=== PATIENT | female | born 1940 | race Caucasian/White ===

== ENCOUNTER 2019-12-20 11:39 | Emergency (ER) | payer MEDICARE, BC, SELFPAY ==
--- NOTE | ~2019-12-20 | XR_ITS ---
EXAMINATION: XR forearm RT 2V DATE: 12/20/2019 13:14 INDICATION: Right forearm pain and swelling post fall TECHNIQUE: AP an lateral views of the right forearm were obtained. COMPARISON: none FINDINGS: Bone alignment is normal. Diffuse osteopenia. No fracture. Lucencies at the lunate, head of the first metacarpal and radial base of the second proximal phalanx could represent degenerative subtle articu lar cystic change or erosions in the setting of an inflammatory arthritis. Mild osteoarthritis at the right wrist, radial aspect of the carpus and several metacarpophalangeal and interphalangeal joints. Soft tissue swelling along the dorsum of the forearm. No right elbow joint effusion. IMPRESSION: 1. No acute osseous abnormality. Reviewed, dictated and finalized at location A.
--- NOTE | ~2019-12-20 | XR_ITS ---
EXAMINATION: XR chest 2V DATE: 12/20/2019 13:14 INDICATION: Fall TECHNIQUE: PA and lateral views of the chest were obtained. COMPARISON: Chest radiograph dated 03/18/[address] dated 11/07/2017 FINDINGS: Mild biapical pleural-parenchymal scarring. No pneumonia, pulmonary edema, pleural effusion or pneumo thorax. Mild cardiomegaly. Large hiatal hernia. Severe thoracolumbar spondylosis. IMPRESSION: 1. No acute cardiopulmonary disease. 2. Cardiomegaly. 3. Large hiatal hernia. Reviewed, dictated and finalized at location A.
--- NOTE | ~2019-12-20 | CT_ITS ---
EXAMINATION: CT brain wo con DATE: 12/20/2019 13:24 INDICATION: Gait disturbance TECHNIQUE: Computed tomography (CT) of the head was performed without intravenous contrast. Sagittal and coronal reconstructions were performed. The mA was adjusted according to patient size. Iterative reconstruction technique was employed. The dose-length product was 605.33 mGy-cm. COMPARISON: head CT dated 05/29/2018 FINDINGS: No acute intracranial hemorrhage, acute infarction or abnormal extra axial fluid collection. Ventricl es are normal and symmetric. No mass/mass effect. There is mild scattered white matter hypoattenuatio n consistent with chronic small vessel ischemic disease. Changes of bilateral intraocular lens replac ement. The orbits and mastoid air cells are normal. Mild mucosal thickening in the left sphenoid sinu s. IMPRESSION: 1. No acute intracranial process. 2. Mild scattered white matter hypoattenuation consistent with chronic small vessel ischemic disease. Reviewed, dictated and finalized at location A. IMPRESSION: 1. No acute intracranial process. 2. Mild scattered white matter hypoattenuation consistent with chronic small ve ssel ischemic disease.
[2019-12-20 11:47] VITALS: BP 157/94; PULSE 100; RESP 20; TEMP 37; O2SAT 100
[2019-12-20 13:30] VITALS: PULSE 75; RESP 20; O2SAT 95
--- NOTE | 2019-12-20 13:33 | ED.WOUNDLAC ---
HPI - Wound/Laceration General Chief Complaint: Wound/Laceration Stated Complaint: Laceration Right Arm Time Seen by Provider: 12/20/19 11:58 Source: patient Mode of arrival: ambulatory Limitations: no limitations History of Present Illness HPI narrative: This is a 78 year old female that presents to the ER for a fall today. Reports she was walking up the steps and felt off balance. Reports she fell to her right into her flower bed. Reports she hit her right arm on a block. Reports a laceration to the forearm. Otherwise has no complaints. Denies fever, chest pain, shortness of breath, hitting her head, loss of consciousness, vision changes, vomiting, weakness, or numbness. Related Data Home Medications Medication Instructions Recorded Confirmed alendronate 70 mg tablet See Rx Instructions .ROUTE .COMPLEX 09/13/19 alprazolam 0.5 mg tablet 0.5 mg PO DAILY PRN 09/13/19 aspirin 81 mg tablet,delayed 81 mg PO DAILY 09/13/19 release calcium 600 mg-D3 800 unit-mag11 1 tablet PO DAILY 09/13/19 50 fn-oiat-kegzhj-alvin-s.borat tablet cholecalciferol (vitamin D3) 125 5,000 unit PO DAILY 09/13/19 mcg (5,000 unit) tablet duloxetine 60 mg capsule,delayed 60 mg PO DAILY 09/13/19 release levalbuterol tartrate 45 2 puff INHALATION Q6H gm 09/13/19 mcg/actuation aerosol inhaler magnesium 250 mg tablet See Rx Instructions .ROUTE .COMPLEX 09/13/19 mometasone 50 mcg/actuation nasal 2 spray NASAL BID gm 09/13/19 spray potassium chloride 20 mEq 20 meq PO .daily with food tablet 09/13/19 tablet,extended release salsalate 500 mg tablet 1,000 mg PO BID 09/13/19 theophylline 300 mg See Rx Instructions .ROUTE .COMPLEX 09/13/19 tablet,extended release,12 hr trospium 20 mg tablet 20 mg PO .COMPLEX tablet 09/13/19 Allergies Allergy/AdvReac Type Severity Reaction Status Date / Time ibuprofen Allergy Unknown Other Verified 12/20/19 11:53 Influenza Virus Vaccines Allergy Unknown Other Verified 12/20/19 11:53 Chlorophyll Allergy Mild RASH AND Uncoded 12/20/19 11:53 SWELLING Review of Systems Review of Systems: Narrative: CONSTITUTIONAL: Denies fever EYES: Denies visual changes ENT: Denies rhinorrhea, congestion, sore throat CARDIOVASCULAR: Denies chest pain, palpitations RESPIRATORY: Denies cough or dyspnea. GASTROINTESTINAL: Denies abdominal pain, nausea, vomiting GENITOURINARY: Denies dysuria or hematuria. SKIN: Reports laceration MUSCULOSKELETAL: Denies joint pain, or myalgia. NEUROLOGIC: Denies headache, numbness, or weakness. All systems reviewed & are unremarkable except as noted in HPI and below PMFSH Social History Social History Smoking status: Former smoker Second hand tobacco smoke exposure: No Smoking end date: 08/04/99 Alcohol intake: current Exam Narrative: Exam Narrative: GENERAL: Elderly, well-nourished, and in no acute distress. HEAD: Normocephalic, atraumatic. EYES: PERRLA and EOMI. ENT: Nares clear, no rhinorrhea or epistaxis. Mucous membranes moist. Oropharynx without tonsillar hypertrophy exudate or other lesions. Bilateral TMs pearly medina non-bulging NECK: Supple. No adenopathy or masses. No midline spinal tenderness CHEST: Clear to auscultation. No respiratory distress. No wheezes rales or rhonchi HEART: Regular rate and rhythm. No murmur heard. Normal peripheral pulses. ABDOMEN: Soft, nontender, nondistended, normal active bowel sounds. EXTREMITIES: Normal range of motion. No obvious deformity. Mild bruising and swelling to the right forearm with small overlying flap, superficial skin tear BACK: No midline spinal tenderness SKIN: Warm, dry, no rash. NEURO: No focal deficits. Alert and oriented x3. Cranial nerves II through XII grossly intact. Normal sduzaz-ax-whke. Normal mcjd-yg-[id number] PSYCH: Normal mood and affect Course Vital Signs Vital signs: Vital Signs Temperature 98.6 F 12/20/19 11:47 Pulse Rate 100 12/20/19 11:47 Respiratory Rate 20 12/20/19 11:
[2019-12-20 14:01] LABS: Basophils Absolute Auto 0.1 K/mm3 (0.0-0.1); Basophils Percent Auto 1.2 % (0.2-1.2); Eosinophils Absolute Auto 0.3 K/mm3 (0-0.3); Eosinophils Percent Auto 3.6 % (0-4.4); Hematocrit 39.8 % (37.0-47.0); Hemoglobin 12.8 g/dL (12.0-15.0); Immature Granulocyte Absolute 0.01 K/mm3 (0.00-0.031); Immature Granulocyte Percent A 0.1 % (0-0.5); Lymphocytes Absolute Auto 2.01 K/mm3 (0.9-3.2); Lymphocytes Percent Auto 26.5 % (18.3-44.2); Mean Corpuscular HGB Conc 32.2 g/dl (32-36); Mean Corpuscular Hemoglobin 27.6 pg (26-34); Mean Corpuscular Volume 85.8 fl (80-100); Mean Platelet Volume 10.9 fl (7.4-10.4); Monocytes Absolute Auto 0.6 K/mm3 (0.1-0.6); Monocytes Percent Auto 8.2 % (2.6-8.5); Neutrophils Absolute Auto 4.6 K/mm3 (1.3-6.7); Neutrophils Percent Auto 60.4 % (45.5-73.1); Platelet Count Result 250 k/mm3 (150-375); Red Blood Count 4.64 M/mm3 (4.2-5.4); White Blood Count 7.6 K/mm3 (4.5-10.0)
[2019-12-20 14:13] LABS: Alanine Aminotransferase 13 U/L (4-35); Albumin Level 4.4 g/dL (3.5-5.1); Alkaline Phosphatase 54 U/L (38-126); Aspartate Amino Transferase 28 U/L (14-36); Bilirubin,Total 0.3 mg/dL (0.2-1.3); Blood Urea Nitrogen 18 mg/dL (7-17); Calcium 9.8 mg/dL (8.4-10.2); Carbon Dioxide 37 mmol/L (22-30); Chloride 97 mmol/L (98-107); Estimated Glomerular Filt Rate 43; Glucose 102 mg/dL (65-105); Potassium 3.2 mmol/L (3.4-5.0); Sodium 139 mmol/L (137-145)
[2019-12-20 15:00] VITALS: PULSE 76; RESP 20; O2SAT 96
[2019-12-20 15:41] LABS: Add Urine Microscopic? YES; Appearance Urine Clear (Clear); Bilirubin Urine Negative (Negative); Blood Urine Negative (Negative); Color Urine Yellow (Yellow); Glucose Urine UA Negative (Negative); Ketones Urine Negative (Negative); Leukocyte Esterase Ur Negative LEU/UL (Negative); Mucus Urine Rare /lpf; Nitrate Urine Negative (Negative); Protein Urine Negative (Negative); Specific Grav Ur 1.012 (1.001-1.035); Squamous Epithelial Cell Urine Rare /hpf (Few); Urobilinogen Urine Negative mg/dL (<2.0); WBC Urine 0-3 /hpf
[2019-12-20] MEDS: POTASSIUM CHLORIDE 20 MEQ TABLET 40 MEQ PO (16:25)
[2019-12-20 16:30] VITALS: BP 133/74; PULSE 76; RESP 20; O2SAT 96
== END 2019-12-20 16:50 | disposition home or self-care (01) ==
PROVIDERS: Physician Assistant; Emergency Provider Emergency Medicine; PCP Emergency Medicine
DX: S51.811A Laceration without foreign body of right forearm, initial encounter (principal); E87.6 Hypokalemia; W10.9XXA Fall (on) (from) unspecified stairs and steps, initial encounter
CPT/HCPCS: 36415; 70450; 71046; 73090; 80053; 81001; 85025; 99284; A9270

== ENCOUNTER 2020-10-30 11:54 | Emergency (ER) | payer MEDICARE, BC, SELFPAY ==
[2020-10-30] VITALS (21 sets, daily range): BP systolic 113–144; BP diastolic 63–116; PULSE 62–99; RESP 8–26; TEMP 35.9; O2SAT 94–99
--- NOTE | ~2020-10-30 | US_ITS ---
EXAMINATION:US venous doppler LE BI INDICATION:Leg edema TECHNIQUE: Multiple grayscale, color flow and Doppler images of the bilateral lower extremity deep ve nous systems were obtained and reviewed. COMPARISON:No prior studies for comparison. FINDINGS: The common femoral, superficial femoral and popliteal veins demonstrate normal respiratory variation, augmentation and compressibility. Color flow is also seen within the posterior tibial, pe roneal, greater saphenous and profunda veins. IMPRESSION: 1: No lower extremity deep venous thrombosis. Reviewed, dictated and finalized at location B.
--- NOTE | ~2020-10-30 | XR_ITS ---
XR chest 2V 10/30/2020 14:12 Indication: Chest pain Procedure: PA and lateral views of the chest Comparison: Comparison to multiple prior studies sequentially, with oldest reviewed study dated 03/2018. Findings: Heart size normal. There is atherosclerosis of the aorta. No focal air space disease, pulmo nary edema, pleural effusion or suspected pneumothorax. There is a large hiatal hernia. Severe thorac ic and lumbar spondylosis with scoliosis. Impression: 1: No acute cardiopulmonary disease. 2: Large hiatal hernia. Reviewed, dictated and finalized at location B. Impression: 1: No acute cardiopulmonary disease. 2: Large hiatal hernia.
--- NOTE | 2020-10-30 11:57 | ECG_ITS ---
Measurements Intervals [place] Rate: 66 P: 36 IA: 166 QRS: -32 QRSD: 122 T: 106 QT: 435 QTc: 458 Interpretive Statements SINUS RHYTHM LEFT AXIS DEVIATION INTRAVENTRICULAR CONDUCTION DELAY LEFT VENTRICULAR HYPERTROPHY AND ST-T CHANGE BORDERLINE R WAVE PROGRESSION, ANTERIOR LEADS BASELINE ARTIFACT- I, II, III, AVR, AVL, AVF, V1-V3 BORDERLINE ECG Electronically Signed On 10-30-2020 12:53:30 CDT by Jarett Nunez D.O.
[2020-10-30 12:29] LABS: Basophils Absolute Auto 0.1 K/mm3 (0.0-0.1); Basophils Percent Auto 1.5 % (0.2-1.2); Eosinophils Absolute Auto 0.4 K/mm3 (0-0.3); Eosinophils Percent Auto 6.5 % (0-4.4); Hematocrit 35.2 % (37.0-47.0); Hemoglobin 10.8 g/dL (12.0-15.0); Immature Granulocyte Absolute 0.01 K/mm3 (0.00-0.031); Immature Granulocyte Percent A 0.2 % (0-0.5); Lymphocytes Absolute Auto 1.78 K/mm3 (0.9-3.2); Lymphocytes Percent Auto 29.9 % (18.3-44.2); Mean Corpuscular HGB Conc 30.7 g/dl (32-36); Mean Corpuscular Hemoglobin 24.5 pg (26-34); Mean Platelet Volume 10.4 fl (7.4-10.4); Monocytes Absolute Auto 0.7 K/mm3 (0.1-0.6); Monocytes Percent Auto 11.4 % (2.6-8.5); Neutrophils Percent Auto 50.5 % (45.5-73.1); Platelet Count Result 258 k/mm3 (150-375); Red Cell Distribution Width 15.5 % (11.5-14.5)
[2020-10-30 12:39] LABS: Anion Gap 7 mmol/L (8-16); Blood Urea Nitrogen 11 mg/dL (7-17); Calcium 9.6 mg/dL (8.4-10.2); Carbon Dioxide 35 mmol/L (22-30); Chloride 101 mmol/L (98-107); Estimated Glomerular Filt Rate 48; Glucose 109 mg/dL (65-105); Potassium 3.3 mmol/L (3.4-5.0); Sodium 143 mmol/L (137-145)
[2020-10-30 12:41] LABS: INR 0.9; Prothrombin Time 12.7 Seconds (11.1-14.7)
[2020-10-30 12:42] LABS: Partial Thromboplastin Time 30.3 SECONDS (22.3-36.8)
[2020-10-30 12:51] LABS: Troponin I < 0.012 ng/mL (0.000-0.034)
[2020-10-30] MEDS: ASPIRIN 81 MG CHEWABLE TABLET 243 MG PO (13:52)
--- NOTE | 2020-10-30 14:42 | ED.CHESTPAIN ---
HPI - Chest Pain General Chief Complaint: Chest Pain Stated Complaint: INT CP Time Seen by Provider: 10/30/20 13:34 History of Present Illness HPI narrative: Patient is an 79-year-old female who presents to the ER with chest pain. No previous history of coronary disease. Reports she has been having intermittent aches on the center/left side of her chest and also in her epigastrium. Can last for couple minutes up to an hour. No association with eating or drinking or exertion. Reports she does have history of acid reflux that usually gives her issues twice week but not as giving her issues 4-5 times a week. Unsure if it is related. No dark black stools. Denies fevers or chills or sweats. Patient also reports she has developed some increased swelling in her calves bilaterally. No history of PE/DVT. Related Data Home Medications Medication Instructions Recorded Confirmed aspirin 81 mg tablet,delayed 81 mg PO DAILY 09/13/19 07/25/20 release calcium 600 mg-D3 800 unit-mag11 1 tablet PO DAILY 09/13/19 07/25/20 50 ca-fngw-pdmxmh-alvin-s.borat tablet cholecalciferol (vitamin D3) 125 5,000 unit PO DAILY 09/13/19 07/25/20 mcg (5,000 unit) tablet levalbuterol tartrate 45 2 puff INHALATION Q6H gm 09/13/19 07/25/20 mcg/actuation aerosol inhaler magnesium 250 mg tablet See Rx Instructions .ROUTE .COMPLEX 09/13/19 07/25/20 mometasone 50 mcg/actuation nasal 2 spray NASAL BID gm 09/13/19 07/25/20 spray trospium 20 mg tablet 20 mg PO .COMPLEX tablet 09/13/19 07/25/20 ustekinumab 45 mg/0.5 mL 45 mg SUB-Q .[id number] ml 01/26/20 07/25/20 subcutaneous solution Allergies Allergy/AdvReac Type Severity Reaction Status Date / Time ibuprofen Allergy Unknown Other Verified 03/06/20 09:08 Influenza Virus Vaccines Allergy Unknown Other Verified 03/06/20 09:08 Chlorophyll Allergy Mild RASH AND Uncoded 03/06/20 09:08 SWELLING Review of Systems Review of Systems: All systems reviewed & are unremarkable except as noted in HPI and below Constitutional: Constitutional: Denies chills, Denies fever(s) and Denies weakness ENT: Denies nasal congestion and Denies sore throat Cardiovascular: Cardiovascular: Reports chest pain, Denies rapid heart rate and Denies radiating jaw, neck or arm pain Respiratory: Respiratory: Denies cough, Denies dyspnea and Denies wheezing Gastrointestinal: Gastrointestinal: Reports abdominal pain, Reports heartburn, Reports nausea and Denies vomiting Genitourinary: Genitourinary: Denies nocturia, Denies dysuria and Denies flank pain Musculoskeletal: Comments: Edema PMFSH Past Medical History Medical History (Updated 10/30/20 @ 17:11 by Jhonatan Mendoza MD) Asthma HLD (hyperlipidemia) Surgical History Surgical History H/O: hysterectomy S/P insertion of intrathecal pump Family History Family History Grandparent Family history of coronary artery disease Diabetes mellitus Father Family history of coronary artery disease Patient's father is Hypertension Asthma Family history of heart disease in male family member before age 55 Sibling Hypertension Family history of malignant neoplasm of brain Mother Family history of heart disease in male family member before age 55, Onset Age: 92 Family history of malignant neoplasm, Onset Age: 92 Family history of cardiovascular disease Family history of malignant neoplasm of stomach Other Family history of diabetes mellitus in first degree relative Social History Social History Smoking packs per day: 0.5 Smoking cigarettes per day: 10.0 Years smoked: 21 Smoking pack-years: 10.50 Smoking status: Former smoker Second hand tobacco smoke exposure: No Smoking end date: 08/04/99 Alcohol intake: current Gender identity (if verbalized
[2020-10-30 15:59] LABS: Troponin I < 0.012 ng/mL (0.000-0.034)
== END 2020-10-30 17:23 | disposition home or self-care (01) ==
PROVIDERS: Emergency Medicine; Emergency Provider Emergency Medicine; PCP Emergency Medicine
DX: K44.9 Diaphragmatic hernia without obstruction or gangrene (principal); J45.909 Unspecified asthma, uncomplicated; E78.5 Hyperlipidemia, unspecified; Z87.891 Personal history of nicotine dependence; I45.9 Conduction disorder, unspecified; I51.7 Cardiomegaly; R94.31 Abnormal electrocardiogram [ECG] [EKG]; Z79.82 Long term (current) use of aspirin
CPT/HCPCS: 36415; 71046; 80048; 84484; 85025; 85610; 85730; 93005; 93970; 99284; A9270

== ENCOUNTER 2020-11-03 09:46 | Outpatient (CLI) | payer MEDICARE, BC, SELFPAY ==
[2020-11-03 10:15] LABS: Basophils Absolute Auto 0.1 K/mm3 (0.0-0.1); Basophils Percent Auto 1.4 % (0.2-1.2); Eosinophils Absolute Auto 0.7 K/mm3 (0-0.3); Eosinophils Percent Auto 10.5 % (0-4.4); Hematocrit 34.2 % (37.0-47.0); Hemoglobin 10.5 g/dL (12.0-15.0); Immature Granulocyte Absolute 0.02 K/mm3 (0.00-0.031); Immature Granulocyte Percent A 0.3 % (0-0.5); Lymphocytes Absolute Auto 2.37 K/mm3 (0.9-3.2); Lymphocytes Percent Auto 34.1 % (18.3-44.2); Mean Corpuscular HGB Conc 30.7 g/dl (32-36); Mean Corpuscular Hemoglobin 24.9 pg (26-34); Mean Platelet Volume 10.6 fl (7.4-10.4); Monocytes Absolute Auto 0.6 K/mm3 (0.1-0.6); Monocytes Percent Auto 9.1 % (2.6-8.5); Neutrophils Absolute Auto 3.1 K/mm3 (1.3-6.7); Neutrophils Percent Auto 44.6 % (45.5-73.1); Platelet Count Result 264 k/mm3 (150-375); Red Blood Count 4.22 M/mm3 (4.2-5.4); Red Cell Distribution Width 15.6 % (11.5-14.5); White Blood Count 6.9 K/mm3 (4.5-10.0)
[2020-11-03 10:53] LABS: Alanine Aminotransferase 12 U/L (4-35); Albumin Level 4.1 g/dL (3.5-5.1); Alkaline Phosphatase 45 U/L (38-126); Anion Gap 4 mmol/L (8-16); Aspartate Amino Transferase 26 U/L (14-36); Bilirubin,Total 0.3 mg/dL (0.2-1.3); Blood Urea Nitrogen 14 mg/dL (7-17); Calcium 9.4 mg/dL (8.4-10.2); Carbon Dioxide 35 mmol/L (22-30); Chloride 102 mmol/L (98-107); Estimated Glomerular Filt Rate 43; Glucose 95 mg/dL (65-105); Potassium 3.9 mmol/L (3.4-5.0); Sodium 141 mmol/L (137-145)
== END 2020-11-03 09:47 | disposition home or self-care (01) ==
PROVIDERS: PCP Emergency Medicine
DX: L40.0 Psoriasis vulgaris (principal); Z79.899 Other long term (current) drug therapy
CPT/HCPCS: 36415; 80053; 85025

== ENCOUNTER 2020-11-07 10:45 | Outpatient (CLI) | payer MEDICARE, BC, SELFPAY ==
[2020-11-10 12:51] LABS: NIL 0.02 IU/mL; Quantiferon TB Plus, 1T NEGATIVE (NEGATIVE)
== END 2020-11-07 10:46 | disposition home or self-care (01) ==
LOC: ANHLAB 10:48
PROVIDERS: PCP Emergency Medicine
DX: L40.0 Psoriasis vulgaris (principal); Z51.81 Encounter for therapeutic drug level monitoring; Z79.899 Other long term (current) drug therapy
CPT/HCPCS: 36415; 86480

== ENCOUNTER 2022-04-01 15:25 | Inpatient (IN) | payer MEDICARE, BC, SELFPAY ==
[2022-04-01] VITALS (8 sets, daily range): BP systolic 102–141; BP diastolic 61–89; PULSE 68–82; RESP 12–18; TEMP 36.8; O2SAT 94–98; BMI 28.3
--- NOTE | ~2022-04-01 | XR_ITS ---
EXAMINATION: XR chest 1V portable Exam Date/Time: 04/01/2022 16:03 CDT HISTORY: chest pain radiating down arms; hx of HTN,asthma,prev smoker Comparison: 10/30/2020. RESULT: Lines, tubes, and devices: None. Lungs and pleura: Increased prominence of the pulmonary vessels, with mild cephalization and mild di ffuse reticular pattern, overlying senescent change. Cardiomediastinal silhouette: Stable. Large hiatal hernia. Other: No acute osseous or upper abdominal finding. IMPRESSION: Pulmonary vascular congestion and mild interstitial edema. Reviewed, dictated and finalized at location K.
--- NOTE | 2022-04-01 16:01 | ECG_ITS ---
Measurements Intervals [place] Rate: 78 P: 35 [place]: 198 QRS: -32 QRSD: 120 T: 119 QT: 407 QTc: 466 Interpretive Statements SINUS RHYTHM MARKED LEFT AXIS DEVIATION [QRS AXIS < -30] LEFT VENTRICULAR HYPERTROPHY AND ST-T CHANGE [VOLTAGE CRITERIA PLUS ST/T ABNORMALITY] COMPARED TO ECG 10/30/2020 12:07:55 NO SIGNIFICANT CHANGES Electronically Signed On 04-01-2022 17:14:19 CDT by Sawyer Hernandez M.D.
--- NOTE | 2022-04-01 16:03 | ED.CHESTPAIN ---
HPI - Chest Pain General Chief Complaint: Chest Pain Stated Complaint: chest pain Time Seen by Provider: 04/01/22 15:50 History of Present Illness HPI narrative: Pt was sitting and noticed some pressure in her chest, pt went to bathroom and pressure got much worse and radiated into her neck and down her arms. Pt took a regular strength asa and called 911. EMS gave nitro and pain is nearly completely resolved now. Pt has seen Dr Fish in past but not had history of SC. Related Data Home Medications Medication Instructions Recorded Confirmed aspirin 81 mg tablet,delayed 81 mg PO DAILY 09/13/19 03/18/22 release calcium 600 mg-D3 800 unit-mag11 1 tablet PO DAILY 09/13/19 03/18/22 50 ym-pten-mejpun-alvin-s.borat tablet (Caltrate 600-D Plus Minerals) magnesium 250 mg tablet See Rx Instructions .Route .COMPLEX 09/13/19 03/18/22 Eye Drops See Rx Instructions .Route .COMPLEX 10/12/21 03/18/22 albuterol sulfate 90 mcg/actuation See Rx Instructions .Route .COMPLEX 10/12/21 03/18/22 aerosol inhaler (ProAir HFA) calcipotriene-betamethasone 0.005 See Rx Instructions .Route .COMPLEX 10/12/21 03/18/22 %-0.064 % topical ointment (Taclonex) cholecalciferol (vitamin D3) 125 See Rx Instructions .Route .COMPLEX 10/12/21 03/18/22 mcg (5,000 unit) tablet clobetasol 0.05 % topical cream See Rx Instructions .Route .COMPLEX 10/12/21 03/18/22 fluticasone propionate 50 See Rx Instructions .Route .COMPLEX 10/12/21 03/18/22 mcg/actuation nasal spray,suspension (Flonase Allergy Relief) ustekinumab 45 mg/0.5 mL See Rx Instructions .Route .COMPLEX 11/07/21 03/18/22 subcutaneous solution (Stelara) Allergies Allergy/AdvReac Type Severity Reaction Status Date / Time ibuprofen Allergy Unknown Other Verified 04/01/22 15:33 Influenza Virus Vaccines Allergy Unknown Other Verified 04/01/22 15:33 Chlorophyll Allergy Mild RASH AND Uncoded 04/01/22 15:33 SWELLING Review of Systems Review of Systems: All systems reviewed & are unremarkable except as noted in HPI and below PMFSH Past Medical History Medical History Abnormal chest CT Abnormal CT of the chest Acute cystitis without hematuria Asthma 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 Bacterial infection, unspecified Body mass index [BMI] 26.0-26.9, adult (05/13/17) Body mass index [BMI] 27.0-27.9, adult (10/16/15) Body mass index [BMI] 28.0-28.9, adult (02/25/18) Chronic diastolic heart failure Chronic obstructive pulmonary disease, unspecified Chronic pain disorder CKD (chronic kidney disease) stage 3, GFR 30-59 ml/min Diastolic dysfunction Dyspnea Facial hematoma Falls infrequently Flank pain Gastro-esophageal reflux disease without esophagitis HLD (hyperlipidemia) Hypokalemia Hypoxemia Localized edema Major depressive disorder, single episode, unspecified Moderate persistent asthma with acute bronchitis and acute exacerbation Nausea Oropharyngeal dysphagia Overactive bladder Peripheral edema Pneumonia of right upper lobe due to infectious organism Psoriatic arthritis Pulmonary hypertension Pyelonephritis Reflux gastritis Rheumatoid arthritis, unspecified SOB (shortness of breath) URI, acute Urinary incontinence, mixed UTI (urinary tract infection), bacterial Vitamin D deficiency Surgical History Surgical History H/O: hysterectomy S/P insertion of intrathecal pump Family History Family History Grandparent Family history of coronary artery disease Diabetes mellitus Father Family history of coronary artery disease Patient's father is Hypertension Asthma Family history of heart disease in male family member before age 55 Sibling Hypertension Family history of malignant neoplasm of brain Mother Family hi
[2022-04-01 16:22] LABS: Basophils Absolute Auto 0.1 K/mm3 (0.0-0.1); Basophils Percent Auto 1.7 % (0.2-1.2); Eosinophils Absolute Auto 0.5 K/mm3 (0-0.3); Eosinophils Percent Auto 7.2 % (0-4.4); Hematocrit 32.8 % (37.0-47.0); Hemoglobin 9.7 g/dL (12.0-15.0); Immature Granulocyte Absolute 0.01 K/mm3 (0.00-0.031); Immature Granulocyte Percent A 0.2 % (0-0.5); Lymphocytes Absolute Auto 1.77 K/mm3 (0.9-3.2); Lymphocytes Percent Auto 27.6 % (18.3-44.2); Mean Corpuscular HGB Conc 29.6 g/dl (32-36); Mean Corpuscular Hemoglobin 22.5 pg (26-34); Mean Corpuscular Volume 75.9 fl (80-100); Mean Platelet Volume 10.7 fl (7.4-10.4); Monocytes Absolute Auto 0.5 K/mm3 (0.1-0.6); Monocytes Percent Auto 8.1 % (2.6-8.5); Neutrophils Absolute Auto 3.5 K/mm3 (1.3-6.7); Neutrophils Percent Auto 55.2 % (45.5-73.1); Platelet Count Result 263 k/mm3 (150-375); Red Blood Count 4.32 M/mm3 (4.2-5.4); White Blood Count 6.4 K/mm3 (4.5-10.0)
[2022-04-01] MEDS: NITROGLYCERIN OINTMENT 1 INCH DOSE 0.5 INCH TRANSDERM (16:22)
[2022-04-01 16:35] LABS: Alanine Aminotransferase 9 U/L (6-35); Albumin Level 4.2 g/dL (3.5-5.1); Alkaline Phosphatase 48 U/L (38-126); Anion Gap 8 mmol/L (8-16); Aspartate Amino Transferase 20 U/L (14-36); Bilirubin,Total 0.3 mg/dL (0.2-1.3); Blood Urea Nitrogen 17 mg/dL (7-17); Calcium 9.4 mg/dL (8.4-10.2); Carbon Dioxide 32 mmol/L (22-30); Chloride 98 mmol/L (98-107); Estimated Glomerular Filt Rate 47; Glucose 164 mg/dL (65-110); Lipase 22 U/L (23-300); Potassium 3.2 mmol/L (3.4-5.0); Sodium 138 mmol/L (137-145)
[2022-04-01 16:38] LABS: Prothrombin Time 12.7 Seconds (11.1-14.7)
[2022-04-01 16:39] LABS: Partial Thromboplastin Time 31.2 SECONDS (22.3-36.8)
[2022-04-01 16:47] LABS: NT Pro B Type Natriuretic Pept 188 pg/mL (5-100); Troponin I < 0.012 ng/mL (0.000-0.034)
--- NOTE | 2022-04-01 18:15 | PM.IMHP ---
H&P: HPI History of Present Illness Date/Time: 04/01/22 18:15 Chief Complaint: Chest pain. Narrative: This is a very pleasant 81-year-old female with history of GERD, asthma, chronic back pain, hypertension, hyperlipidemia, psoriatic arthritis, chronic kidney disease, and depression who presented to the emergency department via EMS from home for evaluation of chest pain. Not long prior to arrival she got up to use the restroom when she developed sudden onset of burning midsternal chest pain radiating to the throat and both arms. Initially she attributed her symptoms to heartburn which she apparently gets quite frequently however the symptoms today were much more severe than usual and she was worried that she may be having a heart attack. She took a full dose aspirin prior to calling the ambulance and she has not had any recurrent symptoms after receiving nitroglycerin per EMS. Vital signs were stable on arrival to the emergency department. Pertinent labs and a microcytic anemia with a hemoglobin and hematocrit of 9.7 and 32.8% respectively (new when compared to labs obtained last year), sodium 138, potassium 3.2, BUN 17, creatinine 1.10, proBNP 188, lipase 22, and troponin less than 0.012. EKG was reviewed and shows a sinus rhythm with a rate of 78, left axis deviation, and changes consistent with left ventricular hypertrophy. She is being admitted in this setting for closer monitoring and workup. At the time my evaluation she is sitting in bed doing a word puzzle and seems to be in no distress. She is not currently having any discomfort. She denies syncope, presyncope, exertional chest pain, pleuritic pain, palpitations, nausea, vomiting, bloating, belching, hematemesis, melena, and hematochezia. Review of Systems Review of Systems: Twelve systems were reviewed and are negative except for as per HPI. [facility] Past Medical History Medical History (Updated 04/01/22 @ 23:27 by Nicole Crawford PA-C) Asthma Asthma-COPD overlap syndrome Chronic diastolic heart failure Chronic kidney disease Chronic obstructive pulmonary disease Chronic pain disorder Secondary to chronic back pain from scoliosis and spinal stenosis. Gastroesophageal reflux disease Hyperlipidemia Major depressive disorder, single episode, unspecified Oropharyngeal dysphagia Overactive bladder Pneumonia of right upper lobe due to infectious organism Psoriatic arthritis Rheumatoid arthritis, unspecified Skin cancer Urinary incontinence, mixed Vitamin D deficiency Surgical History Surgical History (Updated 04/01/22 @ 23:12 by Nicole Crawford PA-C) History of cardiac catheterization (08/13/11) Normal coronary arteries. Left ventricular ejection fraction visually estimated 45% with hypokinesis of basal segments, suggestive of reversible/atypical takotsubo cardiomyopathy. History of cataract extraction History of hysterectomy History of spinal surgery Status post insertion of intrathecal pump Family History Family History Grandparent Family history of coronary artery disease Diabetes mellitus Father Family history of coronary artery disease Patient's father is Hypertension Asthma Family history of heart disease in male family member before age 55 Sibling Hypertension Family history of malignant neoplasm of brain Mother Family history of heart disease in male family member before age 55, Onset Age: 92 Family history of malignant neoplasm, Onset Age: 92 Family history of cardiovascular disease Family history of malignant neoplasm of stomach Other Family history of diabetes mellitus in first degree relative Social History Social History (Updated 04/01/22 @ 23:20 by Nicole Crawford PA-C) Social History: Surrogate medical decision maker: Gabino Mueller, spouse. Code status: Full code. Smoking packs per day: 0.5 Smoking cigarettes per day: 10.0 Years smoked:
[2022-04-01 19:26] LABS: Troponin I 0.022 ng/mL (0.000-0.034)
--- NOTE | 2022-04-01 20:28 | ADMGEN ---
This patient, Dunia Mueller, was admitted to IMU Room 214-01. Patient/family oriented to hospital policies and general routines including ID bracelet, bed and alarms, visiting hours, pain management, procedures, bathroom and other care routines, personal items, smoking policy, room service/diet, and visiting hours. Information on how to activate the Rapid Response Team has been discussed. Patient/Family are encouraged to report perceived risks to care and to ask questions if they do not understand what they are told or what they should do.
[2022-04-01 22:26] LABS: Troponin I 0.023 ng/mL (0.000-0.034)
[2022-04-01 23:36] LABS: Magnesium 2.4 mg/dL (1.6-2.3)
[2022-04-01] MEDS: POTASSIUM CHLORIDE 20 MEQ TABLET PO (23:37)
[2022-04-01 23:38] LABS: Hematocrit 30.5 % (37.0-47.0)
[2022-04-02] VITALS (15 sets, daily range): BP systolic 112–128; BP diastolic 63–76; PULSE 58–115; RESP 14–18; TEMP 36.1–36.9; O2SAT 94–100
[2022-04-02 00:04] LABS: Iron 21 ug/dL (37-170)
[2022-04-02 00:14] LABS: Percent Iron Saturation 5 % (20-50)
[2022-04-02 00:40] LABS: Ferritin 6.54 ng/mL (11.1-264)
[2022-04-02] MEDS: THEOPHYLLINE 150 MG 450 MG PO (00:40)
[2022-04-02] MEDS: CHOLECALCIFEROL 1,000 UNITS TABLET 5000 UNITS PO ×2 (00:40→20:41)
[2022-04-02] MEDS: SIMVASTATIN 10 MG TABLET PO ×2 (00:41→20:41)
[2022-04-02 01:07] LABS: Folic Acid 18.3 ng/mL (2.76->20)
[2022-04-02 05:26] LABS: IFOB Positive Control Positive; Immunochemical Fecal Occult Bl Positive (N)
[2022-04-02 06:06] LABS: Hematocrit 30.9 % (37.0-47.0); Mean Corpuscular HGB Conc 29.1 g/dl (32-36); Mean Corpuscular Hemoglobin 22.4 pg (26-34); Mean Corpuscular Volume 76.9 fl (80-100); Platelet Count Result 255 k/mm3 (150-375); Red Blood Count 4.02 M/mm3 (4.2-5.4); Red Cell Distribution Width 18.1 % (11.5-14.5); White Blood Count 6.5 K/mm3 (4.5-10.0)
[2022-04-02 06:26] LABS: Alanine Aminotransferase 7 U/L (6-35); Alkaline Phosphatase 46 U/L (38-126); Anion Gap 0 mmol/L (8-16); Aspartate Amino Transferase 21 U/L (14-36); Bilirubin,Total 0.2 mg/dL (0.2-1.3); Blood Urea Nitrogen 15 mg/dL (7-17); Calcium 8.8 mg/dL (8.4-10.2); Carbon Dioxide 35 mmol/L (22-30); Chloride 97 mmol/L (98-107); Estimated Glomerular Filt Rate 47; Glucose 100 mg/dL (65-110); Potassium 3.5 mmol/L (3.4-5.0); Sodium 132 mmol/L (137-145)
[2022-04-02] MEDS: PANTOPRAZOLE SODIUM IV 40 MG VIAL IV PUSH ×2 (09:18→20:41)
[2022-04-02] MEDS: FUROSEMIDE 20 MG TABLET 60 MG PO (09:18)
[2022-04-02] MEDS: FLUTICASONE PROPIONATE 0.05% NA SPR 16 GM BTL (*BKC) 2 SPRAY NASAL (09:18)
[2022-04-02] MEDS: MAGNESIUM OXIDE 400 MG TABLET PO (09:19)
[2022-04-02] MEDS: CLOBETASOL PROPIONATE 0.05% CREAM 30 GM 1 APPLIC TOPICAL ×2 (09:19→18:18)
[2022-04-02] MEDS: DULoxetine HCL 60 MG CAPSULE.DR PO (09:19)
[2022-04-02] MEDS: POTASSIUM CHLORIDE 20 MEQ TABLET.ER PO (09:19)
[2022-04-02] MEDS: MONTELUKAST SODIUM 10 MG TABLET PO (09:19)
[2022-04-02] MEDS: THEOPHYLLINE 150 MG PO ×2 (09:20→20:41)
[2022-04-02] MEDS: THEOPHYLLINE 300 MG ER 12 HR TABLET PO ×2 (09:20→20:41)
[2022-04-02] MEDS: UMECLIDINIUM BROMIDE 62.5 MCG ELLIPTA 1 PUFF INHALATION (09:36)
[2022-04-02 12:38] LABS: Hematocrit 31.8 % (37.0-47.0); Hemoglobin 9.5 g/dL (12.0-15.0)
--- NOTE | 2022-04-02 13:51 | PM.IMPN ---
Progress Note: A&P Assessment and Plan (1) Chest pain: Code(s): R07.9 - Chest pain, unspecified Status: Acute Assessment and Plan: Atypical presentation for cardiac etiology. EKG was reviewed and shows no acute ST segment changes or changes when compared to previous tracings and her initial troponin has been normal. Serial troponin came back negative as well suspected to be related to GERD and/or esophagitis/gastritis. Does have chronic history of reflux disease. Started on Protonix. Consult GI (2) Microcytic anemia: Code(s): D50.9 - Iron deficiency anemia, unspecified Status: Acute Assessment and Plan: Hemoglobin and hematocrit are lower than what she typically runs. Stool for occult blood came back positive. H&H remained stable since hospitalization so do not suspect active bleed. Will check iron studies On Protonix GI consultation will be obtained (3) Hypokalemia: Code(s): E87.6 - Hypokalemia Status: Acute Assessment and Plan: Potassium will be replaced and monitored. (4) Chronic kidney disease: Code(s): N18.9 - Chronic kidney disease, unspecified Status: Acute Assessment and Plan: Creatinine is stable on review of previous labs. (5) Asthma-COPD overlap syndrome: Code(s): J44.9 - Chronic obstructive pulmonary disease, unspecified Status: Acute Assessment and Plan: No acute issues. Continue inhalers. (6) Chronic diastolic heart failure: Code(s): I50.32 - Chronic diastolic (congestive) heart failure Status: Acute Assessment and Plan: Clinically compensated. Chest x-ray does show findings of mild pulmonary vascular congestion. Continue furosemide and monitor. Not in acute distress. No hypoxia Subjective Date/time seen: 04/02/22 13:51 Interval history: HPI:This is a very pleasant 81-year-old female with history of GERD, asthma, chronic back pain, hypertension, hyperlipidemia, psoriatic arthritis, chronic kidney disease, and depression who presented to the emergency department via EMS from home for evaluation of chest pain. Not long prior to arrival she got up to use the restroom when she developed sudden onset of burning midsternal chest pain radiating to the throat and both arms. Initially she attributed her symptoms to heartburn which she apparently gets quite frequently however the symptoms today were much more severe than usual and she was worried that she may be having a heart attack. She took a full dose aspirin prior to calling the ambulance and she has not had any recurrent symptoms after receiving nitroglycerin per EMS. Vital signs were stable on arrival to the emergency department. Pertinent labs and a microcytic anemia with a hemoglobin and hematocrit of 9.7 and 32.8% respectively (new when compared to labs obtained last year), sodium 138, potassium 3.2, BUN 17, creatinine 1.10, proBNP 188, lipase 22, and troponin less than 0.012. EKG was reviewed and shows a sinus rhythm with a rate of 78, left axis deviation, and changes consistent with left ventricular hypertrophy. She is being admitted in this setting for closer monitoring and workup. At the time my evaluation she is sitting in bed doing a word puzzle and seems to be in no distress. She is not currently having any discomfort. She denies syncope, presyncope, exertional chest pain, pleuritic pain, palpitations, nausea, vomiting, bloating, belching, hematemesis, melena, and hematochezia. 04/02/2022No overnight events. Chest pain has resolved. It was mid sternal burning sensation to sharp pain does have history of reflux disease Review of Systems Review of Systems: All systems reviewed & are unremarkable except as noted in HPI and below Exam Narrative: General: Well-developed female sitting up in bed in no distress. HEENT: Wearing glasses. PERRL, EOMI. Sclerae anicteric. Mild conjunctival pallor. Tacky mucous membranes. Neck:
--- NOTE | 2022-04-02 15:39 | WPDGICN ---
Assessment and Plan Assessment and plan (1) JESSICA (iron deficiency anemia): Code(s): D50.9 - Iron deficiency anemia, unspecified Status: Acute Assessment and Plan: Patient found to have iron deficiency anemia. Now with occult blood in stool as well. Plan for colonoscopy an EGD tomorrow after preparation. Patient does have underlying history of GE reflux disease. She was admitted with a history of atypical chest pain IA was excluded. EGD hopefully will help clarify any upper GI disease. Continuing patient on PPI therapy appears appropriate. (2) Gastroesophageal reflux disease: Code(s): K21.9 - Gastro-esophageal reflux disease without esophagitis Status: Acute Assessment and Plan: [place] diet in Protonix or suggested initially. Will evaluate with EGD. Atypical chest pain may be related to her history of GE reflux disease. (3) COPD with asthma: Code(s): J44.9 - Chronic obstructive pulmonary disease, unspecified Status: Acute GI Consult Note Consult date/time: 04/02/22 15:39 Reason for consult: Iron deficiency anemia and occult blood in stool. HPI: Dunia Mueller is a 81 year old female I am asked to see at the request of the hospitalist service. Patient with a longstanding history of heartburn and GE reflux. Developed substernal chest pain yesterday. Pain began to become very intense she felt pressure in the substernal portion of the chest. This did not relieved with antacids. She reports pain is not specifically related to eating.For this reason she presented to the emergency room. A myocardial infarction was excluded. Patient had laboratory testing which ultimately revealed iron deficiency anemia. Microcytic anemia was identified. Iron indices are low. Stool Hemoccult today was found to be positive. Patient denies any obvious blood in her stools. She does have a past medical history of depression. She has scoliosis and chronic back pain for which she has a pain pump. Patient has been treated for underlying psoriatic arthritis she also has rheumatoid arthritis. And COPD. Family history is noncontributory. Review of Systems Review of Systems: Review of systems noncontributory. [facility] Past Medical History Medical History (Updated 04/02/22 @ 15:54 by Jack Karimi MD) Asthma Asthma-COPD overlap syndrome Chronic diastolic heart failure Chronic kidney disease Chronic obstructive pulmonary disease Chronic pain disorder Secondary to chronic back pain from scoliosis and spinal stenosis. Gastroesophageal reflux disease Hyperlipidemia Major depressive disorder, single episode, unspecified Oropharyngeal dysphagia Overactive bladder Pneumonia of right upper lobe due to infectious organism Psoriatic arthritis Rheumatoid arthritis, unspecified Skin cancer Urinary incontinence, mixed Vitamin D deficiency Surgical History Surgical History (Updated 04/01/22 @ 23:12 by Nicole Crawford PA-C) History of cardiac catheterization (08/13/11) Normal coronary arteries. Left ventricular ejection fraction visually estimated 45% with hypokinesis of basal segments, suggestive of reversible/atypical takotsubo cardiomyopathy. History of cataract extraction History of hysterectomy History of spinal surgery Status post insertion of intrathecal pump Family History Family History Grandparent Family history of coronary artery disease Diabetes mellitus Father Family history of coronary artery disease Patient's father is Hypertension Asthma Family history of heart disease in male family member before age 55 Sibling Hypertension Family history of malignant neoplasm of brain Mother Family history of heart disease in male family member before age 55, Onset Age: 92 Family history of malignant neoplasm, Onset Age: 92 Family history of cardiovascular disease Family history of kaylee
[2022-04-02 16:03] LABS: Iron 22 ug/dL (37-170)
[2022-04-02 16:12] LABS: Percent Iron Saturation 5 % (20-50)
[2022-04-02 16:37] LABS: Ferritin 6.85 ng/mL (11.1-264)
[2022-04-02] MEDS: PEG (High)/E-LYTE SOLN 4,000 ML BTL 4000 ML PO (18:16)
[2022-04-02 18:40] LABS: Hemoglobin 10.6 g/dL (12.0-15.0)
[2022-04-03] VITALS (13 sets, daily range): BP systolic 96–155; BP diastolic 59–99; PULSE 58–79; RESP 12–20; TEMP 36.3–36.7; O2SAT 95–100
[2022-04-03 05:00] LABS: Basophils Absolute Auto 0.1 K/mm3 (0.0-0.1); Basophils Percent Auto 1.1 % (0.2-1.2); Eosinophils Absolute Auto 0.6 K/mm3 (0-0.3); Eosinophils Percent Auto 6.9 % (0-4.4); Hematocrit 31.4 % (37.0-47.0); Hemoglobin 9.3 g/dL (12.0-15.0); Immature Granulocyte Absolute 0.03 K/mm3 (0.00-0.031); Immature Granulocyte Percent A 0.4 % (0-0.5); Lymphocytes Absolute Auto 2.74 K/mm3 (0.9-3.2); Lymphocytes Percent Auto 33.1 % (18.3-44.2); Mean Corpuscular HGB Conc 29.6 g/dl (32-36); Mean Corpuscular Hemoglobin 22.4 pg (26-34); Mean Corpuscular Volume 75.5 fl (80-100); Mean Platelet Volume 10.9 fl (7.4-10.4); Monocytes Absolute Auto 0.8 K/mm3 (0.1-0.6); Monocytes Percent Auto 9.4 % (2.6-8.5); Neutrophils Absolute Auto 4.1 K/mm3 (1.3-6.7); Neutrophils Percent Auto 49.1 % (45.5-73.1); Platelet Count Result 258 k/mm3 (150-375); Red Blood Count 4.16 M/mm3 (4.2-5.4); White Blood Count 8.3 K/mm3 (4.5-10.0)
[2022-04-03 05:15] LABS: Alanine Aminotransferase 7 U/L (6-35); Albumin Level 3.8 g/dL (3.5-5.1); Alkaline Phosphatase 45 U/L (38-126); Anion Gap 9 mmol/L (8-16); Aspartate Amino Transferase 19 U/L (14-36); Bilirubin,Total 0.4 mg/dL (0.2-1.3); Blood Urea Nitrogen 12 mg/dL (7-17); Calcium 8.9 mg/dL (8.4-10.2); Carbon Dioxide 33 mmol/L (22-30); Chloride 96 mmol/L (98-107); Estimated Glomerular Filt Rate 53; Glucose 95 mg/dL (65-110); Magnesium 2.3 mg/dL (1.6-2.3); Potassium 3.3 mmol/L (3.4-5.0); Sodium 138 mmol/L (137-145)
[2022-04-03 06:24] LABS: Anisocytosis 1+ (NORMAL); Hypochromasia 1+ (NORMAL); Microcytosis 1+ (NORMAL); Platelet Estimate Adequate (Adequate)
[2022-04-03] MEDS: THEOPHYLLINE 300 MG ER 12 HR TABLET PO (09:08)
[2022-04-03] MEDS: THEOPHYLLINE 150 MG PO (09:08)
[2022-04-03] MEDS: PANTOPRAZOLE SODIUM IV 40 MG VIAL IV PUSH (09:08)
[2022-04-03] MEDS: FUROSEMIDE 20 MG TABLET 60 MG PO (09:10)
[2022-04-03] MEDS: MONTELUKAST SODIUM 10 MG TABLET PO (09:11)
[2022-04-03] MEDS: POTASSIUM CHLORIDE 20 MEQ TABLET.ER PO (09:12)
[2022-04-03] MEDS: UMECLIDINIUM BROMIDE 62.5 MCG ELLIPTA 1 PUFF INHALATION (09:19)
--- NOTE | 2022-04-03 11:19 | WPDANESEPPF ---
Anes - Initial Pre Proc Eval Procedure: Operation Date: 04/03/22 12:30 Proposed Procedures p Esophagogastroduodenoscopy & Colonoscopy - Jack Karimi MD Date/Time: 04/03/22 11:19 Surgeon: Fausto Hensley MD Pre Op Diagnosis: chest pain Patient Data Age: 81 Gender: F Height: 1.4 m Weight: 56.6 kg Last Vital Signs Temp 36.3 C L 04/03/22 07:58 Pulse 62 04/03/22 08:45 Resp 14 04/03/22 07:58 BP 135/80 04/03/22 07:58 Pulse Ox 96 04/03/22 09:19 O2 Del Method Room Air 04/03/22 09:19 Allergies Allergy/AdvReac Type Severity Reaction Status Date / Time ibuprofen Allergy Unknown Other Verified 04/03/22 11:17 Influenza Virus Vaccines Allergy Unknown Other Verified 04/03/22 11:17 Chlorophyll Allergy Mild RASH AND Uncoded 04/03/22 11:17 SWELLING Home Medications Medication Instructions Recorded Confirmed Type aspirin 81 mg tablet,delayed 81 mg PO DAILY 09/13/19 04/03/22 History release calcium 600 mg-D3 800 unit-mag11 1 tablet PO DAILY 09/13/19 04/03/22 History 50 zx-wfic-tkfyts-alvin-s.borat tablet (Caltrate 600-D Plus Minerals) magnesium 250 mg tablet 500 mg PO DAILY 09/13/19 04/03/22 History Eye Drops 1 drp EACH EYE DAILY 10/12/21 04/03/22 History albuterol sulfate 90 mcg/actuation 2 puff inhalation Q4-6H PRN 10/12/21 04/03/22 History aerosol inhaler (ProAir HFA) Shortness Of Breath Or Wheezing calcipotriene-betamethasone 0.005 1 ea topical BID 10/12/21 04/03/22 History %-0.064 % topical ointment (Taclonex) cholecalciferol (vitamin D3) 125 5,000 unit PO HS 10/12/21 04/03/22 History mcg (5,000 unit) tablet clobetasol 0.05 % topical cream 1 applic topical BID 10/12/21 04/03/22 History fluticasone propionate 50 2 spray intranasal DAILY 10/12/21 04/03/22 History mcg/actuation nasal spray,suspension (Flonase Allergy Relief) ustekinumab 45 mg/0.5 mL 45 mg subcut Q3M 11/07/21 04/03/22 History subcutaneous solution (Stelara) tiotropium bromide 1.25 2 puff inhalation Q24H #4 grams 12/24/21 04/03/22 Rx mcg/actuation mist for inhalation (Spiriva Respimat) alendronate 70 mg tablet (Fosamax) 70 mg PO WEEKLY 04/01/22 04/03/22 History duloxetine 60 mg capsule,delayed 60 mg PO DAILY 04/01/22 04/03/22 History release esomeprazole magnesium 40 mg 80 mg PO DAILY 04/01/22 04/03/22 History capsule,delayed release furosemide 40 mg tablet 60 mg PO DAILY 04/01/22 04/03/22 History montelukast 10 mg tablet 10 mg PO DAILY 04/01/22 04/03/22 History potassium chloride 20 mEq 20 meq PO DAILY 04/01/22 04/03/22 History tablet,extended release salsalate 500 mg tablet 1,000 mg PO BID 04/01/22 04/03/22 History simvastatin 10 mg tablet 10 mg PO HS 04/01/22 04/03/22 History theophylline 300 mg 450 mg PO BID 04/01/22 04/03/22 History tablet,extended release,12 hr trospium 20 mg tablet 20 mg PO DAILY 04/01/22 04/03/22 History Laboratory Tests 04/02/22 04/02/22 04/02/22 12:24 15:17 18:32 WBC RBC Hgb 9.5 g/dL L g/dL 10.6 g/dL L g/dL (12.0-15.0) (12.0-15.0) Hct 31.8 % L % 36.0 % L % (37.0-47.0) (37.0-47.0) MCV MCH MCHC RDW Plt Count MPV Immature Gran % (Auto) Neut % (Auto) Lymph % (Auto) [place] % (Auto) Eos % (Auto) Baso % (Auto) Lymph # (Auto) [place] # (Auto) Eos # (Auto) Baso # (Auto) Abs Immat Gran (auto) Absolute Neuts (auto) Absolute Nucleated RBC Nucleated RBC % Platelet Estimate Hypochromasia Anisocytosis Microcytosis Sodium Potassium Chloride Carbon Dioxide Anion Gap BUN Creatinine Estim Creat Clear Calc
[2022-04-03] MEDS: LACTATED RINGERS 1,000 ML 150 ML IV CONT (11:24)
--- NOTE | 2022-04-03 11:53 | PC.NURSE ---
@1000- pt for egd/colonoscopy today- pt wants to wait and take some of her am medications after test completed
--- NOTE | 2022-04-03 13:15 | SUR.OPER ---
EGD completed at 1310. Colonoscopy began at 1316.
[2022-04-03] MEDS: DULoxetine HCL 60 MG CAPSULE.DR PO (14:28)
[2022-04-03] MEDS: MAGNESIUM OXIDE 400 MG TABLET PO (14:28)
--- NOTE | 2022-04-03 15:03 | PM.DS ---
DS: Admitting Diagnosis Discharge Date 04/03/22 Admitting Diagnosis Chest pain DS: Discharge Diagnosis Discharge Diagnosis (1) Chest pain: Code(s): R07.9 - Chest pain, unspecified Status: Acute (2) Microcytic anemia: Code(s): D50.9 - Iron deficiency anemia, unspecified Status: Acute (3) Hypokalemia: Code(s): E87.6 - Hypokalemia Status: Acute (4) Chronic kidney disease: Code(s): N18.9 - Chronic kidney disease, unspecified Status: Acute (5) Asthma-COPD overlap syndrome: Code(s): J44.9 - Chronic obstructive pulmonary disease, unspecified Status: Acute (6) Chronic diastolic heart failure: Code(s): I50.32 - Chronic diastolic (congestive) heart failure Status: Acute DS: Summary Hospital Course Reason for hospitalization: 81yo female with asthma, GERD, HTN and CKD here for chest pain. Please see H&P for details Hospital Course: She took a full dose aspirin prior to calling the ambulance and she has not had any recurrent symptoms after receiving nitroglycerin per EMS. Vital signs were stable on arrival to the emergency department. Pertinent labs and a microcytic anemia with a hemoglobin and hematocrit of 9.7 and 32.8% respectively, sodium 138, potassium 3.2, BUN 17, creatinine 1.10, proBNP 188, lipase 22, and troponin less than 0.012. EKG was reviewed and shows a sinus rhythm with a rate of 78, left axis deviation, and changes consistent with left ventricular hypertrophy. CXR showing large hiatal hernia and pulmonary vascular congestion and mild edema. She was admitted to the IMU. Stool guaiac positive. Iron studies consistent with iron deficiency. Troponin negative x3. B12, folate and TSH levels were normal. PT and PTT were normal. She does take an aspirin a day. White cell count and platelet count were normal and remained normal. Hemoglobin was 9.7 and they remained stable in the 9-10 range. Hemoglobin last year was 10.5. It was felt that her chest pain was related to GERD. GI was consulted and patient underwent EGD which showed large hiatal hernia but normal esophagus, stomach and duodenum. It was suspected the patient has acid reflux. Colonoscopy showed a single medium semi pedunculated polyp in the rectum that was removed. There are hemorrhoids but they were not actively bleeding. There is no obvious explanation for her iron deficiency. Hemoglobin remains stable. She has been up walking to the bathroom. No further chest pain. She overall did well was able be discharged home on 04/03/2022. Status at Discharge Cognitive/behavioral status at discharge: Stable Time Spent with Patient Time attestation: Total time spent providing and/or coordinating discharge services: 34 minutes Time spent: Greater than 30 minutes Exam Narrative: AF 98.1 155/99 61 12 100% ra Gen - NARD Chest - CTA bilaterally, nml RR CV - RRR S1/S2 Abd - Soft, NT/ND, Positive BS Ext - No pedal edema Neuro - Alert and oriented. Nonfocal exam. Psych - Nml mood and affect Skin - Warm and dry DS: Data Data Completed and Pending Pending studies at discharge: Pending at discharge 04/03/22 13:32 Surgical [PTH] Routine Labs on day of discharge: Labs from last 24 hours 04/03/22 04/03/22 04/02/22 04:40 04:40 18:32 WBC 8.3 RBC 4.16 L Hgb 9.3 L 10.6 L Hct 31.4 L 36.0 L MCV 75.5 L MCH 22.4 L MCHC 29.6 L RDW 18.0 H Plt Count 258 MPV 10.9 H Immature Gran % (Auto) 0.4 Neut % (Auto) 49.1 Lymph % (Auto) 33.1 [place] % (Auto) 9.4 H Eos % (Auto) 6.9 H Baso % (Auto) 1.1 Lymph # (Auto) 2.74 [place] # (Auto) 0.8 H Eos # (Auto) 0.6 H Baso # (Auto) 0.1 Abs Immat Gran (auto) 0.03 Absolute Neuts (auto) 4.1 Absolute Nucleated RBC 0.0 Nucleated RBC % 0.0 Platelet Estimate Adequate Hypochromasia 1+ Anisocytosis 1+ Microcytosis 1+ Sodium 138 Potassium 3.3 L
[2022-04-03] MEDS: POTASSIUM CHLORIDE 20 MEQ TABLET PO (15:16)
--- NOTE | 2022-04-09 12:14 | PC.NURSE ---
Polyp pathology shows tubular adenoma; rectal polyp.
--- NOTE | 2022-04-10 09:20 | PC.NURSE ---
pathology for rectal polyp faxed to PCP.
== END 2022-04-03 16:45 | disposition home or self-care (01) | DRG 392 ==
LOC: ANHED 17:58 → ANHIMU 19:44
PROVIDERS: Internal Medicine Gastroenterology; Physician Assistant; Admitting Provider Internal Medicine; Emergency Provider Emergency Medicine; PCP Emergency Medicine; Visit Provider Internal Medicine
PROC: 0DJ08ZZ Inspection of Upper Intestinal Tract, Via Natural or Artificial Opening Endoscopic (ICD-10-PCS; CPT 43235; principal; 2022-04-03 12:30)
DX: K21.9 Gastro-esophageal reflux disease without esophagitis (principal); I13.0 Hypertensive heart and chronic kidney disease with heart failure and stage 1 through stage 4 chronic kidney disease, or unspecified chronic kidney disease; I50.32 Chronic diastolic (congestive) heart failure; N18.30 Chronic kidney disease, stage 3 unspecified; D12.8 Benign neoplasm of rectum; J44.9 Chronic obstructive pulmonary disease, unspecified; I27.20 Pulmonary hypertension, unspecified; E55.9 Vitamin D deficiency, unspecified; E78.5 Hyperlipidemia, unspecified; E87.6 Hypokalemia; D50.9 Iron deficiency anemia, unspecified; K44.9 Diaphragmatic hernia without obstruction or gangrene; K57.30 Diverticulosis of large intestine without perforation or abscess without bleeding; K64.8 Other hemorrhoids; N32.81 Overactive bladder; L40.50 Arthropathic psoriasis, unspecified; M06.9 Rheumatoid arthritis, unspecified; R19.5 Other fecal abnormalities; G89.29 Other chronic pain; R13.12 Dysphagia, oropharyngeal phase; F32.9 Major depressive disorder, single episode, unspecified; Z87.891 Personal history of nicotine dependence
CPT/HCPCS: 36415; 71045; 80053; 82274; 82607; 82728; 82746; 83540; 83550; 83690; 83735; 83880; 84443; 84484; 85014; 85018; 85025; 85027; 85610; 85730; 88305; 93005; 94640; 96374; 99285; A9270; C9113; G0378; J2704; J7120

== ENCOUNTER → 2022-04-10 12:34 | Outpatient (CLI) | payer MEDICARE, BC, SELFPAY ==
--- NOTE | ~2022-04-10 | MM_ITS ---
EXAMINATION: MM screening daniel BI w yana HISTORY: Screening mammogram TECHNIQUE: Craniocaudal and mediolateral oblique 3-D tomosynthesis images were obtained and synthetic 2-D images were generated. CAD analysis was submitted and interpreted. COMPARISON: 03/17/2019, 03/22/2018, 11/18/2016 bilateral screening mammogram examinations BREAST PARENCHYMAL COMPOSITION: There are scattered areas of fibroglandular density.. FINDINGS: There is no evidence of suspicious mass, calcification, or architectural distortion to sugg est malignancy in either breast. There has been no suspicious interval change. IMPRESSION: 1. No mammographic evidence of malignancy. 2. Recommend routine screening mammography in one year. BI-RADS Category 1: Negative Reviewed, dictated and finalized at location A.
== END ==
PROVIDERS: PCP Emergency Medicine; Visit Provider Obstetrics & Gynecology
DX: Z12.31 Encounter for screening mammogram for malignant neoplasm of breast (principal)
CPT/HCPCS: 77063; 77067

== ENCOUNTER 2022-08-14 08:15 | Outpatient (CLI) | payer MEDICARE, BC, SELFPAY ==
[2022-08-14 09:23] LABS: Basophils Absolute Auto 0.1 K/mm3 (0.0-0.1); Basophils Percent Auto 1.7 % (0.2-1.2); Eosinophils Absolute Auto 0.4 K/mm3 (0-0.3); Eosinophils Percent Auto 6.8 % (0-4.4); Hematocrit 43.9 % (37.0-47.0); Hemoglobin 14.2 g/dL (12.0-15.0); Immature Granulocyte Absolute 0.02 K/mm3 (0.00-0.031); Immature Granulocyte Percent A 0.3 % (0-0.5); Lymphocytes Absolute Auto 2.07 K/mm3 (0.9-3.2); Lymphocytes Percent Auto 32.7 % (18.3-44.2); Mean Corpuscular HGB Conc 32.3 g/dl (32-36); Mean Corpuscular Hemoglobin 29.3 pg (26-34); Mean Corpuscular Volume 90.7 fl (80-100); Mean Platelet Volume 11.1 fl (7.4-10.4); Monocytes Absolute Auto 0.6 K/mm3 (0.1-0.6); Monocytes Percent Auto 9.6 % (2.6-8.5); Neutrophils Absolute Auto 3.1 K/mm3 (1.3-6.7); Neutrophils Percent Auto 48.9 % (45.5-73.1); Platelet Count Result 195 k/mm3 (150-375); Red Blood Count 4.84 M/mm3 (4.2-5.4); Red Cell Distribution Width 13.5 % (11.5-14.5); White Blood Count 6.3 K/mm3 (4.5-10.0)
[2022-08-14 09:36] LABS: Alanine Aminotransferase 12 U/L (6-35); Albumin Level 4.1 g/dL (3.5-5.1); Alkaline Phosphatase 44 U/L (38-126); Anion Gap 2 mmol/L (8-16); Aspartate Amino Transferase 22 U/L (14-36); Bilirubin,Total 0.4 mg/dL (0.2-1.3); Blood Urea Nitrogen 20 mg/dL (7-17); Calcium 9.9 mg/dL (8.4-10.2); Carbon Dioxide 36 mmol/L (22-30); Chloride 98 mmol/L (98-107); Estimated Glomerular Filt Rate 43; Glucose 95 mg/dL (65-110); Potassium 3.9 mmol/L (3.4-5.0); Sodium 136 mmol/L (137-145)
[2022-08-16 13:39] LABS: NIL 0.02 IU/mL; Quantiferon TB Plus, 1T NEGATIVE (NEGATIVE); TB2-NIL <0.00 IU/mL
== END 2022-08-14 08:16 | disposition home or self-care (01) ==
PROVIDERS: PCP Emergency Medicine; Visit Provider Emergency Medicine
DX: L40.0 Psoriasis vulgaris (principal); Z79.899 Other long term (current) drug therapy; E78.5 Hyperlipidemia, unspecified; J45.40 Moderate persistent asthma, uncomplicated
CPT/HCPCS: 36415; 80053; 85025; 86480

== ENCOUNTER 2022-08-30 11:44 | Outpatient (CLI) | payer MEDICARE, BC, SELFPAY ==
[2022-09-02 16:19] LABS: Theophylline 5.5 mg/L (10.0-20.0)
== END 2022-08-30 11:45 | disposition home or self-care (01) ==
PROVIDERS: PCP Emergency Medicine; Visit Provider Nurse Practitioner Family
DX: Z51.81 Encounter for therapeutic drug level monitoring (principal)
CPT/HCPCS: 36415; 80198

== ENCOUNTER 2022-12-16 10:09 | Outpatient (CLI) | payer MEDICARE, BC, SELFPAY ==
[2022-12-16 10:55] LABS: Alanine Aminotransferase 18 U/L (6-35); Albumin Level 4.5 g/dL (3.5-5.1); Alkaline Phosphatase 55 U/L (38-126); Aspartate Amino Transferase 29 U/L (14-36); Bilirubin,Total 0.6 mg/dL (0.2-1.3); Blood Urea Nitrogen 26 mg/dL (7-17); Calcium 10.2 mg/dL (8.4-10.2); Carbon Dioxide > 40 mmol/L (22-30); Chloride 94 mmol/L (98-107); Cholesterol 228 mg/dL (0-200); Estimated Glomerular Filt Rate 47; Glucose 115 mg/dL (65-110); HDL Direct 80 mg/dL; Potassium 3.8 mmol/L (3.4-5.0); Sodium 137 mmol/L (137-145); Triglycerides 104 mg/dL (<150)
[2022-12-16 11:06] LABS: LDL Cholesterol Direct 108 mg/dL
[2022-12-20 14:26] LABS: Vitamin D 1,25 (OH)2 Total 53 pg/mL (18-72); Vitamin D2 1,25 (OH)2 <8 pg/mL; Vitamin D3 1,25 (OH)2 53 pg/mL
== END 2022-12-16 10:10 | disposition home or self-care (01) ==
LOC: ANHLAB 10:11
PROVIDERS: PCP Emergency Medicine; Visit Provider Emergency Medicine
DX: E55.9 Vitamin D deficiency, unspecified (principal); E78.5 Hyperlipidemia, unspecified
CPT/HCPCS: 36415; 80053; 80061; 82652

== ENCOUNTER 2023-03-02 22:04 | Emergency (ER) | payer MEDICARE, BC, SELFPAY ==
--- NOTE | ~2023-03-02 | CT_ITS ---
Non-contrast Head CT History: Mental status change COMPARISON: 12/20/2019 Technique: Axial non-contrast imaging of the brain was performed. Dose reduction technique was used on this scan by utilizing automated exposure control and iterative reconstruction technique. The dose -length product (DLP) was 605.33 mGy-cm. Findings: There is no evidence of intracranial hemorrhage, mass lesion, or acute infarct. Brain par enchyma appears normal. The ventricles and subarachnoid spaces are normal in size. The calvarium ap pears normal. The visualized paranasal sinuses and mastoid air cells are clear. Impression: No significant abnormality seen. Reviewed, dictated and finalized at location . Impression: No significant abnormality seen.
--- NOTE | ~2023-03-02 | XR_ITS ---
Portable chest x-ray Comparison: 04/01/2022 Clinical History: Weakness Findings: Probable mild pulmonary edema pattern. No definite pleural effusions. Cardiomediastinal s ilhouette is stable. Bones and soft tissues are unremarkable. Impression: Probable mild pulmonary edema pattern. Reviewed, dictated and finalized at [facility]. Impression: Probable mild pulmonary edema pattern.
--- NOTE | 2023-03-03 00:36 | ECG_ITS ---
Measurements Intervals [place] Rate: 75 P: 41 MI: 195 QRS: -42 QRSD: 113 T: 76 QT: 449 QTc: 501 Interpretive Statements SINUS RHYTHM VENTRICULAR PREMATURE COMPLEX AND FREQUENT ATRIAL PREMATURE COMPLEXES LEFT VENTRICULAR HYPERTROPHY AND ST-T CHANGE BORDERLINE R WAVE PROGRESSION, ANTERIOR LEADS ABNORMAL ECG COMPARED TO ECG 04/01/2022 15:35:30 NO SIGNIFICANT CHANGES Electronically Signed On 03-03-2023 8:58:44 CDT by Jarett Nunez D.O.
[2023-03-03 01:02] VITALS: BP 173/99; PULSE 72; RESP 22; O2SAT 95
[2023-03-03 01:08] VITALS: RESP 20; O2SAT 95
--- NOTE | 2023-03-03 01:23 | ED.GENADULT ---
HPI - General Adult General Chief complaint: Unspecified History of Present Illness HPI narrative: Patient 82-year-old female presents emerged from with chief complaint of nausea and not feeling well. The patient reports that her pain pump ran out and they have been working on trying to get the pump refilled patient reports she did not use any of her pain medications for breakthrough and reports that she is just not feeling herself. Related Data Home Medications Medication Instructions Recorded Confirmed aspirin 81 mg tablet,delayed 81 mg PO DAILY 09/13/19 02/13/23 release calcium 600 mg-D3 800 unit-mag11 1 tablet PO DAILY 09/13/19 02/13/23 50 xn-uaax-fqssvi-alvin-s.borat tablet (Caltrate 600-D Plus Minerals) Eye Drops 1 drp EACH EYE DAILY 10/12/21 02/13/23 albuterol sulfate 90 mcg/actuation 2 puff inhalation Q4-6H PRN 10/12/21 02/13/23 aerosol inhaler (ProAir HFA) Shortness Of Breath Or Wheezing calcipotriene-betamethasone 0.005 1 ea topical BID 10/12/21 02/13/23 %-0.064 % topical ointment (Taclonex) cholecalciferol (vitamin D3) 125 5,000 unit PO HS 10/12/21 02/13/23 mcg (5,000 unit) tablet clobetasol 0.05 % topical cream 1 applic topical BID 10/12/21 02/13/23 ustekinumab 45 mg/0.5 mL 45 mg subcut Q3M 11/07/21 02/13/23 subcutaneous solution (Stelara) Allergies Allergy/AdvReac Type Severity Reaction Status Date / Time ibuprofen Allergy Unknown Other Verified 02/13/23 10:24 Influenza Virus Vaccines Allergy Unknown Other Verified 02/13/23 10:24 Chlorophyll Allergy Mild RASH AND Uncoded 02/13/23 10:24 SWELLING Review of Systems Review of Systems: A 10 system review of systems was completed on the patient and is negative except for what is stated in the HPI. Nursing and ancillary documentation was reviewed. [facility] Past Medical History Medical History Asthma Asthma-COPD overlap syndrome Chronic diastolic heart failure Chronic kidney disease Chronic obstructive pulmonary disease Chronic pain disorder Secondary to chronic back pain from scoliosis and spinal stenosis. Gastroesophageal reflux disease Hernia, hiatal Hyperlipidemia Major depressive disorder, single episode, unspecified Oropharyngeal dysphagia Overactive bladder Pneumonia of right upper lobe due to infectious organism Psoriasis Psoriatic arthritis Rheumatoid arthritis, unspecified Skin cancer Urinary incontinence, mixed Vitamin D deficiency Surgical History Surgical History History of cardiac catheterization (08/13/11) Normal coronary arteries. Left ventricular ejection fraction visually estimated 45% with hypokinesis of basal segments, suggestive of reversible/atypical takotsubo cardiomyopathy. History of cataract extraction History of hysterectomy History of spinal surgery Status post insertion of intrathecal pump Family History Family History Grandparent Family history of coronary artery disease Diabetes mellitus Father Family history of coronary artery disease Patient's father is Hypertension Asthma Family history of heart disease in male family member before age 55 Sibling Hypertension Family history of malignant neoplasm of brain Mother Family history of heart disease in male family member before age 55, Onset Age: 92 Family history of malignant neoplasm, Onset Age: 92 Family history of cardiovascular disease Family history of malignant neoplasm of stomach Other Family history of diabetes mellitus in first degree relative Social History Social History Social History: Surrogate medical decision maker: Gabino Mueller, spouse. Code status: Full code. Smoking packs per day: 0.5 Smoking cigarettes per day: 10.0 Years s
[2023-03-03] MEDS: SODIUM CHLORIDE 0.9% IV 1,000 ML 999 ML IV CONT (01:28)
[2023-03-03] MEDS: ONDANSETRON INJ 4 MG/2 ML VIAL IV PUSH (01:28)
[2023-03-03 01:40] LABS: Basophils Absolute Auto 0.1 K/mm3 (0.0-0.1); Eosinophils Absolute Auto 0.3 K/mm3 (0-0.3); Eosinophils Percent Auto 3.1 % (0-4.4); Hematocrit 52.5 % (37.0-47.0); Hemoglobin 17.5 g/dL (12.0-15.0); Immature Granulocyte Absolute 0.03 K/mm3 (0.00-0.031); Immature Granulocyte Percent A 0.3 % (0-0.5); Lymphocytes Absolute Auto 1.95 K/mm3 (0.9-3.2); Lymphocytes Percent Auto 19.9 % (18.3-44.2); Mean Corpuscular HGB Conc 33.3 g/dl (32-36); Mean Corpuscular Hemoglobin 30.1 pg (26-34); Mean Corpuscular Volume 90.4 fl (80-100); Mean Platelet Volume 10.8 fl (7.4-10.4); Monocytes Absolute Auto 0.6 K/mm3 (0.1-0.6); Monocytes Percent Auto 5.9 % (2.6-8.5); Neutrophils Absolute Auto 6.9 K/mm3 (1.3-6.7); Neutrophils Percent Auto 69.8 % (45.5-73.1); Platelet Count Result 270 k/mm3 (150-375); Red Blood Count 5.81 M/mm3 (4.2-5.4); Red Cell Distribution Width 13.1 % (11.5-14.5); White Blood Count 9.8 K/mm3 (4.5-10.0)
[2023-03-03 01:50] LABS: Lactic Acid Reflex 1.3 mmol/L (0.7-2.0)
[2023-03-03 02:05] LABS: Prothrombin Time 13.2 Seconds (11.1-14.7)
[2023-03-03 02:07] LABS: Partial Thromboplastin Time 33.2 SECONDS (22.3-36.8)
[2023-03-03 02:31] LABS: Appearance Urine Clear (Clear); Bacteria Urine None Seen /hpf; Bilirubin Urine Negative (Negative); Blood Urine Negative (Negative); Color Urine Yellow (Yellow); Glucose Urine UA Negative (Negative); Ketones Urine 1+ mg/dL (Negative); Leukocyte Esterase Ur Negative LEU/UL (Negative); Nitrate Urine Negative (Negative); Non Pathogenic Casts 0-2; Protein Urine 2+ mg/dL (Negative); RBC Urine 0-2 /hpf (0-2); Squamous Epithelial Cell Urine None seen /hpf (Few); Urobilinogen Urine 0.2 mg/dL (<2.0); WBC Urine 0-5 /hpf; pH Urine 7.5 (5.0-9.0)
[2023-03-03] MEDS: PROCHLORPERAZINE EDISYLATE 10 MG/2 ML VIAL IV PUSH (02:35)
[2023-03-03] MEDS: MORPHINE SULFATE (*CRX) 4 MG/ML INJ 2 MG IV PUSH (02:36)
[2023-03-03 02:37] LABS: Add Urine Microscopic? YES
[2023-03-03 02:56] LABS: Ethanol < 10 mg/dL (<10)
[2023-03-03 02:58] LABS: Alanine Aminotransferase 19 U/L (6-35); Albumin Level 4.7 g/dL (3.5-5.1); Alkaline Phosphatase 72 U/L (38-126); Anion Gap 9 mmol/L (8-16); Aspartate Amino Transferase 29 U/L (14-36); Bilirubin,Total 0.7 mg/dL (0.2-1.3); Blood Urea Nitrogen 14 mg/dL (7-17); Calcium 9.7 mg/dL (8.4-10.2); Carbon Dioxide 25 mmol/L (22-30); Chloride 104 mmol/L (98-107); Estimated Glomerular Filt Rate 60; Glucose 162 mg/dL (65-110); Magnesium 2.1 mg/dL (1.6-2.3); Potassium 3.2 mmol/L (3.4-5.0); Sodium 138 mmol/L (137-145)
[2023-03-03 03:00] LABS: Amphetamine Screen Urine Negative (Negative); Barbiturate Screen Urine Negative (Negative); Benzodiazepines Screen Urine Negative (Negative); Cannabinoid Screen Urine Negative (Negative); Cocaine Screen Urine Negative (Negative); Methadone Screen Urine Negative (Negative); Opiate Screen Urine Positive (Negative); Phencyclidine Screen Urine Negative (Negative)
== END 2023-03-03 05:25 | disposition home or self-care (01) ==
PROVIDERS: Emergency Provider Emergency Medicine; PCP Emergency Medicine
DX: F11.23 Opioid dependence with withdrawal (principal); T40.2X6A Underdosing of other opioids, initial encounter; Z91.138 Patient's unintentional underdosing of medication regimen for other reason; J44.9 Chronic obstructive pulmonary disease, unspecified; N18.9 Chronic kidney disease, unspecified; I50.32 Chronic diastolic (congestive) heart failure; E78.5 Hyperlipidemia, unspecified; K21.9 Gastro-esophageal reflux disease without esophagitis; N32.81 Overactive bladder; R32 Unspecified urinary incontinence; L40.50 Arthropathic psoriasis, unspecified; M06.9 Rheumatoid arthritis, unspecified; E55.9 Vitamin D deficiency, unspecified; G89.29 Other chronic pain; Z97.8 Presence of other specified devices; Z87.01 Personal history of pneumonia (recurrent); Z87.891 Personal history of nicotine dependence; Z98.49 Cataract extraction status, unspecified eye; Z90.710 Acquired absence of both cervix and uterus; Z79.82 Long term (current) use of aspirin; I49.3 Ventricular premature depolarization; I49.1 Atrial premature depolarization; I51.7 Cardiomegaly; R91.8 Other nonspecific abnormal finding of lung field
CPT/HCPCS: 36415; 70450; 71045; 80053; 80307; 81001; 83605; 83735; 84145; 84484; 85025; 85610; 85730; 93005; 96361; 96374; 96375; 99284; J0780; J2270; J2405; J7030

== ENCOUNTER 2023-03-06 06:30 | Inpatient (IN) | payer MEDICARE, BC, SELFPAY ==
[2023-03-06] VITALS (15 sets, daily range): BP systolic 115–151; BP diastolic 58–108; PULSE 72–93; RESP 16–20; TEMP 36.4–36.9; O2SAT 92–98; BMI 25.7
--- NOTE | 2023-03-06 | ECHO_ITS ---
Patient Info Name: Dunia Mueller Age: 82 years : 1940 Gender: Female Ht: 58 in Wt: 121 lbs BSA: 1.51 m2 HR: 88 bpm BP: 120 / 108 mmHg Heart Rhythm: Sinus Rhythm Technical Quality: Good Exam Date: 03/06/2023 3:13 PM Exam Location: [facility] Patient Status: Inpatient Admit Date: 03/06/2023 Staff Ordering Physician: Brenda Rhoades NP Laboratory Courier: Manuel Poole RDCS Attending Provider: Cinthia Serrano MD Referring Physician: Jf WONG; Exam Type: CA echo doppler color flow Study Info Indications - CHF Complete two-dimensional, color flow and Doppler transthoracic echocardiogram is performed. Summary 1. Complete two-dimensional, color flow and Doppler transthoracic echocardiogram is performed. 2. Normal left ventricular size with mild concentric hypertrophy. Good systolic function of all segments with ejection fraction of 65-70%. Grade 2 diastolic dysfunction is present. 3. Left atrial chamber dimension is moderately enlarged. 4. There is mild aortic valve regurgitation. 5. No pulmonary hypertension, estimated pulmonary arterial systolic pressure is 32 mmHg. 6. Irregular heart rhythm, possibly atrial fibrillation. Left Ventricle Left ventricular chamber dimension is normal. Left ventricular systolic function is normal, estimated at Empty. There is mildly increased left ventricular wall thickness. Left ventricular septal wall motion is normal. The left ventricular diastolic function is grade II diastolic dysfunction. Right Ventricle Right ventricular chamber dimension is normal. Right ventricular systolic function is normal. Left Atria Left atrial chamber dimension is moderately enlarged. Right Atria Right atrial chamber dimension is normal. Aortic Valve The aortic valve is trileaflet. There is mild aortic valve sclerosis. There is no aortic valve stenosis. There is mild aortic valve regurgitation. Pulmonic Valve The pulmonic valve is normal. There is no pulmonic valve stenosis. There is no pulmonic regurgitation. Mitral Valve The mitral valve has normal leaflets. There is no mitral valve stenosis. There is no mitral valve regurgitation. Tricuspid Valve The tricuspid valve leaflets are normal. There is no significant tricuspid valve stenosis. There is trace tricuspid valve regurgitation. No pulmonary hypertension, estimated pulmonary arterial systolic pressure is 32 mmHg. Pericardium/Pleural The pericardium appears normal. There is no pericardial effusion. Inferior Vena Cava Normal inferior vena cava with >50% collapse upon inspiration consistent with Empty right atrial pressure, 10 mmHg. Aorta The aortic root size at the sinus of Valsalva is normal. The prox ascending aorta size is normal. Left Ventricular Outflow Tract Name Value Normal LVOT 2D LVOT Diameter 1.8 cm LVOT Doppler LVOT Peak Gradient 5 mmHg LVOT Mean Gradient 3 mmHg LVOT VTI 25 cm LVOT VTI/AV VTI Ratio 0.9 LVOT Stroke Volume 61 ml LVOT CO 1.9 l/min LVOT CI
--- NOTE | ~2023-03-06 | XR_ITS ---
Clinical Indication: Shortness of breath AP and lateral views of the chest: Comparison: 03/03/2023 Findings: There is mild bibasilar chronic interstitial disease. No consolidation, pleural effusion, o r pneumothorax. Cardiomediastinal silhouette is within normal limits. Moderate hiatal hernia probabl y present. Impression: Suspected mild pulmonary interstitial disease, particularly at the lung bases. Moderate hiatal hernia. Reviewed, dictated and finalized at location M. Impression: Suspected mild pulmonary interstitial disease, particularly at the lung bases. Moderate hiatal hernia.
--- NOTE | ~2023-03-06 | US_ITS ---
EXAMINATION: US renal BI DATE: 03/06/2023 16:42 INDICATION: Acute kidney injury TECHNIQUE: Multiple grayscale and Doppler ultrasound images of the kidneys were obtained. COMPARISON: None. FINDINGS: The right kidney measures 9.9 x 3.8 x 4.7 cm. The left kidney measures 8.0 x 4.3 x 3.4 cm. The kidneys demonstrate normal parenchymal echogenicity. There is no hydronephrosis. The bladder is n ormal. IMPRESSION: 1. Normal kidneys without hydronephrosis. Reviewed, dictated and finalized at location F.
--- NOTE | 2023-03-06 06:42 | ECG_ITS ---
Measurements Intervals [place] Rate: 91 P: IN: 0 QRS: -37 QRSD: 105 T: 72 QT: 393 QTc: 486 Interpretive Statements SINUS RHYTHM WITH FREQUENT APCS MARKED LEFT AXIS DEVIATION [QRS AXIS < -30] VOLTAGE CRITERIA FOR LVH [MEETS CRITERIA IN ONE OF: R(aVL), S(V1), R(V5), R(V5/V6)+S(V1)] POOR R-WAVE PROGRESSION COMPARED TO ECG 03/02/2023 22:13:47 NO SIGNIFICANT CHANGE Electronically Signed On 03-06-2023 10:18:31 CDT by Aracely Delgado M.D.
[2023-03-06 07:11] LABS: Basophils Absolute Auto 0.1 K/mm3 (0.0-0.1); Basophils Percent Auto 0.5 % (0.2-1.2); Eosinophils Absolute Auto 0.2 K/mm3 (0-0.3); Eosinophils Percent Auto 1.5 % (0-4.4); Hematocrit 48.4 % (37.0-47.0); Hemoglobin 16.1 g/dL (12.0-15.0); Immature Granulocyte Absolute 0.05 K/mm3 (0.00-0.031); Immature Granulocyte Percent A 0.4 % (0-0.5); Lymphocytes Absolute Auto 1.87 K/mm3 (0.9-3.2); Lymphocytes Percent Auto 13.3 % (18.3-44.2); Mean Corpuscular HGB Conc 33.3 g/dl (32-36); Mean Corpuscular Volume 90.3 fl (80-100); Mean Platelet Volume 11.1 fl (7.4-10.4); Monocytes Absolute Auto 1.7 K/mm3 (0.1-0.6); Monocytes Percent Auto 11.7 % (2.6-8.5); Neutrophils Absolute Auto 10.3 K/mm3 (1.3-6.7); Neutrophils Percent Auto 72.6 % (45.5-73.1); Platelet Count Result 278 k/mm3 (150-375); Red Blood Count 5.36 M/mm3 (4.2-5.4); Red Cell Distribution Width 13.3 % (11.5-14.5); White Blood Count 14.1 K/mm3 (4.5-10.0)
[2023-03-06 08:22] LABS: Alveolar/Arterial O2 Gradient 35.5 mmHg; Base Excess ABG -1.9 mEq/l (+/-2.0); Carboxyhemoglobin 1.5 % THb (0-2.0); Fractional Inspired Oxygen 21 %; HCO3 ABG 24.4 mEq/l (22.0-26.0); Methemoglobin ABG 0.5 %THb (0-1.5); Oxygen Content ABG 20.4 %vol (16.0-22.0); Oxygen Saturation ABG 88.6 % (95.0-100.0); PCO2 ABG 46.5 mmHg (35.0-45.0); PO2 ABG 58.5 mmHg (80.0-100.0); PO2 FiO2 Ratio Arterial Blood 2.79 %; Total Hemoglobin 16.5 g/dL (12.0-18.0); pH ABG 7.337 (7.350-7.450)
--- NOTE | 2023-03-06 08:44 | ED.SOB ---
HPI - SOB/Dyspnea General Chief Complaint: Shortness of Breath/Dyspnea Stated Complaint: SOB Time Seen by Provider: 03/06/23 07:04 Source: patient, RN notes reviewed and old records reviewed Mode of arrival: EMS Limitations: no limitations History of Present Illness HPI Narrative: This is an 82 year old female with history of asthma, CHF who presents for evaluation of shortness of breath. She states this morning she noticed she woke up feeling short of breath. She states it waxes and wanes. She thinks it is due to her asthma. She used her rescue inhaler for some relief. She denies chest pain , cough, fever, vomiting, abdominal pain or diarrhea. MD elicited complaint: shortness of breath Related Data Home Medications Medication Instructions Recorded Confirmed aspirin 81 mg tablet,delayed 81 mg PO DAILY 09/13/19 03/06/23 release calcium 600 mg-D3 800 unit-mag11 1 tablet PO DAILY 09/13/19 03/06/23 50 wg-fosj-iiviin-alvin-s.borat tablet (Caltrate 600-D Plus Minerals) albuterol sulfate 90 mcg/actuation 2 puff inhalation Q4-6H PRN 10/12/21 03/06/23 aerosol inhaler (ProAir HFA) Shortness Of Breath Or Wheezing calcipotriene-betamethasone 0.005 1 ea topical BID PRN psoriasis 10/12/21 03/06/23 %-0.064 % topical ointment (Taclonex) cholecalciferol (vitamin D3) 125 5,000 unit PO HS 10/12/21 03/06/23 mcg (5,000 unit) tablet clobetasol 0.05 % topical cream 1 applic topical BID 10/12/21 03/06/23 ustekinumab 45 mg/0.5 mL 45 mg subcut Q3M 11/07/21 03/06/23 subcutaneous solution (Stelara) alendronate 70 mg tablet 70 mg PO WEEKLY 03/06/23 03/06/23 duloxetine 60 mg capsule,delayed 60 mg PO DAILY 03/06/23 03/06/23 release esomeprazole magnesium 40 mg 80 mg PO DAILY 03/06/23 03/06/23 capsule,delayed release fluticasone propionate 50 50 mcg intranasal DAILY 03/06/23 03/06/23 mcg/actuation nasal spray,suspension furosemide 40 mg tablet 60 mg PO DAILY 03/06/23 03/06/23 montelukast 10 mg tablet 10 mg PO DAILY 03/06/23 03/06/23 polyvinyl alcohol 1.4 % eye drops 1 drp EACH EYE BID PRN Dry Eyes 03/06/23 03/06/23 potassium chloride 20 mEq 20 meq PO DAILY 03/06/23 03/06/23 tablet,extended release salsalate 500 mg tablet 1,000 mg PO BID 03/06/23 03/06/23 simvastatin 10 mg tablet 10 mg PO HS 03/06/23 03/06/23 theophylline 300 mg 450 mg PO Q12H 03/06/23 03/06/23 tablet,extended release,12 hr trospium 20 mg tablet 20 mg PO DAILY 03/06/23 03/06/23 Allergies Allergy/AdvReac Type Severity Reaction Status Date / Time ibuprofen Allergy Unknown Other Verified 02/13/23 10:24 Influenza Virus Vaccines Allergy Unknown Other Verified 02/13/23 10:24 Chlorophyll Allergy Mild RASH AND Uncoded 02/13/23 10:24 SWELLING Review of Systems Constitutional: Constitutional: Denies weakness Cardiovascular: Cardiovascular: Denies syncope, Denies rapid heart rate, Denies irregular heart rhythm, Denies leg edema and Reports dyspnea Respiratory: Respiratory: Denies chest congestion, Denies hemoptysis, Denies excessive phlegm production and Reports dyspnea Gastrointestinal: Gastrointestinal: Denies abdominal pain, Denies hematochezia, Denies diarrhea and Denies vomiting Genitourinary: Genitourinary: Denies hematuria and Denies dysuria Musculoskeletal: Musculoskeletal: Denies joint swelling, Denies loss of height and Denies muscle weakness Neurologic: Denies syncope, Denies focal weakness and Denies weakness PMFSH Past Medical History Medical History Asthma Asthma-COPD overlap syndrome Chronic diastolic heart failure Chronic kidney disease Chronic obstructive pulmonary disease Chronic pain disorder Secondary to chronic back pain from scoliosis and spinal stenosis. Gastroesophageal reflux disease Hernia, hiatal Hyperlipidemia Major depressive disorder, single episode, unspecified Oropharyngeal dysphagia Overactive bladder Pneumonia of right upper lobe due to infectious
[2023-03-06 08:55] LABS: NT Pro B Type Natriuretic Pept 14900 pg/mL (19.9-100); Troponin I 0.407 ng/mL (0.000-0.034)
[2023-03-06 09:01] LABS: Alanine Aminotransferase 45 U/L (6-35); Albumin Level 4.3 g/dL (3.5-5.1); Alkaline Phosphatase 56 U/L (38-126); Anion Gap 10 mmol/L (8-16); Aspartate Amino Transferase 69 U/L (14-36); Bilirubin,Total 0.6 mg/dL (0.2-1.3); Blood Urea Nitrogen 46 mg/dL (7-17); Carbon Dioxide 21 mmol/L (22-30); Chloride 99 mmol/L (98-107); Estimated Glomerular Filt Rate 31; Glucose 142 mg/dL (65-110); Potassium 3.8 mmol/L (3.4-5.0); Sodium 130 mmol/L (137-145)
[2023-03-06 09:07] LABS: INR 1.1; Prothrombin Time 14.3 Seconds (11.1-14.7)
[2023-03-06 09:08] LABS: Partial Thromboplastin Time 28.5 SECONDS (22.3-36.8)
[2023-03-06] MEDS: FUROSEMIDE INJ 40 MG/4 ML VIAL IV PUSH (09:50)
[2023-03-06 10:42] LABS: D Dimer 0.41 ug/mL (<0.48)
[2023-03-06 10:44] LABS: Site Drawn RIGHT RADIAL
[2023-03-06 10:45] LABS: Modified Allen's Test Pass
[2023-03-06] MEDS: NITROGLYCERIN OINTMENT 1 INCH DOSE TRANSDERM (11:20)
[2023-03-06 11:38] LABS: Troponin I 0.382 ng/mL (0.000-0.034)
--- NOTE | 2023-03-06 12:30 | PM.IMHP ---
H&P: HPI History of Present Illness Date/Time: 03/06/23 12:30 Chief Complaint: Shortness of breath Narrative: This is an 82-year-old female patient who resides with her . She has a history of CHF and COPD. The patient also has sleep apnea and is noncompliant with her CPAP. The patient stated she has been having hard time sleeping a she has been short of breath for the last couple days. She is not able to lay flat. She used her rescue inhaler without any relief. She has been taking her medication as prescribed. She denies any chest pain cough fever chills no nausea vomiting diarrhea she denies Shan any weight or having any edema. Her white count is 14.1. H&H is 16.1 and 48.4. Her lips are dry and she appears to be dehydrated. Her D-dimers nonreactive. Arterial blood gases pH 7.337. PCO2 was 46.5 and PO2 is 58.5. Her sodium levels 130. Her BUN is 46 creatinine 1.6. Her creatinine is anywhere from being normal all the way up to 1.42. She has no history of any cardiac events. Her troponin is 0.407 [place] 0.[address]2[place] [address]. The patient was given IV Lasix and nitro. The patient stated she feels much better. The patient is being admitted to inpatient status on the date of service of 03/06/2023. Review of Systems Review of Systems: All systems reviewed & are unremarkable except as noted in HPI and below Constitutional: Constitutional: Reports as per HPI and Reports no additional constitutional complaints Eyes: Eyes: Reports as per HPI and Reports no additional eye complaints ENT: Reports system reviewed and no additional complaints, except as documented and Reports Normal hearing present Cardiovascular: Cardiovascular: Reports no additional cardiovascular complaints Respiratory: Respiratory: Reports no additional respiratory complaints and Reports no additional respiratory complaints Gastrointestinal: Gastrointestinal: Reports as per HPI and Reports no additional gastrointestinal complaints Musculoskeletal: Musculoskeletal: Reports no additional musculoskeletal complaints Integumentary/Breasts: Skin/Breast: Reports system reviewed and no additional complaints, except as docu and Reports as per HPI Neurologic: Reports system reviewed and no additional complaints, except as documented, Reports as per HPI and Reports Normal hearing present Psychiatric: Psychiatric: Reports no additional psychiatric complaints and Reports as per HPI Endocrine: Endocrine: Reports no additional endocrine complaints Hematologic/Lymphatic: Hematologic/Lymphatic: Reports no additional hematologic/lymphatic complaints Allergic/Immunologic: Allergic/Immunologic: Reports no additional allergic/immunologic complaints [facility] Past Medical History Medical History Asthma Asthma-COPD overlap syndrome Chronic diastolic heart failure Chronic kidney disease Chronic obstructive pulmonary disease Chronic pain disorder Secondary to chronic back pain from scoliosis and spinal stenosis. Gastroesophageal reflux disease Hernia, hiatal Hyperlipidemia Major depressive disorder, single episode, unspecified Oropharyngeal dysphagia Overactive bladder Pneumonia of right upper lobe due to infectious organism Psoriasis Psoriatic arthritis Rheumatoid arthritis, unspecified Skin cancer Urinary incontinence, mixed Vitamin D deficiency Surgical History Surgical History History of cardiac catheterization (08/13/11) Normal coronary arteries. Left ventricular ejection fraction visually estimated 45% with hypokinesis of basal segments, suggestive of reversible/atypical takotsubo cardiomyopathy. History of cataract extraction History of hysterectomy History of spinal surgery Status post insertion of intrathecal pump Family History Family History Grandparent Family history of coronary artery dis
--- NOTE | 2023-03-06 13:04 | ADMGEN ---
This patient, Dunia Mueller, was admitted to IMU Room 206-01. Patient/family oriented to hospital policies and general routines including ID bracelet, bed and alarms, visiting hours, pain management, procedures, bathroom and other care routines, personal items, smoking policy, room service/diet, and visiting hours. Information on how to activate the Rapid Response Team has been discussed. Patient/Family are encouraged to report perceived risks to care and to ask questions if they do not understand what they are told or what they should do.
--- NOTE | 2023-03-06 14:31 | PM.CNCAR ---
Assessment and Plan Assessment and plan (1) Chronic diastolic heart failure: Code(s): I50.32 - Chronic diastolic (congestive) heart failure <LACY Delcid - Last Filed: 03/06/23 15:16> Status: Acute <LACY Delcid - Last Filed: 03/06/23 15:16> Assessment and Plan: Presents with shortness of breath. Some evidence of CHF with pulmonary rales, NT-proBNP elevated at 14,900. She is known to have normal LV systolic function with grade II diastolic dysfunction. Shortness of breath secondary to perhaps mild CHF in combination with COPD, ?poss. pneumonia (WBC 14.1). Her mucous membranes are dry/cracked and she has no edema. On room air. Also has an JEFFY. I don't think she needs more IV diuretic at this point since she looks fairly dry on exam and shortness of breath has resolved Can resume her home dose of lasix CHF counseling Echo has been ordered by hospitalist. Will follow up on results. <LACY Delcid - Last Filed: 03/06/23 15:16> (2) Elevated troponin: Code(s): R77.8 - Other specified abnormalities of plasma proteins <LACY Delcid - Last Filed: 03/06/23 15:16> Status: Acute <LACY Delcid - Last Filed: 03/06/23 15:16> Assessment and Plan: Her troponin levels are elevated at 0.407, 0.382, and her third trop is pending. She reports no chest pain. Troponins likely elevated because of CHF, not ACS. <LACY Delcid - Last Filed: 03/06/23 15:16> (3) Chronic obstructive pulmonary disease: Code(s): J44.9 - Chronic obstructive pulmonary disease, unspecified <LACY Delcid - Last Filed: 03/06/23 15:16> Status: Acute <LACY Delcid - Last Filed: 03/06/23 15:16> Assessment and Plan: Feeling better with nebulizer treatments. Management per hospitalist. <LACY Delcid - Last Filed: 03/06/23 15:16> Assessment and Plan: Cardiology attending: Patient seen and examined, chart reviewed. Agree with DEMOLITION WORKER Yareli Maharaj's assessment and plan. Dunia Hernandez is an 82 y.o. female followed by Dr. Marinelli for her COPD. H/O chronic diastolic CHF. She has been off of her routine, due to a lot of stress at home (has been sick, trouble getting her pain pump refilled, granddaughter just moved in, etc.) and has not been taking her medications regularly particularly her theophylline. In addition she has not been eating or drinking well because of so many other distractions. She was admitted with shortness of breath. She was given one dose Lasix and her nebs and is feeling better. ROS: NO CP, cough. Usually she has some swelling but none recently as she has not been eating/drinking regularly. PE: Pleasant older lady, NAD. NO JVD. RRR w/o M or Zayda. Coarse rales lower lungs bilat. abd soft, nontender. No edema. Labs reviewed, elevated white count, mildly hypoxic on admission, BUN and creatinine consistent with acute kidney injury and dehydration, troponins elevated but flat, proBNP [id number] Chest x-ray: Suspected mild pulmonary interstitial disease particular in the bases. Reviewed. Perhaps some mild pulmonary vascular congestion. EKG: NSR rate 91 with APCs, poor R-wave progression, left anterior hemiblock Assessment/Plan: 1. SOB due to COPD exacerbation. Partly due to noncompliance w/ meds. Improving. 2. Chronic diastolic CHF. May have had a mild exacerbation on admission due to hypoxia and respiratory distress but patient is not volume overloaded. Agree that no further IV diuresis is needed. 3. Acute kidney injury/prerenal azotemia: Patient says she has not been eating and drinking well, distracted by family problems. I spent 25 minutes of non overlapping time evaluating the patient as above. Darshan Delgado MD <Aracely Delgado MD - Last Filed: 03/06/23 18:01> History of Present Illness History of Present Illness Consult date/time: 03/06/23 14:31 <Yareli Maharaj
[2023-03-06 15:27] LABS: Troponin I 0.343 ng/mL (0.000-0.034)
[2023-03-06] MEDS: IPRATROPIUM BR 0.02% INH SOLN 0.5 MG/2.5 ML VIAL INHALATION (20:34)
[2023-03-06] MEDS: LEVALBUTEROL NEB 1.25 MG/3 ML INHALATION (20:35)
[2023-03-06] MEDS: CHOLECALCIFEROL 1,000 UNITS TABLET 5000 UNITS PO (21:06)
[2023-03-06] MEDS: SIMVASTATIN 10 MG TABLET PO (21:06)
[2023-03-06] MEDS: CEPHALEXIN 250 MG CAPSULE PO (21:06)
[2023-03-06] MEDS: THEOPHYLLINE 150 MG 450 MG PO (23:52)
[2023-03-07] VITALS (17 sets, daily range): BP systolic 127–136; BP diastolic 47–70; PULSE 56–89; RESP 16–20; TEMP 36.1–36.6; O2SAT 95–96
[2023-03-07] MEDS: LEVALBUTEROL NEB 1.25 MG/3 ML INHALATION ×3 (02:07→13:26)
[2023-03-07] MEDS: IPRATROPIUM BR 0.02% INH SOLN 0.5 MG/2.5 ML VIAL INHALATION ×3 (02:07→13:26)
[2023-03-07 06:12] LABS: Basophils Absolute Auto 0.1 K/mm3 (0.0-0.1); Basophils Percent Auto 0.8 % (0.2-1.2); Eosinophils Absolute Auto 0.8 K/mm3 (0-0.3); Eosinophils Percent Auto 7.9 % (0-4.4); Hematocrit 43.1 % (37.0-47.0); Immature Granulocyte Absolute 0.04 K/mm3 (0.00-0.031); Immature Granulocyte Percent A 0.4 % (0-0.5); Lymphocytes Absolute Auto 2.87 K/mm3 (0.9-3.2); Lymphocytes Percent Auto 30.3 % (18.3-44.2); Mean Corpuscular HGB Conc 32.5 g/dl (32-36); Mean Corpuscular Hemoglobin 29.6 pg (26-34); Mean Corpuscular Volume 91.1 fl (80-100); Mean Platelet Volume 11.3 fl (7.4-10.4); Monocytes Percent Auto 10.8 % (2.6-8.5); Neutrophils Absolute Auto 4.7 K/mm3 (1.3-6.7); Neutrophils Percent Auto 49.8 % (45.5-73.1); Platelet Count Result 222 k/mm3 (150-375); Red Blood Count 4.73 M/mm3 (4.2-5.4); Red Cell Distribution Width 13.2 % (11.5-14.5); White Blood Count 9.5 K/mm3 (4.5-10.0)
[2023-03-07 06:27] LABS: Alanine Aminotransferase 37 U/L (6-35); Albumin Level 3.8 g/dL (3.5-5.1); Alkaline Phosphatase 50 U/L (38-126); Anion Gap 5 mmol/L (8-16); Aspartate Amino Transferase 41 U/L (14-36); Bilirubin,Total 0.7 mg/dL (0.2-1.3); Blood Urea Nitrogen 37 mg/dL (7-17); Calcium 9.3 mg/dL (8.4-10.2); Carbon Dioxide 29 mmol/L (22-30); Chloride 99 mmol/L (98-107); Estimated Glomerular Filt Rate 39; Glucose 109 mg/dL (65-110); Potassium 3.4 mmol/L (3.4-5.0); Sodium 133 mmol/L (137-145)
[2023-03-07] MEDS: PANTOPRAZOLE 40 MG TABLET 80 MG PO (10:12)
[2023-03-07] MEDS: POTASSIUM CHLORIDE 20 MEQ PACKET (FOR LIQUID) PO (10:12)
[2023-03-07] MEDS: SALSALATE 500 MG TABLET 1000 MG PO ×2 (10:12→17:56)
[2023-03-07] MEDS: FLUTICASONE PROPIONATE 0.05% NA SPR 16 GM BTL (*BKC) 1 SPRAY NASAL (10:13)
[2023-03-07] MEDS: ASPIRIN 81 MG ENTERIC TABLET PO (10:13)
[2023-03-07] MEDS: DULoxetine HCL 60 MG CAPSULE.DR PO (10:13)
[2023-03-07] MEDS: MONTELUKAST SODIUM 10 MG TABLET PO (10:13)
[2023-03-07] MEDS: FUROSEMIDE 40 MG TABLET PO (10:13)
[2023-03-07] MEDS: CLOBETASOL PROPIONATE 0.05% CREAM 15 GM 1 APPLIC TOPICAL (10:14)
[2023-03-07] MEDS: POTASSIUM CHLORIDE 20 MEQ ER TABLET PO (10:15)
[2023-03-07] MEDS: THEOPHYLLINE 150 MG 450 MG PO (10:28)
--- NOTE | 2023-03-07 14:15 | PM.PNCARD ---
Progress Note: A&P Assessment and Plan (1) Chronic diastolic heart failure: Code(s): I50.32 - Chronic diastolic (congestive) heart failure Status: Acute Assessment and Plan: Presents with shortness of breath. Some evidence of CHF with pulmonary rales, NT-proBNP elevated at 14,900. She is known to have normal LV systolic function with grade II diastolic dysfunction. Shortness of breath secondary to perhaps mild CHF in combination with COPD Continue her home dose of lasix CHF counseling Echo continues to show normal LV systolic function with grade II diastolic dysfunction. (2) Elevated troponin: Code(s): R77.8 - Other specified abnormalities of plasma proteins Status: Acute Assessment and Plan: Her troponin levels are elevated at 0.407, 0.382, and her third trop is pending. She reports no chest pain. Troponins likely elevated because of CHF, not ACS. (3) Chronic obstructive pulmonary disease: Code(s): J44.9 - Chronic obstructive pulmonary disease, unspecified Status: Acute Assessment and Plan: Feeling better with nebulizer treatments. Management per hospitalist. Subjective Date/time seen: 03/07/23 14:15 Interval history: Cardiology follow up for CHF Still having shortness of breath today but improved from yesterday. No other complaints. Review of Systems Review of Systems: All systems reviewed & are unremarkable except as noted in HPI and below Exam Const: General: comfortable, no acute distress, alert and awake Orientation/consciousness: patient oriented x3 HENMT: Head: normal to inspection Mouth: Yes dry mucous membranes Eyes: General: appearance normal, both eyes and all related structures Pupils: Equal, round and reactive pupils present Neck: Neck: normal visual inspection, supple and no JVD Carotids: normal carotid upstroke Resp: Effort & Inspection: normal respiratory effort Auscultation: not clear to auscultation bilaterally, rales (bibasilar rales ) and no wheezes Cardio: Rate: regular rate Rhythm: regular rhythm Heart sounds: S1 normal heart sound present, S2 normal heart sound present and no murmurs GI: Auscultation: normal bowel sounds Skin: General skin exam: normal color Neuro: General: patient oriented x3 Cranial nerves: Yes Equal, round and reactive pupils present Extrem: General: normal to inspection Other: No edema. Psych: Appearance: grossly normal Mental Status: mental status grossly normal Objective Data Vital Signs Vital Signs: Vital Signs - 24 hr 03/06/23 15:46 03/06/23 16:00 03/06/23 16:00 Temperature 36.8 C Pulse Rate 74 78 Respiratory Rate 20 Blood Pressure 132/71 Pulse Oximetry 94 94 Oxygen Delivery Room Air 03/06/23 18:00 03/06/23 16:00 03/06/23 20:42 Temperature Pulse Rate 81 Respiratory Rate Blood Pressure Pulse Oximetry 93 Oxygen Delivery Room Air Room Air 03/06/23 20:38 03/06/23 20:00 03/06/23 20:53 Temperature 36.9 C Pulse Rate 72 75 74 Respiratory Rate 16 16 16 Blood Pressure 115/58 L Pulse Oximetry 98 Oxygen Delivery 03/06/23 20:00 03/06/23 23:57 03/06/23 20:00 Temperature 36.5 C Pulse Rate 76 79 Respiratory Rate 18 Blood Pressure 151/75 H Pulse Oximetry 92 Oxygen Delivery Room Air 03/06/23 22:00 03/07/23 00:00 03/07/23 00:00 Temperature Pulse Rate 73 73 Respiratory Rate Blood Pressure Pulse Oximetry Oxygen Delivery Room Air 03/07/23 02:09 03/07/23 02:22 03/07/23 02:00 Temperature Pulse Rate 71 75 59 L Respiratory Rate 16 16 Blood Pressure Pulse Oximetry Oxygen Delivery 03/07/23 04:00 03/07/23 04:00 03/07/23 04:00 Temperature 36.6 C Pulse Rate 79 82 Respiratory Rate 16 Blood Pressure 136/67 Pulse Oximetry 95 Oxygen Delivery Room Air 03/07/23 06:00 03/07/23 08:00 03/07/23 09:05 Temperature 36.3 C L Pulse Rate 89 68 56 L Respiratory
--- NOTE | 2023-03-07 16:17 | PM.DS ---
DS: Admitting Diagnosis Discharge Date 03/07/23 Admitting Diagnosis Shortness of breath DS: Discharge Diagnosis Discharge Diagnosis (1) CHF (congestive heart failure): Code(s): I50.9 - Heart failure, unspecified Status: Acute (2) Elevated troponin: Code(s): R77.8 - Other specified abnormalities of plasma proteins Status: Acute (3) Asthma-COPD overlap syndrome: Code(s): J44.9 - Chronic obstructive pulmonary disease, unspecified Status: Acute (4) Hyperlipidemia: Code(s): E78.5 - Hyperlipidemia, unspecified Status: Acute (5) Depression: Code(s): F32.A - Depression, unspecified Status: Acute DS: Summary Hospital Course Reason for hospitalization: 82yo female with CHF, COPD and JULIAN (unable to tolerate CPAP) here for SOB. Please see H&P for details Hospital Course: Patient presents with complaints of shortness of breath. EKG showing NSR with frequent PACs and LVH but no change overall. She was not hypoxic on admission. Hgb elevated at 16 but better on recheck. She remained on room air through out her hospital course. D-dimer was normal. ABG 7.34/46/58 on room air. Sodium was low at 130 with BUN of 46 and creatinine 1.6. Chest x-ray showed suspected mild pulmonary edema. She was given 1 dose of IV Lasix. She was started on nitro paste. Renal ultrasound showed no acute findings. Repeat lab work showed improvement of the sodium 133. Creatinine is now 1.3. She does have underlying CKD. Troponin was elevated at 0.4 but trended downward. Cardiology was consulted. Echocardiogram showing mild concentric hypertrophy with EF of 65-70% and grade 2 diastolic dysfunction. Cardiology did not have any further recommendations. Patient overall did well was able be discharged on 03/07/2023. Status at Discharge Cognitive/behavioral status at discharge: stable Time Spent with Patient Time attestation: Total time spent providing and/or coordinating discharge services: 35 minutes Time spent: Greater than 30 minutes Exam Narrative: AF 97.4 134/47 82 16 95% ra Gen - NARD Chest - mild bibasilar crackles o/w clear CV - RRR S1/S2 with occasional extra beat. Tele showing PVCs Abd - Soft, NT/ND, Positive BS Ext - No pedal edema Psych - Nml mood and affect Skin - Warm and dry DS: Data Data Completed and Pending Labs on day of discharge: Labs from last 24 hours 03/07/23 05:23 WBC 9.5 RBC 4.73 Hgb 14.0 Hct 43.1 MCV 91.1 MCH 29.6 MCHC 32.5 RDW 13.2 Plt Count 222 MPV 11.3 H Immature Gran % (Auto) 0.4 Neut % (Auto) 49.8 Lymph % (Auto) 30.3 Henry % (Auto) 10.8 H Eos % (Auto) 7.9 H Baso % (Auto) 0.8 Lymph # (Auto) 2.87 Henry # (Auto) 1.0 H Eos # (Auto) 0.8 H Baso # (Auto) 0.1 Abs Immat Gran (auto) 0.04 H Absolute Neuts (auto) 4.7 Absolute Nucleated RBC 0.0 Nucleated RBC % 0.0 Sodium 133 L Potassium 3.4 Chloride 99 Carbon Dioxide 29 Anion Gap 5 L BUN 37 H Creatinine 1.30 H Estim Creat Clear Calc Not Reportable Estimated GFR 39 L Glucose 109 Calcium 9.3 Total Bilirubin 0.7 AST 41 H ALT 37 H Alkaline Phosphatase 50 Total Protein 7.0 Albumin 3.8 Discharge Plan Discharge Attending physician on discharge: Izaiah Bang Consulting providers: Aracely Delgado Discharging Clinician: Izaiah Bang Anticipated Discharge Date/Time: 03/07/23 16:29 Patient Disposition: Home, Self-Care Activity: as tolerated Diet: heart healthy Discharge Instructions: Take precautions to avoid falls. Rise slowly from a lying or sitting position. Pause before standing or walking. Check daily morning weights after voiding. Call your doctor if you gain more than 3 lb in 2 days or 5 lb in 1 week. Contact your doctor or call 911 and come to the Emergency Room if you have chest pain, lightheadedness with standing or other worrisome symptoms. Avoid NSAIDs (ibuprofen, naproxen, Aleve).
--- NOTE | 2023-03-07 16:41 | ECG_ITS ---
Measurements Intervals [place] Rate: 76 P: [place]: 0 QRS: -32 QRSD: 106 T: 111 QT: 420 QTc: 475 Interpretive Statements SINUS RHYTHM WITH A SHORT [place] INTERVAL IN FREQUENT APCS MARKED LEFT AXIS DEVIATION [QRS AXIS < -30] VOLTAGE CRITERIA FOR LVH [MEETS CRITERIA IN ONE OF: R(aVL), S(V1), R(V5), R(V5/V6)+S(V1)] MODERATE T-WAVE ABNORMALITY, CONSIDER LATERAL ISCHEMIA [-0.1+ mV T WAVE IN I/aVL/V5/V6] COMPARED TO ECG 03/06/2023 06:48:41 NO SIGNIFICANT CHANGE Electronically Signed On 03-08-2023 8:51:00 CDT by Aracely Delgado M.D.
[2023-03-09 21:22] LABS: Theophylline 5.2 mg/L (10.0-20.0)
--- NOTE | 2023-03-11 09:58 | PC.NURSE ---
Theophylline level is low at 5.2. Results faxed to PCP Dr. Gutiérrez.
== END 2023-03-07 18:55 | disposition home or self-care (01) | DRG 190 ==
LOC: ANHED 07:04 → ANHIMU 11:23
PROVIDERS: Emergency Medicine; Nurse Practitioner; Admitting Provider Family Medicine; Emergency Provider General Practice; PCP Emergency Medicine; Visit Provider Internal Medicine
DX: J44.1 Chronic obstructive pulmonary disease with (acute) exacerbation (principal); I50.33 Acute on chronic diastolic (congestive) heart failure; N17.9 Acute kidney failure, unspecified; R77.8 Other specified abnormalities of plasma proteins; N18.9 Chronic kidney disease, unspecified; E78.5 Hyperlipidemia, unspecified; F32.A Depression, unspecified; G47.30 Sleep apnea, unspecified; E86.0 Dehydration; K21.9 Gastro-esophageal reflux disease without esophagitis; K44.9 Diaphragmatic hernia without obstruction or gangrene; F32.9 Major depressive disorder, single episode, unspecified; N32.81 Overactive bladder; M06.9 Rheumatoid arthritis, unspecified; L40.9 Psoriasis, unspecified; Z91.199 Patient's noncompliance with other medical treatment and regimen due to unspecified reason; Z85.828 Personal history of other malignant neoplasm of skin; Z90.710 Acquired absence of both cervix and uterus; Z87.891 Personal history of nicotine dependence; Z79.82 Long term (current) use of aspirin
CPT/HCPCS: 36415; 36600; 71046; 76775; 80053; 80198; 82375; 82805; 83050; 83880; 84484; 85025; 85380; 85610; 85730; 93005; 93306; 94640; 96374; 99285; A9270; J1940

== ENCOUNTER 2023-04-15 09:00 | Outpatient (CLI) | payer MEDICARE, BC, SELFPAY ==
[2023-04-15 10:32] LABS: Alanine Aminotransferase 11 U/L (6-35); Albumin Level 3.9 g/dL (3.5-5.1); Alkaline Phosphatase 48 U/L (38-126); Anion Gap 1 mmol/L (8-16); Aspartate Amino Transferase 24 U/L (14-36); Bilirubin,Total 0.4 mg/dL (0.2-1.3); Blood Urea Nitrogen 11 mg/dL (7-17); Calcium 10.2 mg/dL (8.4-10.2); Carbon Dioxide 34 mmol/L (22-30); Chloride 102 mmol/L (98-107); Cholesterol 216 mg/dL (0-200); Estimated Glomerular Filt Rate 53; Glucose 89 mg/dL (65-110); HDL Direct 52 mg/dL; Potassium 4.3 mmol/L (3.4-5.0); Sodium 137 mmol/L (137-145); Triglycerides 132 mg/dL (<150)
[2023-04-15 10:43] LABS: LDL Cholesterol Direct 106 mg/dL
[2023-04-15 10:54] LABS: Iron 82 ug/dL (37-170)
[2023-04-15 11:06] LABS: Percent Iron Saturation 23 % (20-50)
[2023-04-19 23:29] LABS: Vitamin D 1,25 (OH)2 Total 32 pg/mL (18-72); Vitamin D2 1,25 (OH)2 <8 pg/mL; Vitamin D3 1,25 (OH)2 32 pg/mL
== END 2023-04-15 09:01 | disposition home or self-care (01) ==
PROVIDERS: PCP Emergency Medicine; Visit Provider Emergency Medicine
DX: D50.9 Iron deficiency anemia, unspecified (principal); E55.9 Vitamin D deficiency, unspecified; E78.5 Hyperlipidemia, unspecified
CPT/HCPCS: 36415; 80053; 80061; 82652; 83540; 83550

== ENCOUNTER 2023-09-19 08:25 | Outpatient (CLI) | payer MEDICARE, BC, SELFPAY ==
[2023-09-19 09:08] LABS: Alanine Aminotransferase 9 U/L (6-35); Albumin Level 3.9 g/dL (3.5-5.1); Alkaline Phosphatase 48 U/L (38-126); Anion Gap 6 mmol/L (8-16); Aspartate Amino Transferase 26 U/L (14-36); Bilirubin,Total 0.5 mg/dL (0.2-1.3); Blood Urea Nitrogen 28 mg/dL (7-17); Calcium 10.2 mg/dL (8.4-10.2); Carbon Dioxide 32 mmol/L (22-30); Chloride 101 mmol/L (98-107); Cholesterol 220 mg/dL (0-200); Estimated Glomerular Filt Rate 36; Glucose 99 mg/dL (65-110); HDL Direct 71 mg/dL; Potassium 3.4 mmol/L (3.4-5.0); Sodium 139 mmol/L (137-145); Triglycerides 86 mg/dL (<150)
[2023-09-19 09:18] LABS: LDL Cholesterol Direct 103 mg/dL
== END 2023-09-19 08:26 | disposition home or self-care (01) ==
PROVIDERS: PCP Emergency Medicine; Visit Provider Emergency Medicine
DX: E78.2 Mixed hyperlipidemia (principal); E55.9 Vitamin D deficiency, unspecified; I10 Essential (primary) hypertension
CPT/HCPCS: 36415; 80053; 80061; 82306

== ENCOUNTER 2023-09-30 10:23 | Outpatient (CLI) | payer MEDICARE, BC, SELFPAY ==
[2023-09-30 10:58] LABS: Basophils Absolute Auto 0.1 K/mm3 (0.0-0.1); Eosinophils Absolute Auto 0.4 K/mm3 (0-0.3); Eosinophils Percent Auto 5.9 % (0-4.4); Hematocrit 47.8 % (37.0-47.0); Hemoglobin 15.2 g/dL (12.0-15.0); Immature Granulocyte Absolute 0.02 K/mm3 (0.00-0.031); Immature Granulocyte Percent A 0.3 % (0-0.5); Lymphocytes Absolute Auto 1.87 K/mm3 (0.9-3.2); Lymphocytes Percent Auto 27.1 % (18.3-44.2); Mean Corpuscular HGB Conc 31.8 g/dl (32-36); Mean Corpuscular Hemoglobin 28.9 pg (26-34); Mean Corpuscular Volume 90.9 fl (80-100); Mean Platelet Volume 11.3 fl (7.4-10.4); Monocytes Absolute Auto 0.7 K/mm3 (0.1-0.6); Monocytes Percent Auto 9.7 % (2.6-8.5); Neutrophils Absolute Auto 3.8 K/mm3 (1.3-6.7); Platelet Count Result 243 k/mm3 (150-375); Red Blood Count 5.26 M/mm3 (4.2-5.4); White Blood Count 6.9 K/mm3 (4.5-10.0)
[2023-10-02 11:43] LABS: NIL 0.02 IU/mL; Quantiferon TB Plus, 1T NEGATIVE (NEGATIVE)
== END 2023-09-30 10:24 | disposition home or self-care (01) ==
PROVIDERS: PCP Emergency Medicine; Visit Provider Emergency Medicine
DX: L40.0 Psoriasis vulgaris (principal); Z11.1 Encounter for screening for respiratory tuberculosis; Z79.899 Other long term (current) drug therapy
CPT/HCPCS: 36415; 85025; 86480

== ENCOUNTER 2023-11-01 15:40 | Emergency (ER) | payer MEDICARE, BC, SELFPAY ==
[2023-11-01] VITALS (16 sets, daily range): BP systolic 101–153; BP diastolic 56–92; PULSE 67–77; RESP 10–32; TEMP 36.4–36.6; O2SAT 93–100
[2023-11-01 16:43] LABS: Basophils Absolute Auto 0.1 K/mm3 (0.0-0.1); Basophils Percent Auto 0.8 % (0.2-1.2); Eosinophils Absolute Auto 0.1 K/mm3 (0-0.3); Eosinophils Percent Auto 0.7 % (0-4.4); Hematocrit 43.8 % (37.0-47.0); Hemoglobin 14.7 g/dL (12.0-15.0); Immature Granulocyte Absolute 0.02 K/mm3 (0.00-0.031); Immature Granulocyte Percent A 0.2 % (0-0.5); Lymphocytes Absolute Auto 1.63 K/mm3 (0.9-3.2); Lymphocytes Percent Auto 19.5 % (18.3-44.2); Mean Corpuscular HGB Conc 33.6 g/dl (32-36); Mean Corpuscular Hemoglobin 29.5 pg (26-34); Mean Corpuscular Volume 87.8 fl (80-100); Mean Platelet Volume 10.8 fl (7.4-10.4); Monocytes Absolute Auto 0.6 K/mm3 (0.1-0.6); Monocytes Percent Auto 6.8 % (2.6-8.5); Platelet Count Result 258 k/mm3 (150-375); Red Blood Count 4.99 M/mm3 (4.2-5.4); Red Cell Distribution Width 13.2 % (11.5-14.5); White Blood Count 8.3 K/mm3 (4.5-10.0)
[2023-11-01 16:54] LABS: Alanine Aminotransferase 12 U/L (6-35); Albumin Level 4.4 g/dL (3.5-5.1); Alkaline Phosphatase 54 U/L (38-126); Anion Gap 8 mmol/L (4-12); Aspartate Amino Transferase 23 U/L (14-36); Bilirubin,Total 0.5 mg/dL (0.2-1.3); Blood Urea Nitrogen 26 mg/dL (7-17); Carbon Dioxide 32 mmol/L (22-30); Chloride 98 mmol/L (98-107); Estimated Glomerular Filt Rate 47; Glucose 175 mg/dL (65-110); Lipase 27 U/L (23-300); Sodium 138 mmol/L (137-145)
--- NOTE | 2023-11-01 16:58 | ED.NAVMDI ---
HPI - Nausea/Vomiting/Diarrhea General Chief complaint: Nausea/Vomiting/Diarrhea Stated complaint: n/v Time Seen by Provider: 11/01/23 16:16 History of Present Illness HPI Narrative: Patient is an 82 year old female with history of chronic back pain, pain pump in place, GERD, hiatal hernia, CKD, CHF here with multiple symptoms including intermittent bilateral foot numbness and tingling, nausea, vomiting, inability to tolerate fluids, difficulty sleeping. Patient notes that her feet have been intermittently numb for the last several weeks. she notes it is intermittent in nature and seems to happen more at night after she has been on her feet for a long time during the day. She describes it as a pins and needle sensation in her bilateral feet. She denies any prior history of this, denies any history of diabetes. Of note she does have a history of extensive back issues including spinal stenosis and has a pain pump in place. She follows with a specialist sumanth Fierro. She denies any current worsening back pain. She denies any bowel or bladder incontinence, no saddle anesthesia. No new weakness in her lower extremities. She notes that her nausea, vomiting and inability to tolerate fluids began over the last 2 days. She does have a history of a hiatal hernia and GERD and deals with this intermittently. Symptoms have caused her difficulty with tolerating anything by mouth over the last 24 hours. She does note that she recently switched from a prescription strength omeprazole to [id number] is unsure if this is worsening her symptoms. She does not have any antiemetics at home. She denies any chest pain, abdominal pain, shortness of breath. She denies fever chills. Finally she notes that she has been having difficulty sleeping over the last 1 month, frequently spends nights awake and falls asleep intermittently throughout the day. She has not discussed this with her primary care doctor. Related Data Home Medications Medication Instructions Recorded Confirmed aspirin 81 mg tablet,delayed 81 mg PO DAILY 09/13/19 09/29/23 release calcium 600 mg-D3 800 unit-mag11 1 tablet PO DAILY 09/13/19 09/29/23 50 cw-cyyc-xobuun-alvin-s.borat tablet (Caltrate 600-D Plus Minerals) calcipotriene-betamethasone 0.005 1 ea topical BID PRN psoriasis 10/12/21 09/29/23 %-0.064 % topical ointment (Taclonex) cholecalciferol (vitamin D3) 125 5,000 unit PO HS 10/12/21 09/29/23 mcg (5,000 unit) tablet clobetasol 0.05 % topical cream 1 applic topical BID 10/12/21 09/29/23 ustekinumab 45 mg/0.5 mL 45 mg subcut Q3M 11/07/21 09/29/23 subcutaneous solution (Stelara) fluticasone propionate 50 50 mcg intranasal DAILY 03/06/23 09/29/23 mcg/actuation nasal spray,suspension furosemide 40 mg tablet 60 mg PO DAILY 03/06/23 09/29/23 polyvinyl alcohol 1.4 % eye drops 1 drp EACH EYE BID PRN Dry Eyes 03/06/23 09/29/23 potassium chloride 20 mEq 20 meq PO DAILY 03/06/23 09/29/23 tablet,extended release trospium 20 mg tablet 20 mg PO DAILY 03/06/23 09/29/23 duloxetine 60 mg capsule,delayed See Rx Instructions PO .COMPLEX 09/29/23 release Allergies Allergy/AdvReac Type Severity Reaction Status Date / Time ibuprofen Allergy Unknown Other Verified 09/30/23 11:55 Influenza Virus Vaccines Allergy Unknown Other Verified 09/30/23 11:55 Chlorophyll Allergy Mild RASH AND Uncoded 09/30/23 11:55 SWELLING Review of Systems Review of Systems: All systems reviewed & are unremarkable except as noted in HPI and below PMFSH Past Medical History Medical History Apneic spell Asthma Asthma-COPD overlap syndrome Chest pain Chest pain Chronic diastolic heart failure Chronic kidney disease Chronic obstructive pulmonary disease Chronic pain disorder Secondary to chronic back pain from scoliosis and spinal stenosis. Dysuria Elevated troponin Elevated troponin Elevated TSH Gastroesophagea
[2023-11-01 17:04] LABS: Appearance Urine Clear (Clear); Bilirubin Urine Negative (Negative); Blood Urine Negative (Negative); Color Urine Yellow (Yellow); Glucose Urine UA Negative (Negative); Ketones Urine Negative (Negative); Leukocyte Esterase Ur Negative LEU/UL (Negative); Nitrate Urine Negative (Negative); Protein Urine Negative (Negative); Specific Grav Ur 1.014 (1.001-1.035); Urobilinogen Urine 0.2 mg/dL (<2.0)
[2023-11-01 17:05] LABS: Add Urine Microscopic? NO
--- NOTE | 2023-11-01 17:17 | ECG_ITS ---
Measurements Intervals [place] Rate: 72 P: 56 [place]: 217 QRS: -37 QRSD: 116 T: 76 QT: 411 QTc: 451 Interpretive Statements SINUS RHYTHM WITH FIRST DEGREE AV BLOCK ATRIAL PREMATURE COMPLEXES LEFT AXIS DEVIATION INTRAVENTRICULAR CONDUCTION DELAY LEFT VENTRICULAR HYPERTROPHY AND ST-T CHANGE BORDERLINE R WAVE PROGRESSION, ANTERIOR LEADS BASELINE ARTIFACT- I, III, AVL, AVF ABNORMAL ECG COMPARED TO ECG 03/07/2023 16:51:01 FIRST DEGREE AV BLOCK NOW PRESENT Electronically Signed On 11-01-2023 20:56:24 CDT by Jarett Nunez D.O.
[2023-11-01] MEDS: LACTATED RINGERS 500 ML 999 ML IV CONT (17:46)
[2023-11-01] MEDS: ONDANSETRON INJ 4 MG/2 ML VIAL IV PUSH (17:46)
[2023-11-01] MEDS: POTASSIUM BICARBONATE 25 MEQ TABEF 50 MEQ PO (18:49)
== END 2023-11-01 19:55 | disposition home or self-care (01) ==
PROVIDERS: Emergency Medicine; Emergency Provider Student in an Organized Health Care Education/Training Program; PCP Emergency Medicine
DX: R20.2 Paresthesia of skin (principal); R11.2 Nausea with vomiting, unspecified; G47.00 Insomnia, unspecified; Z87.891 Personal history of nicotine dependence; K21.9 Gastro-esophageal reflux disease without esophagitis; I50.30 Unspecified diastolic (congestive) heart failure; N18.9 Chronic kidney disease, unspecified; J44.9 Chronic obstructive pulmonary disease, unspecified; E78.5 Hyperlipidemia, unspecified; L40.50 Arthropathic psoriasis, unspecified; M06.9 Rheumatoid arthritis, unspecified; Z85.828 Personal history of other malignant neoplasm of skin; M48.00 Spinal stenosis, site unspecified; Z79.82 Long term (current) use of aspirin
CPT/HCPCS: 36415; 80053; 81003; 83690; 85025; 93005; 96374; 99284; A9270; J2405; J7120

== ENCOUNTER 2023-11-27 12:35 | Outpatient (CLI) | payer MEDICARE, BC, SELFPAY ==
--- NOTE | ~2023-11-27 | CT_ITS ---
EXAMINATION: CT lumbar spine wo con DATE: 11/27/2023 13:01 INDICATION: Low back pain. TECHNIQUE: Computed tomography (CT) of the lumbar spine was performed without intravenous contrast. A utomated exposure control and iterative reconstruction technique were employed. The dose-length produ ct was 159.00 mGy-cm. COMPARISON: None FINDINGS: There is a large sliding hiatal hernia. There is 49 degrees levoscoliosis of thoracolumbar spine. There is a chronic compression fracture of L1 with 1/5 loss of height. There is severely decre ased disc height from T10-T11 through L5-S1 with interbody fusion at T11-T12 and L5-S1. An intratheca l catheter is noted. The following disc levels are specifically discussed: L1-L2: The disc is bulging. There is severe right and moderate left facet joint osteoarthritis. There is moderate right and mild left neural foraminal stenosis. There is mild central canal stenosis. L2-L3: The disc is bulging. There is severe bilateral facet joint osteoarthritis. There is mild bilat eral neural foraminal stenosis. There is mild central canal stenosis. L3-L4: The disc is bulging. There is severe bilateral facet joint osteoarthritis. There is moderate b ilateral neural foraminal stenosis. There is moderate central canal stenosis. L4-L5: The disc is bulging. There is severe bilateral facet joint osteoarthritis. There is moderate r ight and mild left neural foraminal stenosis. There is mild central canal stenosis. L5-S1: There is severe bilateral facet joint osteoarthritis. There is mild bilateral neural foraminal stenosis. There is mild central canal stenosis. IMPRESSION: 1. Severe lumbar spondylosis. 2. Thoracolumbar levoscoliosis. 3. Large sliding hiatal hernia. Reviewed, dictated and finalized at location E.
== END 2023-11-27 12:36 | disposition home or self-care (01) ==
LOC: ANHIMG 12:36
PROVIDERS: PCP Emergency Medicine; Visit Provider Nurse Practitioner Family
DX: M54.51 Vertebrogenic low back pain (principal); M43.06 Spondylolysis, lumbar region; M41.85 Other forms of scoliosis, thoracolumbar region; K44.9 Diaphragmatic hernia without obstruction or gangrene
CPT/HCPCS: 72131

== ENCOUNTER 2023-12-15 08:10 | Outpatient (CLI) | payer MEDICARE, BC, SELFPAY ==
[2023-12-15 09:07] LABS: Alanine Aminotransferase 11 U/L (6-35); Albumin Level 4.6 g/dL (3.5-5.1); Alkaline Phosphatase 51 U/L (38-126); Anion Gap 8 mmol/L (4-12); Aspartate Amino Transferase 25 U/L (14-36); Bilirubin,Total 0.5 mg/dL (0.2-1.3); Blood Urea Nitrogen 18 mg/dL (7-17); Calcium 10.1 mg/dL (8.4-10.2); Carbon Dioxide 31 mmol/L (22-30); Chloride 99 mmol/L (98-107); Cholesterol 222 mg/dL (0-200); Estimated Glomerular Filt Rate 43; Glucose 109 mg/dL (65-110); HDL Direct 75 mg/dL; Potassium 3.8 mmol/L (3.4-5.0); Sodium 138 mmol/L (137-145); Triglycerides 80 mg/dL (<150)
[2023-12-15 09:18] LABS: LDL Cholesterol Direct 107 mg/dL
== END 2023-12-15 08:11 | disposition home or self-care (01) ==
LOC: ANHLAB 08:13
PROVIDERS: PCP Emergency Medicine; Visit Provider Emergency Medicine
DX: E78.5 Hyperlipidemia, unspecified (principal); E55.9 Vitamin D deficiency, unspecified
CPT/HCPCS: 36415; 80053; 80061; 82306

== ENCOUNTER 2023-12-16 07:24 | Outpatient (CLI) | payer MEDICARE, BC, SELFPAY ==
[2023-12-22 11:37] LABS: H pylori Ag Stool Not Detected
== END 2023-12-16 07:25 | disposition home or self-care (01) ==
LOC: ANHLAB 07:27
PROVIDERS: PCP Emergency Medicine; Visit Provider Emergency Medicine
DX: R10.9 Unspecified abdominal pain (principal)
CPT/HCPCS: 87338

== ENCOUNTER 2024-04-22 08:01 | Outpatient (CLI) | payer MEDICARE, BC, SELFPAY ==
[2024-04-22 08:47] LABS: Alanine Aminotransferase 16 U/L (6-35); Albumin Level 4.5 g/dL (3.5-5.1); Alkaline Phosphatase 44 U/L (38-126); Anion Gap 8 mmol/L (4-12); Aspartate Amino Transferase 35 U/L (14-36); Bilirubin,Total 0.5 mg/dL (0.2-1.3); Blood Urea Nitrogen 19 mg/dL (7-17); Calcium 11.1 mg/dL (8.4-10.2); Carbon Dioxide 33 mmol/L (22-30); Chloride 94 mmol/L (98-107); Cholesterol 218 mg/dL (0-200); Estimated Glomerular Filt Rate 43; Glucose 96 mg/dL (65-110); HDL Direct 83 mg/dL; Potassium 3.1 mmol/L (3.4-5.0); Sodium 135 mmol/L (137-145); Triglycerides 108 mg/dL (<150)
[2024-04-22 08:58] LABS: LDL Cholesterol Direct 84 mg/dL
[2024-04-22 10:00] LABS: Vitamin D 25 Hydroxy > 126.0 ng/mL
== END 2024-04-22 08:02 | disposition home or self-care (01) ==
LOC: ANHLAB 08:06
PROVIDERS: PCP Emergency Medicine; Visit Provider Emergency Medicine
DX: E55.9 Vitamin D deficiency, unspecified (principal); E78.5 Hyperlipidemia, unspecified
CPT/HCPCS: 36415; 80053; 80061; 82306

== ENCOUNTER 2024-04-26 13:54 | Emergency (ER) | payer MEDICARE, BC, SELFPAY ==
[2024-04-26] VITALS (7 sets, daily range): BP systolic 118–137; BP diastolic 66–74; PULSE 63–78; RESP 9–15; TEMP 36.6–36.7; O2SAT 95–97
--- NOTE | 2024-04-26 14:01 | ECG_ITS ---
Test Date: 2024-04-26 14:05:47 Measurements Intervals [place] Rate: 69 P: 24 MS: 182 QRS: -47 QRSD: 109 T: 103 QT: 408 QTc: 439 Interpretive Statements SINUS RHYTHM WITH OCCASIONAL VENTRICULAR PREMATURE COMPLEXES LEFT ANTERIOR FASCICULAR BLOCK LEFT VENTRICULAR HYPERTROPHY AND ST-T CHANGE CANNOT R/O SEPTAL INFARCT, AGE INDETERMINATE BASELINE ARTIFACT- I, II, III, AVR, AVL, AVF, V5-V6 ABNORMAL ECG No previous ECG available for comparison Electronically Signed On 04-26-2024 14:20:26 CDT by Jarett Nunez D.O.
[2024-04-26] MEDS: POTASSIUM CHLORIDE 20 MEQ PACKET (FOR LIQUID) 40 MEQ PO (14:39)
--- NOTE | 2024-04-26 15:01 | ED.RECABL ---
HPI - Recheck/Abnormal Lab/Rx General Chief Complaint: Recheck/Abnormal Lab/Rx Stated Complaint: low potassium Time Seen by Provider: 04/26/24 14:31 Source: patient Mode of arrival: ambulatory Limitations: no limitations History of Present Illness HPI narrative: This is an 83-year-old female, with history of COPD, and chronic diastolic heart failure presents to the emergency department for potassium repletion. The patient states she was called by the lab and told she needed, if to receive potassium. She denies chest pain, shortness of breath, palpitations or lightheadedness. She has no other complaints at this time. Related Data Home Medications Medication Instructions Recorded Confirmed aspirin 81 mg tablet,delayed 81 mg PO DAILY 09/13/19 02/16/24 release calcium 600 mg-D3 800 unit-mag11 1 tablet PO DAILY 09/13/19 02/16/24 50 ol-pofh-ujpkku-alvin-s.borat tablet (Caltrate 600-D Plus Minerals) calcipotriene-betamethasone 0.005 1 ea topical BID PRN psoriasis 10/12/21 02/16/24 %-0.064 % topical ointment (Taclonex) cholecalciferol (vitamin D3) 125 5,000 unit PO HS 10/12/21 02/16/24 mcg (5,000 unit) tablet clobetasol 0.05 % topical cream 1 applic topical BID 10/12/21 02/16/24 ustekinumab 45 mg/0.5 mL 45 mg subcut Q3M 11/07/21 02/16/24 subcutaneous solution (Stelara) fluticasone propionate 50 50 mcg intranasal DAILY 03/06/23 02/16/24 mcg/actuation nasal spray,suspension polyvinyl alcohol 1.4 % eye drops 1 drp EACH EYE BID PRN Dry Eyes 03/06/23 02/16/24 Allergies Allergy/AdvReac Type Severity Reaction Status Date / Time ibuprofen Allergy Unknown Other Verified 02/16/24 09:39 Influenza Virus Vaccines Allergy Unknown Other Verified 02/16/24 09:39 Chlorophyll Allergy Mild RASH AND Uncoded 12/23/23 10:51 SWELLING Review of Systems Review of Systems: All systems reviewed & are unremarkable except as noted in HPI and below PMFSH Past Medical History Medical History Apneic spell Asthma Asthma-COPD overlap syndrome Chest pain Chest pain Chronic diastolic heart failure Chronic kidney disease Chronic obstructive pulmonary disease Chronic pain disorder Secondary to chronic back pain from scoliosis and spinal stenosis. Dysuria Elevated troponin Elevated troponin Elevated TSH Gastroesophageal reflux disease Giddiness Hernia, hiatal Hyperlipidemia Hypokalemia Insomnia Laceration Loud snoring Major depressive disorder, single episode, unspecified Multiple contusions NSIP (nonspecific interstitial pneumonia) Oropharyngeal dysphagia Other specified personal risk factors, not elsewhere classified Overactive bladder Pneumonia of right upper lobe due to infectious organism Psoriasis Psoriatic arthritis Rheumatoid arthritis, unspecified Risk for falls Shingles Skin cancer Urinary incontinence, mixed Urinary symptom or sign Urinary tract infection UTI (urinary tract infection) Vitamin D deficiency Surgical History Surgical History History of cardiac catheterization (08/13/11) Normal coronary arteries. Left ventricular ejection fraction visually estimated 45% with hypokinesis of basal segments, suggestive of reversible/atypical takotsubo cardiomyopathy. History of cataract extraction History of hysterectomy History of spinal surgery Status post insertion of intrathecal pump Family History Family History Grandparent Family history of coronary artery disease Diabetes mellitus Father Family history of coronary artery disease Patient's father is Hypertension Asthma Family history of heart disease in male family member before age 55 Sibling Hypertension Family history of malignant neoplasm of brain Mother Family history of heart disease in male family member before age 55, Onset Age: 92 Family
== END 2024-04-26 15:44 | disposition home or self-care (01) ==
PROVIDERS: Emergency Provider Preventive Medicine Aerospace Medicine; PCP Emergency Medicine
DX: E87.6 Hypokalemia (principal); J44.9 Chronic obstructive pulmonary disease, unspecified; I50.32 Chronic diastolic (congestive) heart failure; N18.9 Chronic kidney disease, unspecified; G89.4 Chronic pain syndrome; M54.9 Dorsalgia, unspecified; K21.9 Gastro-esophageal reflux disease without esophagitis; E78.5 Hyperlipidemia, unspecified; F32.9 Major depressive disorder, single episode, unspecified; L40.50 Arthropathic psoriasis, unspecified; L40.9 Psoriasis, unspecified; M06.9 Rheumatoid arthritis, unspecified; E55.9 Vitamin D deficiency, unspecified; Z79.82 Long term (current) use of aspirin; Z79.620 Long term (current) use of immunosuppressive biologic; Z87.891 Personal history of nicotine dependence; Z79.51 Long term (current) use of inhaled steroids
CPT/HCPCS: 93005; 99283; A9270

== ENCOUNTER 2024-06-17 10:02 | Emergency (ER) | payer MEDICARE, BC, SELFPAY ==
[2024-06-17] VITALS (38 sets, daily range): BP systolic 95–137; BP diastolic 54–95; PULSE 56–72; RESP 10–28; TEMP 36.7; O2SAT 83–100
--- NOTE | ~2024-06-17 | CT_ITS ---
EXAMINATION: CT brain wo con DATE: 06/17/2024 11:46 INDICATION: Segmental status TECHNIQUE: Computed tomography (CT) of the head was performed without intravenous contrast. Sagittal and coronal reconstructions were performed. The mA was adjusted according to patient size. Iterative reconstruction technique was employed. The dose-length product was 605.33 mGy-cm. COMPARISON: head CT dated 03/03/2023 FINDINGS: No acute intracranial hemorrhage, acute infarction or abnormal extra axial fluid collection. There is mild scattered white matter hypoattenuation consistent with chronic small vessel ischemic disease. S ymmetric prominence of the sulci consistent with mild to moderate age-appropriate diffuse cerebral vo lume loss. Ventricles are normal and symmetric. No mass/mass effect. Changes of bilateral intraocular lens replacement. The orbits, paranasal sinuses and mastoid air cells are normal. IMPRESSION: 1. Stable age-related changes in the brain with no acute intracranial process. Reviewed, dictated and finalized at location B. OILER
--- NOTE | ~2024-06-17 | XR_ITS ---
EXAMINATION: XR chest 1V portable DATE: 06/17/2024 11:55 INDICATION: Fatigue. Lower extremity swelling bilaterally. TECHNIQUE: A single frontal view of the chest was obtained. COMPARISON: Chest 2 views 04/02/2023, chest CT 11/07/2017 FINDINGS: There is a large hiatal hernia. There is a diffuse interstitial pattern in the lungs. No pl eural effusion or pneumothorax. The heart size is normal. A pump overlies the right abdomen. IMPRESSION: 1. Stable diffuse interstitial pattern in the lungs, consistent with chronic interstitial lung diseas e. 2. Large hiatal hernia. Reviewed, dictated and finalized at location A. R ELECTRIC PRACTITIONER IMPRESSION: 1. Stable diffuse interstitial pattern in the lungs, consistent with chronic in terstitial lung disease. 2. Large hiatal hernia.
--- NOTE | 2024-06-17 11:28 | ECG_ITS ---
Test Date: 2024-06-17 11:56:52 Measurements Intervals [place] Rate: 62 P: -8 [place]: 194 QRS: -34 QRSD: 130 T: 83 QT: 420 QTc: 427 Interpretive Statements SINUS RHYTHM WITH OCCASIONAL SUPRAVENTRICULAR PREMATURE COMPLEXES LEFT AXIS DEVIATION INTRAVENTRICULAR CONDUCTION DELAY LEFT VENTRICULAR HYPERTROPHY AND ST-T CHANGE CANNOT R/O SEPTAL INFARCT, AGE INDETERMINATE BASELINE ARTIFACT- I, II, III, AVR, AVL, AVF, V1-V6 ABNORMAL ECG Compared to ECG 04/26/2024 14:05:47 NO SIGNIFICANT CHANGE Electronically Signed On 06-17-2024 11:59:33 BETTING [employer]ENCY COUNTER CLERK by Jarett Nunez D.O.
[2024-06-17 11:59] LABS: Basophils Absolute Auto 0.1 K/mm3 (0.0-0.1); Basophils Percent Auto 1.2 % (0.2-1.2); Eosinophils Absolute Auto 0.7 K/mm3 (0-0.3); Hematocrit 41.3 % (37.0-47.0); Hemoglobin 13.4 g/dL (12.0-15.0); Immature Granulocyte Absolute 0.01 K/mm3 (0.00-0.031); Immature Granulocyte Percent A 0.1 % (0-0.5); Lymphocytes Absolute Auto 2.63 K/mm3 (0.9-3.2); Lymphocytes Percent Auto 32.3 % (18.3-44.2); Mean Corpuscular HGB Conc 32.4 g/dl (32-36); Mean Corpuscular Hemoglobin 30.5 pg (26-34); Mean Corpuscular Volume 93.9 fl (80-100); Mean Platelet Volume 10.9 fl (7.4-10.4); Monocytes Percent Auto 11.7 % (2.6-8.5); Neutrophils Absolute Auto 3.8 K/mm3 (1.3-6.7); Neutrophils Percent Auto 46.7 % (45.5-73.1); Platelet Count Result 216 k/mm3 (150-375); White Blood Count 8.2 K/mm3 (4.5-10.0)
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
[2024-06-17 12:20] LABS: Alanine Aminotransferase 12 U/L (6-35); Albumin Level 4.3 g/dL (3.5-5.1); Alkaline Phosphatase 50 U/L (38-126); Anion Gap 5 mmol/L (4-12); Aspartate Amino Transferase 26 U/L (14-36); Bilirubin,Total 0.5 mg/dL (0.2-1.3); Blood Urea Nitrogen 24 mg/dL (7-17); Calcium 10.7 mg/dL (8.4-10.2); Carbon Dioxide 35 mmol/L (22-30); Chloride 98 mmol/L (98-107); Estimated Glomerular Filt Rate 53; Glucose 95 mg/dL (65-110); Magnesium 2.5 mg/dL (1.6-2.3); Potassium 3.9 mmol/L (3.4-5.0); Sodium 138 mmol/L (137-145)
[2024-06-17 12:25] LABS: Troponin I 0.015 ng/mL (0.000-0.034)
[2024-06-17 12:37] LABS: Creatine Kinase 115 U/L (30-135)
[2024-06-17 12:43] LABS: NT Pro B Type Natriuretic Pept 484 pg/mL (19.9-100)
[2024-06-17 12:45] LABS: Alveolar/Arterial O2 Gradient 27.6 mmHg; Fractional Inspired Oxygen 21 %; HCO3 ABG 28.5 mEq/l (22.0-26.0); Oxygen Content ABG 17.5 %vol (16.0-22.0); Oxygen Saturation ABG 94.9 % (95.0-100.0); Oxyhemoglobin 93.5 % THb (90.0-100.0); PCO2 ABG 42.4 mmHg (35.0-45.0); PO2 ABG 71.4 mmHg (80.0-100.0); Total Hemoglobin 13.3 g/dL (12.0-18.0); pH ABG 7.445 (7.350-7.450)
[2024-06-17 12:46] LABS: Site Drawn RIGHT BRACHIAL
[2024-06-17 13:02] LABS: Add Urine Microscopic? YES; Appearance Urine Clear (Clear); Bacteria Urine None Seen /hpf; Bilirubin Urine Negative (Negative); Blood Urine Negative (Negative); Color Urine Yellow (Yellow); Glucose Urine UA Negative (Negative); Ketones Urine Negative (Negative); Leukocyte Esterase Ur Trace LEU/UL (Negative); Nitrate Urine Negative (Negative); Non Pathogenic Casts 0-2; Protein Urine Negative (Negative); RBC Urine 0-2 /hpf (0-2); Specific Grav Ur 1.007 (1.001-1.035); Squamous Epithelial Cell Urine None Seen /hpf (Few); Urobilinogen Urine 0.2 mg/dL (<2.0); WBC Urine 0-5 /hpf (0-3)
[2024-06-17] MEDS: SODIUM CHLORIDE 0.9% IV 500 ML 999 ML IV CONT (17:44)
== END 2024-06-17 17:51 | disposition home or self-care (01) ==
PROVIDERS: Emergency Provider Physician Assistant; PCP Emergency Medicine
DX: R62.7 Adult failure to thrive (principal); Z68.22 Body mass index [BMI] 22.0-22.9, adult; E83.41 Hypermagnesemia; E83.52 Hypercalcemia; G47.33 Obstructive sleep apnea (adult) (pediatric); E78.5 Hyperlipidemia, unspecified; N18.9 Chronic kidney disease, unspecified; J44.9 Chronic obstructive pulmonary disease, unspecified; Z79.82 Long term (current) use of aspirin; I50.32 Chronic diastolic (congestive) heart failure; K21.9 Gastro-esophageal reflux disease without esophagitis; Z87.891 Personal history of nicotine dependence
CPT/HCPCS: 36415; 36600; 70450; 71045; 80053; 81001; 82550; 82805; 83735; 83880; 84443; 84484; 85018; 85025; 93005; 99284; J7030

== ENCOUNTER 2024-06-29 09:49 | Observation (INO) | payer MEDICARE, BC, SELFPAY ==
[2024-06-29] VITALS (18 sets, daily range): BP systolic 93–141; BP diastolic 46–73; PULSE 58–88; RESP 11–21; TEMP 36.4–36.8; O2SAT 92–100; BMI 23.2
--- NOTE | ~2024-06-29 | CT_ITS ---
CT brain wo con Ordering provider: Jhonatan Mendoza MD History: 83 years Female with . minor head injury . Comparison: None. Technique: CT of the head without contrast. Radiation reduction technique utilized.The dose-length pr oduct was 1135 mGy-cm. FINDINGS: BRAIN PARENCHYMA AND CSF SPACES: Mild leukoaraiosis and diffuse cortical atrophy. Mild atheromatous d isease. Old lacunar infarct in the right basal ganglia. No midline shift, mass effect or hemorrhage. The brain parenchyma and CSF spaces are otherwise normal. VISUALIZED PARANASAL SINUSES: Well aerated. MASTOIDS: Well aerated. BONES: The bones appear intact. SOFT TISSUES: Visualized nasopharynx is normal. Superficial soft tissues are normal. IMPRESSION: No acute intracranial findings. Reviewed, dictated and finalized at location A. DESIGNER
--- NOTE | ~2024-06-29 | XR_ITS ---
EXAMINATION: XR chest 2V DATE: 06/29/2024 13:29 INDICATION: Weakness. Fatigue. TECHNIQUE: Frontal and lateral views of the chest were obtained. COMPARISON: Chest single view 06/17/2024, chest CT 11/07/2017 FINDINGS: There is a diffuse interstitial pattern in the lungs. No pleural effusion or pneumothorax. The heart size is normal. There is a large hiatal hernia. An intrathecal catheter is noted. IMPRESSION: 1. Stable diffuse interstitial pattern in the lungs, consistent with chronic interstitial lung diseas e. 2. Large hiatal hernia. Reviewed, dictated and finalized at location A. LMAN IMPRESSION: 1. Stable diffuse interstitial pattern in the lungs, consistent with chronic in terstitial lung disease. 2. Large hiatal hernia.
[2024-06-29 13:04] LABS: Basophils Absolute Auto 0.1 K/mm3 (0.0-0.1); Basophils Percent Auto 1.3 % (0.2-1.2); Eosinophils Absolute Auto 0.3 K/mm3 (0-0.3); Eosinophils Percent Auto 4.6 % (0-4.4); Hematocrit 42.3 % (37.0-47.0); Hemoglobin 13.8 g/dL (12.0-15.0); Immature Granulocyte Absolute 0.01 K/mm3 (0.00-0.031); Immature Granulocyte Percent A 0.1 % (0-0.5); Lymphocytes Absolute Auto 2.26 K/mm3 (0.9-3.2); Lymphocytes Percent Auto 31.6 % (18.3-44.2); Mean Corpuscular HGB Conc 32.6 g/dl (32-36); Mean Corpuscular Hemoglobin 30.6 pg (26-34); Mean Corpuscular Volume 93.8 fl (80-100); Mean Platelet Volume 11.7 fl (7.4-10.4); Monocytes Absolute Auto 0.9 K/mm3 (0.1-0.6); Monocytes Percent Auto 11.9 % (2.6-8.5); Neutrophils Absolute Auto 3.6 K/mm3 (1.3-6.7); Neutrophils Percent Auto 50.5 % (45.5-73.1); Platelet Count Result 229 k/mm3 (150-375); Red Blood Count 4.51 M/mm3 (4.2-5.4); Red Cell Distribution Width 12.8 % (11.5-14.5); White Blood Count 7.2 K/mm3 (4.5-10.0)
[2024-06-29] MEDS: SODIUM CHLORIDE 0.9% IV 500 ML 999 ML IV CONT (13:09)
--- NOTE | 2024-06-29 13:10 | ECG_ITS ---
Test Date: 2024-06-29 13:17:53 Measurements Intervals [place] Rate: 65 P: 46 SC: 207 QRS: -36 QRSD: 106 T: 90 QT: 442 QTc: 461 Interpretive Statements SINUS RHYTHM WITH FIRST DEGREE AV BLOCK LEFT AXIS DEVIATION CANNOT R/O SEPTAL INFARCT, AGE INDETERMINATE BORDERLINE ST-T WAVE ABNORMALITY- HIGH LATERAL LEADS ABNORMAL ECG Compared to ECG 06/17/2024 11:56:52 NO SIGNIFICANT CHANGE Electronically Signed On 06-29-2024 13:52:59 ESTHETICIAN by Jarett Nunez D.O.
[2024-06-29 13:12] LABS: Alveolar/Arterial O2 Gradient 53.3 mmHg; Carboxyhemoglobin 1.7 % THb (0-2.0); Fractional Inspired Oxygen 21 %; HCO3 ABG 27.7 mEq/l (22.0-26.0); Methemoglobin ABG 0.2 %THb (0-1.5); Oxygen Content ABG 12.7 %vol (16.0-22.0); PCO2 ABG 52.3 mmHg (35.0-45.0); PO2 FiO2 Ratio Arterial Blood 1.61 %; Reduced Hemoglobin 34.4 %THb (0-5.0); Total Hemoglobin 14.2 g/dL (12.0-18.0); pH ABG 7.342 (7.350-7.450)
[2024-06-29 13:18] LABS: PO2 ABG 33.8 mmHg (80.0-100.0)
[2024-06-29 13:19] LABS: Alanine Aminotransferase 13 U/L (6-35); Albumin Level 4.3 g/dL (3.5-5.1); Alkaline Phosphatase 56 U/L (38-126); Anion Gap 3 mmol/L (4-12); Aspartate Amino Transferase 36 U/L (14-36); Bilirubin,Total 0.9 mg/dL (0.2-1.3); Blood Urea Nitrogen 17 mg/dL (7-17); Calcium 10.9 mg/dL (8.4-10.2); Carbon Dioxide 32 mmol/L (22-30); Chloride 101 mmol/L (98-107); Estimated Glomerular Filt Rate > 60; Glucose 82 mg/dL (65-110); Sodium 136 mmol/L (137-145)
[2024-06-29 13:19] LABS: Oxygen Saturation ABG 60.6 % (95.0-100.0)
[2024-06-29 13:20] LABS: Oxyhemoglobin 63.7 % THb (90.0-100.0); Site Drawn RIGHT RADIAL
--- NOTE | 2024-06-29 13:33 | ED_ITS ---
HPI - Fall General Chief Complaint: Fall Stated Complaint: fall Time Seen by Provider: 06/29/24 12:04 History of Present Illness HPI Narrative: patient is an 83-year-old female who presents ER after fall last night. Patient has had depressed mental status for last month according to the daughter. She is sleeping at all times but minor stimuli will wake her up and she can not answer questions briefly before falling asleep. She went to her pain management physician who decreased her medications 10% yesterday but there has been no change. Patient had a fall overnight and is unsure if she struck her head. She lives at home with her spouse. Patient has had a 30 lb weight loss over last couple of months due to inactivity and poor eating according to the daughter. Related Data Home Medications Medication Instructions Recorded Confirmed calcipotriene-betamethasone 0.005 1 ea topical BID PRN psoriasis 10/12/21 06/29/24 %-0.064 % topical ointment (Taclonex) cholecalciferol (vitamin D3) 125 5,000 unit PO HS 10/12/21 06/29/24 mcg (5,000 unit) tablet clobetasol 0.05 % topical cream 1 applic topical BID 10/12/21 06/29/24 ustekinumab 45 mg/0.5 mL 45 mg subcut Q3M 11/07/21 06/29/24 subcutaneous solution (Stelara) fluticasone propionate 50 50 mcg intranasal DAILY 03/06/23 06/29/24 mcg/actuation nasal spray,suspension polyvinyl alcohol 1.4 % eye drops 1 drp EACH EYE BID PRN Dry Eyes 03/06/23 06/29/24 Allergies Allergy/AdvReac Type Severity Reaction Status Date / Time ibuprofen Allergy Unknown Other Verified 04/27/24 10:33 Influenza Virus Vaccines Allergy Unknown Other Verified 04/27/24 10:33 Chlorophyll Allergy Mild RASH AND Uncoded 04/27/24 10:33 SWELLING Review of Systems Review of Systems: ROS unobtainable: Yes unobtainable due to mental status [facility] Past Medical History Medical History (Updated 06/29/24 @ 21:29 by Jhonatan Mendoza MD) Apneic spell Asthma Asthma-COPD overlap syndrome Chest pain Chest pain Chronic diastolic heart failure Chronic kidney disease Chronic obstructive pulmonary disease Chronic pain disorder Secondary to chronic back pain from scoliosis and spinal stenosis. Dysuria Elevated troponin Elevated troponin Elevated TSH Gastroesophageal reflux disease Giddiness Hernia, hiatal Hyperlipidemia Hypokalemia Insomnia Laceration Loud snoring Major depressive disorder, single episode, unspecified Multiple contusions NSIP (nonspecific interstitial pneumonia) Oropharyngeal dysphagia Other specified personal risk factors, not elsewhere classified Overactive bladder Pneumonia of right upper lobe due to infectious organism Psoriasis Psoriatic arthritis Rheumatoid arthritis, unspecified Risk for falls Shingles Skin cancer Urinary incontinence, mixed Urinary symptom or sign Urinary tract infection UTI (urinary tract infection) Vitamin D deficiency Surgical History Surgical History History of cardiac catheterization (08/13/11) Normal coronary arteries. Left ventricular ejection fraction visually estimated 45% with hypokinesis of basal segments, suggestive of reversible/atypical takotsubo cardiomyopathy. History of cataract extraction History of hysterectomy History of spinal surgery Status post insertion of intrathecal pump Family History Family History Grandparent Family history of coronary artery disease Diabetes mellitus Father Family history of coronary artery disease Patient's father is Hypertension Asthma Family history of heart disease in male family member before age 55 Sibling Hypertension Family history of malignant neoplasm of brain Mother Family history of heart disease in male family member before age 55, Onset Age: 92 Family history of malignant neoplasm, Onset Age: 92 Family history of cardiovascular disease Family history of malignant neoplasm of stomach Other Family history of diabetes mellitus in first degree relative Social History Social History Social History: 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 Surrogate medical decision maker: Gabino Mueller, spouse. Code status: Full code. Smoking packs per day: 0.5 Smoking cigarettes per day: 10.0 Years smoked: 10 Smoking pack-years: 5.00 Smoking status: Former smoker Second hand tobacco smoke exposure: No Alcohol intake: never Substance use: never Substance use type: does not use Current Housing: Decline to Answer Concerned About Future Housing: Decline to Answer Difficulty Paying Gas/Electric Bills: Decline to Answer Difficulty Paying for Meds: Decline to Answer Currently Unemployed: Decline to Answer Education: Decline to Answer Difficulty w/ Childcare or Family Care: Decline to Answer Additional living arrangements comments: The patient lives with her . They have 6 grown children. Occupation/Education: retired Spiritual care concerns: No Exam Narrative: GENERAL: Well-appearing, Frail appearing, sleeping peacefully but awakens to minor stimuli. HEAD: Normocephalic, atraumatic. EYES: PERRL and EOMI. ENT: Mucous membranes moist. CHEST: Clear to auscultation. No respiratory distress. HEART: Regular rate and rhythm. Normal peripheral pulses. ABDOMEN: Soft, nontender, nondistended. EXTREMITIES: Normal range of motion. No edema. SKIN: Warm, dry, no rash. NEURO: Alert and oriented x2. PSYCH: Normal mood and affect. Course Course Emergency Course: patient resting comfortably throughout ER visit. I did give her Narcan 0.4 mg and she probably started breathing deeper and then woke up and became quite agitated. I suspect that she is being overdose by her implanted pain pump. She had not been hypoxic. She did receive a small amount of Ativan for anxiousness after we reversed her opiate medication. The [employer] technical sales representative has come out and decreased her medication rate by an additional 10% per the recommendations of her pain physician. She is now out morphine 3.7 mg per day, bupivacaine 0.4637 mg per day, and clonidine 18.55 mcg per day. The pain management physician recommends observing for 24 hours and if mental status returns to normal she may follow-up on Friday for further evaluation. If she is not improving she may require additional adjustments. No evidence of head injury from fall. Labs are otherwise unremarkable. Vital Signs Vital signs: Vital Signs Temperature 97.6 F 06/29/24 09:57 Pulse Rate 65 06/29/24 09:57 Respiratory Rate 16 06/29/24 09:57 Blood Pressure 93/46 L 06/29/24 09:57 Pulse Oximetry 100 06/29/24 09:57 Temperature 97.6 F 06/29/24 20:32 Pulse Rate 62 06/29/24 20:32 Respiratory Rate 14 06/29/24 20:32 Blood Pressure 109/60 06/29/24 20:32 Pulse Oximetry 92 06/29/24 20:32 MDM - Fall Lab Data 06/29/24 12:58 06/29/24 12:58 Labs: Lab Results 11/26/24 11/26/24 11/26/24 Range/Units 12:49 12:58 12:59 WBC 7.2 (4.5-10.0) K/mm3 RBC 4.51 (4.2-5.4) M/mm3 Hgb 13.8 (12.0-15.0) g/dL Hct 42.3 (37.0-47.0) % MCV 93.8 (80-100) fl MCH 30.6 (26-34) pg MCHC 32.6 (32-36) g/dl RDW 12.8 (11.5-14.5) % Plt Count 229 (150-375) k/mm3 MPV 11.7 H (7.4-10.4) fl Immature Gran % (Auto) 0.1 (0-0.5) % Neut % (Auto) 50.5 (45.5-73.1) % Lymph % (Auto) 31.6 (18.3-44.2) % Kimble % (Auto) 11.9 H (2.6-8.5) % Eos % (Auto) 4.6 H (0-4.4) % Baso % (Auto) 1.3 H (0.2-1.2) % Lymph # (Auto) 2.26 (0.9-3.2) K/mm3 Kimble # (Auto) 0.9 H (0.1-0.6) K/mm3 Eos # (Auto) 0.3 (0-0.3) K/mm3 Baso # (Auto) 0.1 (0.0-0.1) K/mm3 Abs Immat Gran (auto) 0.01 (0.00-0.031) K/mm3 Absolute Neuts (auto) 3.6 (1.3-6.7) K/mm3 Absolute Nucleated RBC 0.000 (0.0-0.012) K/mm3 Nucleated RBC % 0.0 (0.0-0.2) % Methemoglobin 0.2 (0-1.5) %THb Sodium 136 L (137-145) mmol/L Potassium 4.0 (3.4-5.0) mmol/L Chloride 101 (98-107) mmol/L Carbon Dioxide 32 H (22-30) mmol/L Anion Gap 3 L (4-12) mmol/L BUN 17 (7-17) mg/dL Creatinine 0.80 (0.7-1.0) mg/dL Estim Creat Clear Calc Not Reportable Estimated GFR > 60 (59 - ) Glucose 82 (65-110) mg/dL Calcium 10.9 H (8.4-10.2) mg/dL Total Bilirubin 0.9 (0.2-1.3) mg/dL AST 36 (14-36) U/L ALT 13 (6-35) U/L Alkaline Phosphatase 56 (38-126) U/L Total Protein 8.0 (6.3-8.2) g/dL Albumin 4.3 (3.5-5.1) g/dL Urine Color Yellow (Yellow) Urine Appearance Clear (Clear) Urine pH 7.0 (5.0-9.0) Ur Specific [place] 1.012 (1.001-1.035) Urine Protein Negative (Negative) mg/dL Urine Glucose (UA) Negative (Negative) mg/dL Urine Ketones Negative (Negative) mg/dL Ur Blood (Man) Negative (Negative) Urine Nitrate Negative (Negative) Urine Bilirubin Negative (Negative) Urine Urobilinogen 0.2 (<2.0) mg/dL Leukocyte Esterase Rfl Negative (Negative) ROMEL/UL ABG Data ABG results: 06/29/24 12:49 Puncture Site Right radial ABG pH 7.342 L ABG pCO2 52.3 H ABG pO2 33.8 L* ABG PO2/FiO2 Ratio 1.61 ABG HCO3 27.7 H ABG O2 Saturation 60.6 L* ABG O2 Content 12.7 L ABG Base Excess 1.0 A-a Gradient 53.3 Oxyhemoglobin 63.7 L* Carboxyhemoglobin 1.7 Reduced Hemoglobin 34.4 H Total Hemoglobin 14.2 FiO2 21 Imaging Data Radiologist's impression: CXR:IMPRESSION: 1. Stable diffuse interstitial pattern in the lungs, consistent with chronic interstitial lung disease. 2. Large hiatal hernia. CT BRAIN: IMPRESSION: No acute intracranial findings. ECG Data EKG #1: ECG completion date: 06/29/24 ECG completion time: 13:17 EKG Interpretation: normal rate (65), sinus rhythm, no ST changes, normal QRS, normal QT and left axis Discharge Plan Discharge Clinical Impression: Accidental opiate poisoning Patient Disposition: Still a Patient Condition: Stable
[2024-06-29 13:36] LABS: Add Urine Microscopic? NO; Appearance Urine Clear (Clear); Bilirubin Urine Negative (Negative); Blood Urine Negative (Negative); Color Urine Yellow (Yellow); Glucose Urine UA Negative (Negative); Ketones Urine Negative (Negative); Leukocyte Esterase Ur Negative LEU/UL (Negative); Nitrate Urine Negative (Negative); Protein Urine Negative (Negative); Specific Grav Ur 1.012 (1.001-1.035); Urobilinogen Urine 0.2 mg/dL (<2.0)
[2024-06-29] MEDS: NALOXONE HCL 0.4 MG/ML VIAL IV PUSH (13:39)
[2024-06-29] MEDS: LORazepam INJ (*CRX) 2 MG/ML VIAL 0.5 MG IV PUSH (13:52)
[2024-06-29] MEDS: ONDANSETRON INJ 4 MG/2 ML VIAL IV PUSH (13:54)
--- NOTE | 2024-06-29 13:57 | PC.NURSE ---
Per Sakina at [facility], Victorino is on his way to address patient's pain pump.
--- NOTE | 2024-06-29 14:08 | PC.NURSE ---
when pt arrives they were very drowsy and would fall asleep during conversations. provider ordered Narcan to see if pain pump needs to be titrated down. after administration pt began getting very anxious and stated they felt extremely uncomfortable. provider ordered Zofran and Ativan to assist with symptoms. pt is alert and able to hold conversation after Narcan administration
--- NOTE | 2024-06-29 14:35 | P.HP_ITS ---
H&P: HPI History of Present Illness Date/Time: 06/29/24 14:35 Chief Complaint: Lethargy Narrative: 83-year-old female with CHF, chronic pain on a pain pump presents the hospital with lethargy. Patient has been complaining of increased lethargy over the past few weeks yesterday she went to a pain management clinic to have her pain pump refill in her dose decreased. Today she is still lethargic and was brought into the hospital by her daughter. She was given Narcan in the ED and became more alert. Pain Management Clinic has been called and will come to the hospital to adjust her pump. Patient is being monitored for accidental overdose. On assessment patient is arousable to voice however she is extremely tired. Patient's UA and that ED was negative for acute infection, no leukocytosis, head CT showed no acute findings, chest x-ray shows no acute pulmonary process, Review of Systems Review of Systems: ROS unobtainable: Yes unobtainable due to mental status PMFSH Past Medical History Medical History (Updated 06/29/24 @ 21:29 by Jhonatan Mendoza MD) Apneic spell Asthma Asthma-COPD overlap syndrome Chest pain Chest pain Chronic diastolic heart failure Chronic kidney disease Chronic obstructive pulmonary disease Chronic pain disorder Secondary to chronic back pain from scoliosis and spinal stenosis. Dysuria Elevated troponin Elevated troponin Elevated TSH Gastroesophageal reflux disease Giddiness Hernia, hiatal Hyperlipidemia Hypokalemia Insomnia Laceration Loud snoring Major depressive disorder, single episode, unspecified Multiple contusions NSIP (nonspecific interstitial pneumonia) Oropharyngeal dysphagia Other specified personal risk factors, not elsewhere classified Overactive bladder Pneumonia of right upper lobe due to infectious organism Psoriasis Psoriatic arthritis Rheumatoid arthritis, unspecified Risk for falls Shingles Skin cancer Urinary incontinence, mixed Urinary symptom or sign Urinary tract infection UTI (urinary tract infection) Vitamin D deficiency Surgical History Surgical History History of cardiac catheterization (08/13/11) Normal coronary arteries. Left ventricular ejection fraction visually estimated 45% with hypokinesis of basal segments, suggestive of reversible/atypical takotsubo cardiomyopathy. History of cataract extraction History of hysterectomy History of spinal surgery Status post insertion of intrathecal pump Family History Family History Grandparent Family history of coronary artery disease Diabetes mellitus Father Family history of coronary artery disease Patient's father is Hypertension Asthma Family history of heart disease in male family member before age 55 Sibling Hypertension Family history of malignant neoplasm of brain Mother Family history of heart disease in male family member before age 55, Onset Age: 92 Family history of malignant neoplasm, Onset Age: 92 Family history of cardiovascular disease Family history of malignant neoplasm of stomach Other Family history of diabetes mellitus in first degree relative Social History Social History Social History: 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 Surrogate medical decision maker: Gabino Mueller, spouse. Code status: Full code. Smoking packs per day: 0.5 Smoking cigarettes per day: 10.0 Years smoked: 10 Smoking pack-years: 5.00 Smoking status: Former smoker Second hand tobacco smoke exposure: No Alcohol intake: never Substance use: never Substance use type: does not use Current Housing: Decline to Answer Concerned About Future Housing: Decline to Answer Difficulty Paying Gas/Electric Bills: Decline to Answer Difficulty Paying for Meds: Decline to Answer Currently Unemployed: Decline to Answer Education: Decline to Answer Difficulty w/ Childcare or Family Care: Decline to Answer Additional living arrangements comments: The patient lives with her . They have 6 grown children. Occupation/Education: retired Spiritual care concerns: No Meds Home Medications and Allergies Home Medications Medication Instructions Recorded Confirmed Type calcipotriene-betamethasone 0.005 1 ea topical BID PRN psoriasis 10/12/21 06/29/24 History %-0.064 % topical ointment (Taclonex) cholecalciferol (vitamin D3) 125 5,000 unit PO HS 10/12/21 06/29/24 History mcg (5,000 unit) tablet clobetasol 0.05 % topical cream 1 applic topical BID 10/12/21 06/29/24 History ustekinumab 45 mg/0.5 mL 45 mg subcut Q3M 11/07/21 06/29/24 History subcutaneous solution (Stelara) fluticasone propionate 50 50 mcg intranasal DAILY 03/06/23 06/29/24 History mcg/actuation nasal spray,suspension polyvinyl alcohol 1.4 % eye drops 1 drp EACH EYE BID PRN Dry Eyes 03/06/23 06/29/24 History albuterol sulfate 90 mcg/actuation See Rx Instructions .Route 03/14/23 06/29/24 Rx aerosol inhaler .COMPLEX #27 grams pantoprazole 40 mg tablet,delayed 40 mg PO DAILY #90 tabs 11/05/23 06/29/24 Rx release potassium chloride 20 mEq See Rx Instructions .Route 11/10/23 06/29/24 Rx tablet,extended release .COMPLEX #90 tabs tiotropium bromide 1.25 See Rx Instructions .Route 11/25/23 06/29/24 Rx mcg/actuation mist for inhalation .COMPLEX #12 grams (Spiriva Respimat) montelukast 10 mg tablet See Rx Instructions .Route 12/15/23 06/29/24 Rx .COMPLEX #90 tabs simvastatin 10 mg tablet See Rx Instructions .Route 12/15/23 06/29/24 Rx .COMPLEX #90 tabs trospium 20 mg tablet See Rx Instructions .Route 12/23/23 06/29/24 Rx .COMPLEX #90 tabs venlafaxine 75 mg tablet 75 mg PO BID #180 tabs 12/26/23 06/29/24 Rx alendronate 70 mg tablet See Rx Instructions .Route 01/07/24 06/29/24 Rx .COMPLEX #12 tabs salsalate 500 mg tablet See Rx Instructions .Route 03/29/24 06/29/24 Rx .COMPLEX #360 tabs furosemide 40 mg tablet See Rx Instructions .Route 04/20/24 06/29/24 Rx .COMPLEX #135 tabs theophylline 300 mg See Rx Instructions .Route 05/03/24 06/29/24 Rx tablet,extended release,12 hr .COMPLEX #90 tabs ondansetron 4 mg disintegrating See Rx Instructions .Route 06/28/24 06/29/24 Rx tablet .COMPLEX #20 tabs Allergies Allergy/AdvReac Type Severity Reaction Status Date / Time ibuprofen Allergy Unknown Other Verified 04/27/24 10:33 Influenza Virus Vaccines Allergy Unknown Other Verified 04/27/24 10:33 Chlorophyll Allergy Mild RASH AND Uncoded 04/27/24 10:33 SWELLING Vital Signs Vital Signs - 24 hr 06/29/24 09:57 06/29/24 11:25 06/29/24 11:31 Temperature 97.6 F Pulse Rate 65 61 64 Respiratory Rate 16 11 L 11 L Blood Pressure 93/46 L 129/66 139/66 Pulse Oximetry 100 99 100 06/29/24 11:46 06/29/24 12:01 06/29/24 12:16 Temperature Pulse Rate 61 64 60 Respiratory Rate 16 20 17 Blood Pressure 111/57 L 135/55 L 117/60 Pulse Oximetry 97 06/29/24 12:31 06/29/24 13:04 06/29/24 14:16 Temperature Pulse Rate 60 69 88 Respiratory Rate 15 12 21 H Blood Pressure 113/53 L 139/73 141/68 H Pulse Oximetry 97 97 Exam 2 Narrative: General: well appearing, appears stated age. HEENT: normocephalic, atraumatic. Mucous membranes moist. EOMI, PERRLA, bilateral sclera anicteric, no conjunctival injection. Neck supple without JVD, lymphadenopathy, or bruit. Respiratory: clear to ascultation bilaterally. No rales/rhonic/wheezes. Cardiovascular: Regular rate and rhythm, normal S1-S2 upon ascultation. No murmurs, rubs, or clicks. PMI is nondisplaced, capillary refill less than 3 second. Abdomen: Soft, round, no pulsatile masses, nondistended and nontender. No rebound, no guarding. No CVA tenderness, no hepatosplenomegaly. Bowel sounds present to all four quadrants. No high pitch or tinkling sounds, resonant to percussion. Extremities: No cyanosis, clubbing, or edema present. Pulses are palpable 2/2. Active ROM to all four extremities. Neuro: A&O x3 however extremely drowsy. Skin: Warm, dry, and intact, without rash, erythema, or lesion. Psych: pleasant, cooperative, normal speech, normal affect, no hallucinations, no dysarthia H&P: Results Labs Labs: Short CBC 06/29/24 Range/Units 12:58 WBC 7.2 (4.5-10.0) K/mm3 Hgb 13.8 (12.0-15.0) g/dL Hct 42.3 (37.0-47.0) % Plt Count 229 (150-375) k/mm3 [facility] 06/29/24 12:58 Sodium 136 L Potassium 4.0 Chloride 101 Carbon Dioxide 32 H BUN 17 Creatinine 0.80 Glucose 82 Calcium 10.9 H Liver Function 06/29/24 Range/Units 12:58 Total Bilirubin 0.9 (0.2-1.3) mg/dL AST 36 (14-36) U/L ALT 13 (6-35) U/L Alkaline Phosphatase 56 (38-126) U/L Albumin 4.3 (3.5-5.1) g/dL Urine 06/29/24 Range/Units 12:59 Urine Color Yellow (Yellow) Urine Appearance Clear (Clear) Urine pH 7.0 (5.0-9.0) Ur Specific [place] 1.012 (1.001-1.035) Urine Protein Negative (Negative) mg/dL Urine Glucose (UA) Negative (Negative) mg/dL Assessment and Plan Assessment and plan (1) Accidental overdose: Code(s): T50.901A - Poisoning by unspecified drugs, medicaments and biological substances, accidental (unintentional), initial encounter Status: Acute Assessment and Plan: Narcan as needed for depressed respiratory status Pain pump adjustments pending Neurochecks lunchroom monitor UA culture pending Okay for home med (2) CHF (congestive heart failure): Qualifiers: Heart failure chronicity: chronic Heart failure type: diastolic Qualified Code(s): I50.32 - Chronic diastolic (congestive) heart failure Code(s): I50.9 - Heart failure, unspecified Status: Acute Assessment and Plan: 03/2023 Last echo shows EF 65-70% grade 2 diastolic dysfunction Monitor closely for fluid overload patient given 1 L bolus plus IVF in the ED Restart home Lasix, and Zocor (3) Chronic pain disorder: Code(s): G89.4 - Chronic pain syndrome Status: Acute Assessment and Plan: With pain pump Outpatient provider contacted, plan for decreased dose today Plan Possible discharge home tomorrow if mental status has improved. Quality VTE Prophylaxis VTE prophylaxis: mechanical ordered and pharmacologic ordered Hospitalist MIPS Advance Care Plan I have confirmed that the patient's Advanced Care Plan is present, code status is documented, or surrogate decision maker is listed in patient medical record.: Yes Medication Reconciliation I have utilized all available resources to obtain, update and review the patients current medications (includes all prescriptions, OTC, herbals, cannabis, and nutritional supplements).: Yes
[2024-06-29] MEDS: SODIUM CHLORIDE 0.9% IV 1,000 ML 125 ML IV CONT (15:37)
--- NOTE | 2024-06-29 17:31 | PC.NURSE ---
This patient, Dunia Mueller, was admitted to Medical Room 345-01. Patient/family oriented to hospital policies and general routines including ID bracelet, bed and alarms, visiting hours, pain management, procedures, bathroom and other care routines, personal items, smoking policy, room service/diet, and visiting hours. Information on how to activate the Rapid Response Team has been discussed. Patient/Family are encouraged to report perceived risks to care and to ask questions if they do not understand what they are told or what they should do.
--- NOTE | 2024-06-29 17:48 | PC.NURSE ---
RN completed admission with daughter Cele as patient is unable to answer questions at this time do to drowsiness. Daughter Cele also stated that patient's medications have slightly changed since previous admission one week ago. All medications are the same accept patient no longer takes aspirin, calcium, and magnesium.
[2024-06-30] MEDS: SODIUM CHLORIDE 0.9% IV 1,000 ML 125 ML IV CONT (02:29)
[2024-06-30 06:26] VITALS: BP 131/59; PULSE 71; RESP 16; TEMP 36.3; O2SAT 94
[2024-06-30 07:47] LABS: Basophils Absolute Auto 0.1 K/mm3 (0.0-0.1); Basophils Percent Auto 1.2 % (0.2-1.2); Eosinophils Absolute Auto 0.2 K/mm3 (0-0.3); Eosinophils Percent Auto 3.2 % (0-4.4); Hematocrit 41.9 % (37.0-47.0); Hemoglobin 13.4 g/dL (12.0-15.0); Immature Granulocyte Absolute 0.02 K/mm3 (0.00-0.031); Immature Granulocyte Percent A 0.3 % (0-0.5); Lymphocytes Absolute Auto 2.16 K/mm3 (0.9-3.2); Lymphocytes Percent Auto 29.2 % (18.3-44.2); Mean Corpuscular Hemoglobin 30.2 pg (26-34); Mean Corpuscular Volume 94.6 fl (80-100); Mean Platelet Volume 11.7 fl (7.4-10.4); Monocytes Absolute Auto 0.6 K/mm3 (0.1-0.6); Neutrophils Absolute Auto 4.3 K/mm3 (1.3-6.7); Neutrophils Percent Auto 58.1 % (45.5-73.1); Platelet Count Result 236 k/mm3 (150-375); Red Blood Count 4.43 M/mm3 (4.2-5.4); Red Cell Distribution Width 12.7 % (11.5-14.5); White Blood Count 7.4 K/mm3 (4.5-10.0)
[2024-06-30 07:57] LABS: Anion Gap 8 mmol/L (4-12); Blood Urea Nitrogen 16 mg/dL (7-17); Calcium 9.8 mg/dL (8.4-10.2); Carbon Dioxide 24 mmol/L (22-30); Chloride 107 mmol/L (98-107); Estimated Glomerular Filt Rate > 60; Glucose 62 mg/dL (65-110); Potassium 4.2 mmol/L (3.4-5.0); Sodium 139 mmol/L (137-145)
[2024-06-30] MEDS: ENOXAPARIN 40 MG/0.4 ML SYRINGE SUB-Q (09:41)
[2024-06-30] MEDS: DOCUSATE SODIUM 100 MG CAPSULE PO (09:41)
[2024-06-30] MEDS: FUROSEMIDE 40 MG TABLET PO (09:41)
[2024-06-30] MEDS: PANTOPRAZOLE 40 MG TABLET PO (09:41)
[2024-06-30] MEDS: VENLAFAXINE HCL 75 MG TABLET PO (09:51)
[2024-06-30 10:15] LABS: Glucose Point of Care 131 mg/dl (65-105)
[2024-06-30 14:25] VITALS: BP 115/69; PULSE 72; RESP 18; TEMP 36.6; O2SAT 96
--- NOTE | 2024-06-30 14:39 | P.DS_ITS ---
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 UA culture pending Okay for home med (2) CHF (congestive heart failure): Qualifiers: Heart failure chronicity: chronic Heart failure type: diastolic Qualified Code(s): I50.32 - Chronic diastolic (congestive) heart failure Code(s): I50.9 - Heart failure, unspecified Status: Acute Assessment and Plan: 03/2023 Last echo shows EF 65-70% grade 2 diastolic dysfunction Monitor closely for fluid overload patient given 1 L bolus plus IVF in the ED Restart home Lasix, and Zocor (3) Chronic pain disorder: Code(s): G89.4 - Chronic pain syndrome Status: Acute Assessment and Plan: With pain pump Outpatient provider contacted, plan for decreased dose today Plan Possible discharge home tomorrow if mental status has improved. DS: Summary Hospital Course Reason for hospitalization: fall, drowsiness Hospital Course: 83-year-old female with CHF, chronic pain on a pain pump presents to the hospital after falling at home. The patient is a poor historian with tangential, fleeting thoughts and therefore I spoke with her daughter, Cele to obtain HPI. According to her daughter, her mother had fallen on the floor in her bedroom and apparently could not get up and rather than call for help she laid on the floor until her found her the following morning. The patient lives with her who has Parkin[place]'s and they do not share a bedroom. The daughter reports that her mother has been more drowsy as of late and recently had her pain pump dose reduced by 10% by her pain specialist. She has experienced a 10-13 lb weight loss over the last few months and therefore settings were adjusted. The patient tells me that she stumbled over a box a books that led to her fall but the daughter also states that it is not uncommon to find her mom standing at the bedside resting her head on the bed asleep because of how drowsy she has been. 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 Current settings are now morphine 3.7 mg per day, bupivacaine 0.4637 mg per day, and clonidine 18.55 mcg per day. Her labs were all unremarkable, normal ua, and head CT was normal. I spoke with the daughter regarding the patient's mental status and tangental thought process. While the patient is alert and orientated to person, place, and time she has a difficult time following along in conversation and frequently goes off topic and into multiple different stories. This is her baseline per daughter. There are concerns for developing dementia but patient has been refusing SLUMS evaluation with PCP. At this time she seems to be at her baseline orientation and is safe to discharge home with pain management follow up on Friday. It was also recommended to the daughter that she start setting up a pill box for her mother as there are concerns that polypharmacy may be contributing to the picture. Time Spent with Patient Time attestation: Total time spent providing and/or coordinating discharge services: 95 Exam Narrative: General: well appearing, appears stated age. Respiratory: clear to auscultation bilaterally. No rales/rhonic/wheezes. Cardiovascular: Regular rate and rhythm, normal S1-S2 upon auscultation. No murmurs, rubs, or clicks. PMI is nondisplaced, capillary refill less than 3 second. Abdomen: Soft, round, no pulsatile masses, nondistended and nontender. Bowel sounds present to all four quadrants. No high pitch or tinkling sounds, resonant to percussion. Extremities: No cyanosis, clubbing, or edema present. Pulses are palpable 2/2. Active ROM to all four extremities. Neuro: A&O x3 but difficult historian Skin: Warm, dry, and intact, without rash, erythema, or lesion. DS: Data Data Completed and Pending Labs on day of discharge: Labs from last 24 hours 06/30/24 06/30/24 10:10 06:47 WBC 7.4 RBC 4.43 Hgb 13.4 Hct 41.9 MCV 94.6 MCH 30.2 MCHC 32.0 RDW 12.7 Plt Count 236 MPV 11.7 H Immature Gran % (Auto) 0.3 Neut % (Auto) 58.1 Lymph % (Auto) 29.2 [place] % (Auto) 8.0 Eos % (Auto) 3.2 Baso % (Auto) 1.2 Lymph # (Auto) 2.16 [place] # (Auto) 0.6 Eos # (Auto) 0.2 Baso # (Auto) 0.1 Abs Immat Gran (auto) 0.02 Absolute Neuts (auto) 4.3 Absolute Nucleated RBC 0.000 Nucleated RBC % 0.0 Sodium 139 Potassium 4.2 Chloride 107 Carbon Dioxide 24 Anion Gap 8 BUN 16 Creatinine 0.80 Estim Creat Clear Calc Not Reportable Estimated GFR > 60 Glucose 62 L POC Capillary Glucose 131 H Calcium 9.8 Discharge Plan Discharge Attending physician on discharge: Stevan Robledo Discharging Clinician: Teagan Larose Anticipated Discharge Date/Time: 06/30/24 14:17 Patient Disposition: Home, Self-Care Activity: december shower Diet: regular Discharge Instructions: You were admitted after falling at home. Your labs have been reviewed and are normal. The CT of your head did not show any acute findings. There were concerns that you were very drowsy and this may have led to you falling. Your pain pump was adjusted in the emergency room. New pain settings of morphine 3.7 mg per day, bupivacaine 0.4637 mg per day, and clonidine 18.55 mcg per day. Pain management would like you to see them on Friday for a follow up. If you aren't already doing this, it would be advisable to set up your weekly medications in a pill box. This helps to decrease the risk of medication errors which could cause drowsiness and falls. Please follow up with pain management on Friday and please follow up with your PCP as neeeded. Patient Instructions: Antibiotic Form, Fall Prevention (DC) Stand Alone Forms: General Discharge Information Follow-up/Referrals: Sawyer Gutiérrez MD [Primary Care Provider] - Discharge Medications: New docusate sodium 100 mg Capsule 100 mg PO BID Qty: 60 0RF Continued Stelara 45 mg/0.5 mL solution 45 mg subcut Q3M cholecalciferol (vitamin D3) 125 mcg (5,000 unit) tablet 5,000 unit PO HS calcipotriene-betamethasone [Taclonex] 0.005-0.064 % ointment 1 ea topical BID PRN (Reason: psoriasis) Rx Instructions: Apply to the affected area psoriasis BID; clobetasol 0.05 % cream 1 applic topical BID pantoprazole 40 mg tablet,delayed release (DR/EC) 40 mg PO DAILY Qty: 90 2RF polyvinyl alcohol 1.4 % Drops 1 drp EACH EYE BID PRN (Reason: Dry Eyes) fluticasone propionate 50 mcg/actuation spray,suspension 50 mcg intranasal DAILY albuterol sulfate 90 mcg/actuation HFA aerosol inhaler See Rx Instructions .ROUTE .COMPLEX Qty: 27 1RF Dose Instruction: INHALE 2 PUFFS BY MOUTH EVERY 4 TO 6 HOURS NEEDED Rx Instructions: INHALE 2 PUFFS BY MOUTH EVERY 4 TO 6 HOURS NEEDED potassium chloride 20 mEq tablet extended release See Rx Instructions .ROUTE .COMPLEX Qty: 90 2RF Dose Instruction: Take 1 tablet by mouth once daily Rx Instructions: Take 1 tablet by mouth once daily Spiriva Respimat 1.25 mcg/actuation mist See Rx Instructions .ROUTE .COMPLEX Qty: 12 3RF Dose Instruction: INHALE 2 SPRAY(S) BY MOUTH EVERY 24 HOURS Rx Instructions: INHALE 2 SPRAY(S) BY MOUTH EVERY 24 HOURS simvastatin 10 mg tablet See Rx Instructions .ROUTE .COMPLEX Qty: 90 2RF Dose Instruction: Take 1 tablet by mouth in the evening Rx Instructions: Take 1 tablet by mouth in the evening montelukast 10 mg tablet See Rx Instructions .ROUTE .COMPLEX Qty: 90 2RF Dose Instruction: Take 1 tablet by mouth once daily Rx Instructions: Take 1 tablet by mouth once daily trospium 20 mg tablet See Rx Instructions .ROUTE .COMPLEX Qty: 90 2RF Dose Instruction: TAKE 1 TABLET BY MOUTH ONCE DAILY ON AN EMPTY STOMACH Rx Instructions: TAKE 1 TABLET BY MOUTH ONCE DAILY ON AN EMPTY STOMACH venlafaxine 75 mg tablet 75 mg PO BID Qty: 180 2RF alendronate 70 mg tablet See Rx Instructions .ROUTE .COMPLEX Qty: 12 2RF Dose Instruction: TAKE 1 TABLET BY MOUTH ONCE A WEEK IN THE MORNING AT LEAST 30 MINUTES BEFORE FIRST FOOD, DRINK, OR MEDICATION OF THE DAY Rx Instructions: TAKE 1 TABLET BY MOUTH ONCE A WEEK IN THE MORNING AT LEAST 30 MINUTES BEFORE FIRST FOOD, DRINK, OR MEDICATION OF THE DAY salsalate 500 mg tablet See Rx Instructions .ROUTE .COMPLEX Qty: 360 2RF Dose Instruction: Take 2 tablets by mouth twice daily Rx Instructions: Take 2 tablets by mouth twice daily furosemide 40 mg tablet See Rx Instructions .ROUTE .COMPLEX Qty: 135 2RF Dose Instruction: TAKE 1 & 1/2 (ONE & ONE-HALF) TABLETS BY MOUTH ONCE DAILY Rx Instructions: TAKE 1 & 1/2 (ONE & ONE-HALF) TABLETS BY MOUTH ONCE DAILY theophylline 300 mg tablet extended release 12 hr See Rx Instructions .ROUTE .COMPLEX Qty: 90 5RF Dose Instruction: TAKE 1 & 1/2 (ONE & ONE-HALF) TABLETS BY MOUTH EVERY 12 HOURS Rx Instructions: TAKE 1 & 1/2 (ONE & ONE-HALF) TABLETS BY MOUTH EVERY 12 HOURS ondansetron 4 mg tablet,disintegrating See Rx Instructions .ROUTE .COMPLEX Qty: 20 2RF Dose Instruction: DISSOLVE 1 TABLET IN MOUTH EVERY 6 HOURS NEEDED FOR NAUSEA AND VOMITING Rx Instructions: DISSOLVE 1 TABLET IN MOUTH EVERY 6 HOURS NEEDED FOR NAUSEA AND VOMITING Date of admission: 06/29/24 14:09 Primary Care Provider: Sawyer Gutiérrez Admitting Provider: Stevan Robledo Attending physician on admission: Teagan Larose Condition: Stable Quality VTE Prophylaxis VTE prophylaxis: mechanical ordered and pharmacologic ordered
[2024-06-30 14:43] VITALS: BP 128/64
[2024-06-30 14:44] VITALS: BP 112/67; BP 120/66
[2024-07-02 22:36] LABS: Device ROOM AIR
== END 2024-06-30 16:50 | disposition home or self-care (01) ==
LOC: ANHED 13:25 → ANH3MEDSUR 15:39 → ANH3MED 16:49
PROVIDERS: Nurse Practitioner Gerontology; Admitting Provider Internal Medicine; Emergency Provider Emergency Medicine; PCP Emergency Medicine; Visit Provider Nurse Practitioner Acute Care
DX: T50.901A Poisoning by unspecified drugs, medicaments and biological substances, accidental (unintentional), initial encounter (principal); R40.0 Somnolence; W18.30XA Fall on same level, unspecified, initial encounter; Z96.89 Presence of other specified functional implants; G89.4 Chronic pain syndrome; R63.4 Abnormal weight loss; Z68.23 Body mass index [BMI] 23.0-23.9, adult; J44.9 Chronic obstructive pulmonary disease, unspecified; I50.32 Chronic diastolic (congestive) heart failure; N18.9 Chronic kidney disease, unspecified; E78.5 Hyperlipidemia, unspecified; M48.00 Spinal stenosis, site unspecified; M41.9 Scoliosis, unspecified; K21.9 Gastro-esophageal reflux disease without esophagitis; K44.9 Diaphragmatic hernia without obstruction or gangrene; F32.9 Major depressive disorder, single episode, unspecified; R13.12 Dysphagia, oropharyngeal phase; N32.81 Overactive bladder; N39.46 Mixed incontinence; L40.50 Arthropathic psoriasis, unspecified; E55.9 Vitamin D deficiency, unspecified; Z90.710 Acquired absence of both cervix and uterus; Z87.891 Personal history of nicotine dependence; Z91.81 History of falling; Z98.890 Other specified postprocedural states; Z79.51 Long term (current) use of inhaled steroids; Z79.899 Other long term (current) drug therapy
CPT/HCPCS: 36415; 36600; 70450; 71046; 80048; 80053; 81003; 82375; 82805; 82948; 83050; 85018; 85025; 93005; 96361; 96372; 96374; 96375; 99284; A9270; G0378; J1650; J2060; J2310; J2405; J7030; J7040

== ENCOUNTER 2024-07-13 12:01 | Outpatient (CLI) | payer MEDICARE, BC, SELFPAY ==
[2024-07-13 13:00] LABS: Potassium 3.1 mmol/L (3.4-5.0)
== END 2024-07-13 12:02 | disposition home or self-care (01) ==
LOC: ANHLAB 12:03
PROVIDERS: PCP Emergency Medicine; Visit Provider Emergency Medicine
DX: E05.90 Thyrotoxicosis, unspecified without thyrotoxic crisis or storm (principal); E87.6 Hypokalemia
CPT/HCPCS: 36415; 84132; 84443

== ENCOUNTER 2024-07-18 19:32 | Observation (INO) | payer MEDICARE, BC, SELFPAY ==
--- NOTE | ~2024-07-18 | XR_ITS ---
EXAMINATION: XR chest 1V portable Exam Date/Time: 07/18/2024 21:00 UNIFIED COMMUNICATIONS ARCHITECT HISTORY: weakness Comparison: 06/29/2024. RESULT: Lines, tubes, and devices: Intrathecal catheter terminating over the lower thoracic spine. Lungs and pleura: Moderate diffuse reticular opacities. No focal consolidation, pneumothorax, or lar ge pleural effusion. Cardiomediastinal silhouette: Stable. Other: No acute osseous or upper abdominal finding. IMPRESSION: No acute cardiopulmonary process. Chronic interstitial changes. Reviewed, dictated and finalized at location [facility]. IED COMMUNICATIONS ARCHITECT
[2024-07-18 19:32] VITALS: BP 121/79; PULSE 99; RESP 15; O2SAT 96
--- NOTE | 2024-07-18 19:40 | ECG_ITS ---
Test Date: 2024-07-18 19:45:18 Measurements Intervals [place] Rate: 84 P: 48 UT: 176 QRS: -42 QRSD: 125 T: 96 QT: 305 QTc: 361 Interpretive Statements sinus rhythm with frequent supraventricular ectopic beats abnd occasional PVCs POSSIBLE LEFT ATRIAL ENLARGEMENT [-0.1mV P WAVE IN V1/V2] MARKED LEFT AXIS DEVIATION [QRS AXIS < -30] LEFT VENTRICULAR HYPERTROPHY AND ST-T CHANGE [VOLTAGE CRITERIA PLUS ST/T ABNORMALITY] Compared to ECG 06/29/2024 13:17:53 Left ventricular hypertrophy now present ST (T wave) deviation now present First degree AV block no longer present Myocardial infarct finding no longer present PACS and PVCs are new Electronically Signed On 07-18-2024 22:02:14 LOADING MANAGER by Suzanne Allan M.D.
[2024-07-18 21:01] LABS: Basophils Absolute Auto 0.1 K/mm3 (0.0-0.1); Basophils Percent Auto 0.6 % (0.2-1.2); Eosinophils Absolute Auto 0.4 K/mm3 (0-0.3); Eosinophils Percent Auto 4.9 % (0-4.4); Hematocrit 41.1 % (37.0-47.0); Hemoglobin 14.4 g/dL (12.0-15.0); Immature Granulocyte Absolute 0.04 K/mm3 (0.00-0.031); Immature Granulocyte Percent A 0.5 % (0-0.5); Lymphocytes Absolute Auto 2.11 K/mm3 (0.9-3.2); Lymphocytes Percent Auto 27.2 % (18.3-44.2); Mean Corpuscular Hemoglobin 31.1 pg (26-34); Mean Corpuscular Volume 88.8 fl (80-100); Mean Platelet Volume 10.9 fl (7.4-10.4); Monocytes Absolute Auto 0.7 K/mm3 (0.1-0.6); Monocytes Percent Auto 8.8 % (2.6-8.5); Neutrophils Absolute Auto 4.5 K/mm3 (1.3-6.7); Platelet Count Result 273 k/mm3 (150-375); Red Blood Count 4.63 M/mm3 (4.2-5.4); Red Cell Distribution Width 12.4 % (11.5-14.5); White Blood Count 7.8 K/mm3 (4.5-10.0)
[2024-07-18 21:15] LABS: Alanine Aminotransferase 18 U/L (6-35); Albumin Level 4.2 g/dL (3.5-5.1); Alkaline Phosphatase 54 U/L (38-126); Anion Gap 7 mmol/L (4-12); Aspartate Amino Transferase 30 U/L (14-36); Bilirubin,Total 0.5 mg/dL (0.2-1.3); Blood Urea Nitrogen 15 mg/dL (7-17); Calcium 9.6 mg/dL (8.4-10.2); Carbon Dioxide 35 mmol/L (22-30); Chloride 95 mmol/L (98-107); Estimated Glomerular Filt Rate 53; Glucose 116 mg/dL (65-110); Potassium 2.5 mmol/L (3.4-5.0); Sodium 137 mmol/L (137-145)
[2024-07-18 21:20] LABS: Add Urine Microscopic? NO; Appearance Urine Clear (Clear); Bilirubin Urine Negative (Negative); Blood Urine Negative (Negative); Color Urine Yellow (Yellow); Glucose Urine UA Negative (Negative); Ketones Urine Negative (Negative); Leukocyte Esterase Ur Negative LEU/UL (Negative); Nitrate Urine Negative (Negative); Protein Urine Negative (Negative); Specific Grav Ur 1.008 (1.001-1.035); Urobilinogen Urine 0.2 mg/dL (<2.0)
[2024-07-18] MEDS: POTASSIUM CHLORIDE 20 MEQ ER TABLET 40 MEQ PO (21:21)
[2024-07-18 21:24] VITALS: BP 134/71; PULSE 81; RESP 16; O2SAT 94
[2024-07-18 21:27] VITALS: BP 121/79; PULSE 99; RESP 15; TEMP 36.8; O2SAT 96
--- NOTE | 2024-07-18 21:29 | PC.NURSE ---
RN gave potassium at this time. Patient tolerated well.
--- NOTE | 2024-07-18 22:50 | ED.GENADULT ---
HPI - General Adult General Chief complaint: Unspecified <Juliet Washburn APRN - Last Filed: 07/19/24 01:55> Stated complaint: WEAKNESS, FLANK PAIN <Juliet Washburn APRN - Last Filed: 07/19/24 01:55> Time Seen by Provider: 07/18/24 21:15 <Juliet Washburn APRN - Last Filed: 07/19/24 01:55> History of Present Illness HPI narrative: Patient is an 83-year-old female who presents to the ER with chest pain. She reports this evening she was doing dishes when all the sudden she heard a whooshing and loud roaring in my ears. Patient reports her chest started hurting immediately afterwards. Her daughter reports patient has increased fatigue lately. Patient reports I just did not feel good. She reports that she takes Lasix every day, but also takes daily potassium replacements orally. Patient's daughter reports she has had low potassium in the past. She denies any shortness of breath, recent signs/symptoms of infection, fevers, abdominal pain, back pain. <Juliet Washburn APRN - Last Filed: 07/19/24 01:55> Related Data Home medications: Home Medications ?Medication ?Instructions ?Recorded ?Confirmed ?Last Taken ?Type calcipotriene-betamethasone 0.005 1 ea topical BID PRN psoriasis 10/12/21 07/19/24 04/01/22 History %-0.064 % topical ointment (Taclonex) cholecalciferol (vitamin D3) 125 5,000 unit PO DAILY 10/12/21 07/19/24 03/31/22 History mcg (5,000 unit) tablet clobetasol 0.05 % topical cream 1 applic topical BID 10/12/21 07/19/24 04/01/22 History ustekinumab 45 mg/0.5 mL 45 mg subcut Q3M 11/07/21 07/19/24 Unknown History subcutaneous solution (Stelara) fluticasone propionate 50 50 mcg intranasal DAILY 03/06/23 07/19/24 Unknown History mcg/actuation nasal spray,suspension polyvinyl alcohol 1.4 % eye drops 1 drp EACH EYE BID PRN Dry Eyes 03/06/23 07/19/24 Unknown History furosemide 20 mg tablet (Lasix) 20 mg PO .COMPLEX 07/13/24 07/19/24 Unknown History escitalopram oxalate 10 mg tablet 10 mg PO DAILY 07/19/24 07/19/24 Unknown History <Juliet Washburn APRN - Last Filed: 07/19/24 01:55> Allergies/adverse reactions: Allergies Allergy/AdvReac Type Severity Reaction Status Date / Time ibuprofen Allergy Unknown Other Verified 07/19/24 03:09 Chlorophyll Allergy Mild RASH AND Uncoded 07/19/24 03:09 SWELLING <Juliet Washburn APRN - Last Filed: 07/19/24 01:55> Review of Systems Review of Systems: All systems reviewed & are unremarkable except as noted in HPI and below <Juliet Washburn APRN - Last Filed: 07/19/24 01:55> [facility] Past Medical History Medical History: Medical History Urinary tract infection Insomnia Giddiness Risk for falls Elevated troponin Elevated troponin Asthma-COPD overlap syndrome Hypokalemia Chest pain Skin cancer Gastroesophageal reflux disease Hyperlipidemia Chronic kidney disease Chronic obstructive pulmonary disease Urinary symptom or sign Chest pain Elevated TSH Apneic spell Loud snoring Chronic diastolic heart failure Chronic pain disorder Secondary to chronic back pain from scoliosis and spinal stenosis. Major depressive disorder, single episode, unspecified Oropharyngeal dysphagia Overactive bladder Pneumonia of right upper lobe due to infectious organism Psoriatic arthritis Rheumatoid arthritis, unspecified Urinary incontinence, mixed Vitamin D deficiency Hernia, hiatal Shingles UTI (urinary tract infection) Dysuria Other specified personal risk factors, not elsewhere classified Psoriasis NSIP (nonspecific interstitial pneumonia) Multiple contusions Laceration Asthma <Juliet Washburn APRN - Last Filed: 07/19/24 01:55> Surgical History Surgical History: Surgical History History of spinal surgery History of cardiac catheterization (08/13/11) Normal coronary arteries. Left ventricular ejection fraction visually estimated 45% with hypokinesis of basal segments, suggestive of reversible/atypical takotsubo cardiomyopathy. History of cataract extraction Status post insertion of intrathecal pump History of hysterectomy <Juliet Washburn APRN - Last Filed: 07/19/24 01:55> Family History Family History: Family History Grandparent Family history of coronary artery disease Diabetes mellitus Father Family history of coronary artery disease Patient's father is Hypertension Asthma Family history of heart disease in male family member before age 55 Sibling Hypertension Family history of malignant neoplasm of brain Mother Family history of heart disease in male family member before age 55, Onset Age: 92 Family history of malignant neoplasm, Onset Age: 92 Family history of cardiovascular disease Family history of malignant neoplasm of stomach Other Family history of diabetes mellitus in first degree relative <Juliet Washburn APRN - Last Filed: 07/19/24 01:55> Social History Social History: Social History Social History: 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 Surrogate medical decision maker: Gabino Mueller, spouse. Code status: Full code. Smoking packs per day: 0.5 Smoking cigarettes per day: 10.0 Years smoked: 10 Smoking pack-years: 5.00 Smoking status: Never smoker Second hand tobacco smoke exposure: No Alcohol intake: never Substance use: never Substance use type: does not use Do You Feel Safe in your Home?: Yes Lack of Transportation: No Lack of Food: Never True Current Housing: I Have Housing Concerned About Future Housing: No Difficulty Paying Gas/Electric Bills: No Difficulty Paying for Meds: No Currently Unemployed: No Education: High School Diploma/GED Difficulty w/ Childcare or Family Care: No Additional living arrangements comments: The patient lives with her . They have 6 grown children. Occupation/Education: retired Spiritual care concerns: No <Juliet Washburn APRN - Last Filed: 07/19/24 01:55> Exam Narrative: GENERAL: Well appearing, poorly-nourished, non-toxic, in no acute distress. HEAD: Normocephalic, atraumatic. NECK: Supple. No adenopathy, no masses. RESPIRATORY: Airway patent, respirations nonlabored. Clear to auscultation bilaterally, no rales, rhonchi, wheezing. CARDIOVASCULAR: Irregular rate without murmurs, rubs, or gallops. Peripheral pulses 2+ and equal bilaterally. ABDOMINAL: Soft, nontender, nondistended, no hepatosplenomegaly. Normoactive BS. MUSCULOSKELETAL: Moves all extremities. Strength/ROM intact without gross deformities. SKIN: Warm, dry, normal color. No rashes. NEURO: A&O X3. Speech clear. Cranial nerves II-XII grossly intact. No ataxic movements. PSYCHIATRIC: Appropriate mood and affect. Normal interaction. <Juliet Washburn APRN - Last Filed: 07/19/24 01:55> Course CLINICAL REVIEWER/PA Physician Supervision I agree with midlevel documentation; I performed the medical decision making component of this evaluation. I had independent [id number] time with the patient and performed my own independent evaluation and assessment. Patient is found to be severe range hypokalemia which could be a combination of poor nutritional status, diuretic therapy, lack of potassium replacement at home. She has had hypokalemia issues in the past according to discussions I had with the patient's daughter was present at bedside for collateral formation. Patient herself appears well not any acute distress, comfortable in the stretcher. Her workup today reveals hypokalemia which requires potassium supplementation. Her troponins have been serially negative. Her EKG does seem to have ectopy on it which could be secondary to the low potassium levels. No ST segment changes but she does have chronic flattening and inversions in the 1 and aVL on my interpretation and compared to previous levels. Her previous EKGs do not have as much ectopy on them today. She requires admission to the hospital for continued care on to a telemetry monitored unit (stepdown) for potassium replacement and frequent monitoring. Patient's case was discussed with the hospitalist who agreed with the plan of care and accepted the patient to admission to the hospital at this time. Patient's family was spoken to and they agreed to the plan of care regarding admission to the hospital. <Oz Mosqueda MD - Last Filed: 07/19/24 03:56> Vital Signs Vital signs: Vital Signs Pulse Rate 99 07/18/24 19:32 Respiratory Rate 15 07/18/24 19:32 Blood Pressure 121/79 07/18/24 19:32 Pulse Oximetry 96 07/18/24 19:32 Oxygen Delivery Room Air 07/18/24 19:32 Temperature 36.6 C 07/19/24 02:59 Pulse Rate 93 07/19/24 02:59 Respiratory Rate 18 07/19/24 02:59 Blood Pressure 124/78 07/19/24 02:59 Pulse Oximetry 98 07/19/24 02:59 Oxygen Delivery Room Air 07/19/24 03:12 <Juliet Washburn APRN - Last Filed: 07/19/24 01:55> Vital Signs Pulse Rate 99 07/18/24 19:32 Respiratory Rate 15 07/18/24 19:32 Blood Pressure 121/79 07/18/24 19:32 Pulse Oximetry 96 07/18/24 19:32 Oxygen Delivery Room Air 07/18/24 19:32 Temperature 36.6 C 07/19/24 02:59 Pulse Rate 93 07/19/24 02:59 Respiratory Rate 18 07/19/24 02:59 Blood Pressure 124/78 07/19/24 02:59 Pulse Oximetry 98 07/19/24 02:59 Oxygen Delivery Room Air 07/19/24 03:12 <Oz Mosqueda MD - Last Filed: 07/19/24 03:56> Medical Decision Making MDM Narrative Medical decision making narrative: Patient is an 83-year-old female who presents to the ER with chest pain. She reports this evening she was doing dishes when all the sudden she heard a whooshing and loud roaring in my ears. Patient reports her chest started hurting immediately afterwards. Her daughter reports patient has increased fatigue lately. Patient reports I just did not feel good. She reports that she takes Lasix every day, but also takes daily potassium replacements orally. Patient's daughter reports she has had low potassium in the past. She denies any shortness of breath, recent signs/symptoms of infection, fevers, abdominal pain, back pain. Labs Ordered: CBC, CMP, BNP, magnesium, UA, troponins Imaging Ordered: chest x-ray Results: Pt's chest x-ray indicates Intrathecal catheter terminating over the lower thoracic spine. Lungs and pleura: Moderate diffuse reticular opacities. No focal consolidation, pneumothorax, or large pleural effusion. Cardiomediastinal silhouette: Stable. Other: No acute osseous or upper abdominal finding. Patient's CBC is unremarkable. Her CMP indicates a potassium of 2.5, chloride of 95, carbon dioxide of 30, GFR 53, glucose of 116. Patient's BNP was 465. Her urinalysis was unremarkable. Patient's troponins were unremarkable. Diagnosis: Hypokalemia Patient Education/Shared MDM: Patient's potassium was replaced with 40 mEq potassium chloride tablets. It was explained to patient and her daughter that although patient's potassium has been low in the past, this time it was lower than it had ever been. Patient does take Lasix at home, but she also takes daily potassium replacement. CLINICAL REVIEWER advised patient be admitted to the for observation. Patient and her daughter verbalize understanding and are in agreement with plan. <Juliet Washburn, AUTO GLASS TECHNICIAN - Last Filed: 07/19/24 01:55> Differential Diagnosis Differential Diagnosis: STEMI, atypical chest pain, costochondritis, pneumonia, hypokalemia <Juliet Washburn, AUTO GLASS TECHNICIAN - Last Filed: 07/19/24 01:55> Vital Signs Vital Signs: Vital Signs Pulse Rate 99 07/18/24 19:32 Respiratory Rate 15 07/18/24 19:32 Blood Pressure 121/79 07/18/24 19:32 Pulse Oximetry 96 07/18/24 19:32 Oxygen Delivery Room Air 07/18/24 19:32 Temperature 36.6 C 07/19/24 02:59 Pulse Rate 93 07/19/24 02:59 Respiratory Rate 18 07/19/24 02:59 Blood Pressure 124/78 07/19/24 02:59 Pulse Oximetry 98 07/19/24 02:59 Oxygen Delivery Room Air 07/19/24 03:12 <Juliet Washburn, AUTO GLASS TECHNICIAN - Last Filed: 07/19/24 01:55> Vital Signs Pulse Rate 99 07/18/24 19:32 Respiratory Rate 15 07/18/24 19:32 Blood Pressure 121/79 07/18/24 19:32 Pulse Oximetry 96 07/18/24 19:32 Oxygen Delivery Room Air 07/18/24 19:32 Temperature 36.6 C 07/19/24 02:59 Pulse Rate 93 07/19/24 02:59 Respiratory Rate 18 07/19/24 02:59 Blood Pressure 124/78 07/19/24 02:59 Pulse Oximetry 98 07/19/24 02:59 Oxygen Delivery Room Air 07/19/24 03:12 <Oz Mosqueda MD - Last Filed: 07/19/24 03:56> Lab Data Lab results reviewed: Yes I reviewed the patient's lab results. <Juliet Washburn APRN - Last Filed: 07/19/24 01:55> Result diagrams: 07/18/24 20:52 07/18/24 20:52 <Juliet Washburn APRN - Last Filed: 07/19/24 01:55> Labs: Lab Results 07/18/24 07/18/24 Range/Units 20:52 23:36 WBC 7.8 (4.5-10.0) K/mm3 RBC 4.63 (4.2-5.4) M/mm3 Hgb 14.4 (12.0-15.0) g/dL Hct 41.1 (37.0-47.0) % MCV 88.8 (80-100) fl MCH 31.1 (26-34) pg MCHC 35.0 (32-36) g/dl RDW 12.4 (11.5-14.5) % Plt Count 273 (150-375) k/mm3 MPV 10.9 H (7.4-10.4) fl Immature Gran % (Auto) 0.5 (0-0.5) % Neut % (Auto) 58.0 (45.5-73.1) % Lymph % (Auto) 27.2 (18.3-44.2) % [place] % (Auto) 8.8 H (2.6-8.5) % Eos % (Auto) 4.9 H (0-4.4) % Baso % (Auto) 0.6 (0.2-1.2) % Lymph # (Auto) 2.11 (0.9-3.2) K/mm3 [place] # (Auto) 0.7 H (0.1-0.6) K/mm3 Eos # (Auto) 0.4 H (0-0.3) K/mm3 Baso # (Auto) 0.1 (0.0-0.1) K/mm3 Abs Immat Gran (auto) 0.04 H (0.00-0.031) K/mm3 Absolute Neuts (auto) 4.5 (1.3-6.7) K/mm3 Absolute Nucleated RBC 0.000 (0.0-0.012) K/mm3 Nucleated RBC % 0.0 (0.0-0.2) % Sodium 137 (137-145) mmol/L Potassium 2.5 L* (3.4-5.0) mmol/L Chloride 95 L (98-107) mmol/L Carbon Dioxide 35 H (22-30) mmol/L Anion Gap 7 (4-12) mmol/L BUN 15 (7-17) mg/dL Creatinine 1.00 (0.7-1.0) mg/dL Estim Creat Clear Calc Not Reportable Estimated GFR 53 L (59 - ) Glucose 116 H (65-110) mg/dL Calcium 9.6 (8.4-10.2) mg/dL Magnesium 2.0 (1.6-2.3) mg/dL Total Bilirubin 0.5 (0.2-1.3) mg/dL AST 30 (14-36) U/L ALT 18 (6-35) U/L Alkaline Phosphatase 54 (38-126) U/L Troponin I 0.020 0.021 (0.000-0.034) ng/mL NT-Pro-B Natriuret Pep 465 H (19.9-100) pg/mL Total Protein 8.0 (6.3-8.2) g/dL Albumin 4.2 (3.5-5.1) g/dL Urine Color Yellow (Yellow) Urine Appearance Clear (Clear) Urine pH 7.0 (5.0-9.0) Ur Specific [place] 1.008 (1.001-1.035) Urine Protein Negative (Negative) mg/dL Urine Glucose (UA) Negative (Negative) mg/dL Urine Ketones Negative (Negative) mg/dL Ur Blood (Man) Negative (Negative) Urine Nitrate Negative (Negative) Urine Bilirubin Negative (Negative) Urine Urobilinogen 0.2 (<2.0) mg/dL Leukocyte Esterase Rfl Negative (Negative) ROMEL/UL <Juliet Washburn, AUTO GLASS TECHNICIAN - Last Filed: 07/19/24 01:55> Lab Results 07/18/24 07/18/24 Range/Units 20:52 23:36 WBC 7.8 (4.5-10.0) K/mm3 RBC 4.63 (4.2-5.4) M/mm3 Hgb 14.4 (12.0-15.0) g/dL Hct 41.1 (37.0-47.0) % MCV 88.8 (80-100) fl MCH 31.1 (26-34) pg MCHC 35.0 (32-36) g/dl RDW 12.4 (11.5-14.5) % Plt Count 273 (150-375) k/mm3 MPV 10.9 H (7.4-10.4) fl Immature Gran % (Auto) 0.5 (0-0.5) % Neut % (Auto) 58.0 (45.5-73.1) % Lymph % (Auto) 27.2 (18.3-44.2) % [place] % (Auto) 8.8 H (2.6-8.5) % Eos % (Auto) 4.9 H (0-4.4) % Baso % (Auto) 0.6 (0.2-1.2) % Lymph # (Auto) 2.11 (0.9-3.2) K/mm3 [place] # (Auto) 0.7 H (0.1-0.6) K/mm3 Eos # (Auto) 0.4 H (0-0.3) K/mm3 Baso # (Auto) 0.1 (0.0-0.1) K/mm3 Abs Immat Gran (auto) 0.04 H (0.00-0.031) K/mm3 Absolute Neuts (auto) 4.5 (1.3-6.7) K/mm3 Absolute Nucleated RBC 0.000 (0.0-0.012) K/mm3 Nucleated RBC % 0.0 (0.0-0.2) % Sodium 137 (137-145) mmol/L Potassium 2.5 L* (3.4-5.0) mmol/L Chloride 95 L (98-107) mmol/L Carbon Dioxide 35 H (22-30) mmol/L Anion Gap 7 (4-12) mmol/L BUN 15 (7-17) mg/dL Creatinine 1.00 (0.7-1.0) mg/dL Estim Creat Clear Calc Not Reportable Estimated GFR 53 L (59 - ) Glucose 116 H (65-110) mg/dL Calcium 9.6 (8.4-10.2) mg/dL Magnesium 2.0 (1.6-2.3) mg/dL Total Bilirubin 0.5 (0.2-1.3) mg/dL AST 30 (14-36) U/L ALT 18 (6-35) U/L Alkaline Phosphatase 54 (38-126) U/L Troponin I 0.020 0.021 (0.000-0.034) ng/mL NT-Pro-B Natriuret Pep 465 H (19.9-100) pg/mL Total Protein 8.0 (6.3-8.2) g/dL Albumin 4.2 (3.5-5.1) g/dL Urine Color Yellow (Yellow) Urine Appearance Clear (Clear) Urine pH 7.0 (5.0-9.0) Ur Specific [place] 1.008 (1.001-1.035) Urine Protein Negative (Negative) mg/dL Urine Glucose (UA) Negative (Negative) mg/dL Urine Ketones Negative (Negative) mg/dL Ur Blood (Man) Negative (Negative) Urine Nitrate Negative (Negative) Urine Bilirubin Negative (Negative) Urine Urobilinogen 0.2 (<2.0) mg/dL Leukocyte Esterase Rfl Negative (Negative) ROMEL/UL <Oz Mosqueda MD - Last Filed: 07/19/24 03:56> Imaging Data Attestation: I personally reviewed and interpreted this imaging study as follows: <Juliet Washburn APRN - Last Filed: 07/19/24 01:55> Radiologist's impression: Impressions Chest X-Ray 07/18/24 21:17 IMPRESSION: No acute cardiopulmonary process. Chronic interstitial changes. <Juliet Washburn APRN - Last Filed: 07/19/24 01:55> Critical Care Time Critical Care Time Critical Care Time: Yes <Oz Mosqueda MD - Last Filed: 07/19/24 03:56> Total Critical Care Time: 30 <Oz Mosqueda MD - Last Filed: 07/19/24 03:56> Discharge Plan Discharge Clinical Impression: Hypokalemia, Ventricular ectopy present on electrocardiography, Hypokalemia due to excessive renal loss of potassium <Juliet Washburn APRN - Last Filed: 07/19/24 01:55> Patient Disposition: Still a Patient <Juliet Washburn APRN - Last Filed: 07/19/24 01:55> Condition: Stable <Juliet Washburn APRN - Last Filed: 07/19/24 01:55> Time of Disposition: 01:36 <Juliet Washburn APRN - Last Filed: 07/19/24 01:55> 01:36 <Oz Mosqueda MD - Last Filed: 07/19/24 03:56>
--- NOTE | 2024-07-18 23:51 | ECG_ITS ---
Test Date: 2024-07-18 23:51:55 Measurements Intervals [place] Rate: 75 P: 23 NC: 193 QRS: -43 QRSD: 125 T: 101 QT: 401 QTc: 449 Interpretive Statements SINUS RHYTHM WITH FREQUENT SUPRAVENTRICULAR PREMATURE COMPLEXES IN A BIGEMINAL PATTERN MARKED LEFT AXIS DEVIATION [QRS AXIS < -30] LEFT VENTRICULAR HYPERTROPHY AND ST-T CHANGE [VOLTAGE CRITERIA PLUS ST/T ABNORMALITY] Poor R wave progression Compared to ECG 07/18/2024 19:52:19 Ventricular premature complex(es) no longer present ST (T wave) deviation still present Electronically Signed On 07-19-2024 14:29:02 FAST FOOD ASSISTANT RESTAURANT MANAGER by Suzanne Allan M.D.
--- NOTE | 2024-07-18 23:52 | ECG_ITS ---
Test Date: 2024-07-18 19:52:19 Measurements Intervals [place] Rate: 89 P: 35 SD: 197 QRS: -45 QRSD: 125 T: 98 QT: 303 QTc: 369 Interpretive Statements SINUS RHYTHM WITH OCCASIONAL VENTRICULAR PREMATURE COMPLEXES WITH FREQUENT SUPRAVENTRICULAR PREMATURE COMPLEXES LEFT ANTERIOR FASCICULAR BLOCK [QRS AXIS <= -45, QR IN I, RS IN II] LEFT VENTRICULAR HYPERTROPHY AND ST-T CHANGE [VOLTAGE CRITERIA PLUS ST/T ABNORMALITY] POSSIBLE SEPTAL MYOCARDIAL INFARCTION , OF INDETERMINATE AGE [30 ms Q WAVE IN V1/V2] Compared to ECG 07/18/2024 19:45:18 Left anterior fascicular block now present Myocardial infarct finding now present Left-axis deviation no longer present ST (T wave) deviation still present Electronically Signed On 07-19-2024 12:01:40 HORSE WRANGLER by Melo Pruett M.D.
[2024-07-19] VITALS (14 sets, daily range): BP systolic 108–141; BP diastolic 48–94; PULSE 63–93; RESP 16–20; TEMP 36.5–37; O2SAT 95–100; BMI 20.6
--- NOTE | 2024-07-19 | ECHO_ITS ---
Patient Info Name: Dunia Mueller Age: 83 years : 1940 Gender: Female Ht: 55 in Wt: 88 lbs BSA: 1.25 m2 HR: 65 bpm BP: 141 / 67 mmHg Heart Rhythm: Sinus Rhythm Technical Quality: Fair Exam Date: 07/19/2024 2:57 PM Exam Location: Echo Lab Patient Status: Inpatient Admit Date: 07/19/2024 Staff Ordering Physician: Yecenia Sampson PA-C Senior Office Support Assistant Sosa: Kurtis Orr RDCS Attending Provider: Yecenia Sampson PA-C Referring Physician: Adrián DEL VALLE; Exam Type: CA echo doppler color flow Study Info Indications - CHEST PAIN Complete two-dimensional, color flow and Doppler transthoracic echocardiogram is performed. Summary 1. Left ventricular chamber dimension is normal. 2. Left ventricular systolic function is normal, estimated at 50-55%. 3. There is mildly increased left ventricular wall thickness. 4. The left ventricular diastolic function is grade I diastolic dysfunction. 5. Right ventricular systolic function is normal. 6. Left atrial chamber dimension is severely enlarged. 7. Right atrial chamber dimension is mildly enlarged. 8. There is mild aortic valve regurgitation. 9. There is mild mitral valve regurgitation. 10. There is mild tricuspid valve regurgitation. Left Ventricle Left ventricular chamber dimension is normal. Left ventricular systolic function is normal, estimated at 50-55%. There is mildly increased left ventricular wall thickness. The left ventricular diastolic function is grade I diastolic dysfunction. Right Ventricle Right ventricular chamber dimension is normal. Right ventricular systolic function is normal. Left Atria Left atrial chamber dimension is severely enlarged. Right Atria Right atrial chamber dimension is mildly enlarged. Atrial Septum Intact interatrial septum visualized by color flow imaging. Aortic Valve The aortic valve is trileaflet. There is mild aortic valve sclerosis. There is no aortic valve stenosis. There is mild aortic valve regurgitation. Pulmonic Valve The pulmonic valve is not well visualized. There is no pulmonic regurgitation. Mitral Valve There is mild mitral valve regurgitation. Tricuspid Valve There is mild tricuspid valve regurgitation. Pericardium/Pleural There is no pericardial effusion. Inferior Vena Cava Normal inferior vena cava with >50% collapse upon inspiration consistent with normal right atrial pressure, 3 mmHg. Aorta The aortic root size at the sinus of Valsalva is normal. Left Ventricular Outflow Tract Name Value Normal LVOT 2D LVOT Diameter 1.9 cm LVOT Doppler LVOT Peak Gradient 5 mmHg LVOT Mean Gradient 3 mmHg LVOT VTI 26 cm LVOT VTI/AV VTI Ratio 0.6 LVOT Stroke Volume 74 ml LVOT CO 4.3 l/min LVOT CI 3.5 l/min/m2 Pulmonic Valve Name Value Normal RVOT Doppler RVOT Peak Gradient 3 mmHg PV Doppler PV Peak Gradient 3 mmHg Mitral Valve Name Value Normal MV Doppler MV Peak Gradient 8 mmHg MV Mean Gradient 3 mmHg MV Decel [place] 519 cm/s2 MV PHT 56 ms MV Area (PHT) 3.9 cm2 4.0-5.0 MV Area (Cont Eq VTI) 1.8 cm2 MV Diastolic Function MV E Peak Velocity 100 cm/s MV A Peak Velocity 113 cm/s MV E/A 0.9 MV Decel Time 194 ms MV Annular TDI MV E/e' (Septal) 22.6 <=8.0 MV E/e' (Lateral) 11.9 <=8.0 MV E/e' (Average) 17.2 Tricuspid Valve Name Value Normal TV Regurgitation Doppler TR Peak Velocity 232 cm/s TR Peak Gradient 21 mmHg Estimated PAP/RSVP RA Pressure 3 mmHg <=5 PA Systolic Pressure 24 mmHg <36 RV Systolic Pressure 24 mmHg <36 Aorta Name Value Normal Ascending Aorta Ao Root Diameter (MM) 3.2 cm Ao Root Diam Index (MM) 2.6 cm/m2 Aortic Valve Name Value Normal AV Doppler AV Peak Velocity 176 cm/s AV Peak Gradient 12 mmHg AV Mean Gradient 8 mmHg AV VTI 42 cm AV Area (Cont Eq VTI) 1.8 cm2 >=3.0 AV Area (Cont Eq Juan) 1.9 cm2 AV Regurgitation 2D LVOT Area 2.9 cm2 AV Regurgitation Doppler AR Decel Time 1,976 ms AR Decel [place] 186 cm/s2 AR PHT 573 ms Ventricles Name Value Normal LV Dimensions 2D/MM IVS Diastolic Thickness (2D) 1.2 cm 0.6-1.0 LVID Diastole (2D) 4.4 cm 3.8-5.2 LVIW Diastolic Thickness (2D) 0.8 cm 0.6-0.9 LVID Systole (2D) 2.8 cm 2.2-3.5 LVOT Diameter 1.9 cm LV Mass (2D Cubed) 150.41 g 67.00-162.00 LV Mass Index (2D Cubed) 120 g/m2 43-95 Relative Wall Thickness (2D) 0.36 LV Fractional Shortening/Ejection Fraction 2D/MM LV Fractional Shortening (2D) 36 % 27-45 LV EF (2D Teicholz) 66 % 54-74 LV Diastolic Volume (4C MOD) 59 ml LV EF (4C MOD) 51 % LV Diastolic Volume (2C MOD) 67 ml LV EF (2C MOD) 60 % LV Diastolic Volume (BP MOD) 63 ml 46-106 LV Diastolic Volume Index (BP MOD) 51 ml/m2 29-61 LV Systolic Volume (BP MOD) 29 ml 14-42 LV Systolic Volume Index (BP MOD) 23 ml/m2 8-24 LV EF (BP MOD) 54 % 54-74 LV Diastolic Length (4C) 6.3 cm LV Systolic Length (4C) 5.5 cm LV Stroke Volume (4C MOD) 30 ml Atria Name Value Normal LA Dimensions LA Dimension (MM) 4.3 cm 2.7-3.8 LA Volume (4C A-L) 50 ml LA Volume (BP A-L) 63 ml RA Dimensions RA Area (4C) 16.6 cm2 <=18.0 Report Signatures
[2024-07-19 00:08] LABS: NT Pro B Type Natriuretic Pept 465 pg/mL (19.9-100)
[2024-07-19 01:07] LABS: Troponin I 0.021 ng/mL (0.000-0.034)
--- NOTE | 2024-07-19 01:35 | PM.IMHP ---
H&P: HPI History of Present Illness Date/Time: 07/19/24 01:35 Chief Complaint: generalized weakness Narrative: This is an 83-year-old female with past medical history significant for asthma/ COPD/emphysema, gastroesophageal reflux disease, chronic kidney disease, chronic pain disorder, chronic diastolic heart failure major depressive disorder, dysphagia, rheumatoid arthritis, nonspecific interstitial pneumonia. Patient was brought to the emergency room for evaluation due to generalized weakness, feeling a whooshing sounds in her hearing, patient has had poor per orally intake denies nausea vomiting or diarrhea has had constipation. Preliminary workup was significant for a potassium of 2.5. Preliminary workup has been essentially nonrevealing. Patient has been placed in observation for further evaluation management and treatment. EXAMINATION: XR chest 1V portable Exam Date/Time: 07/18/2024 21:00 FAMILY HEALTH NURSE PRACTITIONER HISTORY: weakness Comparison: 06/29/2024. RESULT: Lines, tubes, and devices: Intrathecal catheter terminating over the lower thoracic spine. Lungs and pleura: Moderate diffuse reticular opacities. No focal consolidation, pneumothorax, or large pleural effusion. Cardiomediastinal silhouette: Stable. Other: No acute osseous or upper abdominal finding. IMPRESSION: No acute cardiopulmonary process. Chronic interstitial changes. Review of Systems Review of Systems: Generalized weakness, poor per orally intake [facility] Past Medical History Medical History (Updated 07/19/24 @ 08:13 by Yecenia Sampson PA-C) Chest pain Urinary tract infection Insomnia Giddiness Risk for falls Elevated troponin Elevated troponin Asthma-COPD overlap syndrome Hypokalemia Skin cancer Gastroesophageal reflux disease Hyperlipidemia Chronic kidney disease Chronic obstructive pulmonary disease Urinary symptom or sign Chest pain Elevated TSH Apneic spell Loud snoring Chronic diastolic heart failure Chronic pain disorder Secondary to chronic back pain from scoliosis and spinal stenosis. Major depressive disorder, single episode, unspecified Oropharyngeal dysphagia Overactive bladder Pneumonia of right upper lobe due to infectious organism Psoriatic arthritis Rheumatoid arthritis, unspecified Urinary incontinence, mixed Vitamin D deficiency Hernia, hiatal Shingles UTI (urinary tract infection) Dysuria Other specified personal risk factors, not elsewhere classified Psoriasis NSIP (nonspecific interstitial pneumonia) Multiple contusions Laceration Asthma Surgical History Surgical History History of spinal surgery History of cardiac catheterization (08/13/11) Normal coronary arteries. Left ventricular ejection fraction visually estimated 45% with hypokinesis of basal segments, suggestive of reversible/atypical takotsubo cardiomyopathy. History of cataract extraction Status post insertion of intrathecal pump History of hysterectomy Family History Family History Grandparent Family history of coronary artery disease Diabetes mellitus Father Family history of coronary artery disease Patient's father is Hypertension Asthma Family history of heart disease in male family member before age 55 Sibling Hypertension Family history of malignant neoplasm of brain Mother Family history of heart disease in male family member before age 55, Onset Age: 92 Family history of malignant neoplasm, Onset Age: 92 Family history of cardiovascular disease Family history of malignant neoplasm of stomach Other Family history of diabetes mellitus in first degree relative Social History Social History Social History: 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 Surrogate medical decision maker: Gabino Caracmoluis, spouse. Code status: Full code. Smoking packs per day: 0.5 Smoking cigarettes per day: 10.0 Years smoked: 10 Smoking pack-years: 5.00 Smoking status: Never smoker Second hand tobacco smoke exposure: No Alcohol intake: never Substance use: never Substance use type: does not use Do You Feel Safe in your Home?: Yes Lack of Transportation: No Lack of Food: Never True Current Housing: I Have Housing Concerned About Future Housing: No Difficulty Paying Gas/Electric Bills: No Difficulty Paying for Meds: No Currently Unemployed: No Education: High School Diploma/GED Difficulty w/ Childcare or Family Care: No Additional living arrangements comments: The patient lives with her . They have 6 grown children. Occupation/Education: retired Spiritual care concerns: No Meds Home Medications and Allergies Home Medications ?Medication ?Instructions ?Recorded ?Confirmed ?Type calcipotriene-betamethasone 0.005 1 ea topical BID PRN psoriasis 10/12/21 07/19/24 History %-0.064 % topical ointment (Taclonex) cholecalciferol (vitamin D3) 125 5,000 unit PO DAILY 10/12/21 07/19/24 History mcg (5,000 unit) tablet clobetasol 0.05 % topical cream 1 applic topical BID 10/12/21 07/19/24 History ustekinumab 45 mg/0.5 mL 45 mg subcut Q3M 11/07/21 07/19/24 History subcutaneous solution (Stelara) fluticasone propionate 50 50 mcg intranasal DAILY 03/06/23 07/19/24 History mcg/actuation nasal spray,suspension polyvinyl alcohol 1.4 % eye drops 1 drp EACH EYE BID PRN Dry Eyes 03/06/23 07/19/24 History albuterol sulfate 90 mcg/actuation See Rx Instructions .Route 03/14/23 07/19/24 Rx aerosol inhaler .COMPLEX #27 grams pantoprazole 40 mg tablet,delayed 40 mg PO DAILY #90 tabs 11/05/23 07/19/24 Rx release potassium chloride 20 mEq See Rx Instructions .Route 11/10/23 07/19/24 Rx tablet,extended release .COMPLEX #90 tabs tiotropium bromide 1.25 See Rx Instructions .Route 11/25/23 07/19/24 Rx mcg/actuation mist for inhalation .COMPLEX #12 grams (Spiriva Respimat) montelukast 10 mg tablet See Rx Instructions .Route 12/15/23 07/19/24 Rx .COMPLEX #90 tabs simvastatin 10 mg tablet See Rx Instructions .Route 12/15/23 07/19/24 Rx .COMPLEX #90 tabs trospium 20 mg tablet See Rx Instructions .Route 12/23/23 07/19/24 Rx .COMPLEX #90 tabs venlafaxine 75 mg tablet 75 mg PO BID #180 tabs 12/26/23 07/19/24 Rx alendronate 70 mg tablet See Rx Instructions .Route 01/07/24 07/19/24 Rx .COMPLEX #12 tabs salsalate 500 mg tablet See Rx Instructions .Route 03/29/24 07/19/24 Rx .COMPLEX #360 tabs theophylline 300 mg See Rx Instructions .Route 05/03/24 07/19/24 Rx tablet,extended release,12 hr .COMPLEX #90 tabs ondansetron 4 mg disintegrating See Rx Instructions .Route 06/28/24 07/19/24 Rx tablet .COMPLEX #20 tabs docusate sodium 100 mg capsule 100 mg PO BID #60 caps 06/30/24 07/19/24 Rx furosemide 20 mg tablet (Lasix) 20 mg PO .COMPLEX 07/13/24 07/19/24 History escitalopram oxalate 10 mg tablet 10 mg PO DAILY 07/19/24 07/19/24 History Allergies Allergy/AdvReac Type Severity Reaction Status Date / Time ibuprofen Allergy Unknown Other Verified 07/19/24 03:09 Chlorophyll Allergy Mild RASH AND Uncoded 07/19/24 03:09 SWELLING Vital Signs Vital Signs - 24 hr 07/18/24 19:32 07/18/24 21:24 07/18/24 21:27 Temperature 98.2 F Pulse Rate 99 81 99 Respiratory Rate 15 15 Blood Pressure 121/79 134/71 121/79 Pulse Oximetry 96 94 96 Oxygen Delivery Room Air Room Air Exam Narrative: laying in a stretcher Const: General: cooperative, comfortable, no acute distress, well developed, alert, awake and thin Nutritional Appearance: thin Orientation/consciousness: oriented to person and oriented to place HENMT: Head: normal to inspection, normocephalic and atraumatic Ears: hearing grossly normal bilaterally Face/Nose/Sinus: normal facial exam Face and sinus: normal facial exam Eyes: General: appearance normal, both eyes and all related structures Pupils: Equal, round and reactive pupils present EOM: EOMs intact bilaterally Neck: Neck: full ROM, no lymphadenopathy and no JVD Thyroid: thyroid normal Lymphatic: no lymphadenopathy noted Resp: Effort & Inspection: normal respiratory effort and able to speak in complete sentences Auscultation: clear to auscultation bilaterally Cardio: Jugular venous distension: no JVD Rate: regular rate Rhythm: regular rhythm Heart sounds: S1 normal heart sound present and S2 normal heart sound present GI: GI Palp: Yes Soft to palpation and Yes No hepatosplenomegaly present : General: Yes deferred Skin: Rashes: no rashes Wounds: no wounds Neuro: General: oriented to person, oriented to place and CN's II-XI intact bilaterally Cranial nerves: Yes CN's II-XII intact bilaterally and Yes Equal, round and reactive pupils present Cognition (Neuro): normal cognition Speech: normal speech Gait exam (Neuro): Unable to assess gait Motor exam (neuro): 5/5 motor strength present throughout Extrem: General: normal to inspection, full ROM, no joint enlargement and no pedal edema H&P: Results Labs Labs: Short CBC 07/18/24 Range/Units 20:52 WBC 7.8 (4.5-10.0) K/mm3 Hgb 14.4 (12.0-15.0) g/dL Hct 41.1 (37.0-47.0) % Plt Count 273 (150-375) k/mm3 BMP 07/18/24 20:52 Sodium 137 Potassium 2.5 L* Chloride 95 L Carbon Dioxide 35 H BUN 15 Creatinine 1.00 Glucose 116 H Calcium 9.6 Cardiac Enzymes 07/18/24 07/18/24 Range/Units 20:52 23:36 Troponin I 0.020 0.021 (0.000-0.034) ng/mL Liver Function 07/18/24 Range/Units 20:52 Total Bilirubin 0.5 (0.2-1.3) mg/dL AST 30 (14-36) U/L ALT 18 (6-35) U/L Alkaline Phosphatase 54 (38-126) U/L Albumin 4.2 (3.5-5.1) g/dL Urine 07/18/24 Range/Units 20:52 Urine Color Yellow (Yellow) Urine Appearance Clear (Clear) Urine pH 7.0 (5.0-9.0) Ur Specific [place] 1.008 (1.001-1.035) Urine Protein Negative (Negative) mg/dL Urine Glucose (UA) Negative (Negative) mg/dL Assessment and Plan Assessment and plan (1) Hypokalemia due to excessive renal loss of potassium: Code(s): E87.6 - Hypokalemia Status: Acute Assessment and Plan: placed in observation in IMU replace as needed hold Lasix (2) Chronic pain disorder: Code(s): G89.4 - Chronic pain syndrome Status: Acute Assessment and Plan: continue home meds (3) JULIAN (obstructive sleep apnea): Code(s): G47.33 - Obstructive sleep apnea (adult) (pediatric) Status: Acute Assessment and Plan: CPAP at nighttime (4) CHF (congestive heart failure): Qualifiers: Heart failure chronicity: chronic Heart failure type: diastolic Qualified Code(s): I50.32 - Chronic diastolic (congestive) heart failure Code(s): I50.9 - Heart failure, unspecified Status: Acute Assessment and Plan: patient appears euvolemic (5) Asthma-COPD overlap syndrome: Code(s): J44.9 - Chronic obstructive pulmonary disease, unspecified Status: Acute Assessment and Plan: not actively wheezing (6) Gastroesophageal reflux disease: Code(s): K21.9 - Gastro-esophageal reflux disease without esophagitis Status: Acute Assessment and Plan: PPI Hospitalist MIPS Advance Care Plan I have confirmed that the patient's Advanced Care Plan is present, code status is documented, or surrogate decision maker is listed in patient medical record.: Yes Medication Reconciliation I have utilized all available resources to obtain, update and review the patients current medications (includes all prescriptions, OTC, herbals, cannabis, and nutritional supplements).: Yes
--- NOTE | 2024-07-19 03:07 | PC.NURSE ---
This patient, Dunia Mueller, was admitted to IMU Room 205-02. Patient/family oriented to hospital policies and general routines including ID bracelet, bed and alarms, visiting hours, pain management, procedures, bathroom and other care routines, personal items, smoking policy, room service/diet, and visiting hours. Information on how to activate the Rapid Response Team has been discussed. Patient/Family are encouraged to report perceived risks to care and to ask questions if they do not understand what they are told or what they should do.
--- NOTE | 2024-07-19 03:18 | PC.NURSE ---
Admission report to ALE[facility] Mata.
[2024-07-19] MEDS: POTASSIUM CHLORIDE INJ 40 MEQ in SODIUM CHLORIDE 0.9% IV 500 ML 125 MEQ IVPB (03:50)
[2024-07-19 05:28] LABS: Basophils Absolute Auto 0.1 K/mm3 (0.0-0.1); Basophils Percent Auto 0.9 % (0.2-1.2); Eosinophils Absolute Auto 0.6 K/mm3 (0-0.3); Eosinophils Percent Auto 9.1 % (0-4.4); Hematocrit 39.1 % (37.0-47.0); Hemoglobin 13.1 g/dL (12.0-15.0); Immature Granulocyte Absolute 0.02 K/mm3 (0.00-0.031); Immature Granulocyte Percent A 0.3 % (0-0.5); Lymphocytes Absolute Auto 1.94 K/mm3 (0.9-3.2); Mean Corpuscular HGB Conc 33.5 g/dl (32-36); Mean Corpuscular Hemoglobin 30.5 pg (26-34); Mean Corpuscular Volume 91.1 fl (80-100); Mean Platelet Volume 10.5 fl (7.4-10.4); Monocytes Absolute Auto 0.6 K/mm3 (0.1-0.6); Neutrophils Absolute Auto 3.7 K/mm3 (1.3-6.7); Neutrophils Percent Auto 52.7 % (45.5-73.1); Platelet Count Result 247 k/mm3 (150-375); Red Blood Count 4.29 M/mm3 (4.2-5.4); Red Cell Distribution Width 12.5 % (11.5-14.5); White Blood Count 6.9 K/mm3 (4.5-10.0)
[2024-07-19 05:40] LABS: Anion Gap 0 mmol/L (4-12); Blood Urea Nitrogen 14 mg/dL (7-17); Calcium 9.2 mg/dL (8.4-10.2); Carbon Dioxide 36 mmol/L (22-30); Chloride 100 mmol/L (98-107); Estimated Glomerular Filt Rate 53; Glucose 93 mg/dL (65-110); Magnesium 2.1 mg/dL (1.6-2.3); Phosphorus 3.3 mg/dL (2.5-4.5); Potassium 3.6 mmol/L (3.4-5.0); Sodium 136 mmol/L (137-145)
--- NOTE | 2024-07-19 08:05 | P.PNIM_ITS ---
Progress Note: A&P Assessment and Plan (1) Chest pain: Code(s): R07.9 - Chest pain, unspecified Status: Acute Assessment and Plan: Patient states she had shest pain that felt like a stretched muscle to the ri ght side of her chest while she was doing the dishes. The position of the chest pain changed with position changes. - Troponin WNL x2 - EKG sinus rhythm with frequent supraventricular ectopic beats and occasional PVCs. Left ventricular hypertrophy with T wave deviation, IL finding from prior EKG no long present. - Echo ordered - Monitor vital signs, I&Os, chest pain, shortness of breath and patient is a fall risk - Monitor PTT, serial troponins, Serum electrolytes, and cbc - Monitor for bloody bowel movements,chest pain,SOB or dizziness/lightheadedness Denying chest pain and palpitations at time of assessment. (2) Hypokalemia due to excessive renal loss of potassium: Code(s): E87.6 - Hypokalemia Status: Acute Assessment and Plan: K 2.5 on admission, likely secondary to lasix use leading to excessive loss. Patient on potassium supplements 20 mg daily. Per chart review, patient has had hypokalemia issues in the past Patient notes that she may have missed some pills, as she found unknown pills in her bathroom last week. Her daughter has been helping her with her medications since that time. - K 3.4 on am labs - lasix on hold, per chart review patient states she takes this medication daily however it is prescribed as only twice a week - Resume potassium supplement 20 mg daily - Tele - Monitor (3) CHF (congestive heart failure): Qualifiers: Heart failure chronicity: chronic Heart failure type: diastolic Qualified Code(s): I50.32 - Chronic diastolic (congestive) heart failure Code(s): I50.9 - Heart failure, unspecified Status: Acute Assessment and Plan: Chronic, does not appear in acute exacerbation, patient euvolemic. - Chest XR: No acute cardiopulmonary process, chronic interstitial changes - Echo 03/06/23: LVEF 65-70% with grade II diastolic dysfunction, no pulmonary hypertension - Echo ordered (4) Asthma-COPD overlap syndrome: Code(s): J44.9 - Chronic obstructive pulmonary disease, unspecified Status: Acute Assessment and Plan: chronic, does not appear in acute exacerbation as patient is not actively wheezing (5) Gastroesophageal reflux disease: Code(s): K21.9 - Gastro-esophageal reflux disease without esophagitis Status: Acute Assessment and Plan: PPI (6) JULIAN (obstructive sleep apnea): Code(s): G47.33 - Obstructive sleep apnea (adult) (pediatric) Status: Acute Assessment and Plan: CPAP at nighttime (7) Chronic pain disorder: Code(s): G89.4 - Chronic pain syndrome Status: Acute Assessment and Plan: continue home meds Time Spent With Patient Time with patient: 25 - 35 minutes Subjective Date/time seen: 07/19/24 08:05 Interval history: 83 year old female with past medical history of asthma-copd overlap syndrome, chronic diastolic heart failure, chronic kidney disease, HLD, hypokalemia, and multiple other comorbidities presents to the hospital for chest pain. Patient is pleasant lying in bed. She states that yesterday she was having a chest pain that felt like a stretched muscle to the right side of her chest while she was doing the dishes. The pain was either relieved or exacerbated with certain position changes. This lasted for a long time patients states then just recently resolved. Patient notes that she may have missed some pills, as she found unknown pills in her bathroom last week. Her daughter has been helping her with her medications since that time. At time of assessment she has no complai nts denying chest pain, shortness of breath, palpitations, fatigue, nausea/vomiting and abdominal pain. Review of Systems Review of Systems: All systems reviewed & are unremarkable except as noted in HPI and below Exam Narrative: AF HR 86 RR 16 SPO2 96 BP 113/53 General: female in no acute respiratory distress who is nontoxic appearing, lying semi recumbent in bed. HEENT: Normocephalic. Atraumatic. Extraocular movement intact. Sclera clear and anicteric. No facial asymmetry. Chest: Lungs are clear to auscultation bilaterally. No wheezes or crackles. CV: Heart was regular rate and rhythm. S1-S2. No murmurs, gallops, or rubs. Abd: Abdomen was soft. Nontender. Nondistended. Positive bowel sounds. No organomegaly or masses. Ext: No clubbing, cyanosis, or edema. 2+ DP pulses bilaterally. Neuro: Patient is alert and oriented x4. Strength is 5/5 in both upper and lower extremities with pushes and pulls. Cranial nerves 2-12 are intact. Speech is clear. Objective Data Vital Signs Vital Signs: Vital Signs - 24 hr 07/18/24 19:32 07/18/24 21:24 07/18/24 21:27 Temperature 98.2 F Pulse Rate 99 81 99 Respiratory Rate 15 16 15 Blood Pressure 121/79 134/71 121/79 Pulse Oximetry 96 94 96 Oxygen Delivery Room Air Room Air 07/19/24 02:50 07/19/24 02:59 07/19/24 03:12 Temperature 97.8 F Pulse Rate 70 93 Respiratory Rate 18 Blood Pressure 124/78 Pulse Oximetry 98 Oxygen Delivery Room Air 07/19/24 04:00 07/19/24 04:00 07/19/24 06:00 Temperature 97.7 F Pulse Rate 71 72 67 Respiratory Rate 18 Blood Pressure 118/70 Pulse Oximetry 100 Oxygen Delivery Intake/Output Intake/Output: Intake & Output 07/16/24 07/17/24 07/18/24 07/19/24 23:59 23:59 23:59 23:59 Intake Total 100 Balance 100 Meds/Results Radiology Results: ITS Impressions Chest X-Ray 07/18/24 21:17 IMPRESSION: No acute cardiopulmonary process. Chronic interstitial changes. Labs Labs: Laboratory Results - last 24 hr 07/18/24 07/18/24 07/19/24 20:52 23:36 05:14 WBC 7.8 6.9 RBC 4.63 4.29 Hgb 14.4 13.1 Hct 41.1 39.1 MCV 88.8 91.1 MCH 31.1 30.5 MCHC 35.0 33.5 RDW 12.4 12.5 Plt Count 273 247 MPV 10.9 H 10.5 H Immature Gran % (Auto) 0.5 0.3 Neut % (Auto) 58.0 52.7 Lymph % (Auto) 27.2 28.0 Frederick % (Auto) 8.8 H 9.0 H Eos % (Auto) 4.9 H 9.1 H Baso % (Auto) 0.6 0.9 Lymph # (Auto) 2.11 1.94 Frederick # (Auto) 0.7 H 0.6 Eos # (Auto) 0.4 H 0.6 H Baso # (Auto) 0.1 0.1 Abs Immat Gran (auto) 0.04 H 0.02 Absolute Neuts (auto) 4.5 3.7 Absolute Nucleated RBC 0.000 0.000 Nucleated RBC % 0.0 0.0 Sodium 137 136 L Potassium 2.5 L* 3.6 Chloride 95 L 100 Carbon Dioxide 35 H 36 H Anion Gap 7 0 L BUN 15 14 Creatinine 1.00 1.00 Estim Creat Clear Calc Not Reportable Not Reportable Estimated GFR 53 L 53 L Glucose 116 H 93 Calcium 9.6 9.2 Phosphorus 3.3 Magnesium 2.0 2.1 Total Bilirubin 0.5 AST 30 ALT 18 Alkaline Phosphatase 54 Troponin I 0.020 0.021 NT-Pro-B Natriuret Pep 465 H Total Protein 8.0 Albumin 4.2 Urine Color Yellow Urine Appearance Clear Urine pH 7.0 Ur Specific [place] 1.008 Urine Protein Negative Urine Glucose (UA) Negative Urine Ketones Negative Ur Blood (Man) Negative Urine Nitrate Negative Urine Bilirubin Negative Urine Urobilinogen 0.2 Leukocyte Esterase Rfl Negative 07/19/24 05:14 WBC RBC Hgb Hct MCV MCH MCHC RDW Plt Count MPV Immature Gran % (Auto) Neut % (Auto) Lymph % (Auto) Frederick % (Auto) Eos % (Auto) Baso % (Auto) Lymph # (Auto) Frederick # (Auto) Eos # (Auto) Baso # (Auto) Abs Immat Gran (auto) Absolute Neuts (auto) Absolute Nucleated RBC Nucleated RBC % Sodium Potassium Chloride Carbon Dioxide Anion Gap BUN Creatinine Estim Creat Clear Calc Estimated GFR Glucose Calcium Phosphorus Magnesium Cancelled Total Bilirubin AST ALT Alkaline Phosphatase Troponin I NT-Pro-B Natriuret Pep Total Protein Albumin Urine Color Urine Appearance Urine pH Ur Specific [place] Urine Protein Urine Glucose (UA) Urine Ketones Ur Blood (Man) Urine Nitrate Urine Bilirubin Urine Urobilinogen Leukocyte Esterase Rfl Quality VTE Prophylaxis VTE prophylaxis: pharmacologic ordered
[2024-07-19] MEDS: ESCITALOPRAM OXALATE 10 MG TABLET PO (09:20)
[2024-07-19] MEDS: CHOLECALCIFEROL 5,000 UNITS TABLET 5000 UNITS PO (09:20)
[2024-07-19] MEDS: POTASSIUM CHLORIDE 20 MEQ ER TABLET BY MOUTH (09:20)
[2024-07-19] MEDS: THEOPHYLLINE 150 MG 450 MG PO ×2 (09:20→20:29)
[2024-07-19] MEDS: PANTOPRAZOLE 40 MG TABLET PO (09:20)
[2024-07-19] MEDS: VENLAFAXINE HCL 75 MG TABLET PO ×2 (09:20→18:47)
[2024-07-19] MEDS: DOCUSATE SODIUM 100 MG CAPSULE PO ×2 (09:20→18:47)
[2024-07-19] MEDS: ENOXAPARIN 30 MG/0.3 ML SYRINGE SUB-Q (09:23)
[2024-07-19] MEDS: SIMVASTATIN 10 MG TABLET BY MOUTH (18:47)
[2024-07-19] MEDS: MONTELUKAST SODIUM 10 MG TABLET BY MOUTH (20:29)
[2024-07-20] VITALS (7 sets, daily range): BP systolic 105; BP diastolic 57; PULSE 57–66; RESP 20; TEMP 36.1; O2SAT 99
[2024-07-20 06:04] LABS: Hematocrit 38.7 % (37.0-47.0); Hemoglobin 12.7 g/dL (12.0-15.0); Mean Corpuscular HGB Conc 32.8 g/dl (32-36); Mean Corpuscular Hemoglobin 30.5 pg (26-34); Mean Platelet Volume 10.8 fl (7.4-10.4); Platelet Count Result 241 k/mm3 (150-375); Red Blood Count 4.16 M/mm3 (4.2-5.4); Red Cell Distribution Width 12.5 % (11.5-14.5); White Blood Count 8.1 K/mm3 (4.5-10.0)
[2024-07-20 06:17] LABS: Alanine Aminotransferase 15 U/L (6-35); Albumin Level 3.6 g/dL (3.5-5.1); Alkaline Phosphatase 48 U/L (38-126); Anion Gap 1 mmol/L (4-12); Aspartate Amino Transferase 28 U/L (14-36); Bilirubin,Total 0.6 mg/dL (0.2-1.3); Blood Urea Nitrogen 16 mg/dL (7-17); Carbon Dioxide 34 mmol/L (22-30); Chloride 101 mmol/L (98-107); Estimated Glomerular Filt Rate 53; Glucose 87 mg/dL (65-110); Potassium 4.5 mmol/L (3.4-5.0); Sodium 136 mmol/L (137-145)
[2024-07-20] MEDS: PANTOPRAZOLE 40 MG TABLET PO (08:32)
[2024-07-20] MEDS: ESCITALOPRAM OXALATE 10 MG TABLET PO (08:32)
[2024-07-20] MEDS: VENLAFAXINE HCL 75 MG TABLET PO (08:32)
[2024-07-20] MEDS: DOCUSATE SODIUM 100 MG CAPSULE PO (08:32)
[2024-07-20] MEDS: CHOLECALCIFEROL 5,000 UNITS TABLET 5000 UNITS PO (08:32)
[2024-07-20] MEDS: ENOXAPARIN 30 MG/0.3 ML SYRINGE SUB-Q (08:32)
[2024-07-20] MEDS: POTASSIUM CHLORIDE 20 MEQ ER TABLET BY MOUTH (08:32)
[2024-07-20] MEDS: THEOPHYLLINE 150 MG 450 MG PO (08:49)
[2024-07-20] MEDS: ONDANSETRON HCL ODT 4 MG TABLET PO (09:20)
--- NOTE | 2024-07-20 14:41 | P.DS_ITS ---
DS: Admitting Diagnosis Discharge Date 07/20/2024 Admitting Diagnosis chest pain hypokalemia CHF asthma-copd overlap julian malnutrition - moderate chronic pain gerd DS: Discharge Diagnosis Discharge Diagnosis (1) Chest pain: Code(s): R07.9 - Chest pain, unspecified Status: Acute (2) Hypokalemia due to excessive renal loss of potassium: Code(s): E87.6 - Hypokalemia Status: Acute (3) CHF (congestive heart failure): Qualifiers: Heart failure chronicity: chronic Heart failure type: diastolic Qualified Code(s): I50.32 - Chronic diastolic (congestive) heart failure Code(s): I50.9 - Heart failure, unspecified Status: Acute (4) Asthma-COPD overlap syndrome: Code(s): J44.9 - Chronic obstructive pulmonary disease, unspecified Status: Acute (5) Gastroesophageal reflux disease: Code(s): K21.9 - Gastro-esophageal reflux disease without esophagitis Status: Acute (6) JULIAN (obstructive sleep apnea): Code(s): G47.33 - Obstructive sleep apnea (adult) (pediatric) Status: Acute (7) Chronic pain disorder: Code(s): G89.4 - Chronic pain syndrome Status: Acute (8) Moderate malnutrition: Code(s): E44.0 - Moderate protein-calorie malnutrition Status: Acute DS: Summary Hospital Course Reason for hospitalization: chest pain hypokalemia CHF asthma-copd overlap julian malnutrition - moderate chronic pain gerd Hospital Course: 83 year old female with past medical history of asthma-copd overlap syndrome, chronic diastolic heart failure, chronic kidney disease, HLD, hypokalemia, and multiple other comorbidities presents to the hospital for chest pain. She states that she was having a chest pain that felt like a stretched muscle to the right side of her chest while she was doing the dishes. The pain was either relieved or exacerbated with certain position changes. She then came to the hospital for further evaluation. On admission patients vitals were stable. EKG sinus rhythm with frequent supraventricular ectopic beats and occasional PVCs. Troponins were negative. On CMP she was noted to have a potassium of 2.5 likely secondary to lasix use leading to excessive loss. Patient on potassium supplements 20 mg daily. She received potassium supplementation and the hypokalemia resolved. Chest XR showed no acute cardiopulmonary process. An echo was obtained and showed LVEF 50-55% with grade I diastolic dysfunction. Patients chest pain resolved entirely during admission, she was able to ambulate about her room without assistance. At time of discharge patient had no complaints denying chest pain, shortness of breath, nausea/vomiting and abdominal pain. Her dose of potassium supplementation was increased to 40 meq daily and she is to continue her lasix as previously prescribed. She will obtain a BMP in 3 days to reassess her potassium level. Patient discharged home with family in stable condition. She is to follow up with her PCP in 1 week. Status at Discharge Functional status at discharge: independent ambulation Time Spent with Patient Time attestation: Total time spent providing and/or coordinating discharge services: Time spent: Greater than 30 minutes Exam Narrative: AF HR 57 RR 20 SPO2 99 BP 105/57 General: female in no acute respiratory distress who is nontoxic appearing, lying semi recumbent in bed. HEENT: Normocephalic. Atraumatic. Extraocular movement intact. Sclera clear and anicteric. No facial asymmetry. Chest: Lungs are clear to auscultation bilaterally. No wheezes or crackles. CV: Heart was regular rate and rhythm. S1-S2. No murmurs, gallops, or rubs. Abd: Abdomen was soft. Nontender. Nondistended. Positive bowel sounds. No organomegaly or masses. Ext: No clubbing, cyanosis, or edema. 2+ DP pulses bilaterally. Neuro: Patient is alert and oriented x4. Speech is clear. DS: Data Data Completed and Pending Completed studies during hospitalization: chest xr Labs on day of discharge: Labs from last 24 hours 07/20/24 05:34 WBC 8.1 RBC 4.16 L Hgb 12.7 Hct 38.7 MCV 93.0 MCH 30.5 MCHC 32.8 RDW 12.5 Plt Count 241 MPV 10.8 H Sodium 136 L Potassium 4.5 Chloride 101 Carbon Dioxide 34 H Anion Gap 1 L BUN 16 Creatinine 1.00 Estim Creat Clear Calc Not Reportable Estimated GFR 53 L Glucose 87 Calcium 10.0 Total Bilirubin 0.6 AST 28 ALT 15 Alkaline Phosphatase 48 Total Protein 7.0 Albumin 3.6 Discharge Plan Discharge Attending physician on discharge: Fausto Hensley Discharging Clinician: Yecenia Sampson Anticipated Discharge Date/Time: 07/20/24 14:32 Patient Disposition: Home, Self-Care Activity: as tolerated Diet: as tolerated and heart healthy Discharge Instructions: Discharge disposition: Patient was admitted to the hospital for chest pain which has resolved during admission Noted to have a low potassium level, given replacement and has since resolved An echo was obtained during your admission which showed a decreased EF compared to last year Take medications as prescribed Continue lasix 20 mg three times a week Increased potassium supplement to 40 mEq daily Obtain a blood draw in 3 days to reassess potassium level Maintain a cardiac diet, 2 g sodium, do not over hydrate Remain active Monitor urine output Daily weights, if you gain more than 3 lb within 1 day or 5 lb in 1 week notify your primary care provider Follow up with your primary care in regards to your potassium level and the echo results Monitor blood pressures Take caution while standing, rising, or moving Change positions slowly taking a break between each position change If you standing feel dizzy sat back down and take a break Encouraged to continue with yearly vaccinations Return to the emergency department if he developed sudden shortness of breath, chest pain, nausea, vomiting, upset stomach or intractable diarrhea Return to the emergency department if you develop fever greater than 101.5 Follow-up with the primary care physician within 1 weeks Thank you for [facility] for your healthcare needs Patient Instructions: Furosemide (By mouth), Potassium Chloride (By mouth), Heart Failure (DC), Chest Pain (DC), Hypokalemia (DC) Patient Language: Mongolian Stand Alone Forms: General Discharge Information Follow-up/Referrals: Sawyer Gutiérrez MD [Primary Care Provider] - 1 Week Discharge Medications: New potassium chloride 20 mEq tablet extended release 40 meq PO DAILY Qty: 30 0RF Continued Stelara 45 mg/0.5 mL solution 45 mg subcut Q3M furosemide [Lasix] 20 mg tablet 20 mg PO .COMPLEX Rx Instructions: 20 mg orally twice per week; cholecalciferol (vitamin D3) 125 mcg (5,000 unit) tablet 5,000 unit PO DAILY calcipotriene-betamethasone [Taclonex] 0.005-0.064 % ointment 1 ea topical BID PRN (Reason: psoriasis) Rx Instructions: Apply to the affected area psoriasis BID; clobetasol 0.05 % cream 1 applic topical BID pantoprazole 40 mg tablet,delayed release (DR/EC) 40 mg PO DAILY Qty: 90 2RF polyvinyl alcohol 1.4 % Drops 1 drp EACH EYE BID PRN (Reason: Dry Eyes) fluticasone propionate 50 mcg/actuation spray,suspension 50 mcg intranasal DAILY docusate sodium 100 mg Capsule 100 mg PO BID Qty: 60 0RF escitalopram oxalate 10 mg tablet 10 mg PO DAILY albuterol sulfate 90 mcg/actuation HFA aerosol inhaler See Rx Instructions .ROUTE .COMPLEX Qty: 27 1RF Dose Instruction: INHALE 2 PUFFS BY MOUTH EVERY 4 TO 6 HOURS NEEDED Rx Instructions: INHALE 2 PUFFS BY MOUTH EVERY 4 TO 6 HOURS NEEDED Spiriva Respimat 1.25 mcg/actuation mist See Rx Instructions .ROUTE .COMPLEX Qty: 12 3RF Dose Instruction: INHALE 2 SPRAY(S) BY MOUTH EVERY 24 HOURS Rx Instructions: INHALE 2 SPRAY(S) BY MOUTH EVERY 24 HOURS simvastatin 10 mg tablet See Rx Instructions .ROUTE .COMPLEX Qty: 90 2RF Dose Instruction: Take 1 tablet by mouth in the evening Rx Instructions: Take 1 tablet by mouth in the evening montelukast 10 mg tablet See Rx Instructions .ROUTE .COMPLEX Qty: 90 2RF Dose Instruction: Take 1 tablet by mouth once daily Rx Instructions: Take 1 tablet by mouth once daily trospium 20 mg tablet See Rx Instructions .ROUTE .COMPLEX Qty: 90 2RF Dose Instruction: TAKE 1 TABLET BY MOUTH ONCE DAILY ON AN EMPTY STOMACH Rx Instructions: TAKE 1 TABLET BY MOUTH ONCE DAILY ON AN EMPTY STOMACH venlafaxine 75 mg tablet 75 mg PO BID Qty: 180 2RF alendronate 70 mg tablet See Rx Instructions .ROUTE .COMPLEX Qty: 12 2RF Dose Instruction: TAKE 1 TABLET BY MOUTH ONCE A WEEK IN THE MORNING AT LEAST 30 MINUTES BEFORE FIRST FOOD, DRINK, OR MEDICATION OF THE DAY Rx Instructions: TAKE 1 TABLET BY MOUTH ONCE A WEEK IN THE MORNING AT LEAST 30 MINUTES BEFORE FIRST FOOD, DRINK, OR MEDICATION OF THE DAY salsalate 500 mg tablet See Rx Instructions .ROUTE .COMPLEX Qty: 360 2RF Dose Instruction: Take 2 tablets by mouth twice daily Rx Instructions: Take 2 tablets by mouth twice daily theophylline 300 mg tablet extended release 12 hr See Rx Instructions .ROUTE .COMPLEX Qty: 90 5RF Dose Instruction: TAKE 1 & 1/2 (ONE & ONE-HALF) TABLETS BY MOUTH EVERY 12 HOURS Rx Instructions: TAKE 1 & 1/2 (ONE & ONE-HALF) TABLETS BY MOUTH EVERY 12 HOURS ondansetron 4 mg tablet,disintegrating See Rx Instructions .ROUTE .COMPLEX Qty: 20 2RF Dose Instruction: DISSOLVE 1 TABLET IN MOUTH EVERY 6 HOURS NEEDED FOR NAUSEA AND VOMITING Rx Instructions: DISSOLVE 1 TABLET IN MOUTH EVERY 6 HOURS NEEDED FOR NAUSEA AND VOMITING Discontinued potassium chloride 20 mEq tablet extended release See Rx Instructions .ROUTE .COMPLEX Qty: 90 2RF Dose Instruction: Take 1 tablet by mouth once daily Rx Instructions: Take 1 tablet by mouth once daily Other Ambulatory Orders: Basic Metabolic Panel (Routine) Timeframe: 3 Days Location: Determined by Patient Ordered By: Yecenia Sampson Date of admission: 07/19/24 01:36 Primary Care Provider: Sawyer Gutiérrez Admitting Provider: Agnes Roper V. Attending physician on admission: Yecenia Sampson Condition: Stable Hospitalist MIPS Heart Failure (Exclusion) Patient has history of Heart Transplant or Left Ventricular Assistive Device?: No IF YES, STOP HERE Heart Failure (Qualifier) Patient has current or prior documentation of LVEF less than or equal to 40%, or mod/servere depressed LVSF?: No IF NO, STOP HERE
--- OUTSIDE RECORDS SUMMARY | 2024-07-23 21:53 | XMS_ITS | Encounter Summary ---
Author Organization [facility] Address [address] [place] [address]. [place], [place] [id number] [place] [id number] Care Team Providers Care Ramp Jockey Name Role Phone Sawyer Gutiérrez MD Primary Care Provider [phone] Encounter Details Date Type Department Care Team (Latest Contact Info) Description 12/20/2021 11:28 AM CDT - 12/20/2021 11:59 PM CDT Hospital Encounter [facility] [place] [address] Francisco Koehler MD [address] [address] Discharge Disposition: Home or Self Care (Routine Discharge) Social History Tobacco Use Types Packs/Day Years Used Date Smoking Tobacco: Never Assessed Comments Unknown Sex and Gender Information Value Date Recorded Sex Assigned at Not on file Legal Sex Female 9:33 AM CDT Gender Identity Not on file Sexual Orientation Not on file COVID-19 Exposure Response Date Recorded In the last 10 days, have yo u been in contact with someone who was confirmed or suspected to have Coronavirus/COVID-19? No / Unsure 12/20/2021 9:43 AM CDT documented as of this encounter Plan of Treatment Not on file documented as of this encounter Procedures Procedure Name Priority Date/Time Associated Diagnosis Comments HC URINALYSIS AUTO W/O MICRO Routine 12/20/2021 11:48 AM CDT Dysuria URINE BACTERIA CULTURE Routine 12/20/2021 11:48 AM CDT Dysuria documented in this encounter Results * CULTURE URINE (12/20/2021 11:48 AM CDT) SPEC DESCRIPTION URINE CLEAN CATCH 12/20/2021 11:36 AM CDT [facility] SPECIAL REQUESTS NO SPECIAL REQUEST 12/20/2021 11:36 AM CDT [facility] CULTURE RESULT POLYMICROBIAL GROWTH CONSISTENT WITH NORMAL GENITAL NAVEEN. ?? SUSCEPTIBILITIES NOT ROUTINELY PERFORMED. 12/21/2021 11:50 AM CDT [facility] URINE SPECIMEN OBTAINED BY CLEAN CATCH PROCEDURE / Unknown 12/20/2021 11:48 AM CDT 12/20/2021 11:51 AM CDT Francisco Koehler MD MICROBIOLOGY - GENERAL ORDE [facility] Final Result [facility] [address] [place] [address], * URINALYSIS (12/20/2021 11:48 AM CDT) SPECIMEN TYPE URINE CLEAN CATCH 12/20/2021 11:36 AM CDT [facility] COLOR (U) LIGHT YELLOW 12/20/2021 12:03 PM CDT [facility] TRANSPARENCY CLEAR 12/20/2021 12:03 PM CDT [facility] SPECIFIC GRAVITY (U) 1.008 1.001 - 1.030 12/20/2021 12:03 PM CDT [facility] U PH 7.0 5.0 - 9.0 12/20/2021 12:03 PM CDT [facility] LEUKOCYTES (U) NEGATIVE NEGATIVE 12/20/2021 12:03 PM CDT [facility] NITRITES NEGATIVE NEGATIVE 12/20/2021 12:03 PM CDT [facility] PROTEIN (U) NEGATIVE <30 MG/DL 12/20/2021 12:03 PM CDT [facility] URINE GLUCOSE NORMAL NORMAL MG/DL 12/20/2021 12:03 PM CDT [facility] KETONES MG/DL (U) NEGATIVE NEGATIVE MG/DL 12/20/2021 12:03 PM CDT [facility] UROBILINOGEN NORMAL NORMAL MG/DL 12/20/2021 12:03 PM CDT [facility] BILIRUBIN (U) NEGATIVE NEGATIVE MG/DL 12/20/2021 12:03 PM CDT [facility] BLOOD (U) NEGATIVE NEGATIVE 12/20/2021 12:03 PM CDT [facility] URINE SPECIMEN OBTAINED BY CLEAN CATCH PROCEDURE / Unknown 12/20/2021 11:48 AM CDT us Francisco Koehler MD URINE ORDERABLES Final Resu lt [facility] [address] [place] [address], documented in this encounter Visit Diagnoses Diagnosis Dysuria documented in this encounter Care Teams Ramp Jockey Relationship Specialty Start Date End Date Sawyer Gutiérrez MD [address] [place] [address] PCP - General INTERNAL MEDICINE 12/20/21 documented as of this encounter
--- OUTSIDE RECORDS SUMMARY | 2024-07-23 21:53 | XMS_ITS | Referral Summary ---
Author Organization [facility] [place] [address] Address [address] [place] [address] Care Team Providers Care Tombstone Erector Helper Name Role Phone Sawyer Gutiérrez MD Primary Care Provide r Francisco Koehler MD Unavailable [phone] Allergies Active Allergy Reactions Criticality Noted Date Comments Chlorophyll Copper Complex Rash Medium 12/14/2021 Ibuprofen Other (See comments) Low 11/02/2021 Kidney failure Medications trospium (SANCTURA) 20 mg tablet Take 20 mg by mouth daily Active alendronate (FOSAMAX) 70 mg tablet Take 70 mg by mouth every 7 days Take in the morning with a full glass of water, on an empty stomach, and do not take anything else by mouth or lie down for the next 30 min. Active tiotropium bromide (SPIRIVA RESPIMAT) 2.5 mcg/actuation inhaler Inhale 2 puffs daily Active calcipotriene-b etamethasone (TACLONEX) ointment Apply 1 application topically 2 (two) times a day Active albuterol HFA (PROVENTIL HFA,VENTOLIN HFA,PROAIR HFA) 90 mcg/actuation inhaler Inhale 2 puffs every 6 (six) hours as needed for wheezing Active fluticasone propionate (FLONASE) 50 mcg/actuation nasal spray Administer 2 sprays into each nostril daily Active cranberry uypg-V-ymectwvt coag 250-30-50 ic-al-uggprwy tablet Take 1 capsule by mouth 2 (two) times a day Active salsalate (DISALCID) 500 mg tablet Take 1,000 mg by mouth 2 (two) times a day Active theophylline (TIANNA-24) 300 mg 24 hr capsule Take 450 mg by mouth 2 (two) times a day Active montelukast (SINGULAIR) 10 mg tablet Take 10 mg by mouth daily Active esomeprazole DR (NexIUM) 40 mg capsule Take 80 mg by mouth daily before breakfast Active DULoxetine DR (CYMBALTA) 60 mg capsule Take 60 mg by mouth daily Active vitamin B complex capsule Take 1 capsule by mouth daily Active magnesium oxide (MAG-OX) 250 mg (150.8 mg elemental) tabletIndicatio ns:hypomagnesem ia Take 250 mg by mouth daily Active calcium carbonate/vitam in D3 (CALCIUM 600 WITH VITAMIN D3 ORAL) Take 1 tablet/capsule by mouth daily Active aspirin 81 mg enteric coated tablet Take 81 mg by mouth daily Active potassium chloride ER (KLOR-CON) 20 mEq CR tablet Take 20 mEq by mouth daily Active furosemide (LASIX) 40 mg tablet Take 60 mg by mouth daily Active cholecalciferol (VITAMIN D-3) 5,000 unit tablet Take 5,000 Units by mouth daily Active clobetasoL (TEMOVATE) 0.05 % cream Apply 1 application topically 2 (two) times a day Active ustekinumab (STELARA) injection Inject 45 mg under the skin every 3 (three) months Active simvastatin (ZOCOR) 10 mg tablet Take 10 mg by mouth nightly 2 Active Active Problems Problem Noted Date Diagnosed Date Asthma 11/23/2021 Osteoporosis 11/23/2021 GERD (gastroesophageal reflux disease) 2 Anxiety and depression 11/23/2021 Hypertension 11/23/2021 Hyperlipidemia 11/23/2021 Psoriasis 11/23/2021 Social History Tobacco Use Types Packs/Day Years Used Date Smoking Tobacco: Former Cigarettes Q uit: 01/23/2000 Smokeless Tobacco: Never AUDIT-C Answer Date Recorded Q1: How often do you have a drink containing alc ohol? Never 12/14/2021 Average Number of Drinks Not on file 022 Q3: How often do you have si x or more drinks on one occasion? 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 Gender Identity Not on file Sexual Orientation Not on file Last Filed Vital Signs Vital Sign Reading Time Taken Comments Blood Pressure 147/85 12/14/2021 10:10 AM CDT Pulse 75 12/14/2021 10:10 AM CDT Temperature 36.5 ??C (97.7 ??F) 12/14/2021 9:00 AM CD T Respiratory Rate 11 12/14/2021 10:10 AM CDT Oxygen Saturation 90% 12/14/2021 10:10 AM CDT Inhaled Oxygen Concentration - - Weight 56.2 kg (124 lb) 12/14/2021 6:23 AM CDT Height 139.7 cm (4' 7 ) 12/14/2021 6:23 AM CDT Body Mass Index 28.82 12/14/2021 6:23 AM CDT Plan of Treatment Not on file Medical Devices Implanted Type Area Refiner Operator Device Identifier Shelf Expiration Date Model / Serial / Lot Medtronic Inc Synchromed Ii .78in [place] Filter Mesh Pouch Programmable 8637-20 - [id number] - [id number] Implanted:Qty: 1 on 12/14/2021 by Francisco Koehler MD at [facility] N/A: Abdomen Med[employer] Inc 05/17/2023 8637-20 / [id number] / Insurance MEDICARE MEDICARE BLUE TRADITIONAL OOS Care Teams Tombstone Erector Helper Relationship Specialty Start Date End Date Sawyer Gutiérrez MD [address] [place] [address] PCP - General Emergency Medicine 10/02/21 Francisco Koehler MD [address] [place] [address] Consulting Physician Neurosurgery 12/14/21
--- OUTSIDE RECORDS SUMMARY | 2024-07-23 21:53 | XMS_ITS | Clinical Summary ---
Author Organization [facility] Address [address] [place] [address]. [place], [place] [address] [place] [address] Care Team Providers Care Recruiting Consultant Name Role Phone Sawyer Gutiérrez MD Primary Care Provider [phone] Social History Tobacco Use Types Packs/Day Years Used Date Smoking Tobacco: Never Assessed Comments Unknown Sex and Gender Information Value Date Recorded Sex Assigned at Not on file Legal Sex Female 9:33 AM CDT Gender Identity Not on file Sexual Orientation Not on file Plan of Treatment Health Maintenance Due Date Last Done Comments Zoster Vaccines (1 of 2) 1988 RSV Immunization or 60+ Years (1 - 1-dose 60+ series) 1998 Annual Medicare Wellness Visit 12/30/2003 Pneumococcal Vaccine: 65+ Years (1 of 1 - PCV) 12/30/2003 COVID-19 Vaccine (2023-2 5 season) 2024 05/01/2021, 10/28/2020, 09/28/2020 Influenza Adult (#1) 2024 DTaP, Tdap and Td Vaccines ( 2 - Td or Tdap) 05/29/2028 05/29/2018 Meningococcal Vaccine Aged Out No vicente hernando eligible based on patient's age to complete this topic RSV Immunizations Under 20 Months Aged Out No longer eligible b ased on patient's age to complete this topic Insurance LINDA SINGH [id number] MEDICARE [facility] [[email or web address] Care Teams Recruiting Consultant Relationship Specialty Start Date End Date Sawyer Gutiérrez MD [address] [place] [address] PCP - General INTERNAL MEDICINE 12/20/21
--- OUTSIDE RECORDS SUMMARY | 2024-07-23 21:53 | XMS_ITS | Encounter Summary ---
Author Organization [facility] Address [address] [place] [address]. [place], [place] [address] [place] [address] Care Team Providers Care Hydraulic Plumber Helper Name Role Phone Sawyer Gutiérrez MD Primary Care Provider [phone] Encounter Details Date Type Department Care Team (Late st Contact Info) Description 12/20/2021 Orders Only [facility] [place] [address] Francisco Koehler MD [address] [facility] [address] [place], [place] [address] Social History Tobacco Use Types Packs/Day Years [...] on file documented as of this encounter Results * CULTURE URINE (12/20/2021 11:48 AM CDT) SPEC DESCRIPTION URINE CLEAN CATCH 12/20/2021 11:36 AM CDT [facility] SPECIAL REQUESTS NO SPECIAL REQUEST 12/20/2021 11:36 AM CDT [facility] CULTURE RESULT POLYMICROBIAL GROWTH CONSISTENT WITH NORMAL GENITAL NAVEEN. ?? SUSCEPTIBILITIES NOT ROUTINELY PERFORMED. 12/21/2021 11:50 AM CDT [facility] URINE SPECIMEN OBTAINED BY CLEAN CATCH PROCEDURE / Unknown 12/20/2021 11:48 AM CDT 12/20/2021 11:51 AM CDT us Francisco Koehler MD MI[facility]BIOLOGY [facility] [place] [facility] Final Result [facility] [address] [place] [address], [place] [phone] * URINALYSIS (12/20/2021 11:48 AM CDT) SPECIMEN TYPE URINE CLEAN CATCH 12/20/2021 11:36 AM CDT [facility] COLOR (U) LIGHT YELLOW 12/20/2021 12:03 PM CDT [facility] TRANSPARENCY CLEAR 12/20/2021 12:03 PM CDT [facility] SPECIFIC GRAVITY (U) 1.008 1.001 - 1.030 12/20/2021 12:03 PM CDT [facility] U PH 7.0 5.0 - 9.0 12/20/2021 12:03 PM CDT [facility] LEUKOCYTES (U) NEGATIVE NEGATIVE 12/20/2021 12:03 PM CDT [facility] NITRITES NEGATIVE NEGATIVE 12/20/2021 12:03 PM CDT [facility] PROTEIN (U) NEGATIVE <30 MG/DL 12/20/2021 12:03 PM CDT [facility] URINE GLUCOSE NORMAL NORMAL MG/DL 12/20/2021 12:03 PM CDT [facility] KETONES MG/DL (U) NEGATIVE NEGATIVE MG/DL 12/20/2021 12:03 PM CDT [facility] UROBILINOGEN NORMAL NORMAL MG/DL 12/20/2021 12:03 PM CDT [facility] BILIRUBIN (U) NEGATIVE NEGATIVE MG/DL 12/20/2021 12:03 PM CDT [facility] BLOOD (U) NEGATIVE NEGATIVE 12/20/2021 12:03 PM CDT [facility] URINE SPECIMEN OBTAINED BY CLEAN CATCH PROCEDURE / Unknown 12/20/2021 11:48 AM CDT us Francisco Koehler MD URINE ORDERABLES Final Resu lt [facility] [address] [place] [address], documented in this encounter Visit Diagnoses Diagnosis Dysuria- Primary documented in this encounter Care Teams Hydraulic Plumber Helper Relationship Specialty Start Date End Date Sawyer Gutiérrez MD [address] [place] [address] PCP - General INTERNAL MEDICINE 12/20/21 documented as of this encounter
--- OUTSIDE RECORDS SUMMARY | 2024-07-23 21:53 | XMS_ITS | Encounter Summary ---
Author Organization [facility] Address [address] [place] [address]. [place], [place] [address] [place] [address] Care Team Providers Care Wash Rack Operator Name Role Phone Sawyer Gutiérrez MD Primary Care Provider [phone] Encounter Details Date Type Department Care Team (Latest Contact Info) Description 12/20/2021 Travel Social History Tobacco Use Types Packs/Day Years [...] on file documented as of this encounter Visit Diagnoses Not on filedocumented in this encounter Care Teams Wash Rack Operator Relationship Specialty Start Date End Date Sawyer Gutiérrez MD [address] [place] [address] PCP - General INTERNAL MEDICINE 12/20/21 documented as of this encounter
--- OUTSIDE RECORDS SUMMARY | 2024-07-23 21:53 | XMS_ITS | Encounter Summary ---
Author Organization [facility] Address [address] [place] [address] [place] [address] Care Team Providers Care Patch Press Operator Name Role Phone Sawyer Gutiérrez MD Primary Care Provide r Francisco Koehler MD Unavailable [phone] Encounter Details Date Type Department Care Team (Late st Contact Info) Description 03/11/2023 Orders Only [facility] Cardiology [address] [place] [address] Yareli Maharaj, RAGHAVENDRA [address] [place] [address] Social History Tobacco Use Types Packs/Day Years [...] on file Legal Sex Female 2:13 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 Gender Identity Not on file Sexual Orientation Not on file documented as of this encounter Plan of Treatment Not on file documented as of this encounter Procedures Procedure Name Priority Date/Time Associated Diagnosis Comments CARDIOLOGY DOCUMENT SCAN Routine 023 10:54 AM CDT documented in this encounter Results * Cardiology Document Scan (03/06/2023 10:54 AM CDT) Anatomical Region Laterality Modality Other us Yareli Maharaj FRUIT OR NUT FARM WORKER CV CARDIAC SERVICES PROCEDUR ES Final Result documented in this encounter Visit Diagnoses Not on filedocumented in this encounter Care Teams Patch Press Operator Relationship Specialty Start Date End Date Sawyer Gutiérrez MD [address] [place] [address] PCP - General Emergency Medicine 10/02/21 Francisco Koehler MD [address] [place] [address] Consulting Physician Neurosurgery 12/14/21 documented as of this encounter
--- OUTSIDE RECORDS SUMMARY | 2024-07-23 21:53 | XMS_ITS | Encounter Summary ---
Author Organization [facility] Address [address] [place] [address]. [place], [place] [address] [place] [address] Care Team Providers Care Mechanical Equipment Sales Engineer Name Role Phone Sawyer Gutiérrez MD Primary Care Provider [phone] Encounter Details Date Type Department Care Team (Latest Contact Info) Description 12/20/2021 10:00 AM CDT - 12/20/2021 11:27 AM CDT Hospital Encounter [facility] Diagnostic [place] [address] Francisco Koehler MD [id number] [place] [address] Discharge Disposition: Home or Self Care (Routine [...] Procedure Name Priority Date/Time Associated Diagnosis Comments XR ABD KUB Routine 12/20/2021 10:30 AM CDT Scoliosis documented in this encounter Results * XR ABD KUB (12/20/2021 10:30 AM CDT) Anatomical Region Laterality Modality Abdomen Radiographic Alise ging 12/20/2021 1:46 PM CDT Impressions 12/20/2021 1:48 PM CDT IMPRESSION: Scoliosis. ??Partially visualized pain pump components. Referred By: ?? Interpreted By: Grey King MD, 12/20/2021 1:46 PM Narrative 12/20/2021 1:48 PM CDT Exam: Abdomen x-ray No comparison INDICATION: M41.9 TECHNIQUE: One view FINDINGS: Marked levoscoliosis of the lumbar spine measuring at least 48 degrees. ??Extensive degenerative changes associated with this. ??Bone sclerosis, joint space reduction, vacuum discs, asymmetric right-sided osteophytes. ??Mild right-sided wedging of L1-L3. Right-sided pain pump. ??Catheter extends beyond the image to at least T10. ??Moderate stool volume. ??No bowel obstruction. Procedure Note Grey King MD - 12/20/2021 Exam: Abdomen x-ray No comparison INDICATION: M41.9 TECHNIQUE: One view FINDINGS: Marked levoscoliosis of the lumbar spine measuring at least 48degrees. Extensive degenerative changes associated with this. Bonesclerosis, joint space reduction, vacuum discs, asymmetric right-sidedosteophytes. Mild right-sided wedging of L1-L3. Right-sided pain pump. Catheter extends beyond the image to at least T10.Moderate stool volume. No bowel obstruction. IMPRESSION: Scoliosis. Partially visualized pain pump components. Referred By: Interpreted By: Grey King MD, 12/20/2021 1:46 PM Francisco Koehler MD GENERAL IMAGING Final Resul t documented in this encounter Visit Diagnoses Diagnosis Scoliosis Scoliosis (and kyphoscoliosis), idiopathic documented in this encounter Care Teams Mechanical Equipment Sales Engineer Relationship Specialty Start Date End Date Sawyer Gutiérrez MD [address] [place] [address] PCP - General INTERNAL MEDICINE 12/20/21 documented as of this encounter
--- OUTSIDE RECORDS SUMMARY | 2024-07-23 21:53 | XMS_ITS | Clinical Summary ---
Author Organization [facility] [address] Address [address] [place] [address] Care Team Providers Care Correspondence Transcriber Name Role Phone Sawyer Gutiérrez MD Primary Care Provide r Francisco Koehler MD Unavailable [phone] Allergies Active Allergy Reactions Criticality Noted [...] sprays into each nostril daily Active cranberry tofi-A-wffafesm coag 250-30-50 tz-xg-iymhisd tablet Take 1 capsule by mouth 2 [...] 11/23/2021 Hypertension 11/23/2021 Hyperlipidemia 11/23/2021 Psoriasis 11/23/2021 Surgical History Surgery Date Site/Laterality Comments HYSTERECTOMY SKIN CANCER EXCISION CATARACT EXTRACTION, BILATERAL SPINE SURGERY compression fracture Medical History Medical History Date Comments Asthma 11/23/2021 Osteoporosis 11/23/2021 Anxiety and depression 11/23/2021 Hyperlipidemia 11/23/2021 Psoriasis 11/23/2021 Sleep apnea COPD (chronic obstructive pulmonary disease) (HC C) GERD (gastroesophageal reflux disease) Arthritis Hypertension 11/23/2021 Urinary tract infection Skin cancer Social History Tobacco Use Types Packs/Day Years [...] on file Legal Sex Female 2:13 AM DIRECTOR OF ENTERPRISE APPLICATIONS Gender Identity Not on file Sexual Orientation Not on file Obstetrics History Last Filed Vital Signs Vital Sign Reading [...] 12/14/2021 6:23 AM CDT Plan of Treatment Health Maintenance Due Date Last Done Comments Depression Screening 1940 Osteoporosis Screening-Bone Density Scan 1938 Pneumococcal vaccine 65+ (1 of 2 - PCV) 1944 Hepatitis B Screening 1956 Zoster Vaccine (1 of 2) 1988 Well Visit 65+ 12/30/2003 Fall Risk Assessment 12/14/2022 12/14/2021 Covid-19 Vaccine ( season) 2024 05/01/2021, 10/28/2020, 09/28/2020 Influenza Vaccine (#1) 2024 05/06/2020 DTaP/Tdap/Td Vaccine (2 - Td or Tdap) 05/29/2028 Medical Devices Implanted Type Area Superannuation Funds Manager Device Identifier Shelf Expiration Date Model / Serial / Lot [employer] Synchromed Ii .78in [place] Filter Mesh Pouch Programmable 8637-20 - [id number] - [id number] Implanted:Qty: 1 on 12/14/2021 by Francisco Koehler MD at [facility] N/A: Abdomen [employer] 05/17/2023 8637-20 / [id number] / Insurance MEDICARE MEDICARE PLUSH TRADITIONAL OOS Care Teams Correspondence Transcriber Relationship Specialty Start Date End Date Sawyer Gutiérrez MD [address] [place] [address] PCP - General Emergency Medicine 10/02/21 Francisco Koehler MD [address] [place] [address] Consulting Physician Neurosurgery 12/14/21
--- OUTSIDE RECORDS SUMMARY | 2024-07-23 21:54 | XMS_ITS | Encounter Summary ---
Author Organization [facility] Address [address] [facility] [address] [place] [address] Care Team Providers Care Wax Pattern Repairer Name Role Phone Sawyer Gutiérrez MD Primary Care Provide r Francisco Koehler MD Unavailable [phone] Encounter Details Date Type Department Care Team (Late st Contact Info) Description 03/06/2023 Orders Only [facility] Cardiology [address] [place] [address] Aracely Delgado MD [address] [place] [address] Social History Tobacco Use Types [...] on file Legal Sex Female 2:13 AM DEVELOPMENT EDITOR Gender Identity Not on file Sexual Orientation Not on file documented as of this encounter Plan of Treatment Not on file documented as of this encounter Visit Diagnoses Not on filedocumented in this encounter Care Teams Wax Pattern Repairer Relationship Specialty Start Date End Date Sawyer Gutiérrez MD [address] [place] [address] PCP - General Emergency Medicine 10/02/21 Francisco Koehler MD [address] [place] [address] Consulting Physician Neurosurgery 12/14/21 documented as of this encounter
--- OUTSIDE RECORDS SUMMARY | 2024-07-23 21:54 | XMS_ITS | Encounter Summary ---
Author Organization [facility] Healthcare Address [address] [place] [address] Care Team Providers Care Voice Network Administrator Name Role Phone Sawyer Gutiérrez MD Primary Care Provide r Francisco Koehler MD Unavailable Encounter Details Date Type Department Care Team (Late st Contact Info) Description 12/14/2021 7:00 AM CDT - 12/14/2021 10:20 AM CDT Surgery [facility] Operating Room [address] [place] [address] Francisco Koehler MD [address] [place], [place] [id number] REPLACEMENT PAIN PUMP Surgery Details Date/Time Status Location OR Service Patient Class Case Class Case Type Trauma Case? 12/14/2021 7:00 AM Posted [facility] OPERATING ROOM OR Neurosurgery Outpatient Elective Panel 1 Procedure LRB Anes Op Region Wound Class Comments REPLACEMENT PAIN PUMP N/A General Class I - Clean NEEDS: [employer] / ANNE BAG / SA / PRONE POSITION / FLUORO CONFIRMED CASE DATE/TIME WITH JESSICA @[employer] [phone] - OR Surgeon Surgeon Role Service Panel Francisco Koehler MD Primary Neurosurgery 1 Case Notes NEEDS: [employer] / ANNE BAG / SA / PRONE POSITION / FLUOROCONFIRMED CASE DATE/TIME WITH JESSICA @[employer] [phone] - OR documented in this encounter Social History Tobacco Use Types Packs/Day Years [...] on file 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 aspirin 81 mg enteric coated tablet Take 81 mg by mouth daily calcipotriene-be tamethasone (TACLONEX) ointment Apply 1 application topically 2 (two) times a day calcium carbonate/vitami n D3 (CALCIUM 600 WITH VITAMIN D3 ORAL) Take 1 tablet/capsule by mouth daily cholecalciferol (VITAMIN D-3) 5,000 unit tablet Take 5,000 Units by mouth daily clobetasoL (TEMOVATE) 0.05 % cream Apply 1 application topically 2 (two) times a day cranberry xtot-E-feapidad coag 250-30-50 vc-ic-ahkallz tablet Take 1 capsule by mouth 2 (two) times a day DULoxetine DR (CYMBALTA) 60 mg capsule Take 60 mg by mouth daily esomeprazole DR (NexIUM) 40 mg capsule Take 80 mg by mouth daily before breakfast fluticasone propionate (FLONASE) 50 mcg/actuation nasal spray Administer 2 sprays into each nostril daily furosemide (LASIX) 40 mg tablet Take 60 mg by mouth daily magnesium oxide (MAG-OX) 250 mg (150.8 mg elemental) tabletIndication s:hypomagnesemia Take 250 mg by mouth daily montelukast (SINGULAIR) 10 mg tablet Take 10 mg by mouth daily potassium chloride ER (KLOR-CON) 20 mEq CR tablet Take 20 mEq by mouth daily salsalate (DISALCID) 500 mg tablet Take 1,000 mg by mouth 2 (two) times a day simvastatin (ZOCOR) 10 mg tablet Take 10 mg by mouth nightly 09/03/2021 theophylline (TIANNA-24) 300 mg 24 hr capsule Take 450 mg by mouth 2 (two) times a day tiotropium bromide (SPIRIVA RESPIMAT) 2.5 mcg/actuation inhaler Inhale 2 puffs daily trospium (SANCTURA) 20 mg tablet Take 20 mg by mouth daily ustekinumab (STELARA) injection Inject 45 mg under the skin every 3 (three) months vitamin B complex capsule Take 1 capsule by mouth daily HYDROcodone-acet aminophen (NORCO) 5-325 mg per tabletIndication s:Pain Take 2 tablets by mouth every 6 (six) hours as needed for pain (Take 1-2 tablets by mouth every 6 hours for pain as needed.) for up to 5 days 30 tablet 12/14/2021 2 documented as of this encounter Ordered Prescriptions Prescription Sig Dispense Quantity Refills Last Filled Start Date End Date HYDROcodone-acetam inophen (NORCO) 5-325 mg per tabletIndications: Pain Take 2 tablets by mouth every 6 (six) hours as needed for pain (Take 1-2 tablets by mouth every 6 hours for pain as needed.) for up to 5 days 30 tablet 12/14/2021 2 documented in this encounter Discharge Disposition Disposition Code Departure Means Destination Discharge to home or self care documented in this encounter H&P Notes * Francisco Koehler MD - 12/14/2021 6:54 AM CDT General H&P Subjective Patient is a 80 y.o. female with chief complaint of intrathecal pain pump nearing end of service. HPI: Has pain pump in right subcutaneous abdomen. Managed by Dr. Alfie Daugherty. Here for pump replacement. Past Medical History: Diagnosis Date ??? Anxiety and depression 11/23/2021 ??? Arthritis ??? Asthma 11/23/2021 ??? COPD (chronic obstructive pulmonary disease) (CMS/HCC) (HCC) ??? GERD (gastroesophageal reflux disease) ??? Hyperlipidemia 11/23/2021 ??? Hypertension 11/23/2021 ??? Osteoporosis 11/23/2021 ??? Psoriasis 11/23/2021 ??? Skin cancer ??? Sleep apnea ??? Urinary tract infection Past Surgical History: Procedure Laterality Date ??? CATARACT EXTRACTION, BILATERAL ??? HYSTERECTOMY ??? SKIN CANCER EXCISION ??? SPINE SURGERY compression fracture Medications Prior to Admission Medication Sig Dispense Refill Last Dose ??? albuterol HFA (PROVENTIL HFA,VENTOLIN HFA,PROAIR HFA) 90 mcg/actuation inhaler Inhale 2 puffs every 6 (six) hours as needed for wheezing 12/13/2021 at Unknown time ??? alendronate (FOSAMAX) 70 mg tablet Take 70 mg by mouth every 7 days Take in the morning with a full glass of water, on an empty stomach, and do not take anything else by mouth or lie down for thenext 30 min. Past Week at Unknown time ??? calcipotriene-betamethasone (TACLONEX) ointment Apply 1 application topically 2 (two) times a day 12/13/2021 at Unknown time ??? calcium carbonate/vitamin D3 (CALCIUM 600 WITH VITAMIN D3 ORAL) Take 1 tablet/capsule by mouth daily 12/13/2021 at Unknown time ??? cholecalciferol (VITAMIN D-3) 5,000 unit tablet Take 5,000 Units by mouth daily 12/13/2021 at Unknown time ??? cranberry qpki-V-ugvgaevb coag 250-30-50 lw-qr-uadpezw tablet Take 1 capsule by mouth 2 (two) times a day 12/13/2021 at Unknown time ??? DULoxetine DR (CYMBALTA) 60 mg capsule Take 60 mg by mouth daily 12/13/2021 at Unknown time ??? esomeprazole DR (NexIUM) 40 mg capsule Take 80 mg by mouth daily before breakfast 12/13/2021 at Unknown time ??? fluticasone propionate (FLONASE) 50 mcg/actuation nasal spray Administer 2 sprays into each nostril daily 12/13/2021 at Unknown time ??? furosemide (LASIX) 40 mg tablet Take 60 mg by mouth daily 12/13/2021 at Unknown time ??? magnesium oxide (MAG-OX) 250 mg (150.8 mg elemental) tablet Take 250 mg by mouth daily 12/13/2021 at Unknown time ??? montelukast (SINGULAIR) 10 mg tablet Take 10 mg by mouth daily 12/13/2021 at Unknown time ??? potassium chloride ER (KLOR-CON) 20 mEq CR tablet Take 20 mEq by mouth daily 12/13/2021 at Unknown time ??? salsalate (DISALCID) 500 mg tablet Take 1,000 mg by mouth 2 (two) times a day 12/13/2021 at Unknown time ??? simvastatin (ZOCOR) 10 mg tablet Take 10 mg by mouth nightly 12/13/2021 at Unknown time ??? theophylline (TIANNA-24) 300 mg 24 hr capsule Take 450 mg by mouth 2 (two) times a day 12/13/2021 at Unknown time ??? tiotropium bromide (SPIRIVA RESPIMAT) 2.5 mcg/actuation inhaler Inhale 2 puffs daily 12/13/2021 at Unknown time ??? trospium (SANCTURA) 20 mg tablet Take 20 mg by mouth daily 12/13/2021 at Unknown time ??? vitamin B complex capsule Take 1 capsule by mouth daily 12/13/2021 at Unknown time ??? aspirin 81 mg enteric coated tablet Take 81 mg by mouth daily 12/03/2021 ??? clobetasoL (TEMOVATE) 0.05 % cream Apply 1 application topically 2 (two) times a day More than a month at Unknown time ??? ustekinumab (STELARA) injection Inject 45 mg under the skin every 3 (three) months 11/07/2021 Allergies Allergen Reactions ??? Chlorophyll Copper Complex Rash ??? Ibuprofen Other (See comments) Kidney failure Social History Tobacco Use ??? Smoking status: Former Smoker Types: Cigarettes Quit date: 01/23/2000 Years since quittin.9 ??? Smokeless tobacco: Never Used Substance Use Topics ??? Alcohol use: Not on file History reviewed. No pertinent family history. Review of Systems Objective Vitals: Arrival Vitals [12/14/21 0623] Temp 36.7 ??C (98 ??F) Pulse 70 Resp BP 116/74 SpO2 95 % Temp src Temporal Heart Rate Source Monitor Patient Position BP Location FiO2 (%) 24hr Min/Max: Temp Min: 36.7 ??C (98 ??F) Max: 36.7 ??C (98 ??F) Pulse Min: 70 Max: 70 BP Min: 116/74 Max: 116/74 SpO2 Min: 95 % Max: 95 % Most Recent : Vitals: 12/14/21 0623 BP: 116/74 Pulse: 70 Temp: 36.7 ??C (98 ??F) SpO2: 95% No intake/output data recorded. No intake/output data recorded. Physical Exam No new changes. Lab/Radiology/Diagnostic Review: Laboratory review: reviewed the laboratory result(s) . Assessment Active Problems: No Active Problems: There are no active problems currently on the Problem List. Please update the Problem List and refresh. Plan Plan for pump replacement. General anasethesia. Will assess catheter patency prior to positioning. If catheter patent, then position supine and replace pump. If not patent will need to completely replace the pump and catheter. documented in this encounter Miscellaneous Notes * Op Note - Francisco Koehler MD - 12/14/2021 7:36 AM CDT -- [facility] PROGRESS WE[facility] OPERATIVE NOTE -- Date of service: December 14, 2021 Patient name: Dunia Mueller (: 1940) Diagnosis: Intrathecal pain pump at end of service Procedure performed: Replacement of intrathecal pain pump, right subcutaneous abdomen - Medtronic Synchromed II, 20cc reservoir Surgeon: Dr. Francisco Koehler Assist: THEODORE Jacques Anesthesia: General, intubated Drains: none Findings: Clear fluid in pocket, likely seroma Complications: none EBL: <100cc Indication: This is an 78-year-old woman who has had an intrathecal pain pump since 2008 with revision in 2015.Pump is now at the end of its service and so we are replacing the pump. She last had her medicationrefilled 3 weeks ago and so the plan is to transfer drug from the old pump to the new one. The Nature of the procedure as well as the risks were discussed with the patient and her . She provided consent. Procedure: Patient was brought into the operating room and placed under general anesthesia and intubated. Prior to transferring to the operating table her pump was identified in the subcutaneous abdomen. The area was prepped and a catheter access port kit was opened. The catheter access port was interrogated by aspirating through needle which produced clear fluid. Therefore the catheter was patent. She was then transferred in a supine position onto the operating table in position. She was preppedand draped in a sterile fashion. She received IV antibiotic as well as local anesthetic to the incision. A time-out was performed. Skin knife down to open the incision and then Bovie cautery to dissect down to the pump. The pump was then identified as well as the catheter and removed from the subcutaneous pocket. The pocket was deemed sterile as there is no gabino infection apparent. There was clear fluid in the pocket which I believe is likely seroma formation. There was some calcification in the scarred pocket also. We freed up some of the catheter from scar that looked like it may be at risk of kinking. We then opened the new pump. The 15 cc of medication was transferred from the old pump to the new pump. The old pump was then removed from the catheter and the new pump was connected. We took time to thoroughly irrigate the pocket with Ancef irrigation. The new pump was then sutured in with 2-0 silks into the pocket. We then once again thoroughly irrigated and made sure the catheter was behind the pump. We also aspirated from the catheter access port to confirm adequate patency. We decided to close. 2-0 Vicryl was in the deep layer including the scar. Followed by 3-0 inverted dermal layer. Followed by a Monocryl subcuticular on skin. Dermabond dressing was applied as well asa [facility]. In summary: Pump replaced with 20cc Medtronic SynchroMedII, Serial number [id number] 15mL of medication in pump: - morphine 20mg/mL - bupivicaine 2.5mg/mL - clonidine 100mcgg/mL Dose: 5.251mg/day morphine System was primed to the catheter tip. No changes in catheter length. All counts were correct. No complications encountered. Signed, Francisco Koehler * Perioperative Nursing Note - Ricky George RN - 12/13/2021 1:52 PM CDT Come to main entrance of hospital by the [address]) Check in at the screener station then up to the second floor. You may bring 1-2 visitor/pile driver operator barge mounted that will be screened as well. Bring your Drivers License, Insurance Card and form of payment. Wear something comfortable, easy to get on and off. Non skid shoes that tie are recommended. Contacts, dentures, jewelry, body piercings will need to be removed for surgery. Please leave anything valuable at home. Nothing to eat or drink after midnight. May take sips of water with medications. Medication as directed by Anesthesia Antibacterial shower night before surgery, sleep on clean sheets, another shower in the morning Arrive at 0530 * Pre-Procedure Instructions - Rebekah Garner RN - 12/10/2021 3:43 PM CDT We are pleased that you and your doctor have chosen [facility] for your surgery. We hope that the following information will help make your visit a pleasant one. Surgery Date: 12/14/2021 Before your surgery: ?? Notify your doctor of ANY change in your health such as a cold, sore throat, fever, any infection or a change in the problem for which you are having your surgery. ?? Follow any instructions given to you by your doctor or surgeon. One week before surgery STOP taking: ?? All herbal supplements ?? Aspirin (not ordered by your doctor) ?? Aleve, Advil, Motrin, Ibuprofen, or other similar medications (Tylenol is okay). 24 hours before your surgery: ?? No smoking or alcoholic drinks Night before your surgery: ?? Do not eat or drink anything after midnight. ?? Follow surgeon's instructions for anti-bacterial shower night before and morning of surgery. ?? Sleep on clean sheets. ?? Wear clean clothing upon arrival. Day of surgery: ?? Do not swallow any water when you brush your teeth. ?? ONLY take these pills with a tiny sip of water. Pre-Surgery Instructions: Medication Instructions ??? albuterol HFA (PROVENTIL HFA,VENTOLIN HFA,PROAIR HFA) 90 mcg/actuation inhaler Take morning of surgery ??? alendronate (FOSAMAX) 70 mg tablet Stop taking 1 week prior to surgery ??? aspirin 81 mg enteric coated tablet Stop taking 1 week prior to surgery ??? calcipotriene-betamethasone (TACLONEX) ointment Take morning of surgery ??? calcium carbonate/vitamin D3 (CALCIUM 600 WITH VITAMIN D3 ORAL) Stop taking 1 days prior to surgery ??? cholecalciferol (Vitamin D3) 5,000 unit tablet Stop taking 1 days prior to surgery ??? clobetasoL (TEMOVATE) 0.05 % cream Take morning of surgery ??? cranberry bbvp-Y-iivlcsxo coag 250-30-50 qb-xh-loqkkvg tablet Stop taking 1 days prior to surgery ??? DULoxetine DR (CYMBALTA) 60 mg capsule Take morning of surgery ??? esomeprazole DR (NexIUM) 40 mg capsule Take morning of surgery ??? fluticasone propionate (FLONASE) 50 mcg/actuation nasal spray Take morning of surgery ??? furosemide (LASIX) 40 mg tablet Stop taking 1 days prior to surgery ??? magnesium oxide (MAG-OX) 250 mg (150.8 mg elemental) tablet Stop taking 1 days prior to surgery ??? montelukast (SINGULAIR) 10 mg tablet Stop taking 1 days prior to surgery ??? potassium chloride ER (potassium chloride ER) 20 mEq CR tablet Stop taking 1 days prior to surgery ??? salsalate (DISALCID) 500 mg tablet Take morning of surgery ??? simvastatin (ZOCOR) 10 mg tablet Stop taking 1 days prior to surgery ??? theophylline (TIANNA-24) 300 mg 24 hr capsule Take morning of surgery ??? tiotropium bromide (SPIRIVA RESPIMAT) 2.5 mcg/actuation inhaler Take morning of surgery ??? trospium (SANCTURA) 20 mg tablet Take morning of surgery ??? ustekinumab (STELARA) injection Stop taking 1 week prior to surgery ??? vitamin B complex (Super B-50 Complex) capsule Stop taking 1 days prior to surgery ?? Use no make-up, nail nigerien, lotions, oils or powders on your skin. ?? Wear comfortable clothes that will not be tight in the area of your surgery. ?? Leave all valuables and jewelry (including all body piercing jewelry) at home. ?? If you use a CPAP machine, please bring it with you to wear after your surgery. ?? Please bring your a photo ID and insurance cards with you. ?? Check in at the Registration Desk. ?? If you are 17 years old or younger, a parent or guardian must come with you. After your Outpatient Surgery: ?? You must have a responsible adult to drive you home, you will not be allowed to drive or take a cab home. ?? We recommend you have someone stay with you for 24 hours after your surgery. What to bring if you are spending the night with us: ?? Bring toiletry items such as: robe, slippers, toothbrush, toothpaste, brush or comb. ?? Bring contact lens, hearing aids, glass cases and denture container if you use any of these items. ?? The hospital will provide you with a gown. Questions or concerns: ?? If you have any questions or concerns regarding your procedure, contact your surgeon as soon as possible. ?? If you have questions regarding your Pre-Admission Testing, please call us. We can be reached atthe number posted at the top of the page. documented in this encounter Plan of Treatment Not on file documented as of this encounter Procedures Procedure Name Priority Date/Time Associated Diagnosis Comments INSERTION PUMP - PAIN MANAGEMENT 12/14/2021 7:02 AM CDT scoliosis Case Notes NEEDS: [employer] / ANNE BAG / SA / PRONE POSITION / FLUOROCONFIRMED CASE DATE/TIME WITH JESSICA @[employer] [phone] - OR documented in this encounter Visit Diagnoses Not on filedocumented in this encounter Administered Medications Inactive Administered Medications - up to 3 most recent administrations Medication Order MAR Action Action Date Dose Rate Site acetaminophen (TYLENOL) tablet 1,000 mg 1,000 mg, oral, Once, On Fri12/14/21 at 0630, For 1 dose, Pre-Op, Indications: Pre-Emptive AnalgesiaIndications:Pre-Em ptive Analgesia Given 12/14/2021 6:42 AM CDT 1,000 mg bupivacaine (MARCAINE) 0.25 % (2.5 mg/mL) preservative free injection As needed, Starting on Fri12/14/21 at 0734, Intra-Op Given 12/14/2021 7:34 AM CDT 5 mL Abdominal Tissue ceFAZolin (ANCEF) injection Administer over 3 Minutes, As needed, Starting on Fri12/14/21 at 0745, Intra-Op Given 12/14/2021 7:45 AM CDT 1,000 mg Surgical Site EPINEPHrine 1 mg/mL (1 mL) injection As needed, Starting on Fri12/14/21 at 0734, Intra-Op Given 12/14/2021 7:34 AM CDT 0.15 mg fentaNYL (SUBLIMAZE) preservative free injection 25 mcg 25 mcg, intravenous, Every 10 min PRN, 1st line for pain, Starting on Fri12/14/21 at 0856, Phase I, Switch to 2nd line analgesic order if pain is uncontrolled or increasing after 2 doses. Notify Anesthesiologist if total PACU dose reaches 100 mcg and pain score 5/10 or more., Indications: PainIndications:Pain Given 12/14/2021 9:18 AM CDT 25 mcg Given 12/14/2021 9:08 AM CDT 25 mcg fentaNYL (SUBLIMAZE) preservative free injection 50 mcg 50 mcg, intravenous, Every 10 min PRN, 2nd line for pain, Starting on Fri12/14/21 at 0856, Phase I, May administer 10 mintes after 2nd dose of 1st line analgesic agent for uncontrolled or increasing pain. Revert to 1st line dose if POSS of 3. Notify Anesthesiologist if total PACU dose reaches 100 mcg and pain score 5/10 or more., Indications: PainIndications:Pain Given 12/14/2021 9:33 AM CDT 50 mcg Lactated Ringer's (LR) infusion 30 mL/hr, intravenous, Continuous, Starting on Fri12/14/21 at 0630, Pre-Op, New Bag 12/14/2021 8:54 AM CDT 30 mL/hr Rate/Dose Change 12/14/2021 7:49 AM CDT 30 mL/h r Rate/Dose Verify 12/14/2021 7:01 AM CDT 30 mL/h r lidocaine PF (XYLOCAINE) 10 mg/mL (1 %) preservative free injection 2-10 mg 2-10 mg (0.2-1 mL), other, Once as needed, pain with IV placement, Starting on Fri12/14/21 at 0554, For 1 dose, Pre-Op, Administer volume needed to infiltrate IV site. oxyCODONE (ROXICODONE) tablet 5 mg 5 mg, oral, Once as needed, 1st line for pain, Starting on Fri12/14/21 at 0856, For 1 dose, Phase I, When able to tolerate PO., Indications: PainIndications:Pain Given 12/14/2021 10:03 AM CDT 5 mg sodium chloride 0.9% flush 0.5-20 mL 0.5-20 mL, intra-catheter, As needed, line care, Starting on Fri12/14/21 at 0554, Pre-Op, Flush volume based on line type and size. Flush before and after each use. sodium chloride 0.9% irrigation As needed, Starting on Fri12/14/21 at 0745, Intra-Op Given 12/14/2021 7:45 AM CDT 1,000 mL Surgical Site documented in this encounter Active and Recently Administered Medications Times are shown in CDT. Scheduled Medication Order 12/12/2021 12/13/2021 12/14/2021 acetaminophen (TYLENOL) tablet 1,000 mg (COMPLETED) 1,000 mg, oral, Once, On Fri12/14/21 at 0630, For 1 dose, Pre-Op, Indications: Pre-Emptive Analgesia 0642 (Given - Provid er: Crys Ross RN) ceFAZolin (ANCEF) 2,000 mg/20 mL in sterile water (premix) 2,000 mg (COMPLETED) 2,000 mg, intravenous, at 400 mL/hr, Administer over 3 Minutes, Once, On Fri12/14/21 at 0630, For 1 dose, Pre-Op, call manager to OR, Indications: Prophylaxis, Surgical, Pre-op 0708 (Given - Provid er: Rocío Calvillo CRNA) Continuous Medication Order 12/12/2021 12/13/2021 12/14/2021 Lactated Ringer's (LR) infusion 30 mL/hr, intravenous, Continuous, Starting on Fri12/14/21 at 0630, Pre-Op, 0644 (New Bag - Prov ider: Crys Ross RN)0701 (Rate/Dose Verify - Provider: Rocío Calvillo CRNA)0749 (Rate/Dose Change - Provider: Rocío Calvillo CRNA)0854 (New Bag - Provider: Rocío Calvillo CRNA)1459 (Due: Stopped) Lactated Ringer's (LR) infusion 125 mL/hr, intravenous, Continuous, Starting on Fri12/14/21 at 0930, Phase I, 0930 (Due) PRN Medication Order 12/12/2021 12/13/2021 12/14/2021 bupivacaine (MARCAINE) 0.25 % (2.5 mg/mL) preservative free injection (CANCELED) As needed, Starting on Fri12/14/21 at 0734, Intra-Op 0734 (Given - Provid er: Francisco Koehler MD - Comment: 0.15mg Epi added to 30 ml Marcaine 0.25%) ceFAZolin (ANCEF) injection (CANCELED) Administer over 3 Minutes, As needed, Starting on Fri12/14/21 at 0745, Intra-Op 0745 (Given - Provid er: Francisco Koehler MD - Comment: Added to 1 liter Na Cl) EPINEPHrine 1 mg/mL (1 mL) injection (CANCELED) As needed, Starting on Fri12/14/21 at 0734, Intra-Op 0734 (Given - Provid er: Francisco Koehler MD - Comment: Added to 30 ml Marcaine 0.25%) fentaNYL (SUBLIMAZE) preservative free injection 25 mcg 25 mcg, intravenous, Every 10 min PRN, 1st line for pain, Starting on Fri12/14/21 at 0856, Phase I, Switch to 2nd line analgesic order if pain is uncontrolled or increasing after 2 doses. Notify Anesthesiologist if total PACU dose reaches 100 mcg and pain score 5/10 or more., Indications: Pain 0908 (Given - Provid er: Lindy Smith RN)0918 (Given - Provider: Lindy Smith RN) fentaNYL (SUBLIMAZE) preservative free injection 50 mcg 50 mcg, intravenous, Every 10 min PRN, 2nd line for pain, Starting on Fri12/14/21 at 0856, Phase I, May administer 10 mintes after 2nd dose of 1st line analgesic agent for uncontrolled or increasing pain. Revert to 1st line dose if POSS of 3. Notify Anesthesiologist if total PACU dose reaches 100 mcg and pain score 5/10 or more., Indications: Pain 0933 (Given - Provid er: Lindy Smith RN) lidocaine PF (XYLOCAINE) 10 mg/mL (1 %) preservative free injection 2-10 mg 2-10 mg (0.2-1 mL), other, Once as needed, pain with IV placement, Starting on Fri12/14/21 at 0554, For 1 dose, Pre-Op, Administer volume needed to infiltrate IV site. meperidine (DEMEROL) preservative free injection 12.5 mg 12.5 mg, intravenous, Administer over 5 Minutes, Every 10 min PRN, shivering, Starting on Fri12/14/21 at 0856, For 2 doses, Phase I, Max cumulative dose 25 mg., Indications: Shivering naloxone (NARCAN) 0.4 mg/mL injection 0.04-0.4 mg 0.04-0.4 mg, intravenous, Once as needed, other, excessive sedation/respiratory depression, Starting on Fri12/14/21 at 0856, For 1 dose, Phase I, Dilute 0.4 mg with 9 mL NS (final concentration 0.04 mg/mL). For respiratory depression (respiratory rate less than 6), administer 0.4 mg IVP over 30 seconds. For excessive sedation administer 0.04 mg (1 mL) every 1 minute until desired level of alertness. For IV, administer over 30 seconds., Indications: Opioid Toxicity ondansetron (ZOFRAN) injection 4 mg 4 mg, intravenous, Administer over 2 Minutes, Once as needed, nausea, vomiting, Starting on Fri12/14/21 at 0856, For 1 dose, Phase I oxyCODONE (ROXICODONE) tablet 5 mg (COMPLETED) 5 mg, oral, Once as needed, 1st line for pain, Starting on Fri12/14/21 at 0856, For 1 dose, Phase I, When able to tolerate PO., Indications: Pain 1003 (Given - Provid er: Lindy Smith RN) sodium chloride 0.9% flush 0.5-20 mL 0.5-20 mL, intra-catheter, As needed, line care, Starting on Fri12/14/21 at 0554, Pre-Op, Flush volume based on line type and size. Flush before and after each use. sodium chloride 0.9% irrigation (CANCELED) As needed, Starting on Fri12/14/21 at 0745, Intra-Op 0745 (Given - Provid er: Francisco Koehler MD - Comment: 1 gm Ancef added) documented in this encounter Orders Medications Ordered That Charles ht Not Have Been Administered Count Last Ordered Date First Ordered Date ceFAZolin (ANCEF) 2,000 mg/2 0 mL in sterile water (premix) 2,000 mg 1 12/14/2021 gabapentin (NEURONTIN) capsule 100 mg 1 Lactated Ringer's (LR) infusion 1 2 lidocaine PF (XYLOCAINE) 10 mg/mL (1 %) preservative free injection 2-10 mg 1 12/14/2021 meperidine (DEMEROL) preserv ative free injection 12.5 mg 1 12/14/2021 naloxone (NARCAN) 0.4 mg/mL injection 0.04-0.4 mg 1 12/14/2021 ondansetron (ZOFRAN) injection 4 mg 1 12/14 sodium chloride 0.9% flush 0.5-20 mL 1 12/02 Diet Count Last Ordered Date First Orde red Date ADULT DISCHARGE DIET 1 12/14/2021 Nursing Count Last Ordered Date First Orde red Date DISCHARGE ACTIVITY 1 12/14/2021 DISCHARGE CALL PROVIDER 3 12/14/2021 DISCHARGE DRESSING 1 12/14/2021 DISCHARGE INSTRUCTIONS 1 12/14/2021 FOLLOW UP WITH ESTABLISHED PROVIDER 1 12/14 documented in this encounter Care Teams Voice Network Administrator Relationship Specialty Start Date End Date Sawyer Gutiérrez MD [address] [place] [address] PCP - General Emergency Medicine 10/02/21 Francisco Koehler MD [address] [place] [address] Consulting Physician Neurosurgery 12/14/21 documented as of this encounter
--- OUTSIDE RECORDS SUMMARY | 2024-07-23 21:54 | XMS_ITS | Encounter Summary ---
Author Organization [facility] Healthcare Address [address] [place] [address] Care Team Providers Care Star Route Mail Driver Name Role Phone Sawyer Gutiérrez MD Primary Care Provide r Francisco Koehler MD Unavailable Encounter Details Date Type Department Care Team (Late st Contact Info) Description 12/14/2021 7:01 AM CDT Anesthesia Event [facility] Operating Room [address] [place] [address] Jeremy Sanches DO [address] [place] [address] Nacho Spencer MD [address] [place] [address] Anesthesia Record Procedure Summary Procedure Name Responsible Anesthesiologist Anesthesia Start Time Anesthesia Stop Time REPLACEMENT PAIN PUMP Jeremy Sanches DO 12/14/21 07 01 12/14/21 0900 Events Date Time Event Comment 12/14/2021 0628 0701 An Start 0702 An Start Data 0702 In Room 0704 An Induction The patient was reevaluated immediately before moderate or deep sedation use and before anesthesia induction. 0706 An Intubation 0714 Anesthesia Ready 0734 Proc Start 0736 Incision Start 0849 Proc Fin 0854 Out of Room 0854 An Extubation 0854 an stop data 0900 Handoff to RN I completed my handoff to the receiving nurse during which we: 1. Patient identified 2. Responsible provider identified 3. Pertinent medical history reviewed 4. Procedure type and surgical course discussed 5. Intraoperative anesthetic management and any significant issues discussed 6. Expectations and concerns for postop period discussed 7. Questions solicited from receiving nurse 8. Patient disposition at the time of handoff: No value filed. 0900 An Stop Meds Name Total fentaNYL 100 mcg lidocaine 1 % PF 40 mg propofol 200 mg succinylcholine 60 mg phenylephrine 1,200 mcg ondansetron 4 mg glycopyrrolate 0.4 mg ceFAZolin (ANCEF) 2,000 mg/20 mL in ster ile water (premix) 2,000 mg 2,000 mg Lactated Ringer's (LR) infusion 1,000 mL * Agents Name O2 N2O Air Sevoflurane Inspired Sevoflurane * Blood No blood administrations on file. Lines, Drains, and Airways Type Details Placement Removal Peripheral IV Placement Date: 12/14/21; Placement Time: 0639; Catheter Size: 20 G; Orientation: Posterior, Right; Location: Hand; Technique: Anatomical landmarks; Insertion Attempts: 1; Patient Tolerance: Tolerated well; Removal Date: 12/14/21; Removal Time: 1054 12/14/21 0639 by Crys Rsos RN 12/14/21 1054 by Lindy Smith, ALEJO ETT Placement Date: 12/14/21; Placement Time: 0706 (created via procedure documentation); Mask Ventilation: 0; Technique: Video laryngoscopy; Type: ETT - single; Single Lumen Tube Size: 7 mm; Laryngoscope: Charlette; Blade Size: 3; Location: Oral; Insertion Attempts: 1; Placement Verification: Capnometry, Palpation of cuff; Removal Date: 12/14/21; Removal Time: 0854 12/14/21 0706 by Rocío Calvillo CRNA 12/14/21 0854 by Rocío Calvillo CRNA RETIRED Surgical Site 12/14/21; 0802; Abdomen; 07/06/24 (Retired LDA, 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 [facility] with LDA Utility); 1213 (Retired LDA, 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 [facility] with LDA Utility) 12/14/21 0802 by Sandi Jones RN 07/06/24 1213 by Discharge Provider, Automatic documented in this encounter Social History Tobacco [...] on file 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 Gender Identity Not on file Sexual Orientation Not on file documented as of this encounter OR Notes * Anesthesia Postprocedure Evaluation - Jeremy Sanches DO - 12/14/2021 10:26 AM CDT Patient: Dunia Mueller Procedure Summary Date: 12/14/21 Room / Location: [facility] / [facility] Anesthesia Start: 700 Anesthesia Stop: 899 Procedure: REPLACEMENT PAIN PUMP (N/A ) Diagnosis: (scoliosis) Providers: Francisco Koehler MD Responsible Provider: Jeremy Sanches DO Anesthesia Type: general ASA Status: 2 Anesthesia Type: general Last vitals BP 155/73 Pulse 76 Temp 36.5 ??C (97.7 ??F) Resp 18 SpO2 92% Anesthesia Post Evaluation Patient location during evaluation: PACU Patient participation: complete - patient participated Level of consciousness: fully awake Pain score: 0 Pain management: adequate Airway patency: adequate Evidence of recall: no Cardiovascular status: acceptable Respiratory status: acceptable and room air Pt is: normothermic Nausea/Vomiting status: none No complications documented. * Anesthesia Procedure Notes - Rocío Calvillo CRNA - 12/14/2021 7:11 AM CDTAssociated Order(s): Airway Airway Patient location: OR Urgency: elective Date/time: 12/14/2021 7:06 AM Indications for airway management: anesthesia Difficult airway: no Staff: Placed by: BUSHEL GIRL: Rocío Calvillo CRNA Emergent airway documentation: Risks and benefits discussed: yes Consent obtained: yes Consent given by: patient Airway prep: Preoxygenated: yes Mask difficulty assessment: 0 - not attempted Spontaneous ventilation during airway: absent Sedation level during airway: GA Final airway details: Final airway type: endotracheal airway Tube type: ETT ETT size: 7.0 mm Technique used for successful ETT placement: video laryngoscopy Insertion site: oral Blade type: Charlette Video blade type: Reyes Blade size: 3 Cormack-Lehane (video): grade I - full view of glottis ETT to lips: 20 cm Placement verified by: CO2 detection and palpation of cuff Airway secured with: silk tape Number of attempts: 1 Planned trial extubation: yes * Anesthesia Preprocedure Evaluation - Nacho Spencer MD - 12/14/2021 6:15 AM CDT Images from the original note were not included. Anesthesia Evaluation Dunia Mueller is a 80 y.o. female who [facility] preoperative evaluation of Replacement of Intrathecal Pain Pump with Francisco Koehler MD on 12/10/2021. COVID vaccination/booster dates Patient is fully COVID vaccinated and boostered (if eligible). This was confirmed via immunization tab/verbal attestation/vaccination card provided by patient. Per current [facility] policy there is no indication for pre procedural COVID testing prior to surgery. Dose 1 09/28/2020 (Pfizer SARS-CoV-2 Vaccination (12+ yrs) PURPLE) Dose 2 10/28/2020 (Pfizer SARS-CoV-2 Vaccination (12+ yrs) PURPLE) Booster dose 05/01/2021 (Pfizer SARS-CoV-2 Vaccination (12+ yrs) PURPLE) Procedure(s): REPLACEMENT PAIN PUMP Pre-Op Diagnosis Codes: * Encounter for adjustment or management of infusion pump [Z45.1] HISTORY Past Medical History Information obtained from: patient and chart. Neurological Neuro/Psych system: negative Cardiovascular + Hypertension + Hyperlipidemia + Systolic or diastolic dysfunction w/o CHF Diastolic function: stage II - pseudonormal LVEF: 60-70%. + Current valvular disease - AR - mild-moderate; TR - mild-moderate. Comments: Echocardiogram 11/2021: Normal left ventricular size. Mild concentric left ventricular hypertrophy. Hyperdynamic left ventricular function. No focal wall motion abnormalities. There is pseudonormal diastolic dysfunction Grade II. Ejection fraction is visually estimated at 70 %. Ejection fraction is measured at 68 %. Mild mitral annular calcification. Trivial regurgitation of the mitral valve. No evidence of hemodynamically significant aortic stenosis by Doppler. Peak gradient of 13.0 mmHg. Mean gradient of 7.0 mmHg. Valve area of 1.78 cm2. Aortic cusps appear mildly sclerotic. Mild to moderate aortic valve regurgitation. Aortic valve leaflets appearing to open very well. Estimated peak RVSP is 30 mmHg. Mild to moderate tricuspid regurgitation. Compared to echocardiogram done in 2018, no evidence of pulmonary hypertension. There is evidence for aortic regurgitation now. Mitral valve regurgitation improved. Respiratory + COPD (rare inhaler use; but used yesterday) - emphysema. Dyspnea frequency: never. Rescue inhaleruse: never. + Asthma Rescue inhaler use: 2 days/week or less. + Sleep apnea (JULIAN) (recent diagnosis, waiting on equipment) Hepatic / Heme Hepatic/Heme system: negative Gastrointestinal + GERD - on daily therapy. Asymptomatic. Renal / Renal/ system: negative Musculoskeletal/Pain + Chronic pain - back pain. + Chronic opioid use - daily. Endocrine / Other + Obesity (BMI >30) + Rheumatological disease (Psoriasis arthritis) Functional Capacity Functional capacity: 4-6 METs Review of Systems + chronic pain Pertinent negatives: SOB; chest pain; palpitations; pedal edema; easy bruising; bleeding problems; syncope; dizziness; numbness/tingling; heartburn; nausea; diarrhea; dentures/partials; chipped/looseteeth and no unexpected weight change PAT Summary and Plans Recommendations for patient: increased activity. Patient Active Problem List Diagnosis ??? Asthma ??? Osteoporosis ??? GERD (gastroesophageal reflux disease) ??? Anxiety and depression ??? Hypertension ??? Hyperlipidemia ??? Psoriasis Past Medical History: Diagnosis Date ??? Anxiety [...] CANCER EXCISION ??? SPINE SURGERY compression fracture OB History No obstetric history on file. Allergies Allergen Reactions ??? Chlorophyll Copper Complex Rash ??? Ibuprofen Other (See comments) Kidney failure Taking? Last Dose Start Date End Date Provider albuterol HFA (PROVENTIL HFA,VENTOLIN HFA,PROAIR HFA) 90 mcg/actuation inhaler -- -- Dallas Rust MD alendronate (FOSAMAX) 70 mg tablet -- -- Sawyer Gutiérrez MD aspirin 81 mg enteric coated tablet -- -- Dallas Rust MD calcipotriene-betamethasone (TACLONEX) ointment -- -- Dallas Rust MD calcium carbonate/vitamin D3 (CALCIUM 600 WITH VITAMIN D3 ORAL) -- -- Dallas Rust MD cholecalciferol (VITAMIN D-3) 5,000 unit tablet -- -- Dallas Rust MD clobetasoL (TEMOVATE) 0.05 % cream -- -- ProviderDallas MD cranberry [id number]-K-bojolrta coag 250-30-50 [id number]-bf-ucmnidq tablet -- -- Dallas Rust MD DULoxetine (CYMBALTA) 60 mg capsule -- -- Dallas Rust MD esomeprazole (NexIUM) 40 mg capsule -- -- Dallas Rust MD fluticasone propionate (FLONASE) 50 mcg/actuation nasal spray -- -- Dallas Rust MD furosemide (LASIX) 40 mg tablet -- -- Dallas Rust MD magnesium oxide (MAG-OX) 250 mg (150.8 mg elemental) tablet -- -- Dallas Rust MD montelukast (SINGULAIR) 10 mg tablet -- -- Dallas Rust MD potassium chloride ER (KLOR-CON) 20 mEq CR tablet -- -- Dallas Rust MD salsalate (DISALCID) 500 mg tablet -- -- Dallas Rust MD simvastatin (ZOCOR) 10 mg tablet 09/03/21 -- Dallas Rust MD theophylline (TIANNA-24) 300 mg 24 hr capsule -- -- Dallas Rust MD tiotropium bromide (SPIRIVA RESPIMAT) 2.5 mcg/actuation inhaler -- -- Dallas Rust MD trospium (SANCTURA) 20 mg tablet -- -- Sawyer Gutiérrez MD ustekinumab (STELARA) injection -- -- Dallas Rust MD vitamin B complex capsule -- -- Dallas Rust MD No current facility-administered medications for this visit. No current outpatient medications on file. Facility-Administered Medications Ordered in Other Visits: ??? acetaminophen (TYLENOL) tablet 1,000 mg, 1,000 mg, oral, Once ??? ceFAZolin (ANCEF) 2,000 mg/20 mL in sterile water (premix) 2,000 mg, 2,000 mg, intravenous, Once ??? gabapentin (NEURONTIN) capsule 100 mg, 100 mg, oral, Once ??? Lactated Ringer's (LR) infusion, 30 mL/hr, intravenous, Continuous ??? lidocaine PF (XYLOCAINE) 10 mg/mL (1 %) preservative free injection 2-10 mg, 0.2-1 mL, other, Once PRN ??? sodium chloride 0.9% flush 0.5-20 mL, 0.5-20 mL, intra-catheter, PRN Social History Tobacco Use Smoking Status Former Smoker ??? Types: Cigarettes ??? Quit date: 01/23/2000 ??? Years since quittin.9 Smokeless Tobacco Never Used Substance and Sexual Activity Alcohol Use Not on file Substance and Sexual Activity Drug Use Never No family history on file. PAT Physical Exam Airway Exam: Cervical ROM: FROM TM distance: 3 (Normal configuration and atraumatic) Cardiovascular Exam: Rate: regular Rhythm: regular Murmur: holosystolic murmur and grade II/ Negative for peripheral edema Pulmonary Exam: Decreased, bilat (Normal chest wall expansion Normal respiratory effort) EENT Exam: trachea midline Skin Exam: Skin is warm and dry. Abdominal exam: Abdomen is soft. Bowel sounds are present. Current state: Patient's current state is cooperative and interactive. There were no vitals filed for this visit. BMP Lab Results Component Value Date SODIUM 144 11/22/2021 POTASSIUM 3.7 11/22/2021 CHLORIDE 100 11/22/2021 CO2 32 11/22/2021 BUNSER 14 11/22/2021 CREATININE 0.84 11/22/2021 GFRNAA 69 11/22/2021 GLUCOSE 70 11/22/2021 CALCIUM 10.2 11/22/2021 SEC ASSESSMENT Pre-Op Diagnosis Codes: * Encounter for adjustment or management of infusion pump [Z45.1] SEC PLAN This is a 80 y.o. female with no clinical risk factors per ACC/AHA guidelines with moderate functional capacity for a(n) low risk procedure. Labs reviewed and results within anesthesia guidelines. The patient declined the offer of a second provider in the room during the exam. Pre- procedure instructions were reviewed with the patient. A copy of the instructions was provided to the patient. All questions were answered. [facility] policy of COVID-19 testing prior to surgery/procedure is reviewed with the patient, who verbalized understanding. Patient was given information about COVID-19 testing, and all questions were answered. SEC evaluation complete. DOS Physical Exam Medical history, medications, and allergies reviewed. Attestation: This PAT evaluation 12/14/2021. Airway Exam: Mallampati: I Cervical ROM: FROM TM distance: >4 Cardiovascular Exam: Rate: regular Rhythm: regular Murmur: STEVE and grade I/ Pulmonary Exam: LCTA, bilat EENT Exam: trachea midline Dental Exam: Edentulous Skin Exam: Skin is warm. Abdominal Exam: Abdomen is soft. Current state: Patient's current state is cooperative and interactive. Anesthesia Plan ASA 2 My patient is approved for the Anesthesia Controlled Medication protocol when under care of a BUSHEL GIRL Planned anesthesia: General Team communication plan: oral ET tube Induction: Induction: intravenous. Postoperative Plan: Postoperative administration opioids intended. No postoperative mechanical ventilation intended. Informed Consent: Anesthesia plan and risks discussed with patient. Plan and Consent Comments: Discussed risks of potential prone positioning including but not limited to face swelling, airway swelling, and blindness. Consent and Attending signature: I and/or my designee have discussed the anesthesia plan, benefits, possible alternatives, parental presence at time of induction (if indicated), and clinically relevant risks that may include dental injury, unintentional awareness, and/or other complications. The patient and/or parent/legal guardian understand, and agree to proceed. All questions answered. documented in this encounter Plan of Treatment Not on file documented as of this encounter Procedures Procedure Name Priority Date/Time Associated Diagnosis Comments VA AN PROCEDURE PLACEHOLDER Routine 12/14/2021 7:06 AM CDT VA AN ELECTIVE ENDOTRACHEAL AIRWAY Routine 12/14/2021 7:06 AM CDT documented in this encounter Results * VA AN ELECTIVE ENDOTRACHEAL AIRWAY, VA AN PROCEDURE PLACEHOLDER (12/14/2021 7:06 AM CDT) Narrative Rocío Calvillo CRNA - 12/14/2021 7:06 AM CDT Rocío Calvillo CRNA ? 12/14/2021 ??7:12 AM Airway Patient location: OR Urgency: elective Date/time: 12/14/2021 7:06 AM Indications for airway management: anesthesia Difficult airway: no Staff: Placed by: BUSHEL GIRL: Rocío Calvillo CRNA Emergent airway documentation: Risks and benefits discussed: yes Consent obtained: yes Consent given by: patient Airway prep: Preoxygenated: yes Mask difficulty assessment: 0 - not attempted Spontaneous ventilation during airway: absent Sedation level during airway: GA Final airway details: Final airway type: endotracheal airway Tube type: ETT ETT size: 7.0 mm Technique used for successful ETT placement: video laryngoscopy Insertion site: oral Blade type: Charlette Video blade type: Reyes Blade size: 3 Cormack-Lehane (video): grade I - full view of glottis ETT to lips: 20 cm Placement verified by: CO2 detection and palpation of cuff Airway secured with: silk tape Number of attempts: 1 Planned trial extubation: yes us Jeremy Sanches DO ANESTHESIA ORDERABLES Final R esult documented in this encounter Visit Diagnoses Not on filedocumented in this encounter Administered Medications Inactive Administered Medications - up to 3 most recent administrations Medication Order MAR Action Action Date Dose Rate Site ceFAZolin (ANCEF) 2,000 mg/20 mL in sterile water (premix) 2,000 mg 2,000 mg, intravenous, at 400 mL/hr, Administer over 3 Minutes, Once, On Fri12/14/21 at 0630, For 1 dose, Pre-Op, 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, Indications: Prophylaxis, Surgical, Pre-opIndications:Prophylaxis, Surgical,Pre-op Given 12/14/2021 7:08 AM CDT 2,000 mg fentaNYL (SUBLIMAZE) preservative free injection intravenous, As needed, Starting on Fri12/14/21 at 0702, Anesthesia Intra-op Given 12/14/2021 7:02 AM CDT 100 mcg glycopyrrolate (ROBINUL) injection intravenous, Administer over 1 Minutes, As needed, Starting on Fri12/14/21 at 0729, Anesthesia Intra-op Given 12/14/2021 7:47 AM CDT 0.2 mg Given 12/14/2021 7:29 AM CDT 0.2 mg Lactated Ringer's (LR) infusion 30 mL/hr, intravenous, Continuous, Starting on Fri12/14/21 at 0630, Pre-Op, New Bag 12/14/2021 8:54 AM CDT 30 mL/hr Rate/Dose Change 12/14/2021 7:49 AM CDT 30 mL/h r Rate/Dose Verify 12/14/2021 7:01 AM CDT 30 mL/h r lidocaine PF (XYLOCAINE) 10 mg/mL (1 %) preservative free injection intravenous, As needed, Starting on Fri12/14/21 at 0704, Anesthesia Intra-op Given 12/14/2021 7:04 AM CDT 40 mg ondansetron (ZOFRAN) injection intravenous, Administer over 2 Minutes, As needed, Starting on Fri12/14/21 at 0755, Anesthesia Intra-op Given 12/14/2021 7:55 AM CDT 4 mg phenylephrine (RADHA-SYNEPHRINE) 1 mg/10 mL (100 mcg/mL) in sodium chloride 0.9% (premix) intravenous, As needed, Starting on Fri12/14/21 at 0716, Anesthesia Intra-op Given 12/14/2021 8:12 AM CDT 100 mcg Given 12/14/2021 8:04 AM CDT 200 mcg Given 12/14/2021 7:57 AM CDT 200 mcg propofoL (DIPRIVAN) 10 mg/mL IV intravenous, As needed, Starting on Fri12/14/21 at 0704, Anesthesia Intra-op Given 12/14/2021 8:35 AM CDT 20 mg Given 12/14/2021 7:22 AM CDT 60 mg Given 12/14/2021 7:04 AM CDT 120 mg succinylcholine (ANECTINE) injection intravenous, As needed, Starting on Fri12/14/21 at 0704, Anesthesia Intra-op Given 12/14/2021 7:04 AM CDT 60 mg documented in this encounter Care Teams Star Route Mail Driver Relationship Specialty Start Date End Date Sawyer Gutiérrez MD [address] [place] [address] PCP - General Emergency Medicine 10/02/21 Francisco Koehler MD [address] [place] [address] Consulting Physician Neurosurgery 12/14/21 documented as of this encounter
--- OUTSIDE RECORDS SUMMARY | 2024-07-23 21:55 | XMS_ITS | Encounter Summary ---
Author Organization [facility] Address [address] [place] [address] Care Team Providers Care Freelance Director Name Role Phone Unavailable Primary Care Provider Unavailabl e Encounter Details Date Type Department Care Team (Late st Contact Info) Description 12/16/2017 Orders Only [facility] Cardiology [address] [place] [address] Provider, [place], [address] [place], [place] [id number] Social History Tobacco Use Types Packs/Day Years Used Date Smoking Tobacco: Never Assessed Comments Unknown Sex and Gender Information Value Date Recorded Sex Assigned at Not on file 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
--- OUTSIDE RECORDS SUMMARY | 2024-07-23 21:55 | XMS_ITS | Encounter Summary ---
Author Organization [facility] Address [address] [place] [address] Care Team Providers Care Operator Catalyst Concentration Name Role Phone Sawyer Julien MD Primary Care Provide r Reason for Visit * Cardiology (Routine) - Closed Specialty Diagnoses / Procedures Referred By Contac t Referred To Contact Diagnoses Localized edema Murmur, heart Procedures Transthoracic Echo Complete W Doppler/CF Sawyer Julien MD [address] [facility] [place] [address] Phone: tel: fax: [facility] Referral ID Status Reason Start Date Expiration Date Visits Re quested Visits Authorized [id number] Closed 10/02/2021 11/01/2022 1 1 Encounter Details Date Type Department Care Team (Latest Contact Info) Description 11/02/2021 9:15 AM CDT Ancillary Procedure [facility] Medical [facility] Cardiology [address] [facility] [address] [place] [address] Localized edema; Murmur, heart Social History Tobacco Use Types Packs/Day Years Used Date Smoking Tobacco: Never Assessed Comments Unknown Sex and Gender Information Value Date Recorded Sex Assigned at Not on file Legal 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 Gender Identity Not on file Sexual Orientation Not on file documented as of this encounter Plan of Treatment Not on file documented as of this encounter Procedures Procedure Name Priority Date/Time Associated Diagnosis Comments TRANSTHORACIC ECHO (TTE) COMPLETE W DOPPLER/CF WO CONTRAST Routine 11/02/2021 10:17 AM CDT Localized edema Murmur, heart documented in this encounter Results * TRANSTHORACIC ECHO (TTE) COMPLETE W DOPPLER/CF WO CONTRAST (11/02/2021 10:17 AM CDT) Anatomical Region Laterality Modality Ultrasound 11/02/2021 9:07 AM CDT Narrative 11/02/2021 3:48 PM CDT [facility] Cardiology [address], [place] [address] [address], [place] [address] P:[phone] P:[phone] Echocardiographic Report Patient Name: DUNIA BRIGGS : [id number] Study Date: 11/02/2021 9:07:40 AM Gender: F [facility]: [facility] Ref.Provider: SAWYER JULIEN Height(Cm): 140 BSA: 1.43 Weight(Kg): 56.25 Heart Rate: 65 BP: 105/57 Quality: Good Order Provider: SAWYER JULIEN Procedures: Echocardiographic Report: Transthoracic echocardiogram with complete 2D, M-Mode, and color Doppler examination. Indications: Edema, and Murmur. Measurements: 2D/M Mode ?Doppler ? Measurement ?Value ?Normal Range ? Measurement ?Value ?Normal Range ? EF Mod ? 68 ?HAL ?1.78 ? [ 2.00 - 4.00 ] cm2 ? EF MM ?68 ? [ 55 - 70 ] % ?AV Mean PG ? 7 ?mmHg ? LVIDd MM ? 5.07 ? [ 3.90 - 5.30 ] cm ? AV Peak Juan ?1.91 ? m/s ? LVIDs MM ? 3.13 ? [ 2.30 - 3.90 ] cm ? AV Peak PG ? 15 ? mmHg ? LVPWd MM ? 0.93 ? [ 0.60 - 1.00 ] cm ? AV VTI ? 0.40 ? cm ? IVSd MM ?1.07 ? [ 0.60 - 0.90 ] cm ? LVOT Peak Juan ?1.07 ? [ 0.70 - 1.10 ] m/s ? LA Dimension MM ?3.73 ? [ 2.70 - 3.80 ] cm ? LVOT VTI ? 0.26 ? cm ? AoR Diam MM ?3.07 ? [ 2.60 - 3.70 ] cm ? MV E Peak Juan ?1.39 ? [ 0.60 - 1.30 ] m/s ? LA Volume Index ?18.00 ?[ 16.00 - 28.00 ] cc/m2 ?MV A Peak Juan ?1.26 ? [ 0.40 - 0.80 ] m/s ? ACS MM ? 1.67 ? cm ? MV Decel Time ?236 ?[ 150 - 200 ] msec ? PV Peak Juan ?1.25 ? [ 0.40 - 0.80 ] m/s ? TR Peak Juan ?2.98 ? [ 0.40 - 0.80 ] m/s ? TR Peak PG ? 36 ? mmHg ? RVSP ? 44.00 ?mmHg ? E' ? 0.11 ? E/E' ? 8 ? - Findings: Interpretation Site: Exam was interpreted at [facility]. Left Ventricle: Normal left ventricular size. Mild concentric left ventricular hypertrophy. Hyperdynamic left ventricular function. No focal wall motion abnormalities. There is pseudonormal diastolic dysfunction Grade II. Ejection fraction is visually estimated at 70 %. Ejection fraction is measured at 68 %. Right Ventricle: Normal right ventricular size. Normal right ventricular systolic function. Left Atrium: The left atrium is normal in size. Right Atrium: The right atrium is normal in size. Atrial Septum: Normal atrial septum. Mitral Valve: Mild mitral annular calcification. Trivial regurgitation of the mitral valve. There is no hemodynamically significant mitral stenosis by Doppler. Aortic Valve: No evidence of hemodynamically significant aortic stenosis by Doppler. Peak gradient of 13.0 mmHg. Mean gradient of 7.0 mmHg. Valve area of 1.78 cm2. Aortic cusps appear mildly sclerotic. Mild to moderate aortic valve regurgitation. Tricuspid Valve: Normal appearance of the tricuspid valve. Estimated peak RVSP is 30 mmHg. Mild to moderate tricuspid regurgitation. Pulmonic Valve: Pulmonic valve not well visualized. No evidence of pulmonic regurgitation. Pericardium: Normal pericardium with no significant pericardial effusion. Aorta: Sinus of Valsalva is normal. IVC: Normal size and normal respiratory collapse consistent with normal right atrial pressure (<5 mmHg). Pulmonary Artery: Normal pulmonary artery size. Conclusions: Normal left ventricular size. Mild concentric left [...] aortic regurgitation now. Mitral valve regurgitation improved. Electronically Signed By: Dr. Suzanne Allan [facility] 2021-11-02 15:48:53 CDT CC: CC: Procedure Note Suzanne Allan MD - 11/02/2021 [facility] Cardiology [address] [address] [address] [facility] [address], [place] [address] P:[phone] P:[phone] Echocardiographic Report Patient Name: DUNIA BRIGGSPatient ID: [id number] : [id number] Date: 11/02/2021 9:07:40 AM Gender: FAccession #: [id number] Tech: GMLocation[facility] Ref.Provider: SAWYER JULIENHeight(Cm): 140 BSA: 1.43Weight(Kg): 56.25 Heart Rate: 65BP: 105/57 Quality: GoodOrder Provider: SAWYER JULIEN Procedures: Echocardiographic Report: Transthoracic echocardiogram with complete 2D, M-Mode, and color Dopplerexamination. Indications: Edema, and Murmur. Measurements: 2D/M Mode Doppler Measurement Value Normal Range MeasurementValue Normal Range EF Mod 68 AVA1.78 [ 2.00 - 4.00 ] cm2 EF MM 68 [ 55 - 70 ] % AV Mean PG 7mmHg LVIDd MM 5.07 [ 3.90 - 5.30 ] cm AV Peak Vel1.91 m/s LVIDs MM 3.13 [ 2.30 - 3.90 ] cm AV Peak PG 15mmHg LVPWd MM 0.93 [ 0.60 - 1.00 ] cm AV VTI0.40 cm IVSd MM 1.07 [ 0.60 - 0.90 ] cm LVOT Peak Vel1.07 [ 0.70 - 1.10 ] m/s LA Dimension MM 3.73 [ 2.70 - 3.80 ] cm LVOT VTI0.26 cm AoR Diam MM 3.07 [ 2.60 - 3.70 ] cm MV E Peak Vel1.39 [ 0.60 - 1.30 ] m/s LA Volume Index 18.00 [ 16.00 - 28.00 ] cc/m2 MV A Peak Vel1.26 [ 0.40 - 0.80 ] m/s ACS MM 1.67 cm MV Decel Wkti244 [ 150 - 200 ] msec PV Peak Vel1.25 [ 0.40 - 0.80 ] m/s TR Peak Vel2.98 [ 0.40 - 0.80 ] m/s TR Peak PG 36mmHg RVSP44.00 mmHg E'0.11 E/E' 8 - Findings: Interpretation Site: Exam was interpreted at [facility]. Left Ventricle: Normal left ventricular size. Mild concentric left ventricularhypertrophy. Hyperdynamic left ventricular function. No focal wall motion abnormalities. There ispseudonormal diastolic dysfunction Grade II. Ejection fraction is visually estimated at70 %. Ejection fraction is measured at 68 %. Right Ventricle: Normal right ventricular size. Normal right ventricular systolicfunction. Left Atrium: The left atrium is normal in size. Right Atrium: The right atrium is normal in size. Atrial Septum: Normal atrial septum. Mitral Valve: Mild mitral annular calcification. Trivial regurgitation of the mitralvalve. There is no hemodynamically significant mitral stenosis by Doppler. Aortic Valve: No evidence of hemodynamically significant aortic stenosis by Doppler.Peak gradient of 13.0 mmHg. Mean gradient of 7.0 mmHg. Valve area of 1.78 cm2. Aortic cuspsappear mildly sclerotic. Mild to moderate aortic valve regurgitation. Tricuspid Valve: Normal appearance of the tricuspid valve. Estimated peak RVSP is 30 mmHg.Mild to moderate tricuspid regurgitation. Pulmonic Valve: Pulmonic valve not well visualized. No evidence of pulmonicregurgitation. Pericardium: Normal pericardium with no significant pericardial effusion. Aorta: Sinus of Valsalva is normal. IVC: Normal size and normal respiratory collapse consistent with normal rightatrial pressure (<5 mmHg). Pulmonary Artery: Normal pulmonary artery size. Conclusions: Normal left ventricular size. Mild concentric left ventricularhypertrophy. Hyperdynamic left ventricular function. No focal wall motion abnormalities. There ispseudonormal diastolic dysfunction Grade II. Ejection fraction is visually estimated at70 %. Ejection fraction is measured at 68 %. Mild mitral annular calcification. Trivial regurgitation of the mitralvalve. No evidence of hemodynamically significant aortic stenosis by Doppler.Peak gradient of 13.0 mmHg. Mean gradient of 7.0 mmHg. Valve area of 1.78 cm2. Aortic cuspsappear mildly sclerotic. Mild to moderate aortic valve regurgitation. Aortic valveleaflets appearing to open very well. Estimated peak RVSP is 30 mmHg. Mild to moderate tricuspidregurgitation. Compared to echocardiogram done in 2018, no evidence of pulmonaryhypertension. There is evidence for aortic regurgitation now. Mitral valve regurgitationimproved. Electronically Signed By: Dr. Suzanne Allan [facility] 2021-11-02 15:48:53 CDT CC: CC: Sawyer Julien MD CV ECHO PROCEDURES Fi nal Result documented in this encounter Visit Diagnoses Diagnosis Localized edema Edema Murmur, heart Undiagnosed cardiac murmurs documented in this encounter Care Teams Operator Catalyst Concentration Relationship Specialty Start Date End Date Sawyer Julien MD [address] [place] [address] PCP - General Emergency Medicine 10/02/21 documented as of this encounter
--- OUTSIDE RECORDS SUMMARY | 2024-07-23 21:55 | XMS_ITS | Encounter Summary ---
Author Organization [facility] Address [address] [place] [address] Care Team Providers Care Welding Machine Operator Gas Name Role Phone Sawyer Gutiérrez MD Primary Care Provide r Encounter Details Date Type Department Care Team (Late st Contact Info) Description 11/21/2021 11:59 PM CDT Anesthesia Event [facility] Operating Room [facility] [place] [address] Laura Robison [facility] [address] [place] [address] Anesthesia Record Procedure Summary Procedure Name Responsible Anesthesiologist Anesthesia Start Time Anesthesia Stop Time Replacement of Intrathecal Pain Pump (canceled) Events No events on file. Meds * Agents No agents on file. * Blood No blood administrations on file. Lines, Drains, and Airways No LDAs on file. documented in this encounter Social History Tobacco Use Types Packs/Day Years Used Date Smoking Tobacco: Never Assessed AUDIT-C Answer Date Recorded Q1: How often do you have a drink containing alc ohol? Never 11/22/2021 Average Number of Drinks Not on file 022 Q3: How often do you have si x or more drinks on one occasion? 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 Per current [facility] policy there is no indication for pre procedural COVID testing prior to surgery. Dose 1 09/28/2020 (Pfizer SARS-CoV-2 Vaccination (12+ yrs) PURPLE) Dose 2 10/28/2020 (Pfizer SARS-CoV-2 Vaccination (12+ yrs) PURPLE) Booster dose 05/01/2021 (Pfizer SARS-CoV-2 Vaccination (12+ yrs) PURPLE) Procedure(s): Replacement of Intrathecal Pain Pump Pre-Op Diagnosis Codes: * Encounter for adjustment [...] Mitral valve regurgitation improved. Respiratory + COPD - emphysema. + Asthma Rescue inhaler use: 2 days/week or less. Hepatic / Heme Hepatic/Heme system: negative Gastrointestinal [...] Date ??? Anxiety and depression 11/23/2021 ??? Asthma 11/23/2021 ??? Hyperlipidemia 11/23/2021 ??? Hypertension 11/23/2021 ??? Osteoporosis 11/23/2021 ??? Psoriasis 11/23/2021 No past surgical history on file. OB History No obstetric history on file. Allergies Allergen Reactions ??? Ibuprofen Other (See comments) Kidney failure Med List Status: Nurse Complete Set By: Saranya Joel RN at 11/22/2021 11:54 AM Taking? Last Dose Start Date End Date [...] ORAL) -- -- Dallas Rust MD cholecalciferol (Vitamin D3) 5,000 unit tablet -- -- Dallas Rust MD clobetasoL (TEMOVATE) 0.05 % cream -- -- Dallas Rust MD cranberry wvgp-I-kzpihvwe coag 250-30-50 md-fh-hfmvvph tablet -- -- Provider, HistoricalMD DULoxetine (CYMBALTA) 60 mg capsule -- -- Provider, MD Dallas esomeprazole (NexIUM) 40 mg capsule -- -- Provider, MD Dallas fluticasone propionate (FLONASE) 50 mcg/actuation nasal spray -- -- Provider, HistoricalMD furosemide (LASIX) 40 mg tablet -- -- Provider, HistoricalMD magnesium oxide (MAG-OX) 250 mg (150.8 mg elemental) tablet -- -- Provider, HistoricalMD montelukast (SINGULAIR) 10 mg tablet -- -- Provider, HistoricalMD potassium chloride ER (potassium chloride ER) 20 mEq CR tablet -- -- Provider, HistoricalMD salsalate (DISALCID) 500 mg tablet -- -- Provider, HistoricalMD simvastatin (ZOCOR) 10 mg tablet 09/03/21 -- Provider, HistoricalMD theophylline (TIANNA-24) 300 mg 24 hr capsule -- -- Provider, MD Dallas tiotropium bromide (SPIRIVA RESPIMAT) 2.5 mcg/actuation inhaler -- -- Provider, HistoricalMD trospium (SANCTURA) 20 mg tablet -- -- Sawyer Gutiérrez MD ustekinumab (STELARA) injection 11/07/2021 -- -- Provider, MD Dallas vitamin B complex (Super B-50 Complex) capsule -- -- Provider, MD Dallas Current Outpatient Medications: ??? albuterol HFA (PROVENTIL HFA,VENTOLIN HFA,PROAIR HFA) 90 mcg/actuation inhaler ??? alendronate (FOSAMAX) 70 mg tablet ??? aspirin 81 mg enteric coated tablet ??? calcipotriene-betamethasone (TACLONEX) ointment ??? calcium carbonate/vitamin D3 (CALCIUM 600 WITH VITAMIN D3 ORAL) ??? cholecalciferol (Vitamin D3) 5,000 unit tablet ??? clobetasoL (TEMOVATE) 0.05 % cream ??? cranberry Roxy coag 250-30-50 cp-eo-xrrmpoz tablet ??? DULoxetine (CYMBALTA) 60 mg capsule ??? esomeprazole DR (NexIUM) 40 mg capsule ??? fluticasone propionate (FLONASE) 50 mcg/actuation nasal spray ??? furosemide (LASIX) 40 mg tablet ??? magnesium oxide (MAG-OX) 250 mg (150.8 mg elemental) tablet ??? montelukast (SINGULAIR) 10 mg tablet ??? potassium chloride ER (potassium chloride ER) 20 mEq CR tablet ??? salsalate (DISALCID) 500 mg tablet ??? simvastatin (ZOCOR) 10 mg tablet ??? theophylline (TIANNA-24) 300 mg 24 hr capsule ??? tiotropium bromide (SPIRIVA RESPIMAT) 2.5 mcg/actuation inhaler ??? trospium (SANCTURA) 20 mg tablet ??? ustekinumab (STELARA) injection ??? vitamin B complex (Super B-50 Complex) capsule Social History Tobacco Use Smoking Status Former Smoker ??? Types: Cigarettes ??? Quit date: 01/23/2000 ??? Years since quittin.8 Smokeless Tobacco Never Used Substance and Sexual [...] Patient's current state is cooperative and interactive. Vitals: 11/22/21 1142 BP: 154/67 Pulse: 87 SpO2: 99% BMP Lab Results Component Value Date SODIUM [...] to the patient. All questions were answered. [facility] policy of COVID-19 testing prior to surgery/procedure is reviewed with the patient, who verbalized understanding. Patient was given information about COVID-19 testing, and all questions were answered. SEC evaluation complete. STOP-Bang Total Score: 1 Denny Activity Status Index Score: 18.7 documented in this encounter Plan of Treatment Not on file documented as of this encounter Visit Diagnoses Not on filedocumented in this encounter Care Teams Welding Machine Operator Gas Relationship Specialty Start Date End Date Sawyer Gutiérrez MD [address] [place] [address] PCP - General Emergency Medicine 10/02/21 documented as of this encounter
--- OUTSIDE RECORDS SUMMARY | 2024-07-23 21:55 | XMS_ITS | Encounter Summary ---
Author Organization [facility] Address [address] [place] [address] Care Team Providers Care Button Sewing Machine Operator Name Role Phone Sawyer Gutiérrez MD Primary Care Provide r Encounter Details Date Type Department Care Team (Late st Contact Info) Description 10/02/2021 Orders Only [facility] Cardiology [address] [facility] [address] [place] [address] ProviderDallas MD [address] [place] [address] Social History Tobacco Use Types Packs/Day Years Used Date Smoking Tobacco: Never Assessed Comments Unknown Sex and Gender Information Value Date Recorded Sex Assigned at Not on file 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 Gender Identity Not on file Sexual Orientation Not on file documented as of this encounter Plan of Treatment Not on file documented as of this encounter Procedures Procedure Name Priority Date/Time Associated Diagnosis Comments CARDIOLOGY DOCUMENT SCAN Routine 10/02/2021 documented in this encounter Results * SCAN - CARDIOLOGY (10/02/2021) Anatomical Region Laterality Modality Other Historical Provider [facility] ERNESTO BEKCETT Final Result documented in this encounter Visit Diagnoses Not on filedocumented in this encounter Care Teams Button Sewing Machine Operator Relationship Specialty Start Date End Date Sawyer Gutiérrez MD [address] [place] [address] PCP - General Emergency Medicine 10/02/21 documented as of this encounter
--- OUTSIDE RECORDS SUMMARY | 2024-07-23 21:57 | XMS_ITS | Continuity of Care Document ---
Author Organization [facility] Address [address] [place] [address] Phone Care Team Providers Care Dried Yeast Supervisor Name Role Phone Isaiah Encarnacion Unavailable Unavailable [...] Diagnoses Date Provider Providers Copied on Encounter [facility], [address] [place] [address] [address], [place], [place], [id number], [place] tel:[phone] [facility] [place] No Information 4-201 0 Shashank Colon. [address], [place], [address], [place]. tel:[phone] [facility], [address] [place] [address] [address], [place], [place], [id number], [place] tel:[phone] [facility] No Information 3-201 0 Shashank Colon. [address], [place], [place], [facility], . tel:[phone] Referring Provider: Richelle Baez OD, [facility] [address] [place], [address]. tel:[phone] Office/outpat ient Visit, [facility], [address] [place] [address] [address], [place], [place], [id number], tel:[phone] [place] [address] No Information 0-201 0 Shashank Colon. [address] [facility] , [address], [place], [place], [facility], . tel:[phone] Referring Provider: Isaiah Mixon, [address], [place], [place], [facility]. tel:[phone] Office/outpat ient Visit, [facility], [address] [facility] [address], [place], [place], [id number], tel:[phone] [place] [address] No Information 0 3-201 0 Marci Piña. [address] [place], [place], [facility], [place]. tel:[phone] Referring Provider: Isaiah Mixon, [address] [facility] [address], [place], [place], [facility]. tel:[phone] [facility], [address] [facility] [address], [place], [place], [id number], tel:[phone] [place] [address] No Information 9-201 0 Shashank Colon. [address] [facility] , [address], [place], [place], [facility], [place]. tel:[phone] Referring Provider: Richelle Baez OD, [facility] [address] [place], [place], [facility]. tel:[phone] Family History Family Member Type Diagnosis Age At Onset No Information Payers Payer name Insurance type Covered green party ID Authoriza tion(s) No Information Social [...]
--- OUTSIDE RECORDS SUMMARY | 2024-07-24 02:26 | XMS_ITS | Clinical Summary ---
Author Organization [facility] [address] Address [address] [place] [address] Care Team Providers Care Sawdust Machine Operator Name Role Phone Sawyer Gutiérrez MD Primary Care Provide r Francisco Koehler MD Unavailable [phone] Allergies Active Allergy Reactions Criticality Noted [...] sprays into each nostril daily Active cranberry rdqz-P-nbpcsssi coag 250-30-50 iw-rv-hygvqtq tablet Take 1 capsule by mouth 2 (two) times a day Active salsalate (DISALCID) 500 mg tablet Take 1,000 mg by mouth 2 (two) times a day Active theophylline (TINANA-24) 300 mg 24 hr capsule Take 450 [...] on file 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 Gender Identity Not on file Sexual Orientation [...] Tdap) 05/29/2028 Medical Devices Implanted Type Area Predictive Maintenance Technician Device Identifier Shelf Expiration Date Model / Serial / Lot AppArchitect Inc Synchromed Ii .78in [place] Filter Mesh Pouch Programmable 8637-20 - [id number] - [id number] Implanted:Qty: 1 on 12/14/2021 by Francisco Koehler MD at [facility] N/A: Abdomen [employer] 05/17/2023 8637-20 / [id number] / Insurance MEDICARE MEDICARE [employer] Care Teams Sawdust Machine Operator Relationship Specialty Start Date End Date Sawyer Gutiérrez MD [address] [place] [address] PCP - General Emergency Medicine 10/02/21 Francisco Koehler MD [address] [place] [address] Consulting Physician Neurosurgery 12/14/21
--- OUTSIDE RECORDS SUMMARY | 2024-07-24 02:26 | XMS_ITS | Continuity of Care Document ---
Author Organization [facility] Address [address] [facility] [address] [place] [address] Phone Care Team Providers Care Elementary Classroom Teacher Name Role Phone Isaiah Encarnacion Unavailable Unavailable [...] Diagnoses Date Provider Providers Copied on Encounter [facility], [address] [place] [address] [address], [place], [place], [id number], [place] tel:[phone] [facility] No Information 4-201 0 Shashank Colon. [address] , [address], [place], [address], [place]. tel:[phone] [facility], [address] [place] [address] [address], [place], [place], [address], [place] tel:[phone] [facility] No Information 3-201 0 Shashank Colon. [address] , [address], [place], [place], [facility], . tel:[phone] Referring Provider: Richelle Baez OD, [facility] [address] [place], [address]. tel:[phone] Office/outpat ient Visit, [facility], [address] [place] [address] [address], [place], [place], [address], tel:[phone] [place] [address] No Information 0-201 0 Shashank Colon. [address] , [address], [place], [facility], . tel:[phone] Referring Provider: Isaiah Mixon, [address], [place], [facility]. tel:[phone] Office/outpat ient Visit, [facility], [address] [facility] [address], [place], [place], [address], tel:[phone] [place] [address] No Information 0 3-201 0 Marci Piña. [address] [place], [place], [facility], [place]. tel:[phone] Referring Provider: Isaiah Mixon, [address] [facility] [address], [place], [facility]. tel:[phone] [facility], [address], [place], [place], [address], tel:[phone] [place] [address] No Information 9-201 0 Shashank Colon. [address] , [address], [place], [facility], [place]. tel:[phone] Referring Provider: Richelle Baez OD, [facility] [address] [place], [place], [facility]. tel:[phone] Family History Family Member Type Diagnosis Age At Onset No Information Payers Payer name Insurance type Covered democrat ID Authoriza tion(s) No Information Social History [...]
--- OUTSIDE RECORDS SUMMARY | 2024-07-24 02:27 | XMS_ITS | Encounter Summary ---
Author Organization [facility] Address [address] [place] [address] Care Team Providers Care Furniture Upholsterer Name Role Phone Sawyer Gutiérrez MD Primary Care Provide r Francisco Koehler MD Unavailable [phone] Encounter Details Date Type Department Care Team (Late st Contact Info) Description 03/11/2023 Orders Only [facility] Cardiology [address] [place] [address] Yareli Maharaj, RAGHAVENDRA [address] [place] [address] Social History Tobacco Use Types [...] on file Legal 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 Gender Identity Not on file Sexual Orientation Not on file documented as of this encounter Plan of Treatment Not on file documented as of this encounter Procedures Procedure Name Priority Date/Time Associated Diagnosis Comments CARDIOLOGY DOCUMENT SCAN Routine 023 10:54 AM CDT documented in this encounter Results * Cardiology Document Scan (03/06/2023 10:54 AM CDT) Anatomical Region Laterality Modality Other us Yareli Maharaj LAWN MOWER MECHANIC CV CARDIAC SERVICES PROCEDUR ES Final Result documented in this encounter Visit Diagnoses Not on filedocumented in this encounter Care Teams Furniture Upholsterer Relationship Specialty Start Date End Date Sawyer Gutiérrez MD [address] [place] [address] PCP - General Emergency Medicine 10/02/21 Francisco Koehler MD [address] [place] [address] Consulting Physician Neurosurgery 12/14/21 documented as of this encounter
--- OUTSIDE RECORDS SUMMARY | 2024-07-24 02:27 | XMS_ITS | Encounter Summary ---
Author Organization [facility] Address [address] [place] [address] Care Team Providers Care Button Breaker Name Role Phone Sawyer Gutiérrez MD Primary Care Provide r Francisco Koehler MD Unavailable [phone] Encounter Details Date Type Department Care Team (Late st Contact Info) Description 03/06/2023 Orders Only [facility] Cardiology [address] [place] [address] Aracely Delgado MD [address] [place] [address] Social History Tobacco Use Types [...] on file 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
--- OUTSIDE RECORDS SUMMARY | 2024-07-24 02:27 | XMS_ITS | Encounter Summary ---
Author Organization [facility] Healthcare Address [address] [place] [address] Care Team Providers Care Automotive Services Manager Name Role Phone Sawyer Gutiérrez MD Primary Care Provide r Francisco Koehelr MD Unavailable Encounter Details Date Type Department Care Team (Late st Contact Info) Description 12/14/2021 7:01 AM CDT Anesthesia Event [facility] Operating Room [address] [place] [address] Jeremy Sanches DO [address] [place] [address] Nacho Spencer MD [address] [place] [address] Anesthesia Record Procedure Summary Procedure Name Responsible [...] Removal Time: 1054 12/14/21 0639 by Crys Ross RN 12/14/21 1054 by Lindy Smith, ALEJO [...] 0802; Abdomen; 07/06/24 (Retired LDA, 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 [facility] with LDA Utility); 1213 (Retired LDA, 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 [facility] with LDA Utility) 12/14/21 0802 by Sandi [...] on file 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 Per current [facility] policy there is no indication [...] % cream -- -- ProviderDallas MD cranberry ltfu-V-ibvomsep coag 250-30-50 gj-sj-dmloqqr tablet -- -- Dallas Rust MD DULoxetine [...] RESPIMAT) 2.5 mcg/actuation inhaler -- -- Dallas Rsut MD trospium (SANCTURA) 20 mg tablet -- [...] to the patient. All questions were answered. [facility] policy of COVID-19 testing prior [...] Medication protocol when under care of a LINEMAN A CLASS Planned anesthesia: General Team communication plan: oral [...] Procedure Name Priority Date/Time Associated Diagnosis Comments GA AN PROCEDURE PLACEHOLDER Routine 12/14/2021 7:06 AM CDT GA AN ELECTIVE ENDOTRACHEAL AIRWAY Routine 12/14/2021 7:06 AM CDT documented in this encounter Results * GA AN ELECTIVE ENDOTRACHEAL AIRWAY, GA AN PROCEDURE PLACEHOLDER (12/14/2021 7:06 AM CDT) Narrative Rocío Calvillo CRNA - 12/14/2021 7:06 AM CDT Rocío Calvillo CRNA ? 12/14/2021 ??7:12 AM Airway Patient location: OR Urgency: elective Date/time: 12/14/2021 7:06 AM Indications for airway management: anesthesia Difficult airway: no Staff: Placed by: LINEMAN A CLASS: Rocío Calvillo CRNA Emergent airway documentation: Risks [...] Fri12/14/21 at 0630, For 1 dose, Pre-Op, technical operations specialist to OR, Indications: Prophylaxis, Surgical, Pre-opIndications:Prophylaxis, Surgical,Pre-op [...] mg documented in this encounter Care Teams Automotive Services Manager Relationship Specialty Start Date End Date Sawyer Gutiérrez MD [address] [place] [address] PCP - General Emergency Medicine 10/02/21 Francisco Koehler MD [address] [place] [address] Consulting Physician Neurosurgery 12/14/21 documented as of this encounter
--- OUTSIDE RECORDS SUMMARY | 2024-07-24 02:27 | XMS_ITS | Referral Summary ---
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 Gender Identity Not on file Sexual Orientation [...] on file Medical Devices Implanted Type Area Hasher Operator Device Identifier Shelf Expiration Date Model / Serial / Lot Medtronic Inc Synchromed Ii .78in [place] Filter Mesh Pouch Programmable 8637-20 - [id number] - [id number] Implanted:Qty: 1 on 12/14/2021 by Francisco Koehler MD at [facility] N/A: Abdomen Medtronic Inc 05/17/2023 8637-20 / [id number] / Insurance MEDICARE MEDICARE BLUE TRADITIONAL OOS Care Teams Causticiser Relationship Specialty Start Date End Date Sawyer Gutiérrez MD [address] [place] [address] PCP - General Emergency Medicine 10/02/21 Francisco Koehler MD [address] [place] [address] Consulting Physician Neurosurgery 12/14/21
--- OUTSIDE RECORDS SUMMARY | 2024-07-24 02:28 | XMS_ITS | Encounter Summary ---
Author Organization [facility] Address [address] [place] [address] Care Team Providers Care Alumni Relations Coordinator Name Role Phone Unavailable Primary Care Provider Unavailabl e Encounter Details Date Type Department Care Team (Late st Contact Info) Description 12/16/2017 Orders Only [facility] Cardiology [address] [place] [address] Provider, Dallas, [address] [place], [place] [id number] Social History Tobacco Use Types Packs/Day Years Used Date Smoking Tobacco: Never Assessed Comments Unknown Sex and Gender Information Value Date Recorded Sex Assigned at Not on file Legal 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
--- OUTSIDE RECORDS SUMMARY | 2024-07-24 02:28 | XMS_ITS | Encounter Summary ---
Author Organization [facility] Address [address] [place] [address] Care Team Providers Care Bonding Supervisor Name Role Phone Sawyer Gutiérrez MD Primary Care Provide r Encounter Details Date Type Department Care Team (Late st Contact Info) Description 10/02/2021 Orders Only [facility] Cardiology [address] [place] [address] ProviderDallas MD [address] [place] [address] Social History Tobacco Use Types Packs/Day Years Used Date Smoking Tobacco: Never Assessed Comments Unknown Sex and Gender Information Value Date Recorded Sex Assigned at Not on file 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 Gender Identity Not on file Sexual Orientation Not on file documented as of this encounter Plan of Treatment Not on file documented as of this encounter Procedures Procedure Name Priority Date/Time Associated Diagnosis Comments CARDIOLOGY DOCUMENT SCAN Routine 10/02/2021 documented in this encounter Results * SCAN - CARDIOLOGY (10/02/2021) Anatomical Region Laterality Modality Other Historical Provider CV CARDIAC SERVICES ERNESTO BECKETT Final Result documented in this encounter Visit Diagnoses Not on filedocumented in this encounter Care Teams Bonding Supervisor Relationship Specialty Start Date End Date Sawyer Gutiérrez MD [address] [place] [address] PCP - General Emergency Medicine 10/02/21 documented as of this encounter
--- OUTSIDE RECORDS SUMMARY | 2024-07-24 02:28 | XMS_ITS | Encounter Summary ---
Author Organization [facility] Address [address] [place] [address] Care Team Providers Care Corporate Administrative Assistant Name Role Phone Sawyer Julien MD Primary Care Provide r Reason for Visit * Cardiology (Routine) - Closed Specialty Diagnoses / Procedures Referred By Contac t Referred To Contact Diagnoses Localized edema Murmur, heart Procedures Transthoracic Echo Complete W Doppler/CF Sawyer Julien MD [address] [place] [address] Phone: tel: fax: [facility] Referral ID Status Reason Start Date Expiration Date Visits Re quested Visits Authorized [id number] Closed 10/02/2021 11/01/2022 1 1 Encounter Details Date Type Department Care Team (Latest Contact Info) Description 11/02/2021 9:15 AM CDT Ancillary Procedure [facility] Medical 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 Left Ventricle: Normal left ventricular size. [...] improved. Electronically Signed By: Dr. Suzanne Allan [facility] 2021-11-02 15:48:53 CDT CC: CC: Procedure Note Suzanne Allan MD - 11/02/2021 [facility] Cardiology [address] [facility] [address], [place] [address] [address] [facility] [address], [place] [address] P:[phone] P:[phone] Echocardiographic Report Patient Name: DUNIA BRIGGSPatient ID: [id number] : [id number] Date: 11/02/2021 9:07:40 AM Gender: FAccession #: [id number] Tech: GMLocation: [place] Ref.Provider: SAWYER JULIENHeight(Cm): 140 BSA: 1.43Weight(Kg): 56.25 [...] m/s ACS MM 1.67 cm MV Decel Mptk107 [ 150 - 200 ] msec PV Peak Vel1.25 [ 0.40 - 0.80 ] m/s TR Peak Vel2.98 [ 0.40 - 0.80 ] m/s TR Peak PG 36mmHg RVSP44.00 mmHg E'0.11 E/E' 8 - Findings: Interpretation Site: Exam was interpreted at [facility]. Left Ventricle: Normal left ventricular size. [...] regurgitationimproved. Electronically Signed By: Dr. Suzanne Allan [facility] 2021-11-02 15:48:53 CDT CC: CC: Sawyer Julien MD CV ECHO PROCEDURES Fi nal Result documented in this encounter Visit Diagnoses Diagnosis Localized edema Edema Murmur, heart Undiagnosed cardiac murmurs documented in this encounter Care Teams Corporate Administrative Assistant Relationship Specialty Start Date End Date Sawyer Julien MD [address] [place] [address] PCP - General Emergency Medicine 10/02/21 documented as of this encounter
--- OUTSIDE RECORDS SUMMARY | 2024-07-24 02:28 | XMS_ITS | Encounter Summary ---
Author Organization [facility] Healthcare Address [address] [place] [address] Care Team Providers Care Commercial Title Examiner Name Role Phone Sawyer Gutiérrez MD Primary Care Provide r Francisco Koehler MD Unavailable [phone] Encounter Details Date Type Department Care Team (Late st Contact Info) Description 12/14/2021 5:33 AM CDT - 12/14/2021 10:59 AM CDT Hospital Encounter [facility] Operating Room [address] [place] [address] Francisco Koehler MD [address] [place] [id number] Discharge Disposition: Discharge to home or self care Social History Tobacco Use Types Packs/Day Years [...] on file 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 Gender Identity Not on file Sexual [...] 6:23 AM CDT documented in this encounter Discharge Diagnoses Diagnosis Encounter for adjustment and management of infusion pump - ENCOUNTER FOR ADJUSTMENT AND MANAGEMENT OF INFUSION PUMP Essential (primary) hypertension - ESSENTIAL (PRIMARY) HYPERTENSION Unspecified essential hypertension Hyperlipidemia, unspecified - HYPERLIPIDEMIA, UNSPECIFIED Depression, unspecified - DEPRESSION, UNSPECIFIED Anxiety disorder, unspecified - ANXIETY DISORDER, UNSPECIFIED Sleep apnea, unspecified - SLEEP APNEA, UNSPECIFIED Gastro-esophageal reflux disease without esophagitis - GASTRO-ESOPHAGEAL REFLUX DISEASE WITHOUT ESOPHAGITIS Chronic obstructive pulmonary disease, unspecified (HCC) - CHRONIC OBSTRUCTIVE PULMONARY DISEASE, UNSPECIFIED Age-related osteoporosis without current pathological fracture - AGE-RELATED OSTEOPOROSIS WITHOUT CURRENT PATHOLOGICAL FRACTURE [facility] (current) use of aspirin - HAT FINISHING MATERIALS PREPARER (CURRENT) USE OF ASPIRIN Personal history of nicotine dependence - PERSONAL HISTORY OF NICOTINE DEPENDENCE documented in this encounter Medications at Time [...] topically 2 (two) times a day cranberry iovf-P-qjyibvyk coag 250-30-50 px-ji-vrnbhrw tablet Take 1 capsule by mouth 2 [...] up to 5 days 30 tablet 12/14/2021 documented in this encounter Discharge Disposition Disposition [...] ??? COPD (chronic obstructive pulmonary disease) (CMS/HCC) ([facility]) ??? GERD (gastroesophageal reflux disease) ??? Hyperlipidemia [...] daily 12/13/2021 at Unknown time ??? cranberry zjwe-N-hlmezjti coag 250-30-50 qb-vt-jpvdnje tablet Take 1 capsule by mouth 2 [...] of Systems Objective Vitals: Arrival Vitals [12/14/21 06] Temp 36.7 ??C (98 ??F) Pulse 70 Resp BP 116/74 SpO2 95 % Temp src Temporal Heart Rate Source Monitor Patient Position BP Location FiO2 (%) 24hr Min/Max: Temp Min: 36.7 ??C (98 ??F) Max: 36.7 ??C (98 ??F) Pulse Min: 70 Max: 70 BP Min: 116/74 Max: 116/74 SpO2 Min: 95 % Max: 95 % Most Recent : Vitals: 12/14/21 06 BP: 116/74 Pulse: 70 Temp: 36.7 ??C [...] MD - 12/14/2021 7:36 AM CDT -- [facility] PROGRESS WEST OPERATIVE NOTE -- Date of [...] pain pump since 2008 with revision in 2014.Pump is now at the end of its [...] Dermabond dressing was applied as well asa [facility] island. In summary: Pump replaced with 20cc Medtronic SynchroMedII, Serial number [id number] 15mL of medication in pump: - morphine 20mg/mL - bupivicaine 2.5mg/mL - clonidine 100mcgg/mL Dose: 5.251mg/day morphine System was primed to the catheter tip. No changes in catheter length. All counts were correct. No complications encountered. Signed, Francisco Koehler * Perioperative Nursing Note - Ricky George RN - 12/13/2021 1:52 PM CDT Come to main entrance of hospital by [address]) Check in at the screener station then up to the second floor. You may bring 1-2 visitor/garbage truck driver that will be screened as well. Bring [...] that you and your doctor have chosen [facility] for your surgery. We hope that the [...] cream Take morning of surgery ??? cranberry tmbf-I-cdiwwesz coag 250-30-50 dq-ut-mxjwctc tablet Stop taking 1 days prior to [...] to surgery ?? Use no make-up, nail lithuanian, lotions, oils or powders on your skin. [...] / FLUOROCONFIRMED CASE DATE/TIME WITH JESSICA @[employer] [phone] - MD documented in this encounter Visit Diagnoses Not on filedocumented in this encounter Administered Medications Inactive Administered Medications - up to 3 most recent administrations Medication Order MAR Action Action Date Dose Rate Site acetaminophen (TYLENOL) tablet 1,000 mg 1,000 mg, oral, Once, On Fri12/14/21 at 0630, For 1 dose, Pre-Op, Indications: Pre-Emptive AnalgesiaIndications:Pre-Emptive Analgesia Given 12/14/2021 6:42 AM CDT 1,000 mg fentaNYL (SUBLIMAZE) preservative free injection 25 [...] size. Flush before and after each use. documented in this encounter Active and Recently [...] at 0630, For 1 dose, Pre-Op, call specialist to OR, Indications: Prophylaxis, Surgical, Pre-op 0708 [...] pain score 5/10 or more., Indications: Pain 08 (Given - Provid er: Lindy Smith RN)0918 (Given - Provider: Lindy Smith, RN) fentaNYL (SUBLIMAZE) preservative free injection 50 [...] Count Last Ordered Date First Ordered Date bupivacaine (MARCAINE) 0.25 % (2.5 mg/mL) preservative free injection 1 12/14/2021 ceFAZolin (ANCEF) 2,000 mg/2 0 mL in sterile water (premix) 2,000 mg 1 12/14/2021 ceFAZolin (ANCEF) injection 1 12/14/2021 EPINEPHrine 1 mg/mL (1 mL) injection 1 12/02 gabapentin (NEURONTIN) capsule 100 mg 1 Lactated Ringer's (LR) infusion 1 lidocaine PF (XYLOCAINE) 10 mg/mL (1 %) preservative free injection 2-10 mg 1 12/14/2021 meperidine (DEMEROL) preserv ative free injection 12.5 mg 1 12/14/2021 naloxone (NARCAN) 0.4 mg/mL injection 0.04-0.4 mg 1 12/14/2021 ondansetron (ZOFRAN) injection 4 mg 1 12/14 sodium chloride 0.9% flush 0.5-20 mL 1 12/02 sodium chloride 0.9% irrigation 1 2 Diet Count Last Ordered Date First Orde red Date ADULT DISCHARGE DIET 1 12/14/2021 Nursing Count Last Ordered Date First Orde red Date DISCHARGE ACTIVITY 1 12/14/2021 DISCHARGE CALL PROVIDER 3 12/14/2021 DISCHARGE DRESSING 1 12/14/2021 DISCHARGE INSTRUCTIONS 1 12/14/2021 FOLLOW UP WITH ESTABLISHED PROVIDER 1 12/14 documented in this encounter Care Teams Commercial Title Examiner Relationship Specialty Start Date End Date Sawyer Gutiérrez MD [address] [place] [address] PCP - General Emergency Medicine 10/02/21 Francisco Koehler MD [address] [place] [address] Consulting Physician Neurosurgery 12/14/21 documented as of this encounter
--- OUTSIDE RECORDS SUMMARY | 2024-07-24 02:28 | XMS_ITS | Encounter Summary ---
Author Organization [facility] Healthcare Address [address] [place] [address] Care Team Providers Care Marketing Operations Intern Name Role Phone Swayer Gutiérrez MD Primary Care Provide r Encounter Details Date Type Department Care Team (Late st Contact Info) Description 11/21/2021 11:59 PM CDT Anesthesia Event [facility] Operating Room [facility] [place] [address] Laura Robison PA SURGICAL HOME [address] [place] [address] Anesthesia Record Procedure Summary Procedure Name [...] on file Legal Sex Female 2:13 AM TWISTER IN Gender Identity Not on file Sexual Orientation [...] attestation/vaccination card provided by patient. Per current [facility] policy there is no indication for pre [...] cream -- -- Dallas Rust MD cranberry yjfg-G-hqwjfjzp coag 250-30-50 fu-cc-rvbspcr tablet -- -- Provider, HistoricalMD DULoxetine (CYMBALTA) [...] % cream ??? cranberry Roxy coag 250-30-50 yl-gf-wgohyeo tablet ??? DULoxetine (CYMBALTA) 60 mg capsule [...] to the patient. All questions were answered. [facility] policy of COVID-19 testing prior to surgery/procedure [...] on filedocumented in this encounter Care Teams Marketing Operations Intern Relationship Specialty Start Date End Date Sawyer Gutiérrez MD [address] [place] [address] PCP - General Emergency Medicine 10/02/21 documented as of this encounter
--- OUTSIDE RECORDS SUMMARY | 2024-07-24 02:31 | XMS_ITS | Clinical Summary ---
Author Organization [facility] Address [address] [place] [address]. [place], [place] [address] [place] [address] Care Team Providers Care Vp Legal Affairs Name Role Phone Sawyer Gutiérrez MD Primary Care Provider [phone] Social History Tobacco Use Types Packs/Day Years [...] to complete this topic Insurance LINDA SINGH [id number] MEDICARE [facility] Care Teams Vp Legal Affairs Relationship Specialty Start Date End Date Sawyer Gutiérrez MD [address] [place] [address] PCP - General INTERNAL MEDICINE 12/20/21
--- OUTSIDE RECORDS SUMMARY | 2024-07-24 02:31 | XMS_ITS | Encounter Summary ---
Author Organization [facility] Address [address] [place] [address]. [place], [place] [address] [place] [address] Care Team Providers Care Oyster Sorter Name Role Phone Sawyer Gutiérrez MD Primary Care Provider [phone] Encounter Details Date Type Department Care Team [...] on filedocumented in this encounter Care Teams Oyster Sorter Relationship Specialty Start Date End Date Sawyer Gutiérrez MD [address] [place] [address] PCP - General INTERNAL MEDICINE 12/20/21 documented as of this encounter
--- OUTSIDE RECORDS SUMMARY | 2024-07-24 02:31 | XMS_ITS | Encounter Summary ---
Author Organization [facility] Address [address] [place] [address]. [place], [place] [address] [place] [address] Care Team Providers Care Programming Director Name Role Phone Sawyer Gutiérrez MD Primary Care Provider [phone] Encounter Details Date Type Department Care Team (Latest Contact Info) Description 12/20/2021 11:28 AM CDT - 12/20/2021 11:59 PM CDT Hospital Encounter [facility] [place] [address] Francisco Koehler MD [address] [address] Discharge Disposition: Home or Self Care (Routine [...] URINE CLEAN CATCH 12/20/2021 11:36 AM CDT [facility] SPECIAL REQUESTS NO SPECIAL REQUEST 12/20/2021 11:36 AM CDT [facility] CULTURE RESULT POLYMICROBIAL GROWTH CONSISTENT WITH NORMAL GENITAL NAVEEN. ?? SUSCEPTIBILITIES NOT ROUTINELY PERFORMED. 12/21/2021 11:50 AM CDT [facility] URINE SPECIMEN OBTAINED BY CLEAN CATCH PROCEDURE / Unknown 12/20/2021 11:48 AM CDT 12/20/2021 11:51 AM CDT Francisco Koehler MD MICROBIOLOGY - GENERAL [facility] Final Result [facility] [address] [place] [address], * URINALYSIS (12/20/2021 11:48 AM CDT) SPECIMEN TYPE URINE CLEAN CATCH 12/20/2021 11:36 AM CDT [facility] COLOR (U) LIGHT YELLOW 12/20/2021 12:03 PM CDT [facility] TRANSPARENCY CLEAR 12/20/2021 12:03 PM CDT [facility] SPECIFIC GRAVITY (U) 1.008 1.001 - 1.030 12/20/2021 12:03 PM CDT [facility] U PH 7.0 5.0 - 9.0 12/20/2021 12:03 PM CDT [facility] LEUKOCYTES (U) NEGATIVE NEGATIVE 12/20/2021 12:03 PM CDT [facility] NITRITES NEGATIVE NEGATIVE 12/20/2021 12:03 PM CDT [facility] PROTEIN (U) NEGATIVE <30 MG/DL 12/20/2021 12:03 PM CDT [facility] URINE GLUCOSE NORMAL NORMAL MG/DL 12/20/2021 12:03 PM CDT [facility] KETONES MG/DL (U) NEGATIVE NEGATIVE MG/DL 12/20/2021 12:03 PM CDT [facility] UROBILINOGEN NORMAL NORMAL MG/DL 12/20/2021 12:03 PM CDT [facility] BILIRUBIN (U) NEGATIVE NEGATIVE MG/DL 12/20/2021 12:03 PM CDT [facility] BLOOD (U) NEGATIVE NEGATIVE 12/20/2021 12:03 PM CDT [facility] URINE SPECIMEN OBTAINED BY CLEAN CATCH PROCEDURE / Unknown 12/20/2021 11:48 AM CDT us Francisco Koehler MD URINE ORDERABLES Final Resu lt [facility] [address] [place] [address], documented in this encounter Visit Diagnoses Diagnosis Dysuria documented in this encounter Care Teams Programming Director Relationship Specialty Start Date End Date Sawyer Gutiérrez MD [address] [place] [address] PCP - General INTERNAL MEDICINE 12/20/21 documented as of this encounter
--- OUTSIDE RECORDS SUMMARY | 2024-07-24 02:31 | XMS_ITS | Encounter Summary ---
Author Organization [facility] Address [address] [place] [address]. [place], [place] [address] [place] [address] Care Team Providers Care Therapist Asst Name Role Phone Sawyer Gutiérrez MD Primary Care Provider [phone] Encounter Details Date Type Department Care Team (Latest Contact Info) Description 12/20/2021 10:00 AM CDT - 12/20/2021 11:27 AM CDT Hospital Encounter [facility] [place] [address] Francisco Koehler MD [address] [place] [address] Discharge Disposition: Home or Self Care (Routine [...] idiopathic documented in this encounter Care Teams Therapist Asst Relationship Specialty Start Date End Date Sawyer Gutiérrez MD [address] [place] [address] PCP - General INTERNAL MEDICINE 12/20/21 documented as of this encounter
--- OUTSIDE RECORDS SUMMARY | 2024-07-24 02:31 | XMS_ITS | Encounter Summary ---
Author Organization [facility] Address [address] [place] [address]. [place], [place] [address] [place] [address] Care Team Providers Care Mid Level Developer Name Role Phone Sawyer Gutiérrez MD Primary Care Provider [phone] Encounter Details Date Type Department Care Team (Late st Contact Info) Description 12/20/2021 Orders Only [facility] [place] [address] Francisco Koehler MD 3 [facility] [address] [place], [place] [address] Social History Tobacco Use Types Packs/Day Years [...] URINE CLEAN CATCH 12/20/2021 11:[address] [facility] SPECIAL REQUESTS NO SPECIAL REQUEST 12/20/2021 11:[address] [facility] CULTURE RESULT POLYMICROBIAL GROWTH CONSISTENT WITH NORMAL GENITAL NAVEEN. ?? SUSCEPTIBILITIES NOT ROUTINELY PERFORMED. 12/21/2021 11:[address] [facility] URINE SPECIMEN OBTAINED BY CLEAN CATCH PROCEDURE / Unknown 12/20/2021 11:48 AM CDT 12/20/2021 11:51 AM CDT us Francisco Koehler MD MICROBIOLOGY - [facility]AL [facility] Final Result [facility] [address] [place] [address], [place] [phone] * URINALYSIS (12/20/2021 11:48 AM CDT) SPECIMEN TYPE URINE CLEAN CATCH 12/20/2021 11:[address] [facility] COLOR (U) LIGHT YELLOW 12/20/2021 12:[address] [facility] TRANSPARENCY CLEAR 12/20/2021 12:[address] [facility] SPECIFIC GRAVITY (U) 1.008 1.001 - 1.030 12/20/2021 12:[address] [facility] U PH 7.0 5.0 - 9.0 12/20/2021 12:[address] [facility] LEUKOCYTES (U) NEGATIVE NEGATIVE 12/20/2021 12:[address] [facility] NITRITES NEGATIVE NEGATIVE 12/20/2021 12:[address] [facility] PROTEIN (U) NEGATIVE <30 MG/DL 12/20/2021 12:[address] [facility] URINE GLUCOSE NORMAL NORMAL MG/DL 12/20/2021 12:[address] [facility] KETONES MG/DL (U) NEGATIVE NEGATIVE MG/DL 12/20/2021 12:[address] [facility] UROBILINOGEN NORMAL NORMAL MG/DL 12/20/2021 12:[address] [facility] BILIRUBIN (U) NEGATIVE NEGATIVE MG/DL 12/20/2021 12:[address] [facility] BLOOD (U) NEGATIVE NEGATIVE 12/20/2021 12:[address] [facility] URINE SPECIMEN OBTAINED BY CLEAN CATCH PROCEDURE / Unknown 12/20/2021 11:48 AM CDT us Francisco Koehler MD URINE ORDERABLES Final Resu lt [facility] [address] [place] [address], documented in this encounter Visit Diagnoses Diagnosis Dysuria- Primary documented in this encounter Care Teams Mid Level Developer Relationship Specialty Start Date End Date Sawyer Gutiérrez MD [address] [place] [address] PCP - General INTERNAL MEDICINE 12/20/21 documented as of this encounter
== END 2024-07-20 16:09 | disposition home or self-care (01) ==
LOC: ANHED 07-19 01:36 → ANHIMU 07-19 06:50 → ANH3MEDSUR 07-20 08:35 → ANHIMU 07-21 07:26
PROVIDERS: Student in an Organized Health Care Education/Training Program; Admitting Provider Internal Medicine; Emergency Provider Registered Nurse; PCP Emergency Medicine; Visit Provider Student in an Organized Health Care Education/Training Program
DX: R07.9 Chest pain, unspecified (principal); E87.6 Hypokalemia; I50.32 Chronic diastolic (congestive) heart failure; J43.9 Emphysema, unspecified; K21.9 Gastro-esophageal reflux disease without esophagitis; G47.33 Obstructive sleep apnea (adult) (pediatric); G89.4 Chronic pain syndrome; E44.0 Moderate protein-calorie malnutrition; Z68.22 Body mass index [BMI] 22.0-22.9, adult; I49.3 Ventricular premature depolarization; N18.9 Chronic kidney disease, unspecified; M41.9 Scoliosis, unspecified; M06.9 Rheumatoid arthritis, unspecified; M48.00 Spinal stenosis, site unspecified; E78.5 Hyperlipidemia, unspecified; F17.210 Nicotine dependence, cigarettes, uncomplicated; Z99.89 Dependence on other enabling machines and devices; Z79.51 Long term (current) use of inhaled steroids; Z79.899 Other long term (current) drug therapy
CPT/HCPCS: 36415; 71045; 80048; 80053; 81003; 83735; 83880; 84100; 84484; 85025; 85027; 93005; 93306; 96365; 96366; 96372; 96375; 99285; A9270; G0378; J1650; J3480; J7040

== ENCOUNTER 2024-07-24 08:06 | Outpatient (CLI) | payer MEDICARE, BC, SELFPAY ==
[2024-07-24 09:15] LABS: Anion Gap 6 mmol/L (4-12); Blood Urea Nitrogen 22 mg/dL (7-17); Calcium 10.7 mg/dL (8.4-10.2); Carbon Dioxide 34 mmol/L (22-30); Chloride 98 mmol/L (98-107); Estimated Glomerular Filt Rate 43; Glucose 116 mg/dL (65-110); Potassium 4.2 mmol/L (3.4-5.0); Sodium 138 mmol/L (137-145)
--- OUTSIDE RECORDS SUMMARY | 2024-07-31 05:30 | XMS_ITS | Encounter Summary ---
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, 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 [facility] with LDA Utility); 1213 (Retired LDA, 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 [facility] with LDA Utility) 12/14/21 0802 by Sandi [...] on file 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 Per current [facility] policy there is no indication [...] % cream -- -- ProviderDallas MD cranberry pfia-Z-bloudobt coag 250-30-50 vi-ms-kxgqlfh tablet -- -- Dallas Rust MD DULoxetine [...] to the patient. All questions were answered. [facility] policy of COVID-19 testing prior [...] Medication protocol when under care of a CLINIC BUSINESS MANAGER Planned anesthesia: General Team communication plan: oral [...] Procedure Name Priority Date/Time Associated Diagnosis Comments VT AN PROCEDURE PLACEHOLDER Routine 12/14/2021 7:06 AM CDT VT AN ELECTIVE ENDOTRACHEAL AIRWAY Routine 12/14/2021 7:06 AM CDT documented in this encounter Results * VT AN ELECTIVE ENDOTRACHEAL AIRWAY, VT AN PROCEDURE PLACEHOLDER (12/14/2021 7:06 AM CDT) Narrative Rocío Calvillo CRNA - 12/14/2021 7:06 AM CDT Rocío Calvillo CRNA ? 12/14/2021 ??7:12 AM Airway Patient location: OR Urgency: elective Date/time: 12/14/2021 7:06 AM Indications for airway management: anesthesia Difficult airway: no Staff: Placed by: CLINIC BUSINESS MANAGER: oRcío Calvillo CRNA Emergent airway documentation: Risks and [...] Fri12/14/21 at 0630, For 1 dose, Pre-Op, scallop cutter machine to OR, Indications: Prophylaxis, Surgical, Pre-opIndications:Prophylaxis, Surgical,Pre-op [...] mg documented in this encounter Care Teams General Office Clerk Relationship Specialty Start Date End Date Sawyer Gutiérrez MD [address] [place] [address] PCP - General Emergency Medicine 10/02/21 Francisco Koehler MD [address] [place] [address] Consulting Physician Neurosurgery 12/14/21 documented as of this encounter
--- OUTSIDE RECORDS SUMMARY | 2024-07-31 05:30 | XMS_ITS | Encounter Summary ---
Author Organization [facility] Address [address] [place] [address]. [place], [place] [address] [place] [address] Care Team Providers Care Drum Dyeing Machine Operator Name Role Phone Sawyer Gutiérrez MD Primary Care Provider [phone] Encounter Details Date Type Department Care Team (Latest Contact Info) Description 12/20/2021 10:00 AM CDT - 12/20/2021 11:27 AM CDT Hospital Encounter [facility] Diagnostic [place] [address] Francisco Koehler MD [address] [place] [address] Discharge Disposition: Home or Self Care (Routine [...] idiopathic documented in this encounter Care Teams Drum Dyeing Machine Operator Relationship Specialty Start Date End Date Sawyer Gutiérrez MD [address] [place] [address] PCP - General INTERNAL MEDICINE 12/20/21 documented as of this encounter
--- OUTSIDE RECORDS SUMMARY | 2024-07-31 05:30 | XMS_ITS | Encounter Summary ---
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 Per current [facility] policy there is no indication for pre [...] 81 mg enteric coated tablet -- -- Dallsa Rust MD calcipotriene-betamethasone (TACLONEX) ointment -- -- Dallas Rust MD calcium carbonate/vitamin D3 (CALCIUM 600 WITH VITAMIN D3 ORAL) -- -- Dallas Rust MD cholecalciferol (Vitamin D3) 5,000 unit tablet -- -- Dallas Rust MD clobetasoL (TEMOVATE) 0.05 % cream -- -- Dallas Rust MD cranberry zjbt-K-miyoiacg coag 250-30-50 wc-bv-zqlydsw tablet -- -- Provider, HistoricalMD DULoxetine (CYMBALTA) [...] % cream ??? cranberry Roxy coag 250-30-50 dy-hu-qfzddyc tablet ??? DULoxetine (CYMBALTA) 60 mg capsule [...] to the patient. All questions were answered. [facility] policy of COVID-19 testing prior to surgery/procedure [...] on filedocumented in this encounter Care Teams Senior Animator Relationship Specialty Start Date End Date Sawyer Gutiérrez MD [address] [place] [address] PCP - General Emergency Medicine 10/02/21 documented as of this encounter
--- OUTSIDE RECORDS SUMMARY | 2024-07-31 05:30 | XMS_ITS | Clinical Summary ---
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 Gender Identity Not on file Sexual Orientation [...] Tdap) 05/29/2028 Medical Devices Implanted Type Area Hotel Desk Clerk Device Identifier Shelf Expiration Date Model / Serial / Lot [employer] Synchromed Ii .78in [place] Filter Mesh Pouch Programmable 8637-20 - [id number] - [id number] Implanted:Qty: 1 on 12/14/2021 by Francisco Koehler MD at [facility] N/A: Abdomen [employer] 05/17/2023 8637-20 / [id number] / Insurance MEDICARE MEDICARE [place] [employer] [facility] Care Teams Visitor Information Assistant Relationship Specialty Start Date End Date Sawyer Gutiérrez MD [address] [place] [address] PCP - General Emergency Medicine 10/02/21 Frnacisco Koehler MD [address] [place] [address] Consulting Physician Neurosurgery 12/14/21
--- OUTSIDE RECORDS SUMMARY | 2024-07-31 05:30 | XMS_ITS | Encounter Summary ---
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
--- OUTSIDE RECORDS SUMMARY | 2024-07-31 05:30 | XMS_ITS | Referral Summary ---
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 Gender Identity Not on file Sexual [...] on file Medical Devices Implanted Type Area Product Line Manager Device Identifier Shelf Expiration Date Model / Serial / Lot [employer] Synchromed Ii .78in [place] Filter Mesh Pouch Programmable 8637-20 - [id number] - [id number] Implanted:Qty: 1 on 12/14/2021 by Francisco Koehler MD at [facility] N/A: Abdomen [employer] 05/17/2023 8637-20 / [id number] / Insurance MEDICARE MEDICARE [employer] Care Teams Investigation Division Lieutenant Relationship Specialty Start Date End Date Sawyer Gutiérrez MD [address] [place] [address] PCP - General Emergency Medicine 10/02/21 Francisco Koehler MD [address] [place] [address] Consulting Physician Neurosurgery 12/14/21
--- OUTSIDE RECORDS SUMMARY | 2024-07-31 05:30 | XMS_ITS | Encounter Summary ---
Author Organization [facility] Address [address] [place] [address] Care Team Providers Care Mill Control Operator Name Role Phone Sawyer Gutiérrez MD Primary Care Provide r Francisco Koehler MD Unavailable Encounter Details Date Type Department Care Team (Late st Contact Info) Description 03/11/2023 Orders Only [facility] Cardiology [address] [place] [address] Yareli Maharaj, RAGHAVENDRA [address] [place] [address] Social History Tobacco Use Types [...] on file Legal 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 Gender Identity Not on file Sexual Orientation Not on file documented as of this encounter Plan of Treatment Not on file documented as of this encounter Procedures Procedure Name Priority Date/Time Associated Diagnosis Comments CARDIOLOGY DOCUMENT SCAN Routine 023 10:54 AM CDT documented in this encounter Results * Cardiology Document Scan (03/06/2023 10:54 AM CDT) Anatomical Region Laterality Modality Other us Yareli Maharaj SAP BUSINESS INTELLIGENCE CONSULTANT CV CARDIAC SERVICES PROCEDUR ES Final Result documented in this encounter Visit Diagnoses Not on filedocumented in this encounter Care Teams Mill Control Operator Relationship Specialty Start Date End Date Sawyer Gutiérrez MD [address] [place] [address] PCP - General Emergency Medicine 10/02/21 Francisco Koehler MD [address] [place] [address] Consulting Physician Neurosurgery 12/14/21 documented as of this encounter
--- OUTSIDE RECORDS SUMMARY | 2024-07-31 05:30 | XMS_ITS | Encounter Summary ---
Author Organization [facility] Healthcare Address [address] [place] [address] Care Team Providers Care Press Clipper Name Role Phone Sawyer Gutiérrez MD Primary Care Provide r Francisco Koehler MD Unavailable Encounter Details Date Type Department Care Team (Late st Contact Info) Description 12/14/2021 7:00 AM CDT - 12/14/2021 10:[address] [facility] Operating Room [address] [place] [address] Francisco Koehler MD [address] [place], [place] [address] REPLACEMENT PAIN PUMP Surgery Details Date/Time Status Location OR Service Patient Class Case Class Case Type Trauma Case? 12/14/2021 7:00 AM Posted [facility] OPERATING ROOM OR Neurosurgery Outpatient Elective Panel 1 Procedure LRB Anes Op Region Wound Class Comments REPLACEMENT PAIN PUMP N/A General Class I - Clean NEEDS: [facility] / ANNE BAG / SA / PRONE POSITION / FLUORO CONFIRMED CASE DATE/TIME WITH JESSICA @[facility] [phone] - [place] Surgeon Surgeon Role Service Panel Francisco Koehler MD Primary Neurosurgery 1 Case Notes NEEDS: [employer] / ANNE BAG / SA / PRONE POSITION / FLUOROCONFIRMED CASE DATE/TIME WITH JESSICA @[facility] [phone] - [place] documented in this encounter Social History Tobacco [...] on file 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 cranberry ixke-O-xbbbobsk coag 250-30-50 kl-cz-rereivu tablet Take 1 capsule by mouth 2 [...] MD - 12/14/2021 7:36 AM CDT -- [facility] PROGRESS WEST OPERATIVE NOTE -- Date of [...] Dermabond dressing was applied as well asa [facility]. In summary: Pump replaced with 20cc Medtronic SynchroMedII, Serial number [id number] 15mL of medication in pump: - morphine 20mg/mL - bupivicaine 2.5mg/mL - clonidine 100mcgg/mL Dose: 5.251mg/day morphine System was primed to the catheter tip. No changes in catheter length. All counts were correct. No complications encountered. Signed, Francisco Koehler * Perioperative Nursing Note - Ricky George RN - 12/13/2021 1:52 PM CDT Come to main entrance of hospital by the [address] & [address] ([address]) Check in at the screener station then up to the second floor. You may bring 1-2 visitor/driver salesman that will be screened as well. Bring [...] that you and your doctor have chosen [facility] for your surgery. We hope [...] cream Take morning of surgery ??? cranberry gifl-G-ezuyrdrs coag 250-30-50 tg-pe-wwerzwi tablet Stop taking 1 days prior to [...] to surgery ?? Use no make-up, nail armenian, lotions, oils or powders on your skin. [...] POSITION / FLUOROCONFIRMED CASE DATE/TIME WITH JESSICA @[facility] [phone] - [place] documented in this encounter Visit Diagnoses Not [...] Fri12/14/21 at 0630, For 1 dose, Pre-Op, needle straightener to OR, Indications: Prophylaxis, Surgical, Pre-op 0708 (Given - Provid er: Rocío Calivllo CRNA) Continuous Medication Order 12/12/2021 12/13/2021 12/14/2021 [...] 12/14 documented in this encounter Care Teams Press Clipper Relationship Specialty Start Date End Date Sawyer Gutiérrez MD [address] [place] [address] PCP - General Emergency Medicine 10/02/21 Francisco Koehler MD [address] [place] [address] Consulting Physician Neurosurgery 12/14/21 documented as of this encounter
--- OUTSIDE RECORDS SUMMARY | 2024-07-31 05:30 | XMS_ITS | Encounter Summary ---
Author Organization [facility] Address [address] [place] [address]. [place], [place] [address] [place] [address] Care Team Providers Care Irrigator Gravity Flow Name Role Phone Sawyer Gutiérrez MD Primary Care Provider [phone] Encounter Details Date Type Department Care Team (Latest Contact Info) Description 12/20/2021 11:28 AM CDT - 12/20/2021 11:59 PM CDT Hospital Encounter [facility] [place] [address] Francisco Koehler MD [address] [address] Discharge Disposition: Home or Self Care (Routine [...] Francisco Koehler MD MICROBIOLOGY - GENERAL [facility] Final Result [facility] [address] [place] [address], * URINALYSIS (12/20/2021 11:48 AM CDT) SPECIMEN [...] Final Resu lt [facility] [address] [place] [address], documented in this encounter Visit Diagnoses Diagnosis Dysuria documented in this encounter Care Teams Irrigator Gravity Flow Relationship Specialty Start Date End Date Sawyer Gutiérrez MD [address] [place] [address] PCP - General INTERNAL MEDICINE 12/20/21 documented as of this encounter
--- OUTSIDE RECORDS SUMMARY | 2024-07-31 05:30 | XMS_ITS | Encounter Summary ---
Author Organization [facility] Address [address] [place] [address]. [place], [place] [address] [place] [address] Care Team Providers Care Fisher Troll Line Name Role Phone Sawyer Gutiérrez MD Primary Care Provider [phone] Encounter Details Date Type Department Care Team (Late st Contact Info) Description 12/20/2021 Orders Only [facility] [place] [address] Francisco Koehler MD 3 [facility] [address] [place], [place] [address] Social History Tobacco Use Types Packs/Day Years [...] URINE CLEAN CATCH 12/20/2021 11:36 AM CDT [facility] SPECIAL REQUESTS NO SPECIAL REQUEST 12/20/2021 11:36 AM CDT [facility] CULTURE RESULT POLYMICROBIAL GROWTH CONSISTENT WITH NORMAL GENITAL NAVEEN. ?? SUSCEPTIBILITIES NOT ROUTINELY PERFORMED. 12/21/2021 11:50 AM CDT [facility] URINE SPECIMEN OBTAINED BY CLEAN CATCH PROCEDURE / Unknown 12/20/2021 11:48 AM CDT 12/20/2021 11:51 AM CDT us Francisco Koehler MD MICROBIOLOGY - GENERAL [facility] Final Result [facility] [address] [place] [address], [place] [phone] * URINALYSIS (12/20/2021 11:48 AM CDT) SPECIMEN TYPE URINE CLEAN CATCH 12/20/2021 11:36 AM CDT [facility] COLOR (U) LIGHT YELLOW 12/20/2021 12:03 PM CDT [facility] TRANSPARENCY CLEAR 12/20/2021 12:03 PM CDT [facility] SPECIFIC GRAVITY (U) 1.008 1.001 - 1.030 12/20/2021 12:03 PM CDT [facility] U PH 7.0 5.0 - 9.0 12/20/2021 12:03 PM CDT [facility] LEUKOCYTES (U) NEGATIVE NEGATIVE 12/20/2021 12:03 PM CDT [facility] NITRITES NEGATIVE NEGATIVE 12/20/2021 12:03 PM CDT [facility] PROTEIN (U) NEGATIVE <30 MG/DL 12/20/2021 12:03 PM CDT [facility] URINE GLUCOSE NORMAL NORMAL MG/DL 12/20/2021 12:03 PM CDT [facility] KETONES MG/DL (U) NEGATIVE NEGATIVE MG/DL 12/20/2021 12:03 PM CDT [facility] UROBILINOGEN NORMAL NORMAL MG/DL 12/20/2021 12:03 PM CDT [facility] BILIRUBIN (U) NEGATIVE NEGATIVE MG/DL 12/20/2021 12:03 PM CDT [facility] BLOOD (U) NEGATIVE NEGATIVE 12/20/2021 12:03 PM CDT [facility] URINE SPECIMEN OBTAINED BY CLEAN CATCH PROCEDURE / Unknown 12/20/2021 11:48 AM CDT us Francisco Koehler MD URINE ORDERABLES Final Resu lt [facility] [address] [place] [address], documented in this encounter Visit Diagnoses Diagnosis Dysuria- Primary documented in this encounter Care Teams Fisher Troll Line Relationship Specialty Start Date End Date Sawyer Gutiérrez MD [address] [place] [address] PCP - General INTERNAL MEDICINE 12/20/21 documented as of this encounter
--- OUTSIDE RECORDS SUMMARY | 2024-07-31 05:30 | XMS_ITS | Clinical Summary ---
Author Organization [facility] Address [address] [place] [address]. [place], [place] [address] [place] [address] Care Team Providers Care Bpm Solution Architect Name Role Phone Sawyer Gutiérrez MD Primary Care Provider [phone] Social History Tobacco Use Types Packs/Day Years Used Date Smoking Tobacco: Never Assessed Comments Unknown Sex and Gender Information Value Date Recorded Sex Assigned at Not on file Legal Sex Female 9:33 AM CDT Gender Identity Not on file Sexual Orientation Not on file Plan of Treatment Health Maintenance Due Date Last Done Comments Zoster Vaccines (1 of 2) 1988 Annual Medicare Wellness Visit 12/30/2003 Pneumococcal Vaccine: 65+ Years (1 of 1 - PCV) 12/30/2003 RSV Immunization or 60+ Years (1 - 1-dose 75+ series) 2013 COVID-19 Vaccine (4 - 2023-2 5 season) 2024 05/01/2021, 10/28/2020, 09/28/2020 Influenza Adult (#1) 2024 DTaP, Tdap and Td Vaccines ( 2 - Td or Tdap) 05/29/2028 05/29/2018 Meningococcal Vaccine Aged Out No vicente hernando eligible based on patient's age to complete this topic RSV Immunizations Under 20 Months Aged Out No longer eligible b ased on patient's age to complete this topic Insurance LINDA SINGH [id number] MEDICARE [facility] Care Teams Bpm Solution Architect Relationship Specialty Start Date End Date Sawyer Gutiérrez MD [address] [place] [address] PCP - General INTERNAL MEDICINE 12/20/21
--- OUTSIDE RECORDS SUMMARY | 2024-07-31 05:30 | XMS_ITS | Encounter Summary ---
Author Organization [facility] Medical Group Address [address] [place] [address] Care Team Providers Care Dry Color Tester Name Role Phone Sawyer Julien MD Primary Care Provide r Reason for Visit * Cardiology (Routine) - Closed Specialty Diagnoses / Procedures Referred By Contac t Referred To Contact Diagnoses Localized edema Murmur, heart Procedures Transthoracic Echo Complete W Doppler/CF Sawyer Julien MD [address] [place] [address] Phone: tel: fax: [facility] Referral ID Status Reason Start Date Expiration Date Visits Re quested Visits Authorized [id number] Closed 10/02/2021 11/01/2022 1 1 Encounter Details Date Type Department Care Team (Latest Contact Info) Description 11/02/2021 9:15 AM CDT Ancillary Procedure [facility] Medical [facility] Cardiology [address] [facility] [address] [place] [address] Localized edema; Murmur, heart Social History Tobacco Use Types Packs/Day Years Used Date Smoking Tobacco: Never Assessed Comments Unknown Sex and Gender Information Value Date Recorded Sex Assigned at Not on file 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 Left Ventricle: Normal left ventricular size. Mild [...] improved. Electronically Signed By: Dr. Suzanne Allan [facility] 2021-11-02 15:48:53 CDT CC: CC: Procedure Note Suzanne Allan MD - 11/02/2021 [facility] Medical Group Cardiology [address] [facility] [address], [place] [address] [address] [facility] [address], [place] [address] P:[phone] P:[phone] Echocardiographic Report Patient Name: DUNIA BRIGGSPatient ID: [id number] : [id number] Date: 11/02/2021 9:07:40 AM Gender: FAccession #: [id number] Tech: GMLocation: [place] Ref.Provider: SAWYER JULIENHeight(Cm): 140 BSA: 1.43Weight(Kg): 56.25 [...] m/s ACS MM 1.67 cm MV Decel Jydb610 [ 150 - 200 ] msec PV Peak Vel1.25 [ 0.40 - 0.80 ] m/s TR Peak Vel2.98 [ 0.40 - 0.80 ] m/s TR Peak PG 36mmHg RVSP44.00 mmHg E'0.11 E/E' 8 - Findings: Interpretation Site: Exam was interpreted at [facility]. Left Ventricle: Normal left ventricular size. Mild [...] regurgitationimproved. Electronically Signed By: Dr. Suzanne Allan [facility] 2021-11-02 15:48:53 CDT CC: CC: Sawyer Julien MD CV ECHO PROCEDURES Fi nal Result documented in this encounter Visit Diagnoses Diagnosis Localized edema Edema Murmur, heart Undiagnosed cardiac murmurs documented in this encounter Care Teams Dry Color Tester Relationship Specialty Start Date End Date Sawyer Julien MD [address] [place] [address] PCP - General Emergency Medicine 10/02/21 documented as of this encounter
--- OUTSIDE RECORDS SUMMARY | 2024-07-31 05:30 | XMS_ITS | Encounter Summary ---
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 COPD (chronic obstructive pulmonary disease) (CMS/HCC) ([facility]) ??? GERD (gastroesophageal reflux disease) [...] daily 12/13/2021 at Unknown time ??? cranberry yyal-L-wseeaydr coag 250-30-50 ey-sw-navabnh tablet Take 1 capsule by mouth 2 [...] MD - 12/14/2021 7:36 AM CDT -- [facility] PROGRESS WEST OPERATIVE NOTE -- Date [...] Dermabond dressing was applied as well asa [facility] island. In summary: Pump replaced with 20cc Medtronic SynchroMedII, Serial number [id number] 15mL of medication in pump: - morphine 20mg/mL - bupivicaine 2.5mg/mL - clonidine 100mcgg/mL Dose: 5.251mg/day morphine System was primed to the catheter tip. No changes in catheter length. All counts were correct. No complications encountered. Signed, Francisco Koehler * Perioperative Nursing Note - Ricky George RN - 12/13/2021 1:52 PM CDT Come to main entrance of hospital by the [address] ([address]) Check in at the screener station then up to the second floor. You may bring 1-2 visitor/limb driver that will be screened as well. [...] that you and your doctor have chosen [facility] for your surgery. We hope that [...] cream Take morning of surgery ??? cranberry rsuc-H-aayinona coag 250-30-50 gx-zj-qmouzss tablet Stop taking 1 days prior to [...] to surgery ?? Use no make-up, nail chinese, lotions, oils or powders on your skin. [...] / FLUOROCONFIRMED CASE DATE/TIME WITH JESSICA @[facility] [phone] - [place] documented in this encounter Visit Diagnoses Not [...] Fri12/14/21 at 0630, For 1 dose, Pre-Op, calliope player to OR, Indications: Prophylaxis, Surgical, Pre-op 0708 [...] 12/14 documented in this encounter Care Teams Gelatin Powder Mixer Relationship Specialty Start Date End Date Sawyer Gutiérrez MD [address] [place] [address] PCP - General Emergency Medicine 10/02/21 Francisco Koehler MD [address] [place] [address] Consulting Physician Neurosurgery 12/14/21 documented as of this encounter
--- OUTSIDE RECORDS SUMMARY | 2024-07-31 05:30 | XMS_ITS | Encounter Summary ---
Author Organization [facility] Address [address] [place] [address]. [place], [place] [address] [place] [address] Care Team Providers Care Hospital Admissions Officer Name Role Phone Sawyer Gutiérrez MD Primary Care Provider [phone] Encounter Details Date Type Department Care Team [...] on filedocumented in this encounter Care Teams Hospital Admissions Officer Relationship Specialty Start Date End Date Sawyer Gutiérrez MD [address] [place] [address] PCP - General INTERNAL MEDICINE 12/20/21 documented as of this encounter
--- OUTSIDE RECORDS SUMMARY | 2024-07-31 05:30 | XMS_ITS | Continuity of Care Document ---
Author Organization [facility] Address [address] [facility] [address] [place] [address] Phone Care Team Providers Care Script Coordinator Name Role Phone Isaiah Encarnacion Unavailable Unavailable [...] Diagnoses Date Provider Providers Copied on Encounter [facility], [address] [place] [address] [address], [place], [place], [id number], [place] tel:[phone] [facility] No Information 4-201 0 Shashank Colon. [address] , [address], [place], [address], [place]. tel:[phone] [facility], [address] [place] [address] [address], [place], [place], [id number], [place] tel:[phone] [facility] No Information 3-201 0 Shashank Colon. [address] , [address], [place], [place], [facility], . tel:[phone] Referring Provider: Richelle Baez OD, [facility] [address] [place], [address]. tel:[phone] Office/outpat ient Visit, [facility], [address] [place] [address] [address], [place], [place], [id number], tel:[phone] [place] [address] No Information 0-201 0 Shashank Colon. [address] [facility] , [address], [place], [facility], . tel:[phone] Referring Provider: Isaiah Mixon, [address], [place], [facility]. tel:[phone] Office/outpat ient Visit, [facility], [address] [facility] [address], [place], [place], [id number], tel:[phone] [place] [address] No Information 0 3-201 0 Marci Piña. [address] [place], [place], [facility], [place]. tel:[phone] Referring Provider: Isaiah Mixon, [address] [facility] [address], [place], [facility]. tel:[phone] [facility], [address] [facility] [address], [place], [place], [id number], tel:[phone] [place] [address] No Information 9-201 0 Shashank Colon. [address] [facility] , [address], [place], [facility], [place]. tel:[phone] Referring Provider: Richelle Baez OD, [facility] [address] [place], [place], [facility]. tel:[phone] Family History Family Member Type Diagnosis Age At Onset No Information Payers Payer name Insurance type Covered alliance party ID Authoriza tion(s) No Information Social [...]
--- OUTSIDE RECORDS SUMMARY | 2024-07-31 05:31 | XMS_ITS | Encounter Summary ---
Author Organization [facility] Address [address] [place] [address] Care Team Providers Care Net Programmer Name Role Phone Unavailable Primary Care Provider Unavailabl e Encounter Details Date Type Department Care Team (Late st Contact Info) Description 12/16/[address] 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
--- OUTSIDE RECORDS SUMMARY | 2024-07-31 05:31 | XMS_ITS | Encounter Summary ---
Author Organization [facility] Address [address] [place] [address] Care Team Providers Care Card Cleaner Name Role Phone Sawyer Gutiérrez MD Primary Care Provide r Encounter Details Date Type Department Care Team (Late st Contact Info) Description 10/02/2021 Orders Only [facility] Cardiology [address] 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
== END 2024-07-24 08:07 | disposition home or self-care (01) ==
PROVIDERS: PCP Emergency Medicine; Visit Provider Student in an Organized Health Care Education/Training Program
DX: E87.6 Hypokalemia (principal)
CPT/HCPCS: 36415; 80048

== ENCOUNTER 2024-08-21 10:03 | Outpatient (CLI) | payer MEDICARE, BC, SELFPAY ==
[2024-08-21 10:38] LABS: Alanine Aminotransferase 10 U/L (6-35); Albumin Level 4.3 g/dL (3.5-5.1); Alkaline Phosphatase 48 U/L (38-126); Anion Gap 8 mmol/L (4-12); Aspartate Amino Transferase 20 U/L (14-36); Bilirubin,Total 0.5 mg/dL (0.2-1.3); Blood Urea Nitrogen 16 mg/dL (7-17); Calcium 9.7 mg/dL (8.4-10.2); Carbon Dioxide 29 mmol/L (22-30); Chloride 103 mmol/L (98-107); Cholesterol 213 mg/dL (0-200); Estimated Glomerular Filt Rate > 60; Glucose 111 mg/dL (65-110); HDL Direct 79 mg/dL; Potassium 4.2 mmol/L (3.4-5.0); Sodium 140 mmol/L (137-145); Triglycerides 111 mg/dL (<150)
[2024-08-21 10:49] LABS: LDL Cholesterol Direct 83 mg/dL
[2024-08-21 11:16] LABS: Vitamin D 25 Hydroxy > 126.0 ng/mL
--- OUTSIDE RECORDS SUMMARY | 2024-08-26 08:48 | XMS_ITS | Clinical Summary ---
Author Organization [facility] Address [address] [place] [address]. [place], [place] [address] [place] [address] Care Team Providers Care Landfill Gas Collection System Operator Name Role Phone Sawyer Gutiérrez MD Primary Care Provider [phone] Social History Tobacco Use Types Packs/Day Years [...] to complete this topic Insurance [place]DA [place]H [id number] [facility] Care Teams Landfill Gas Collection System Operator Relationship Specialty Start Date End Date Sawyer Gutiérrez MD [address] [place] [address] PCP - General INTERNAL MEDICINE 12/20/21
--- OUTSIDE RECORDS SUMMARY | 2024-08-26 08:49 | XMS_ITS | Clinical Summary ---
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 Gender Identity Not on file Sexual Orientation [...] Tdap) 05/29/2028 Medical Devices Implanted Type Area Flavoring Maker Device Identifier Shelf Expiration Date Model / Serial / Lot [employer] Synchromed Ii .78in [place] Filter Mesh Pouch Programmable 8637-20 - [id number] - [id number] Implanted:Qty: 1 on 12/14/2021 by Francisco Koehler MD at [facility] N/A: Abdomen Med[employer] Inc 05/17/2023 8637-20 / [id number] / Insurance MEDICARE MEDICARE [employer] Care Teams Junior Systems Analyst Relationship Specialty Start Date End Date Sawyer Gutiérrez MD [address] [place] [address] PCP - General Emergency Medicine 10/02/21 Francisco Koehler MD [address] [place] [address] Consulting Physician Neurosurgery 12/14/21
--- OUTSIDE RECORDS SUMMARY | 2024-08-26 08:49 | XMS_ITS | Referral Summary ---
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 CONICAL MIXER Gender Identity Not on file Sexual Orientation [...] on file Medical Devices Implanted Type Area Receiving Weigher Device Identifier Shelf Expiration Date Model / Serial / Lot Medtronic Inc Synchromed Ii .78in [place] Filter Mesh Pouch Programmable 8637-20 - [id number] - [id number] Implanted:Qty: 1 on 12/14/2021 by Francisco Koehler MD at [facility] N/A: Abdomen Medtronic Inc 05/17/2023 8637-20 / [id number] / Insurance MEDICARE MEDICARE BLUE TRADITIONAL OOS Care Teams Active Directory Administrator Relationship Specialty Start Date End Date Sawyer Gutiérrez MD [address] [place] [address] PCP - General Emergency Medicine 10/02/21 Francisco Koehler MD [address] [place] [address] Consulting Physician Neurosurgery 12/14/21
--- OUTSIDE RECORDS SUMMARY | 2024-08-26 08:49 | XMS_ITS | Continuity of Care Document ---
Author Organization [facility] Address [address] [facility] [address] [place] [address] Phone Care Team Providers Care Reeling And Tubing Machine Operator Name Role Phone Isaiah Encarnacion Unavailable Unavailable [...] Diagnoses Date Provider Providers Copied on Encounter [facility], [address] [place] [address] [address], [place], [place], [id number], [place] tel:[phone] [facility] No Information 4-201 0 Shashank Colon. [address], [place], [address], [place]. tel:[phone] [facility], [address] [place] [address] [address], [place], [place], [address], [place] tel:[phone] [facility] No Information 3-201 0 Shashank Colon. [address] , [address], [place], [place], [facility], . tel:[phone] Referring Provider: Richelle Baez OD, [facility] [address] [place], [address]. tel:[phone] Office/outpat ient Visit, [facility], [address] [place] [address] [address], [place], [place], [address], tel:[phone] [place] [address] No Information 0-201 0 Shashank Colon. [address] [facility] , [address], [place], [place], [facility], . tel:[phone] Referring Provider: Isaiah Mixon, [address], [place], [facility]. tel:[phone] Office/outpat ient Visit, [facility], [address] [facility] [address], [place], [place], [address], tel:[phone] [place] [address] No Information 0 3-201 0 Marci Piña. [address], [place], [facility], [place]. tel:[phone] Referring Provider: Isaiah Mixon, [address] [facility] [address], [place], [facility]. tel:[phone] [facility] Eye [facility], [address] [facility] [address], [place], [place], [address], tel:[phone] [place] [address] No Information 9-201 0 Shashank Colon. [address] [facility] , [address], [place], [place], [facility], [place]. tel:[phone] Referring Provider: Richelle Baez OD, [facility] [address], [place], [facility]. tel:[phone] Family History Family Member Type Diagnosis Age [...]
== END 2024-08-21 10:04 | disposition home or self-care (01) ==
LOC: ANHLAB 10:04
PROVIDERS: PCP Emergency Medicine; Visit Provider Emergency Medicine
DX: E78.5 Hyperlipidemia, unspecified (principal); E55.9 Vitamin D deficiency, unspecified
CPT/HCPCS: 36415; 80053; 80061; 82306

== ENCOUNTER 2024-12-22 08:18 | Outpatient (CLI) | payer MEDICARE, BC, SELFPAY ==
--- OUTSIDE RECORDS SUMMARY | 2024-12-22 08:58 | XMS_ITS | Clinical Summary ---
Author Organization [facility] [place] [address] Address [address] [place] [address] Care Team Providers Care Scrap Handler Name Role Phone Sawyer Gutiérrez MD Primary Care Provide r Francisco Koehler MD Unavailable [phone] Allergies Active Allergy Reactions Criticality Noted [...] sprays into each nostril daily Active cranberry hbfo-W-afohpwaw coag 250-30-50 vm-dd-yzdoilk tablet Take 1 capsule by mouth 2 [...] 11/23/2021 Hypertension 11/23/2021 Hyperlipidemia 11/23/2021 Psoriasis 11/23/2021 Encounters Date Type Department Care Team Description 09/30/2024 Results Follow-Up [facility] Cardiology [address] [facility] [address] [place] [address] Richelle Crow RN NM MPI SPECT (Rest and/or Stress) Multiple Studies 09/27/2024 9:15 AM PSYCHOLOGY PROFESSOR Ancillary Procedure [facility] Cardiology [address] [facility] [address] [place] [address] Other forms of angina pectoris from Last 3 Months Surgical History Surgery Date Site/Laterality Comments HYSTERECTOMY [...] Cigarettes Q uit: 01/23/2000 Smokeless Tobacco: Never Tobacco Cessation:Counseling Given: Not Answered AUDIT-C Answer Date Recorded Q1: How often do you have a drink containing alc ohol? Never 12/14/2021 Average Number of Drinks Not on file 022 Q3: How often do you have si x or more drinks on one occasion? 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 PROFESSOR Gender Identity Not on file Sexual Orientation Not on file Obstetrics History Last Filed Vital Signs Vital Sign Reading Time Taken Comments Blood Pressure 124/62 09/15/2024 9:05 AM PSYCHOLOGY PROFESSOR Pulse 62 09/15/2024 9:05 AM PSYCHOLOGY PROFESSOR Temperature 36.5 C (97.7 F) 12/14/2021 9:00 AM CDT Respiratory Rate 11 12/14/2021 10:10 AM CDT Oxygen Saturation 96% 09/15/2024 9:05 AM PSYCHOLOGY PROFESSOR Inhaled Oxygen Concentration - - Weight 42.6 kg (94 lb) 09/15/2024 9:05 AM PSYCHOLOGY PROFESSOR Height 139.7 cm (4' 7 ) 09/15/2024 9:05 AM PSYCHOLOGY PROFESSOR Body Mass Index 21.85 09/15/2024 9:05 AM PSYCHOLOGY PROFESSOR Plan of Treatment Health Maintenance Due Date Last Done Comments Depression Screening 1940 Osteoporosis Screening-Bone Density Scan 1938 Hepatitis B Screening 1956 Pneumococcal vaccine 65+ (1 of 2 - PCV) 1957 Zoster Vaccine (1 of 2) 1988 Well Visit 65+ 12/30/2003 Fall Risk Assessment 12/14/2022 12/14/2021 Covid-19 Vaccine (4 - 2024-25 season) 2024 05/01/2021, 10/28/2020, 09/28/2020 Influenza Vaccine (Season Ended) 2025 05/06/20 20 DTaP/Tdap/Td Vaccine (2 - Td or Tdap) 05/29/2028 Medical Devices Implanted Type Area Tanning Drum Operator Device Identifier Shelf Expiration Date Model / Serial / Lot Medtronic Inc Synchromed Ii .78in [place] Filter Mesh Pouch Programmable 8637-20 - [id number] - [id number] Implanted:Qty: 1 on 12/14/2021 by Francisco Koehler MD at [facility] N/A: Abdomen Med[employer]onic Inc 05/17/2023 8637-20 / [id number] / Procedures Procedure Name Priority Date/Time Associated Diagnosis Comments NM MPI SPECT (REST AND/OR STRESS) MULTIPLE STUDIES Schedule Routine, Read Routine (OP Routine) 09/27/2024 10:58 AM PSYCHOLOGY PROFESSOR Other forms of angina pectoris from Last 3 Months Results * NM MPI SPECT (Rest and/or Stress) Multiple Studies (09/27/2024 10:58 AM PSYCHOLOGY PROFESSOR) Anatomical Region Laterality Modality Body N/A Nuclear Medicine 09/27/2024 9:54 AM PSYCHOLOGY PROFESSOR Narrative 09/27/2024 6:41 PM PSYCHOLOGY PROFESSOR [facility] Medical Group Cardiology [address] [facility] [address] [place] [id number] [address] [facility] [address], [address], [place] [address] P:[phone] P:[phone] MPI Imaging Report Patient Name: DUNIA BRIGGS L : 1940 Study Date: 09/27/2024 9:54:35 AM Gender: F Tech: WILFRED KRISHNAN Location: [facility] Provider: YARELI FALLON Height(Cm): 139.7 BSA: Weight(Kg): 42.6 BMI: 21.83 Order Provider: YARELI FALLON PHYSICIAN: Referring Physician: Dr. Gutiérrez. HCG Physician: Sawyer Hernandez M.D.,Handy Interpreting Physician: Sawyer Hernandez M.D.,Handy Stress Supervision: Sawyer Hernandez M.D.,Handy PROCEDURES: Pharmacologic SPECT Report: Myocardial perfusion imaging with Tc99M Sestamibi SPECT at rest and stress post regadenoson (Lexiscan) infusion. INDICATIONS: Congestive Heart Failure, High Cholesterol, and I20.89 Other forms of angina pectoris. FINDINGS: Procedural Findings: One day rest/stress was used. Tc99m Sestamibi injected IV at rest was 8.3 millicuries 24.8 millicuries of Tc99M Sestamibi injected IV during Lexiscan stress Lexiscan 0.4mg administered IV over 10 seconds. Patient had no symptoms during stress test. Baseline heart rate was 73 BPM Maximum Heart Rate Achieved was: 75 BPM Baseline blood pressure was 122/64 mmHg Post Stress Blood Pressure was 120/68 mmHg Termination: Protocol complete. Resting ECG: Sinus rhythm. Poor R wave progression. PAC. Post ECG: No diagnostic ST changes. Perfusion Findings: Normal perfusion imaging. No definite fixed or reversible defects. A TID of 0.83 was automatically calculated. LV Function: Global left ventricular function is normal with mild LV dilation. Left ventricular ejection fraction is 64 %. CONCLUSIONS: Sinus rhythm Poor R wave progression PAC. No diagnostic ST changes. Global left ventricular function is normal with mild LV dilation Left ventricular ejection fraction is 64 %. Normal perfusion imaging. No definite fixed or reversible defects. A TID of 0.83 was automatically calculated. Electronically Signed By: Sawyer Hernandez MD, [facility] 09/27/2024 5:29:59 PM PSYCHOLOGY PROFESSOR Electronically Signed By: Sawyer Hernandez MD, [facility] 09/27/2024 5:29:59 PM PSYCHOLOGY PROFESSOR Procedure Note Sawyer Hernandez MD - 09/27/2024 [facility] Medical Group Cardiology [address], [place] [address] [address] [facility] [address], [place] [address] P:[phone] P:[phone] MPI Imaging Report Patient Name: DUNIA BRIGGS L : 1940 Study Date: 09/27/2024 9:54:35 AM Gender: F Tech: WILFRED KRISHNAN Location: [facility] Provider: YARELI FALLON Height(Cm): 139.7 BSA: Weight(Kg): 42.6 BMI: 21.83 Order Provider: YARELI FALLON PHYSICIAN: Referring Physician: Dr. Gutiérrez. HCG Physician: Sawyer Hernandez M.D.,F.A.C.C. Interpreting Physician: Sawyer Hernandez M.D.,F.A.C.C. Stress Supervision: Sawyer Hernandez M.D.,F.A.C.C. PROCEDURES: Pharmacologic SPECT Report: Myocardial perfusion imaging with Tc99M Sestamibi SPECT at rest and stresspost regadenoson (Lexiscan) infusion. INDICATIONS: Congestive Heart Failure, High Cholesterol, and I20.89 Other forms ofangina pectoris. FINDINGS: Procedural Findings: One day rest/stress was used. Tc99m Sestamibi injected IV at rest was 8.3 millicuries 24.8 millicuries of Tc99M Sestamibi injected IV during Lexiscan stress Lexiscan 0.4mg administered IV over 10 seconds. Patient had no symptoms during stress test. Baseline heart rate was 73 BPM Maximum Heart Rate Achieved was: 75 BPM Baseline blood pressure was 122/64 mmHg Post Stress Blood Pressure was 120/68 mmHg Termination: Protocol complete. Resting ECG: Sinus rhythm. Poor R wave progression. PAC. Post ECG: No diagnostic ST changes. Perfusion Findings: Normal perfusion imaging. No definite fixed or reversible defects. A TIDof 0.83 was automatically calculated. LV Function: Global left ventricular function is normal with mild LV dilation. Leftventricular ejection fraction is 64 %. CONCLUSIONS: Sinus rhythm Poor R wave progression PAC. No diagnostic ST changes. Global left ventricular function is normal with mild LV dilation Leftventricular ejection fraction is 64 %. Normal perfusion imaging. No definite fixed or reversible defects. A TIDof 0.83 was automatically calculated. Electronically Signed By: Sawyer Hernandez MD, [facility] 09/27/2024 5:29:59 PM PSYCHOLOGY PROFESSOR Electronically Signed By: Sawyer Hernandez MD, [facility] 09/27/2024 5:29:59 PM PSYCHOLOGY PROFESSOR [facility] IMG NM PROCEDURES Final Resu lt from Last 3 [place] [address] MEDICARE [facility] MEDICARE [facility] OOS Care Teams Scrap Handler Relationship Specialty Start Date End Date Sawyer Gutiérrez MD [address] [place] [address] PCP - General Emergency Medicine 10/02/21 Francisco Koehler MD [address] [place] [address] Consulting Physician Neurosurgery 12/14/21
--- OUTSIDE RECORDS SUMMARY | 2024-12-22 08:59 | XMS_ITS | Continuity of Care Document ---
Author Organization [facility] Address [address] [facility] [address] [place] [address] Phone Care Team Providers Care Lithographic Stripper Name Role Phone Isaiah Encarnacion Unavailable Unavailable [...] Diagnoses Date Provider Providers Copied on Encounter [facility], [address] [place] [address] [address], [place], [place], [id number], [place] tel:[phone] [facility] No Information 4-201 0 Shashank Colon. [address], [place], [address], [place]. tel:[phone] [facility], [address] [place] [address] [address], [place], [place], [address], [place] tel:[phone] [facility] No Information 3-201 0 Shashank Colon. [address] , [address], [place], [place], [facility], . tel:[phone] Referring Provider: Richelle Baez OD, [facility] [address] [place], [address]. tel:[phone] Office/outpat ient Visit, [facility] Eye [facility], [address] [place] [address] [address], [place], [place], [address], tel:[phone] [place] [address] No Information 0-201 0 Shashank Colon. [address] [facility] , [address], [place], [place], [facility], . tel:[phone] Referring Provider: Isaiah Mixon, [address], [place], [place], [facility]. tel:[phone] Office/outpat ient Visit, [facility], [address] [facility] [address], [place], [place], [address], tel:[phone] [place] [address] No Information 0 3-201 0 Marci Piña. [address] [place], [place], [facility], [place]. tel:[phone] Referring Provider: Isaiah Mixon, [address] [facility] [address], [place], [facility]. tel:[phone] [facility] Eye [facility], [address] [facility] [address], [place], [place], [address], tel:[phone] [place] [address] No Information 9-201 0 Shashank Colon. [address] [facility] , [address], [place], [facility], [place]. tel:[phone] Referring Provider: Richelle Baez OD, [facility] [address] [place], [place], [facility]. tel:[phone] Family History Family Member Type Diagnosis Age [...]
--- OUTSIDE RECORDS SUMMARY | 2024-12-22 08:59 | XMS_ITS | Referral Summary ---
Author Organization [place] [address] Address [address] [place] [address] Care Team Providers Care Cycle Liaison Name Role Phone Sawyer Gutiérrez MD Primary Care Provide r Francisco Koehler MD Unavailable [phone] Encounters Date Type Department Care Team Description 09/30/2024 Results Follow-Up [facility] Medical [facility] Cardiology [address] [place] [address] Richelle Crow RN NM MPI SPECT (Rest and/or Stress) Multiple Studies 09/27/2024 9:15 AM CLAY ARTIST Ancillary Procedure [facility] Medical [facility] Cardiology [address] [place] [address] [address] [place] [address] Other forms of angina pectoris from Last 3 Months Allergies Active Allergy Reactions Criticality Noted Date [...] sprays into each nostril daily Active cranberry erme-Z-kitxqhkt coag 250-30-50 ko-vy-ocxdmhw tablet Take 1 capsule by mouth 2 [...] on file Legal Sex Female 2:13 AM CLAY ARTIST Gender Identity Not on file Sexual Orientation Not on file Last Filed Vital Signs Vital Sign Reading Time Taken Comments Blood Pressure 124/62 09/15/2024 9:05 AM CLAY ARTIST Pulse 62 09/15/2024 9:05 AM CLAY ARTIST Temperature 36.5 C (97.7 F) 12/14/2021 9:00 AM CDT Respiratory Rate 11 12/14/2021 10:10 AM CDT Oxygen Saturation 96% 09/15/2024 9:05 AM CLAY ARTIST Inhaled Oxygen Concentration - - Weight 42.6 kg (94 lb) 09/15/2024 9:05 AM CLAY ARTIST Height 139.7 cm (4' 7 ) 09/15/2024 9:05 AM CLAY ARTIST Body Mass Index 21.85 09/15/2024 9:05 AM CLAY ARTIST Plan of Treatment Not on file Medical Devices Implanted Type Area Director Of Food And Nutrition Device Identifier Shelf Expiration Date Model / Serial / Lot Medtronic Inc Synchromed Ii .78in [place] Filter Mesh Pouch Programmable 8637-20 - [id number] - [id number] Implanted:Qty: 1 on 12/14/2021 by Francisco Koehler MD at [facility] N/A: Abdomen Med[employer] Inc 05/17/2023 8637-20 / [id number] / Procedures Procedure Name Priority Date/Time Associated Diagnosis Comments NM MPI SPECT (REST AND/OR STRESS) MULTIPLE STUDIES Schedule Routine, Read Routine (OP Routine) 09/27/2024 10:58 AM CLAY ARTIST Other forms of angina pectoris from Last 3 Months Results * NM MPI SPECT (Rest and/or Stress) Multiple Studies (09/27/2024 10:58 AM CLAY ARTIST) Anatomical Region Laterality Modality Body N/A Nuclear Medicine 09/27/2024 9:54 AM CLAY ARTIST Narrative 09/27/2024 6:41 PM CLAY ARTIST [facility] Medical Group Cardiology [address], [place] [address] [address] [facility] [address], [place] [address] P:[phone] P:[phone] MPI Imaging Report Patient Name: DUNIA BRIGGS L : 1940 Study Date: 09/27/2024 9:54:35 AM Gender: F Tech: WILFRED KRISHNAN Location: [facility] Provider: YARELI FALLON Height(Cm): 139.7 BSA: Weight(Kg): [...] calculated. Electronically Signed By: Sawyer Hernandez MD, [facility] 09/27/2024 5:29:59 PM CLAY ARTIST Electronically Signed By: Sawyer Hernandez MD, [facility] 09/27/2024 5:29:59 PM CLAY ARTIST Procedure Note Sawyer Hernandez MD - 09/27/2024 [facility] Medical Group Cardiology [address] [facility] [address], [place] [address] [address] [facility] [address], [place] [address] P:[phone] P:[phone] MPI Imaging Report Patient Name: DUNIA BRIGGS L : 1940 Study Date: 09/27/2024 9:54:35 AM Gender: F Tech: MICHEAL KRISHNANMT Location: [facility] Provider: YARELI FALLON Height(Cm): 139.7 BSA: Weight(Kg): [...] calculated. Electronically Signed By: Sawyer Hernandez MD, [facility] 09/27/2024 5:29:59 PM CLAY ARTIST Electronically Signed By: Sawyer Hernandez MD, [facility] 09/27/2024 5:29:59 PM CLAY ARTIST Yareli Fallon CHEMIST ORGANIC IMG NM PROCEDURES Final Resu lt from Last 3 Months Insurance MEDICARE [employer] TRADITIONAL OOS [place] [id number] Care Teams Cycle Liaison Relationship Specialty Start Date End Date Sawyer Gutiérrez MD [address] [place] [address] PCP - General Emergency Medicine 10/02/21 Francisco Koehler MD [address] [place] [address] Consulting Physician Neurosurgery 12/14/21
[2024-12-22 09:59] LABS: Alanine Aminotransferase 12 U/L (6-35); Alkaline Phosphatase 52 U/L (38-126); Anion Gap 11 mmol/L (4-12); Aspartate Amino Transferase 27 U/L (14-36); Bilirubin,Total 0.4 mg/dL (0.2-1.3); Blood Urea Nitrogen 17 mg/dL (7-17); Calcium 9.7 mg/dL (8.4-10.2); Carbon Dioxide 27 mmol/L (22-30); Chloride 101 mmol/L (98-107); Cholesterol 205 mg/dL (0-200); Estimated Glomerular Filt Rate 60; Glucose 108 mg/dL (65-110); HDL Direct 59 mg/dL; Sodium 139 mmol/L (137-145); Triglycerides 119 mg/dL (<150)
[2024-12-22 10:10] LABS: LDL Cholesterol Direct 85 mg/dL
== END 2024-12-22 08:19 | disposition home or self-care (01) ==
LOC: ANHLAB 08:19
PROVIDERS: PCP Emergency Medicine; Visit Provider Emergency Medicine
DX: E55.9 Vitamin D deficiency, unspecified (principal); E78.5 Hyperlipidemia, unspecified; E87.6 Hypokalemia
CPT/HCPCS: 36415; 80053; 80061; 82306

== ENCOUNTER 2025-03-29 09:21 | Outpatient (CLI) | payer MEDICARE, BC, SELFPAY ==
--- OUTSIDE RECORDS SUMMARY | 2010-06-27 03:15 | XMS_ITS | Continuity of Care Document ---
Author Organization [facility] Address [address] [facility] [address] [place] [address] Phone Care Team Providers Care Field Hockey Coach Name Role Phone Isaiah Encarnacion Unavailable Unavailable [...] Diagnoses Date Provider Providers Copied on Encounter [facility], [address] [place] [address] [address], [place], [place], [id number], [place] tel:[phone] [facility] No Information 4-201 0 Shashank Colon. [address] , [address], [place], [address], [place]. tel:[phone] [facility], [address] [place] [address] [address], [place], [place], [address], [place] tel:[phone] [facility] No Information 3-201 0 Shashank Colon. [address] , [address], [place], [place], [facility], . tel:[phone] Referring Provider: Richelle Baez OD, [facility] [address] [place], [address]. tel:[phone] Office/outpat ient Visit, [facility], [address] [place] [address] [address], [place], [place], [address], tel:[phone] [place] [address] No Information 0-201 0 Shashank Colon. [address] [facility] , [address], [place], [facility], . tel:[phone] Referring Provider: Isaiah Mixon, [address], [place], [facility]. tel:[phone] Office/outpat ient Visit, [facility], [address] [facility] [address], [place], [place], [address], tel:[phone] [place] [address] No Information 0 3-201 0 Marci Piña. [address] [place], [place], [facility], [place]. tel:[phone] Referring Provider: Isaiah Mixon, [address] [facility] [address], [place], [facility]. tel:[phone] [facility], [address] [facility] [address], [place], [place], [id number], tel:[phone] [place] [address] No Information 9-201 0 Shashank Colon. [address] [facility] , [address], [place], [facility], [place]. tel:[phone] Referring Provider: Ricehlle Baez OD, [facility] [address] [place], [place], [facility]. tel:[phone] Family History Family Member Type Diagnosis Age At Onset No Information Payers Payer name Insurance type Covered constitution party ID Authoriza tion(s) No Information Social History [...]
--- OUTSIDE RECORDS SUMMARY | 2025-03-29 09:47 | XMS_ITS | Clinical Summary ---
Author Organization [facility] [address] Address [address] [place] [address] Care Team Providers Care Marine Engineer Name Role Phone Sawyer Gutiérrez MD Primary Care Provide r Francisco Koehler MD Unavailable [phone] Allergies Active Allergy Reactions Criticality Noted [...] sprays into each nostril daily Active cranberry hcgt-U-eodsicyq coag 250-30-50 pi-wa-cifmagv tablet Take 1 capsule by mouth 2 [...] Sleep apnea COPD (chronic obstructive pulmonary disease) GERD (gastroesophageal reflux disease) Arthritis Hypertension 11/23/2021 [...] on file Legal Sex Female 2:13 AM RIGGING ENGINEER Gender Identity Not on file Sexual Orientation Not on file Obstetrics History Last Filed Vital Signs Vital Sign Reading Time Taken Comments Blood Pressure 124/62 09/15/2024 9:05 AM RIGGING ENGINEER Pulse 62 09/15/2024 9:05 AM RIGGING ENGINEER Temperature 36.5 C (97.7 F) 12/14/2021 9:00 AM CDT Respiratory Rate 11 12/14/2021 10:10 AM CDT Oxygen Saturation 96% 09/15/2024 9:05 AM RIGGING ENGINEER Inhaled Oxygen Concentration - - Weight 42.6 kg (94 lb) 09/15/2024 9:05 AM RIGGING ENGINEER Height 139.7 cm (4' 7) 09/15/2024 9:05 AM RIGGING ENGINEER Body Mass Index 21.85 09/15/2024 9:05 AM RIGGING ENGINEER Plan of Treatment Health Maintenance Due Date Last Done Comments Depression Screening 1940 Osteoporosis Screening-Bone Density Scan 1940 Hepatitis B Screening 1956 Pneumococcal vaccine 65+ (1 of 2 - PCV) 1957 Zoster Vaccine (1 of 2) 1988 Well Visit 65+ 12/30/2003 Fall Risk Assessment 12/14/2022 12/14/2021 Covid-19 Vaccine ( season) 2024 05/01/2021, 10/28/2020, 09/28/2020 Influenza Vaccine (#1) 2025 05/06/2020 DTaP/Tdap/Td Vaccine (2 - Td or Tdap) 05/29/2028 Medical Devices Implanted Type Area Display Mechanic Device Identifier Shelf Expiration Date Model / Serial / Lot [employer] Synchromed Ii .78in [place] Filter Mesh Pouch Programmable 8637-20 - [id number] - [id number] Implanted:Qty: 1 on 12/14/2021 by Francisco Koehler MD at [facility] N/A: Abdomen [employer] Inc 05/17/2023 8637-20 / [id number] / Insurance MEDICARE [facility] O MEDICARE BLUE TRADITIONAL OOS Care Teams Marine Engineer Relationship Specialty Start Date End Date Sawyer Gutiérrez MD [address] [place] [address] PCP - General Emergency Medicine 10/02/21 Francisco Koehler MD [address] [place] [address] Consulting Physician Neurosurgery 12/14/21
--- OUTSIDE RECORDS SUMMARY | 2025-03-29 09:47 | XMS_ITS | Encounter Summary ---
Author Organization [facility] Healthcare Address [address] [place] [address] Care Team Providers Care Senior Research Executive Name Role Phone No, Physician Primary Care Provider [phone] Sawyer Gutiérrez MD Primary Care Provide r Francisco Koehler MD Unavailable [phone] Encounter Details Date Type Department Care Team (Late st Contact Info) Description 12/09/2017 Orders Only [facility] [place] Information Management [address] [place] [address] Scanning, Provider Social History Tobacco Use Types Packs/Day Years Used Date Smoking Tobacco: Never Assessed Comments Unknown Sex and Gender Information Value Date Recorded Sex Assigned at Not on file Legal Sex Female 2:13 AM COAL BAGGER Gender Identity Not on file Sexual Orientation Not on file documented as of this encounter Plan of Treatment Not on file documented as of this encounter Procedures Procedure Name Priority Date/Time Associated Diagnosis Comments CARDIOLOGY DOCUMENT SCAN 12/09/2017 documented in this encounter Results * Cardiology Document Scan (12/09/2017) Anatomical Region Laterality Modality Other us Provider Scanning CV CARDIAC SERVICES PROCEDURES Final Result documented in this encounter Visit Diagnoses Not on filedocumented in this encounter Care Teams Senior Research Executive Relationship Specialty Start Date End Date No, Physician PCP - General 03/19/18 10/01/21 Sawyer Gutiérrez MD [address] [place] [address] PCP - General Emergency Medicine 10/02/21 Francisco Koehler MD [address] [place] [address] Consulting Physician Neurosurgery 12/14/21 documented as of this encounter
--- OUTSIDE RECORDS SUMMARY | 2025-03-29 09:47 | XMS_ITS | Encounter Summary ---
Author Organization [facility] Healthcare Address [address] [place] [address] Care Team Providers Care Student Finance Advisor Name Role Phone Sawyer Gutiérrez MD Primary Care Provide r Francisco Koehler MD Unavailable [phone] Encounter Details Date Type Department Care Team (Late st Contact Info) Description 07/18/2024 Orders Only [facility] [place] Health Information Management [address] [place] [address] Scanning, Provider Social History Tobacco Use Types [...] on file Legal Sex Female 2:13 AM TICKET COLLECTOR Gender Identity Not on file Sexual Orientation Not on file documented as of this encounter Plan of Treatment Not on file documented as of this encounter Procedures Procedure Name Priority Date/Time Associated Diagnosis Comments SCAN - RADIOLOGY/IMAGING 07/18/2024 documented in this encounter Results * SCAN - RADIOLOGY/IMAGING (07/18/2024) Anatomical Region Laterality Modality Other us Provider Scanning Final Result documented in this encounter Visit Diagnoses Not on filedocumented in this encounter Care Teams Student Finance Advisor Relationship Specialty Start Date End Date Sawyer Gutiérrez MD [address] [place] [address] PCP - General Emergency Medicine 10/02/21 Francisco Koehler MD [address] [place] [address] Consulting Physician Neurosurgery 12/14/21 documented as of this encounter
[2025-03-29 09:52] LABS: Hematocrit 40.9 % (37.0-47.0); Hemoglobin 13.2 g/dL (12.0-15.0); Mean Corpuscular HGB Conc 32.3 g/dl (32-36); Mean Corpuscular Hemoglobin 28.6 pg (26-34); Mean Corpuscular Volume 88.5 fl (80-100); Platelet Count Result 261 k/mm3 (150-375); Red Blood Count 4.62 M/mm3 (4.2-5.4); White Blood Count 6.1 K/mm3 (4.5-10.0)
[2025-03-29 10:14] LABS: Alanine Aminotransferase 9 U/L (6-35); Albumin Level 4.3 g/dL (3.5-5.1); Alkaline Phosphatase 60 U/L (38-126); Anion Gap 9 mmol/L (4-12); Aspartate Amino Transferase 20 U/L (14-36); Bilirubin,Total 0.4 mg/dL (0.2-1.3); Blood Urea Nitrogen 13 mg/dL (7-17); Calcium 9.6 mg/dL (8.4-10.2); Carbon Dioxide 29 mmol/L (22-30); Chloride 101 mmol/L (98-107); Estimated Glomerular Filt Rate > 60; Glucose 112 mg/dL (65-110); Potassium 3.4 mmol/L (3.4-5.0); Sodium 139 mmol/L (137-145); Total Protein 7.6 g/dL (6.3-8.2)
== END 2025-03-29 09:22 | disposition home or self-care (01) ==
PROVIDERS: PCP Emergency Medicine
DX: L40.0 Psoriasis vulgaris (principal); Z79.899 Other long term (current) drug therapy
CPT/HCPCS: 36415; 80053; 85027; 86480

== ENCOUNTER 2025-04-19 12:04 | Outpatient (CLI) | payer MEDICARE, BC, SELFPAY ==
--- OUTSIDE RECORDS SUMMARY | 2010-06-27 03:15 | XMS_ITS | Continuity of Care Document ---
Author Organization [facility] Address [address] [facility] [address] [place] [address] Phone Care Team Providers Care Travel Counselor Name Role Phone Isaiah Encarnacion Unavailable Unavailable Procedures Procedure Date Post-op Follow-up Visit Remove Cataract, Insert Lens PreOp Assessment Performed Office/outpatient Visit, Est Optic Nerve Head Eval IPO Reduced 15% IOLMaster One Or More Rx Generated And Transmitted Office/outpatient Visit, Est Visual Field Examination(s) Eye Exam, New Patient Advance Directives Directive Yes / No Effective Date File Name No Information Encounters Encounter Description Practice Location Reason(s) For Visit Diagnoses Date Provider Providers Copied on Encounter [facility], [address] [place] [address] [address], [place], [place], [id number], [place] tel:[phone] [facility] (formerly [facility]) No Information 4-201 0 Shashank Colon. [address] , [address], [place], [address], [place]. tel:[phone] [facility], [address] [place] [address] [address], [place], [place], [address], [place] tel:[phone] [facility] No Information 3-201 0 Shashank Colon. [address] , [address], [place], [place], [facility], . tel:[phone] Referring Provider: Richelle Baez OD, [facility] [address] [place], [address]. tel:[phone] Office/outpat ient Visit, [facility], [address] [place] [address] [address], [place], [place], [address], tel:[phone] [place] [address] No Information 0-201 0 Shashank Colon. [address] [facility] , [address], [place], [place], [facility], . tel:[phone] Referring Provider: Isaiah Mixon, [address], [place], [facility]. tel:[phone] Office/outpat ient Visit, [facility], [address] [facility] [address], [place], [place], [address], tel:[phone] [place] [address] No Information 0 3-201 0 Marci Piña. [address] [place], [place], [facility], [place]. tel:[phone] Referring Provider: Isaiah Mixon, [address] [facility] [address], [place], [facility]. tel:[phone] [facility], [address] [facility] [address], [place], [place], [id number], tel:[phone] [place] [address] No Information 9-201 0 Shashank Colon. [address] [facility] , [address], [place], [place], [facility], [place]. tel:[phone] Referring Provider: Richelle Baez OD, [facility] [address] [place], [place], [facility]. tel:[phone] Family History Family Member Type Diagnosis Age At Onset No Information Payers Payer name Insurance type Covered libertarian ID Authoriza tion(s) No Information Social History Type Description Quantity Date Captured Comments Sex Female Smoking Status No Information Chief Complaint And Reason For Visit No Information Reason For Referral Reason For Referral No Information History Of Present Illness Encounter Date Complaint History Of Prese nt Illness No Information Functional Status Date Functional Assessmen t No Information Instructions Date Instruction Additional Infor mation No Information Assessments Type Assessment Date No Information Patient Care Teams Name Effective Dates (start - stop) Status Members No Information
[2025-04-19 12:53] LABS: Alanine Aminotransferase 9 U/L (6-35); Albumin Level 4.2 g/dL (3.5-5.1); Alkaline Phosphatase 67 U/L (38-126); Anion Gap 5 mmol/L (4-12); Aspartate Amino Transferase 25 U/L (14-36); Bilirubin,Total 0.5 mg/dL (0.2-1.3); Blood Urea Nitrogen 18 mg/dL (7-17); Calcium 10.3 mg/dL (8.4-10.2); Carbon Dioxide 33 mmol/L (22-30); Chloride 101 mmol/L (98-107); Cholesterol 208 mg/dL (0-200); Estimated Glomerular Filt Rate 54; Glucose 103 mg/dL (65-110); HDL Direct 59 mg/dL; Potassium 3.1 mmol/L (3.4-5.0); Sodium 139 mmol/L (137-145); Total Protein 7.8 g/dL (6.3-8.2); Triglycerides 133 mg/dL (<150)
--- OUTSIDE RECORDS SUMMARY | 2025-04-19 13:57 | XMS_ITS | Clinical Summary ---
Author Organization [facility] [place] [address] Address [address] [place] [address] Care Team Providers Care Rn Peritoneal Dialysis Name Role Phone Sawyer Gutiérrez MD Primary Care Provide r Fracnisco Koehler MD Unavailable [phone] Allergies Active Allergy Reactions Criticality Noted [...] sprays into each nostril daily Active cranberry elxy-C-stfptgfy coag 250-30-50 hx-sy-mnrixdj tablet Take 1 capsule by mouth 2 [...] on file Legal Sex Female 2:13 AM ASIC VERIFICATION ENGINEER Gender Identity Not on file Sexual Orientation Not on file Obstetrics History Last Filed Vital Signs Vital Sign Reading Time Taken Comments Blood Pressure 124/62 09/15/2024 9:05 AM ASIC VERIFICATION ENGINEER Pulse 62 09/15/2024 9:05 AM ASIC VERIFICATION ENGINEER Temperature 36.5 C (97.7 F) 12/14/2021 9:00 AM CDT Respiratory Rate 11 12/14/2021 10:10 AM CDT Oxygen Saturation 96% 09/15/2024 9:05 AM ASIC VERIFICATION ENGINEER Inhaled Oxygen Concentration - - Weight 42.6 kg (94 lb) 09/15/2024 9:05 AM ASIC VERIFICATION ENGINEER Height 139.7 cm (4' 7) 09/15/2024 9:05 AM ASIC VERIFICATION ENGINEER Body Mass Index 21.85 09/15/2024 9:05 AM ASIC VERIFICATION ENGINEER Plan of Treatment Health Maintenance Due Date Last Done Comments Depression Screening 1938 Osteoporosis Screening-Bone Density Scan 1938 Hepatitis B Screening 1956 Pneumococcal vaccine 65+ (1 of 2 - PCV) 1957 Zoster Vaccine (1 of 2) 1988 Well Visit 65+ 12/30/2003 Fall Risk Assessment 12/14/2022 12/14/2021 Covid-19 Vaccine ( - season) 2025 05/01/2021, 10/28/2020, 09/28/2020 Influenza Vaccine (#1) 2025 05/06/2020 DTaP/Tdap/Td Vaccine (2 - Td or Tdap) 05/29/2028 Medical Devices Implanted Type Area Salon Assistant Device Identifier Shelf Expiration Date Model / Serial / Lot [employer] Synchromed Ii .78in [place] Filter Mesh Pouch Programmable 8637-20 - [id number] - [id number] Implanted:Qty: 1 on 12/14/2021 by Francisco Koehler MD at [facility] N/A: Abdomen [employer] 05/17/2023 8637-20 / [id number] / Insurance MEDICARE [facility] O MEDICARE BLUE TRADITIONAL OOS Care Teams Rn Peritoneal Dialysis Relationship Specialty Start Date End Date Sawyer Gutiérrez MD [address] [place] [address] PCP - General Emergency Medicine 10/02/21 Francisco Koehler MD [address] [place] [address] Consulting Physician Neurosurgery 12/14/21
--- OUTSIDE RECORDS SUMMARY | 2025-04-19 13:57 | XMS_ITS | Encounter Summary ---
Author Organization [facility] Healthcare Address [address] [place] [address] Care Team Providers Care Apricot Washer Name Role Phone Sawyer Gutiérrez MD Primary Care Provide r Francisco Koehler MD Unavailable [phone] Encounter Details Date Type Department Care Team (Late st Contact Info) Description 07/18/2024 Orders Only [facility] Health Information Management [address] [place] [address] Scanning, Provider Social History Tobacco Use Types [...] on file Legal Sex Female 2:13 AM CHEMISTRY SPECIALIST Gender Identity Not on file Sexual Orientation [...] on filedocumented in this encounter Care Teams Apricot Washer Relationship Specialty Start Date End Date Sawyer Gutiérrez MD [address] [place] [address] PCP - General Emergency Medicine 10/02/21 Francisco Koehler MD [address] [place] [address] Consulting Physician Neurosurgery 12/14/21 documented as of this encounter
--- OUTSIDE RECORDS SUMMARY | 2025-04-19 13:57 | XMS_ITS | Encounter Summary ---
Author Organization [facility] Healthcare Address [address] [place] [address] Care Team Providers Care Marketing Clerk Name Role Phone No, Physician Primary Care Provider [phone] Sawyer Gutiérrez MD Primary Care Provide r Francisco Koehler MD Unavailable [phone] Encounter Details Date Type Department Care Team (Late st Contact Info) Description 12/09/2017 Orders Only [facility] [place] Health Information Management [address] [place] [address] Scanning, Provider Social History Tobacco Use Types Packs/Day Years Used Date Smoking Tobacco: Never Assessed Comments Unknown Sex and Gender Information Value Date Recorded Sex Assigned at Not on file Legal Sex Female 2:13 AM REFUELER Gender Identity Not on file Sexual Orientation [...] filedocumented in this encounter Care Teams Marketing Clerk Relationship Specialty Start Date End Date No, Physician PCP - General 03/19/18 10/01/21 Sawyer Gutiérrez MD [address] [place] [address] PCP - General Emergency Medicine 10/02/21 Francisco Koehler MD [address] [place] [address] Consulting Physician Neurosurgery 12/14/21 documented as of this encounter
== END 2025-04-19 12:05 | disposition home or self-care (01) ==
PROVIDERS: PCP Emergency Medicine; Visit Provider Emergency Medicine
DX: E78.5 Hyperlipidemia, unspecified (principal); E55.9 Vitamin D deficiency, unspecified
CPT/HCPCS: 36415; 80053; 80061; 82306

== ENCOUNTER 2025-05-03 10:35 | Outpatient (CLI) | payer MEDICARE, BC, SELFPAY ==
--- OUTSIDE RECORDS SUMMARY | 2025-05-03 11:23 | XMS_ITS | Encounter Summary ---
Author Organization [facility] Healthcare Address [address] [place] [address] Care Team Providers Care Director Of Student Aid Name Role Phone Sawyer Gutiérrez MD Primary Care Provide r Francisco Koehler MD Unavailable [phone] Encounter Details Date Type Department Care Team (Late st Contact Info) Description 07/18/2024 Orders Only [facility] [place] Management [address] [place] [address] Scanning, Provider Social History Tobacco Use Types [...] on file Legal Sex Female 2:13 AM TRAVELERS' AID WORKER Gender Identity Not on file Sexual Orientation [...] on filedocumented in this encounter Care Teams Director Of Student Aid Relationship Specialty Start Date End Date Sawyer Gutiérrez MD [address] [place] [address] PCP - General Emergency Medicine 10/02/21 Francisco Koehler MD [address] [place] [address] Consulting Physician Neurosurgery 12/14/21 documented as of this encounter
--- OUTSIDE RECORDS SUMMARY | 2025-05-03 11:23 | XMS_ITS | Encounter Summary ---
Author Organization [facility] Healthcare Address [address] [place] [address] Care Team Providers Care Liner Checker Name Role Phone No, Physician Primary Care Provider [phone] Sawyer Gutiérrez MD Primary Care Provide r Francisco Koehler MD Unavailable [phone] Encounter Details Date Type Department Care Team (Late st Contact Info) Description 12/09/2017 Orders Only [facility] [place] Health Information Management [address] [place] [address] Scanning, Provider Social History Tobacco Use Types Packs/Day Years Used Date Smoking Tobacco: Never Assessed Comments Unknown Sex and Gender Information Value Date Recorded Sex Assigned at Not on file Legal Sex Female 2:13 AM PARACHUTE RIGGER Gender Identity Not on file Sexual [...] on filedocumented in this encounter Care Teams Liner Checker Relationship Specialty Start Date End Date No, Physician PCP - General 03/19/18 10/01/21 Sawyer Gutiérrez MD [address] [place] [address] PCP - General Emergency Medicine 10/02/21 Francisco Koehler MD [address] [place] [address] Consulting Physician Neurosurgery 12/14/21 documented as of this encounter
--- OUTSIDE RECORDS SUMMARY | 2025-05-03 11:23 | XMS_ITS | Clinical Summary ---
Author Organization [facility] Address [address] [place] [address] Care Team Providers Care Proposal Manager Name Role Phone Sawyer Gutiérrez MD Primary Care Provider [phone] Social History Tobacco Use Types Packs/Day Years Used Date Smoking Tobacco: Never Assessed Comments Unknown Sex and Gender Information Value Date Recorded Sex Assigned at Not on file Legal Sex Female 9:33 AM CDT Gender Identity Not on file Sexual Orientation Not on file Plan of Treatment Health Maintenance Due Date Last Done Comments Pneumococcal Vaccine: 50+ Years (1 of 1 - PCV) 1988 Zoster Vaccines (1 of 2) 1988 Annual Medicare Wellness Visit 12/30/2003 RSV Immunization or 60+ Years (1 - 1-dose 75+ series) 2013 COVID-19 Vaccine (2024-2 6 season) 2025 05/01/2021, 10/28/2020, 09/28/2020 DTaP, Tdap and Td Vaccines ( 2 - Td or Tdap) 05/29/2028 05/29/2018 Meningococcal B Vaccine Aged Out No l onger eligible based on patient's age to complete this topic Meningococcal Vaccine Aged Out No vicente hernando eligible based on patient's age to complete this topic RSV Immunizations Under 20 Months Aged Out No longer eligible b ased on patient's age to complete [place] [address] MEDICARE [facility] Care Teams Proposal Manager Relationship Specialty Start Date End Date Sawyer Gutiérrez MD [address] [place] [address] PCP - General INTERNAL MEDICINE 12/20/21
--- OUTSIDE RECORDS SUMMARY | 2025-05-03 11:23 | XMS_ITS | Clinical Summary ---
Author Organization [facility] [place] [address] Address [address] [place] [address] Care Team Providers Care Crane Operator Cab Name Role Phone Sawyer Gutiérrez MD Primary Care Provide r Francisco Koehler MD Unavailable [phone] Allergies Active Allergy Reactions Criticality Noted [...] sprays into each nostril daily Active cranberry iqob-H-dkzuppmk coag 250-30-50 dr-vm-kkcdmbm tablet Take 1 capsule by mouth 2 [...] on file Legal Sex Female 2:13 AM MECHANIC CHIEF Gender Identity Not on file Sexual Orientation Not on file Obstetrics History Last Filed Vital Signs Vital Sign Reading Time Taken Comments Blood Pressure 124/62 09/15/2024 9:05 AM MECHANIC CHIEF Pulse 62 09/15/2024 9:05 AM MECHANIC CHIEF Temperature 36.5 C (97.7 F) 12/14/2021 9:00 AM CDT Respiratory Rate 11 12/14/2021 10:10 AM CDT Oxygen Saturation 96% 09/15/2024 9:05 AM MECHANIC CHIEF Inhaled Oxygen Concentration - - Weight 42.6 kg (94 lb) 09/15/2024 9:05 AM MECHANIC CHIEF Height 139.7 cm (4' 7) 09/15/2024 9:05 AM MECHANIC CHIEF Body Mass Index 21.85 09/15/2024 9:05 AM MECHANIC CHIEF Plan of Treatment Health Maintenance Due Date [...] Tdap) 05/29/2028 Medical Devices Implanted Type Area Slasher Operator Device Identifier Shelf Expiration Date Model / Serial / Lot [employer] Synchromed Ii .78in [place] Filter Mesh Pouch Programmable 8637-20 - [id number] - [id number] Implanted:Qty: 1 on 12/14/2021 by Francisco Koehler MD at [facility] N/A: Abdomen [employer] 05/17/2023 8637-20 / [id number] / Insurance MEDICARE [employer] O MEDICARE BLUE TRADITIONAL OOS Care Teams Crane Operator Cab Relationship Specialty Start Date End Date Sawyer Gutiérrez MD [address] [place] [address] PCP - General Emergency Medicine 10/02/21 Francisco Koehler MD [address] [place] [address] Consulting Physician Neurosurgery 12/14/21
[2025-05-03 11:39] LABS: Potassium 3.2 mmol/L (3.4-5.0)
== END 2025-05-03 10:36 | disposition home or self-care (01) ==
PROVIDERS: PCP Emergency Medicine; Visit Provider Emergency Medicine
DX: E87.6 Hypokalemia (principal)
CPT/HCPCS: 36415; 84132

== ENCOUNTER 2025-05-24 10:46 | Outpatient (CLI) | payer MEDICARE, BC, SELFPAY ==
[2025-05-24 11:41] LABS: Alanine Aminotransferase 9 U/L (6-35); Albumin Level 4.2 g/dL (3.5-5.1); Alkaline Phosphatase 52 U/L (38-126); Anion Gap 6 mmol/L (4-12); Aspartate Amino Transferase 25 U/L (14-36); Bilirubin,Total 0.4 mg/dL (0.2-1.3); Blood Urea Nitrogen 25 mg/dL (7-17); Calcium 9.9 mg/dL (8.4-10.2); Carbon Dioxide 27 mmol/L (22-30); Chloride 104 mmol/L (98-107); Cholesterol 173 mg/dL (0-200); Estimated Glomerular Filt Rate 57; Glucose 89 mg/dL (65-110); HDL Direct 51 mg/dL; Potassium 4.3 mmol/L (3.4-5.0); Sodium 137 mmol/L (137-145); Total Protein 7.5 g/dL (6.3-8.2); Triglycerides 123 mg/dL (<150)
== END 2025-05-24 10:47 | disposition home or self-care (01) ==
PROVIDERS: PCP Emergency Medicine; Visit Provider Emergency Medicine
DX: E78.5 Hyperlipidemia, unspecified (principal); E55.9 Vitamin D deficiency, unspecified
CPT/HCPCS: 36415; 80053; 80061; 82306